=== PATIENT | male | born 1965 | race Caucasian/White ===

== ENCOUNTER 2021-03-14 14:04 | Inpatient (IN) ==
[2021-03-14] MEDS ORDERED: SOLU-Medrol 125 MG VIAL IVP ONE (14:10)
[2021-03-14] MEDS ORDERED: REGEN-COV VIAL 10 ML, DRUG FILTER EXTENSION SET * 1 EA in NS 100 ML IV 100 ML IV ONE ×2 (14:10)
[2021-03-14] MEDS ORDERED: TYLENOL 325 MG TAB PO ONE (14:10)
--- NOTE | 2021-03-14 14:38 | RAD ---
HISTORYPre COVID-19 infusion, feverSTUDYChest PA and lateralCOMPARISONNoneFINDINGSHypo inflation accentuates the heart size. It is likely within normal limits. Bilateral perihilar interstitial infiltrates are present. Additionally bibasilar ground-glass and some alveolar infiltrates are present. The upper lung kulkarni are clear. No pleural effusions are identified. Bony thorax is unremarkable.IMPRESSIONPerihilar interstitial infiltrates and bibasilar ground-glass and alveolar infiltrates most consistent with multifocal pneumonia. Findings are consistent with but not necessarily diagnostic of COVID-19 lung involvementElectronically signed by: GABY CLARK (Mar 14, 2021 14:36:17)
[2021-03-14] MEDS ORDERED: NS 100 ML IV 100 ML ONE ×2 (14:59→16:05)
[2021-03-14] MEDS ORDERED: REMDESIVIR IV ONE (15:00)
[2021-03-14] MEDS ORDERED: REMDESIVIR 200 MG in NS 100 ML IV 140 ML IV ONE (15:00)
[2021-03-14] MEDS ORDERED: NS 250 ML IV 250 ML IV ONE (15:00)
[2021-03-14 15:10] LABS: BASOPHILS % (AUTO) 0.3 % (0.2-1.0); HEMATOCRIT 45.2 % (42.0-54.0); HEMOGLOBIN 15.6 g/dL (13.5-18.0); LYMPHOCYTES # (AUTO) 0.7 X10^3/uL (1.3-2.9); LYMPHOCYTES % (AUTO) 16.9 % (21.0-51.0); MEAN CORPUSCULAR HEMOGLOBIN 31.1 pg (27.0-34.0); MEAN CORPUSCULAR HGB CONC 34.6 g/dL (33.0-35.0); MEAN PLATELET VOLUME 8.9 fL (7.4-11.0); MONOCYTES # (AUTO) 0.3 x10^3/uL (0.3-0.8); MONOCYTES % (AUTO) 7.1 % (0.0-13.0); NEUTROPHILS % (AUTO) 75.7 % (42.0-75.0); PLATELET COUNT 136 X10^3/uL (150.0-450.0); RED BLOOD COUNT 5.02 X10^6/uL (4.7-6.0); RED CELL DISTRIBUTION WIDTH 12.8 % (11.6-16.5); WHITE BLOOD COUNT 3.9 X10^3/uL (3.6-10.0)
[2021-03-14 15:28] LABS: ALANINE AMINOTRANSFERASE 53 Units/L (12-78); ALBUMIN 2.9 g/dL (3.4-5.0); ALKALINE PHOSPHATASE 52 Units/L (46-116); ASPARTATE AMINO TRANSFERASE 48 Units/L (15-37); BLOOD UREA NITROGEN 28 mg/dL (7-18); CALCIUM 8.5 mg/dL (8.5-10.1); CARBON DIOXIDE 26.8 mmol/L (21-32); CHLORIDE 100 mmol/L (98-107); COR CA(FOR HYPOALB) 9.4 mg/dL (8.5-10.1); CREATININE 1.35 mg/dL (0.70-1.30); SODIUM 136 mmol/L (136-145); TOTAL PROTEIN 7.1 g/dL (6.4-8.2); eGFR NON BLACK RACES 59 (>60)
[2021-03-14] MEDS ORDERED: TUSSIONEX PENNKINETIC SUSP PO PRN (15:40)
[2021-03-14] MEDS ORDERED: ROBITUSSIN DM PO PRN (15:40)
[2021-03-14 15:51] LABS: ABG ALLEN TEST POS; ABG BASE EXCESS 0.8 mmol/L (-2.0-2.0)
[2021-03-14] MEDS ORDERED: PHARMACY CONSULT - IVERMECTIN XX SCH (16:00)
[2021-03-14 16:42] LABS: CKMB % 1.5 % (<4); CREATINE KINASE 69 Units/L (39-308); CREATINE KINASE MB < 1.0 ng/mL (0-4.0); TROPONIN I < 0.02 ng/mL (0-1.5)
--- NOTE | 2021-03-14 16:47 | CT ---
CTA CHESTCLINICAL INDICATION: SOB, HYPOXIA, COVIDPROCEDURE: Non gated axial images of the chest were obtained with intravenous contrast according to pulmonary embolism protocol. MIPS were reconstructed Dose reduction techniques including Automated Exposure Control (AEC) and adjustment of mA and kV were utlized.COMPARISON:NoneFINDINGS:No evidence of a pulmonary embolism to the level of the segmental pulmonary arteries.The heart is normal in size . No pericardial effusion . Patchy bilateral ground-glass opacities are present. No suspicious mediastinal or axillary lymph nodes . No focal consolidations, pleural effusions or pneumothorax .Airways are patent . No suspicious pulmonary nodules or masses .Limited images of the upper abdomen are unremarkable.No aggressive osseous lesions.IMPRESSION:1. No evidence of pulmonary embolism.2. Patchy bilateral ground-glass opacities consistent with acute, atypical infection including viral etiologies.Electronically signed by: PASTOR GOMEZ (Mar 14, 2021 16:45:27)
[2021-03-14] MEDS ORDERED: ACCUNEB 1.25 MG NEBULE NEB SCH (17:00)
[2021-03-14] MEDS ORDERED: NS 1/2 1000 ML IV 1,000 ML IV ONE (17:31)
[2021-03-14] MEDS: NS 1/2 1000 ML IV 1,000 ML IV SCH (17:53)
[2021-03-14] MEDS: HEPARIN SODIUM INJ 5000 UNITS SC SCH ×2 (17:54→22:03)
[2021-03-14] MEDS: IVERMECTIN PO SCH (17:55)
[2021-03-14] MEDS: FLUVOXAMINE MALEATE PO SCH ×2 (17:55→22:00)
[2021-03-14] MEDS: AVODART PO SCH (17:56)
[2021-03-14] MEDS: TESSALON PERLES PO SCH ×2 (17:56→22:04)
[2021-03-14] MEDS: PEPCID TAB 20 MG PO SCH ×2 (17:56→22:01)
[2021-03-14] MEDS: PERIACTIN TAB 4 MG PO SCH ×2 (17:56→22:03)
[2021-03-14] MEDS: PROTONIX TAB 40 MG PO SCH ×2 (17:57→22:02)
[2021-03-14] MEDS ORDERED: PULMICORT NEB TX 0.5 MG NEB ONE (19:38)
[2021-03-14] MEDS ORDERED: BROVANA ONE (19:39)
[2021-03-14] MEDS: SNACK - Diabetic Appropriate PO SCH (19:45)
[2021-03-14] MEDS: BROVANA IN SCH (20:30)
[2021-03-14] MEDS: PULMICORT NEB TX 0.5 MG NEB SCH (20:30)
[2021-03-14] MEDS ORDERED: LOVENOX INJ 120 MG SYR SC SCH (21:00)
[2021-03-14] MEDS: SINGULAIR TAB 10 MG PO SCH (21:32)
[2021-03-14] MEDS: SOLU-Medrol 125 MG VIAL IVP SCH (21:32)
[2021-03-14] MEDS: MELATONIN PO SCH (21:32)
[2021-03-14] MEDS: ASCORBIC ACID INJ MULTI-DOSE VIAL 1,500 MG in NS 50 ML IV 50 ML IV SCH (21:32)
[2021-03-14] MEDS: LIPITOR TAB 80 MG PO SCH (21:32)
[2021-03-14] MEDS: FORTAZ or TAZICEF VIAL INJ IV SCH (21:32)
[2021-03-14] MEDS: THIAMINE HCL INJ IVP SCH (21:32)
[2021-03-14] MEDS: TYLENOL 325 MG TAB PO PRN (22:20)
[2021-03-15] MEDS: ASCORBIC ACID INJ MULTI-DOSE VIAL 1,500 MG in NS 50 ML IV 50 ML IV SCH ×4 (02:12→21:11)
[2021-03-15] MEDS: SOLU-Medrol 125 MG VIAL IVP SCH ×4 (02:12→21:10)
[2021-03-15] MEDS ORDERED: NS 1/2 1000 ML IV 1,000 ML IV ONE ×2 (04:46→17:57)
[2021-03-15 05:30] LABS: ABG ALLEN TEST POS; ABG BASE EXCESS 1.1 mmol/L (-2.0-2.0); ABG HCO3 25.1 mmol/L (22-26)
[2021-03-15] MEDS: HEPARIN SODIUM INJ 5000 UNITS SC SCH ×3 (05:43→22:27)
[2021-03-15] MEDS: FORTAZ or TAZICEF VIAL INJ IV SCH ×3 (05:43→21:12)
[2021-03-15] MEDS: NS 1/2 1000 ML IV 1,000 ML IV SCH ×2 (05:43→18:23)
[2021-03-15] MEDS: PERIACTIN TAB 4 MG PO SCH ×3 (05:44→21:11)
[2021-03-15] MEDS: TESSALON PERLES PO SCH ×3 (05:44→21:12)
[2021-03-15 06:23] LABS: BASOPHILS % (AUTO) 0.2 % (0.2-1.0); HEMATOCRIT 45.1 % (42.0-54.0); HEMOGLOBIN 15.7 g/dL (13.5-18.0); LYMPHOCYTES # (AUTO) 0.5 X10^3/uL (1.3-2.9); LYMPHOCYTES % (AUTO) 13.8 % (21.0-51.0); MEAN CORPUSCULAR HEMOGLOBIN 31.6 pg (27.0-34.0); MEAN CORPUSCULAR HGB CONC 34.9 g/dL (33.0-35.0); MEAN CORPUSCULAR VOLUME 90.8 fL (80.0-100.0); MEAN PLATELET VOLUME 8.8 fL (7.4-11.0); MONOCYTES # (AUTO) 0.1 x10^3/uL (0.3-0.8); MONOCYTES % (AUTO) 3.3 % (0.0-13.0); NEUTROPHILS # (AUTO) 2.9 x10^3/uL (2.2-4.8); NEUTROPHILS % (AUTO) 82.7 % (42.0-75.0); PLATELET COUNT 142 X10^3/uL (150.0-450.0); RED BLOOD COUNT 4.97 X10^6/uL (4.7-6.0); RED CELL DISTRIBUTION WIDTH 12.9 % (11.6-16.5); WHITE BLOOD COUNT 3.5 X10^3/uL (3.6-10.0)
[2021-03-15 06:38] LABS: ALANINE AMINOTRANSFERASE 45 Units/L (12-78); ALBUMIN 2.6 g/dL (3.4-5.0); ALKALINE PHOSPHATASE 51 Units/L (46-116); ASPARTATE AMINO TRANSFERASE 46 Units/L (15-37); BLOOD UREA NITROGEN 24 mg/dL (7-18); CALCIUM 8.7 mg/dL (8.5-10.1); CARBON DIOXIDE 28.5 mmol/L (21-32); CHLORIDE 104 mmol/L (98-107); COR CA(FOR HYPOALB) 9.8 mg/dL (8.5-10.1); COR NA(FOR HYPERGLY) 140 mmol/L (136-145); CREATININE 1.14 mg/dL (0.70-1.30); SODIUM 139 mmol/L (136-145); eGFR NON BLACK RACES > 60 (>60)
--- NOTE | 2021-03-15 07:28 | RAD ---
HISTORYShortness of breathSTUDYChest AP [id number]/25/2021 chest x-ray and CTA chestFINDINGSHeart is upper limits normal in size. No congestive heart failure is noted. The lungs are better inflated than on the prior examination. Diffuse bilateral interstitial and ground-glass infiltrates are slightly less prominent than on the prior examination likely due to improve film technique and better inspiration. No pleural effusions or pneumothoraces are identified. Bony thorax is unremarkable.IMPRESSIONNo change cardiomegaly without congestive heart failureBilateral interstitial and ground-glass infiltrates are slightly less prominent on the prior examination likely partially due to improved film technique and better inspiration.Electronically signed by: GABY CLARK (Mar 15, 2021 07:27:22)
[2021-03-15] MEDS: PULMICORT NEB TX 0.5 MG NEB SCH ×2 (08:27→20:35)
[2021-03-15] MEDS: BROVANA IN SCH ×2 (08:27→20:35)
[2021-03-15] MEDS: AVODART PO SCH (08:46)
[2021-03-15] MEDS: PEPCID TAB 20 MG PO SCH ×2 (08:46→21:11)
[2021-03-15] MEDS: PROTONIX TAB 40 MG PO SCH ×2 (08:46→21:11)
[2021-03-15] MEDS: FLUVOXAMINE MALEATE PO SCH ×2 (08:46→21:12)
[2021-03-15] MEDS: THIAMINE HCL INJ IVP SCH ×2 (08:47→21:12)
[2021-03-15] MEDS: VITAMIN D3 125 mcg (5,000 UNITS) PO SCH (08:53)
[2021-03-15] MEDS: ZyrTEC TAB 10 MG PO SCH (08:53)
[2021-03-15] MEDS: IVERMECTIN PO SCH (09:50)
[2021-03-15] MEDS: LEVAQUIN PREMIX IV 500 MG 500 MG/100 ML BAG IV SCH (09:50)
[2021-03-15] MEDS: ZINC SULFATE PO SCH (09:50)
[2021-03-15] MEDS: REMDESIVIR 100 MG in NS 250 ML IV 250 ML IV SCH (10:30)
[2021-03-15] MEDS: TYLENOL 325 MG TAB PO PRN ×2 (11:03→18:55)
[2021-03-15] MEDS: HumuLIN R SUBCUT PRN ×2 (11:08→17:42)
--- NOTE | 2021-03-15 11:47 | DR.H&P ---
H&P - History & Physical for Day of: H&P Date: 03/14/21 - Chief Complaint Chief Complaint: COVID, COUGH, SOB - History of Present Illness History of Present Illness: IS A 55 YEAR OLD PATIENT OF OURS. HE WAS A DIRECT ADMISSION TO THE HOSPITAL FOR DIAGNOSIS OF PNEUMONIA DUE TO COVID-19 AND HYPOXIA. HE WAS AT THE HOSPITAL TO RECEIVE OUTPATIENT COVID INFUSION. BEFORE RECEIVING INFUSION, HIS OXYGEN SATURATIONS WERE NOTED TO BE 82% ON ROOM AIR. PATIENT WAS ALSO NOTED TO BE CYANOTIC. OXYGEN WAS APPLIED. OXYGEN SATURATIONS HAD ONLY INCREASED TO 87% ON 5 LITERS OF OXYGEN VIA NASAL CANNULA. PATIENT HAD ALSO TAKEN IVERMECTIN X 2 DOSES, A MEDROL DOSEPACK, LEVAQUIN 500MG PO DAILY, AZITHROMYCIN 500MG PO DAILY, AND TUSSIONEX COUGH MEDICATION. HIS PMH INCLUDES: OBESITY, HTN, GERD, HYPERLIPIDEMIA. ON ARRIVAL TO THE UNIT, VITALS WERE 98.2- 87-18-82%-119/57. LABS WERE OBTAINED. ABNORMAL LAB VALUES INCLUDED THE FOLLOWING: PLT COUNT 136, BUN 28, CREATININE 1.35, GLUCOSE 107, AST 48, CRP 83.70, ALBUMIN 2.9. CARDIAC ENZYMES WERE WITHIN NORMAL LIMITS. AN ABG WAS OBTAINED AND REVEALED: PH 7.470, PC02 33, P02 56, HC03 24, 02 SAT 91, A-A GRADIENT 159, FI02 36. BLOOD CULTURES WERE SET UP. CHEST XRAY WAS OBTAINED AND REVEALED: MILD WORSENING OF BILATERAL MULTIFOCAL LUNG INFILTRATES. CHEST CTA REVEALED: Perihilar interstitial infiltrates and bibasilar ground-glass and alveolar infiltrates most consistent with multifocal pneumonia. Findings are consistent with but not necessarily diagnostic of COVID-19 lung involvement. CHEST CTA WAS OBTAINED AND REVEALED: 1. No evidence of pulmonary embolism. 2. Patchy bilateral ground-glass opacities consistent with acute, atypical infection including viral etiologies. EKG REVEALED: SINUS RHYTHM WITH HR 90. HE WAS STARTED ON 1/2NS AT 75 ML/HR, LEVAQUIN 500MG IV DAILY, FORTAZ 1G IV Q8H, REMDESIVIR 100MG IV DAILY, ASCORBIC ACID 1500MG IV Q6H, ALBUTEROL NEBS QID, PULMICORT NEBS BID, BROVANA INHALER BID, SOLU-MEDROL 125MG IV Q6H, FLUVOXAMINE 50MG PO BID, CYPROHEPTADINE 8MG PO TID, AVODART DAILY, HEPARIN 5,000UNITS SC TID, LIPITOR 80MG PO HS, TESSALON PERLES 200MG PO TID, CETIRIZINE 10MG PO DAILY, TUSSIONEX 5ML PO Q12H PRN, PEPCID 20MG PO BID, ROBITUSSIN DM 10ML PO QID PRN, HUMULIN R SLIDING SCALE, MELATONIN 10MG PO HS, SINGULAIR 10MG PO HS, PROTONIX 40MG PO BID, THIAMINE 200MG IV BID, AND ZINC SULFATE 220MG PO BID. OTHERWISE, WE PLAN TO FOLLOW UP WITH AM LABS AND CHEST XRAY AND CONTINUE TO MONITOR. TIME SPENT ON CLINICAL ASSESSMENT, REVIEWING LABS AND IMAGING, DECISION MAKING, AND DOCUMENTATION GREATER THAN 75 MINUTES. - Past Medical History Past Medical History: Dyslipidemia, GERD, Hypertension - Medications Home Medications: No Allergy Information Available Allergy (Verified 03/14/21 14:24) CONTINUE taking the following medications atorvastatin 20 mg PO HS 03/15/21 [History] azithromycin 500 mg PO DAILY 03/15/21 [History] escitalopram oxalate 20 mg PO DAILY 03/15/21 [History] fenofibrate 160 mg PO DAILY 03/15/21 [History] ivermectin 24 mg PO ONCE 03/15/21 [History] levofloxacin 500 mg PO DAILY 03/15/21 [History] lisinopril 10 mg PO DAILY 03/15/21 [History] methylprednisolone 12 mg PO DAILY 03/15/21 [History] metoprolol succinate 100 mg PO DAILY 03/15/21 [History] pantoprazole 40 mg PO DAILY 03/15/21 [History] temazepam 15 mg PO HS PRN 03/15/21 [History] - Review of Systems Constitutional: See HPI, Fever, Chills, Weakness Eyes: No Symptoms Reported ENT: No Symptoms Reported Respiratory: See HPI, Cough, Shortness of Breath, SOB with Excertion Cardiovascular: No Symptoms Reported Gastrointestinal: No Symptoms Reported Genitourinary: No Symptoms Reported Musculoskeletal: No Symptoms Reported Skin: No Symptoms Reported Neurological: Weakness - Physical Exam Vital Signs: Temperature 98.3 F Pulse Rate [Left Radial] 77 Pulse Rate 80 Respiratory Rate 20 Blood Pressure [Left Arm] 128/75 O2 Sat by Pulse Oximetry 89 Oriented: Normal Eyes: Normal Ear: Normal Nose: Normal Throat: Normal Respiratory: Rales Throughout Cardiovascular: Normal : Normal Auscultation: Bowel Sounds: Normal Palpation: Normal Tenderness: Normal Skin: Normal Musculoskeletal: Normal Psychiatric: Normal Mood Description: Calm Affect: Normal Speech Pattern: Clear - Assessment/Plan (1) Pneumonia due to COVID-19 virus Status: Acute Plan: ADMIT, SUPPLEMENTAL OXYGEN, 1/2NS AT 75 ML/HR, LEVAQUIN 500MG IV DAILY, FORTAZ 1G IV Q8H, REMDESIVIR 100MG IV DAILY, ASCORBIC ACID 1500MG IV Q6H, ALBUTEROL NEBS QID, PULMICORT NEBS BID, BROVANA INHALER BID, SOLU-MEDROL 125MG IV Q6H, FLUVOXAMINE 50MG PO BID, CYPROHEPTADINE 8MG PO TID, AVODART DAILY, HEPARIN 5,000UNITS SC TID, LIPITOR 80MG PO HS, TESSALON PERLES 200MG PO TID, CETIRIZINE 10MG PO DAILY, TUSSIONEX 5ML PO Q12H PRN, PEPCID 20MG PO BID, ROBITUSSIN DM 10ML PO QID PRN, HUMULIN R SLIDING SCALE, MELATONIN 10MG PO HS, SINGULAIR 10MG PO HS, PROTONIX 40MG PO BID, THIAMINE 200MG IV BID, AND ZINC SULFATE 220MG PO BID. (2) Hypoxia Status: Acute (3) HTN (hypertension) Qualifiers: Hypertension type: primary hypertension Qualified Code(s): I10 - Essential (primary) hypertension Status: Chronic (4) GERD (gastroesophageal reflux disease) Qualifiers: Esophagitis presence: esophagitis presence not specified Qualified Code(s): K21.9 - Gastro-esophageal reflux disease without esophagitis Status: Chronic (5) Obesity Qualifiers: Obesity type: unspecified obesity type Obesity classification: adult class 2 (BMI 35 - 39.9) Serious obesity comorbidity presence: unspecified whether serious comorbidity present Body mass index: BMI 36.0-36.9 Qualified Code(s): E66.9 - Obesity, unspecified; Z68.36 - Body mass index [BMI] 36.0-36.9, adult Status: Chronic - Allergies Allergies/Adverse Reactions: Allergies Allergy/AdvReac Type Severity Reaction Status Date / Time No Allergy Information Allergy Verified 03/14/21 14:24 Available
[2021-03-15] MEDS: SNACK - Diabetic Appropriate PO SCH (20:10)
[2021-03-15] MEDS: MELATONIN PO SCH (21:10)
[2021-03-15] MEDS: LIPITOR TAB 80 MG PO SCH (21:11)
[2021-03-15] MEDS: SINGULAIR TAB 10 MG PO SCH (21:11)
[2021-03-16] MEDS: ASCORBIC ACID INJ MULTI-DOSE VIAL 1,500 MG in NS 50 ML IV 50 ML IV SCH ×4 (03:15→20:56)
[2021-03-16] MEDS: SOLU-Medrol 125 MG VIAL IVP SCH ×4 (03:15→20:55)
[2021-03-16] MEDS: HEPARIN SODIUM INJ 5000 UNITS SC SCH ×3 (05:45→21:20)
[2021-03-16] MEDS: PERIACTIN TAB 4 MG PO SCH ×3 (05:45→21:00)
[2021-03-16] MEDS: TESSALON PERLES PO SCH ×3 (05:46→21:00)
[2021-03-16] MEDS: FORTAZ or TAZICEF VIAL INJ IV SCH ×3 (05:46→21:00)
[2021-03-16 06:24] LABS: ABG BASE EXCESS 0.2 mmol/L (-2.0-2.0); ABG HCO3 23.5 mmol/L (22-26)
[2021-03-16 06:27] LABS: ABG ALLEN TEST POS
--- NOTE | 2021-03-16 06:50 | RAD ---
HISTORYSOBSTUDYPortable AP [id number]/26/2021FINDINGSSimilar cardiomegaly. Interval increase in bilateral airspace disease especially in the right upper lobe. There is no evidence for associated pleural fluid or complicating pneumothorax.IMPRESSIONIncreasing pulmonary infiltrates especially right upper lobe consistent with progression of pneumonia.Electronically signed by: ESTEPHANIA ROB (Mar 16, 2021 06:48:15)
[2021-03-16] MEDS: NS 1/2 1000 ML IV 1,000 ML IV SCH ×2 (06:52→20:20)
[2021-03-16 07:11] LABS: ALANINE AMINOTRANSFERASE 36 Units/L (12-78); ALBUMIN 2.4 g/dL (3.4-5.0); ALKALINE PHOSPHATASE 48 Units/L (46-116); ASPARTATE AMINO TRANSFERASE 44 Units/L (15-37); BLOOD UREA NITROGEN 24 mg/dL (7-18); CALCIUM 8.4 mg/dL (8.5-10.1); CARBON DIOXIDE 29.3 mmol/L (21-32); CHLORIDE 106 mmol/L (98-107); COR CA(FOR HYPOALB) 9.7 mg/dL (8.5-10.1); COR NA(FOR HYPERGLY) 144 mmol/L (136-145); SODIUM 143 mmol/L (136-145); TOTAL PROTEIN 6.4 g/dL (6.4-8.2); eGFR NON BLACK RACES > 60 (>60)
[2021-03-16] MEDS: AVODART PO SCH (08:51)
[2021-03-16] MEDS: IVERMECTIN PO SCH (08:51)
[2021-03-16] MEDS: FLUVOXAMINE MALEATE PO SCH ×2 (08:51→20:55)
[2021-03-16] MEDS: LEVAQUIN PREMIX IV 500 MG 500 MG/100 ML BAG IV SCH (08:53)
[2021-03-16] MEDS: PEPCID TAB 20 MG PO SCH ×2 (08:53→20:54)
[2021-03-16] MEDS: PROTONIX TAB 40 MG PO SCH ×2 (08:53→20:54)
[2021-03-16] MEDS: REMDESIVIR 100 MG in NS 250 ML IV 250 ML IV SCH (08:53)
[2021-03-16] MEDS: ZyrTEC TAB 10 MG PO SCH (08:54)
[2021-03-16] MEDS: VITAMIN D3 125 mcg (5,000 UNITS) PO SCH (08:54)
[2021-03-16] MEDS: THIAMINE HCL INJ IVP SCH ×2 (08:54→20:55)
[2021-03-16] MEDS: ZINC SULFATE PO SCH (08:54)
[2021-03-16] MEDS: BROVANA IN SCH ×2 (09:15→22:10)
[2021-03-16] MEDS: PULMICORT NEB TX 0.5 MG NEB SCH ×2 (09:15→22:10)
--- NOTE | 2021-03-16 11:21 | PCM.PROG ---
Progress Note - Progress Note for Day of Date of Exam: 03/16/21 - Subjective Subjective: MR. MARMOLEJO WAS ADMITTED FOR TREATMENT OF COVID PNEUMONIA AND HYPOXIA. PMH: OBESITY, GERD, HTN. TODAY, HE IS LYING IN THE BED IN THE PRONE POSITION. HE IS CURRENTLY UTILIZING THE NON-REBREATHER. HE APPARENTLY HAD A COUGHING SPELL THIS MORNING. SATURATIONS DECREASED TO THE 70s AND IT WAS DIFFIC ULT FOR SATURATIONS TO REBOUND. HE CONTINUES WITH COMPLAINTS OF SHORTNESS OF BREATH AND WEAKNESS TODAY. HIS SATURATIONS HAVE BEEN 87-92% ON 5 LPM THROUGHOUT THE NIGHT. ON EXAMINATION, HEART IS REGULAR IN RATE AND RHYTHM. BILATERAL LUNGS ARE NOTED WITH RALES THROUGHOUT. ABDOMEN IS ROUND, SOFT, AND NON-TENDER WITH NORMAL BOWEL SOUNDS NOTED IN ALL QUADRANTS. HIS VITALS THIS MORNING ARE: 99.2-66-20-92%-121/60. LABS WERE OBTAINED. ABNORMAL LAB VALUES INCLUDE THE FOLLOWING: WBC 3.5, PLT COUNT 142, BUN 24, GLUCOSE 146, CALCIUM 8.4, FERRITIN 5974, AST 44, CRP 33.50, BNP 143, ALBUMIN 2.4. BLOOD CULTURES ARE PENDING. A CHEST XRAY WAS OBTAINED AND REVEALED: Increasing pulmonary infiltrates especially right upper lobe consistent with progression of pneumonia. HE IS CURRENTLY RECEIVING 1/2NS AT 75 ML/HR, LEVAQUIN 500MG IV DAILY, FORTAZ 1G IV Q8H, REMDESIVIR 100MG IV DAILY, ASCORBIC ACID 1500MG IV Q6H, ALBUTEROL NEBS QID, PULMICORT NEBS BID, BROVANA INHALER BID, SOLU-MEDROL 125MG IV Q6H, FLUVOXAMINE 50MG PO BID, CYPROHEPTADINE 8MG PO TID, AVODART DAILY, HEPARIN 5,000UNITS SC TID, LIPITOR 80MG PO HS, TESSALON PERLES 200MG PO TID, CETIRIZINE 10MG PO DAILY, TUSSIONEX 5ML PO Q12H PRN, PEPCID 20MG PO BID, ROBITUSSIN DM 10ML PO QID PRN, HUMULIN R SLIDING SCALE, MELATONIN 10MG PO HS, SINGULAIR 10MG PO HS, PROTONIX 40MG PO BID, THIAMINE 200MG IV BID, AND ZINC SULFATE 220MG PO BID. WE WILL CONTINUE WITH CURRENT PLAN OF CARE TODAY AND ATTEMPT TO WEAN DOWN OXYGEN HE TOLERATES IT. OTHERWISE, WE WILL FOLLOW UP WITH AM LABS, CHEST XRAY, ABG, AND CONTINUE TO MONITOR. TIME SPENT ON CLINICAL ASSESSMENT, REVIEWING LABS AND IMAGING, DECISION MAKING, AND DOCUMENTATION GREATER THAN 45 MINUTES. - Past Medical Family Social History Past Med/Fam/Surg Hx: No changes since H&P Allergies: Allergies No Allergy Information Available Allergy (Verified 03/14/21 14:24) - Review of Systems ROS: No change since H&P - Vital Signs and I&O's Vital Signs: Temperature 99.2 F Pulse Rate [Left Radial] 66 Pulse Rate 74 Respiratory Rate 20 Blood Pressure [Left Arm] 121/60 O2 Sat by Pulse Oximetry 92 Intake and Output: Intake & Output 03/13/21 03/14/21 03/15/21 03/16/21 11:59 11:59 11:59 11:59 Intake Total 1867 / 1867 2920 / 2920 Output Total 1999 2280 / 2280 Balance -133 / -133 640 / 640 - Physical Exam Oriented: Normal Eyes: Normal Ear: Normal Nose: Normal Throat: Normal Respiratory: Generalized, Diminished, Rales Cardiovascular: Normal : Normal Auscultation: Bowel Sounds: Normal Palpation: Normal Tenderness: Normal Skin: Normal Musculoskeletal: Normal Psychiatric: Normal Mood Description: Calm Affect: Normal Speech Pattern: Clear, Appropriate - Laboratory and Diagnostics Result Diagrams: 03/16/21 05:43 03/16/21 05:43 Labs: 03/14/21 16:39 Blood Blood Culture - Preliminary 03/14/21 16:35 Blood Blood Culture - Preliminary Laboratory WBC 3.5 X10^3/uL (3.6-10.0) L 03/15/21 05:45 RBC 4.97 X10^6/uL (4.7-6.0) 03/15/21 05:45 Hgb 15.7 g/dL (13.5-18.0) 03/15/21 05:45 Hct 45.1 % (42.0-54.0) 03/15/21 05:45 MCV 90.8 fL (80.0-100.0) 03/15/21 05:45 MCH 31.6 pg (27.0-34.0) 03/15/21 05:45 MCHC 34.9 g/dL (33.0-35.0) 03/15/21 05:45 RDW 12.9 % (11.6-16.5) 03/15/21 05:45 Plt Count 170 X10^3/uL (150.0-450.0) 03/16/21 05:43 MPV 8.8 fL (7.4-11.0) 03/15/21 05:45 Neut % (Auto) 82.7 % (42.0-75.0) H 03/15/21 05:45 Lymph % (Auto) 13.8 % (21.0-51.0) L 03/15/21 05:45 Vermilion % (Auto) 3.3 % (0.0-13.0) 03/15/21 05:45 Eos % (Auto) 0.0 % (0.9-2.9) L 03/15/21 05:45 Baso % (Auto) 0.2 % (0.2-1.0) 03/15/21 05:45 Neut # (Auto) 2.9 x10^3/uL (2.2-4.8) 03/15/21 05:45 Lymph # (Auto) 0.5 X10^3/uL (1.3-2.9) L 03/15/21 05:45 Vermilion # (Auto) 0.1 x10^3/uL (0.3-0.8) L 03/15/21 05:45 Eos # (Auto) 0.0 x10^3/uL (0.0-0.2) 03/15/21 05:45 Baso # (Auto) 0.0 X10^3/uL (0.0-0.1) 03/15/21 05:45 Absolute Nucleated RBC 0.1 /100WBC 03/15/21 05:45 APTT 31.0 SECONDS (22.9-36.5) 03/16/21 05:43 PTT Comment - 03/16/21 05:43 D-Dimer 0.30 ug/ml (0.0-0.57) 03/16/21 05:43 Sample Site [facility] 03/16/21 06:20 ABG pH 7.460 (7.35-7.45) H 03/16/21 06:20 ABG pCO2 33.0 mmHg (35.0-45.0) L 03/16/21 06:20 ABG pO2 38.0 mmHg (80.0-100.0) L* 03/16/21 06:20 ABG HCO3 23.5 mmol/L (22-26) 03/16/21 06:20 ABG O2 Saturation 76.0 % (90-100) L* 03/16/21 06:20 ABG Base Excess 0.2 mmol/L (-2.0-2.0) 03/16/21 06:20 Corky Test Pos 03/16/21 06:20 A-a Gradient 234.0 mmHg 03/16/21 06:20 FiO2 44.0 03/16/21 06:20 Blood Gas Comments Tols well. sk nc 6 03/16/21 06:20 Sodium 143 mmol/L (136-145) 03/16/21 05:43 Corrected Sodium 144 mmol/L (136-145) 03/16/21 05:43 Potassium 4.5 mmol/L (3.5-5.1) 03/16/21 05:43 Chloride 106 mmol/L (98-107) 03/16/21 05:43 Carbon Dioxide 29.3 mmol/L (21-32) 03/16/21 05:43 BUN 24 mg/dL (7-18) H 03/16/21 05:43 Creatinine 1.20 mg/dL (0.70-1.30) 03/16/21 05:43 Est GFR (MDRD) Af Amer > 60 (>60) 03/16/21 05:43 Est GFR (MDRD) Non-Af > 60 (>60) 03/16/21 05:43 Glucose 146 mg/dL (65-99) H 03/16/21 05:43 POC Glucose (mg/dL) 138 mg/dL (65-99) H 03/16/21 11:01 Calcium 8.4 mg/dL (8.5-10.1) L 03/16/21 05:43 Corrected Calcium 9.7 mg/dL (8.5-10.1) 03/16/21 05:43 Ferritin 5974 ng/mL (26-388) H 03/16/21 05:43 Total Bilirubin 0.30 mg/dL (0.2-1.0) 03/16/21 05:43 AST 44 Units/L (15-37) H 03/16/21 05:43 ALT 36 Units/L (12-78) 03/16/21 05:43 Alkaline Phosphatase 48 Units/L (46-116) 03/16/21 05:43 Creatine Kinase 69 Units/L (39-308) 03/14/21 14:54 CK-MB (CK-2) < 1.0 ng/mL (0-4.0) 03/14/21 14:54 CK/CKMB % Calc 1.5 % (<4) 03/14/21 14:54 Troponin I < 0.02 ng/mL (0-1.5) 03/14/21 14:54 C-Reactive Protein 33.50 mg/L (0-3.0) H 03/16/21 05:43 B-Natriuretic Peptide 143 pg/mL (0-79) H 03/16/21 05:43 Total Protein 6.4 g/dL (6.4-8.2) 03/16/21 05:43 Albumin 2.4 g/dL (3.4-5.0) L 03/16/21 05:43 Globulin 4.0 g/dL (2.5-4.5) 03/16/21 05:43 Albumin/Globulin Ratio 0.6 Ratio (1.1-2.1) L 03/16/21 05:43 - Plan (1) Pneumonia due to COVID-19 virus Status: Acute Plan: SUPPLEMENTAL OXYGEN, 1/2NS AT 75 ML/HR, LEVAQUIN 500MG IV DAILY, FORTAZ 1G IV Q8H, REMDESIVIR 100MG IV DAILY, ASCORBIC ACID 1500MG IV Q6H, ALBUTEROL NEBS QID, PULMICORT NEBS BID, BROVANA INHALER BID, SOLU-MEDROL 125MG IV Q6H, FLUVOXAMINE 50MG PO BID, CYPROHEPTADINE 8MG PO TID, AVODART DAILY, HEPARIN 5,000UNITS SC TID, LIPITOR 80MG PO HS, TESSALON PERLES 200MG PO TID, CETIRIZINE 10MG PO DAILY, TUSSIONEX 5ML PO Q12H PRN, PEPCID 20MG PO BID, ROBITUSSIN DM 10ML PO QID PRN, HUMULIN R SLIDING SCALE, MELATONIN 10MG PO HS, SINGULAIR 10MG PO HS, PROTONIX 40MG PO BID, THIAMINE 200MG IV BID, AND ZINC SULFATE 220MG PO BID. (2) Hypoxia Status: Acute (3) HTN (hypertension) Status: Chronic Qualifiers: Hypertension type: primary hypertension Qualified Code(s): I10 - Essential (primary) hypertension (4) GERD (gastroesophageal reflux disease) Status: Chronic Qualifiers: Esophagitis presence: esophagitis presence not specified Qualified Code(s): K21.9 - Gastro-esophageal reflux disease without esophagitis (5) Obesity Status: Chronic Qualifiers: Obesity type: unspecified obesity type Obesity classification: adult class 2 (BMI 35 - 39.9) Serious obesity comorbidity presence: unspecified whether serious comorbidity present Body mass index: BMI 36.0-36.9 Qualified Code(s): E66.9 - Obesity, unspecified; Z68.36 - Body mass index [BMI] 36.0-36.9, adult
[2021-03-16] MEDS ORDERED: COLACE CAP 100 MG PO ONE (13:26)
[2021-03-16] MEDS ORDERED: NORCO 5/325 MG TAB ONE (13:27)
[2021-03-16] MEDS: NORCO 5/325 MG TAB PO PRN (13:46)
[2021-03-16] MEDS: COLACE CAP 100 MG PO PRN (13:47)
[2021-03-16] MEDS: MELATONIN PO SCH (20:54)
[2021-03-16] MEDS: SNACK - Diabetic Appropriate PO SCH (20:54)
[2021-03-16] MEDS: SINGULAIR TAB 10 MG PO SCH (20:55)
[2021-03-16] MEDS: LIPITOR TAB 80 MG PO SCH (20:55)
[2021-03-16] MEDS ORDERED: NS 1/2 1000 ML IV 1,000 ML IV ONE (21:16)
[2021-03-17] MEDS: ASCORBIC ACID INJ MULTI-DOSE VIAL 1,500 MG in NS 50 ML IV 50 ML IV SCH ×4 (02:52→21:49)
[2021-03-17] MEDS: SOLU-Medrol 125 MG VIAL IVP SCH ×4 (02:52→21:47)
[2021-03-17 05:05] LABS: ABG BASE EXCESS 2.1 mmol/L (-2.0-2.0); ABG HCO3 25.1 mmol/L (22-26)
[2021-03-17 05:07] LABS: ABG ALLEN TEST POSS
[2021-03-17] MEDS: HEPARIN SODIUM INJ 5000 UNITS SC SCH ×3 (06:12→22:03)
[2021-03-17] MEDS: PERIACTIN TAB 4 MG PO SCH ×3 (06:12→21:48)
[2021-03-17] MEDS: FORTAZ or TAZICEF VIAL INJ IV SCH ×3 (06:12→21:47)
[2021-03-17] MEDS: TESSALON PERLES PO SCH ×3 (06:14→21:48)
[2021-03-17 07:33] LABS: ALANINE AMINOTRANSFERASE 26 Units/L (12-78); ALBUMIN 2.4 g/dL (3.4-5.0); ALKALINE PHOSPHATASE 54 Units/L (46-116); ASPARTATE AMINO TRANSFERASE 44 Units/L (15-37); BLOOD UREA NITROGEN 27 mg/dL (7-18); CALCIUM 7.9 mg/dL (8.5-10.1); CARBON DIOXIDE 25.6 mmol/L (21-32); CHLORIDE 106 mmol/L (98-107); COR CA(FOR HYPOALB) 9.2 mg/dL (8.5-10.1); COR NA(FOR HYPERGLY) 142 mmol/L (136-145); CREATININE 1.03 mg/dL (0.70-1.30); SODIUM 141 mmol/L (136-145); TOTAL PROTEIN 6.1 g/dL (6.4-8.2); eGFR NON BLACK RACES > 60 (>60)
--- NOTE | 2021-03-17 08:55 | RAD ---
HISTORYSOBSTUDYPortable AP [id number]/2021FINDINGSStable cardiac enlargement. Bilateral diffuse airspace disease is noted with slight improvement in the right upper lobe and progression in the right base. There is no change in appearance of similar findings in the left lung. No pleural fluid is identified.IMPRESSIONPersistent cardiomegaly and bilateral pulmonary infiltrates consistent with pneumonia. The rapid interval shifting of involvement in right upper/lower lobes is suggestive of a component of pulmonary edema.Electronically signed by: ESTEPHANIA ROB (Mar 17, 2021 08:53:46)
[2021-03-17 08:56] LABS: BASOPHILS % (AUTO) 0.2 % (0.2-1.0); HEMATOCRIT 45.3 % (42.0-54.0); HEMOGLOBIN 15.4 g/dL (13.5-18.0); LYMPHOCYTES # (AUTO) 0.4 X10^3/uL (1.3-2.9); LYMPHOCYTES % (AUTO) 4.7 % (21.0-51.0); MEAN CORPUSCULAR HEMOGLOBIN 30.8 pg (27.0-34.0); MEAN CORPUSCULAR VOLUME 90.5 fL (80.0-100.0); MEAN PLATELET VOLUME 9.5 fL (7.4-11.0); MONOCYTES # (AUTO) 0.5 x10^3/uL (0.3-0.8); MONOCYTES % (AUTO) 6.1 % (0.0-13.0); NEUTROPHILS # (AUTO) 7.2 x10^3/uL (2.2-4.8); PLATELET COUNT 181 X10^3/uL (150.0-450.0); RED BLOOD COUNT 5.01 X10^6/uL (4.7-6.0); RED CELL DISTRIBUTION WIDTH 13.3 % (11.6-16.5); WHITE BLOOD COUNT 8.1 X10^3/uL (3.6-10.0)
[2021-03-17] MEDS: PULMICORT NEB TX 0.5 MG NEB SCH ×2 (09:29→22:01)
[2021-03-17] MEDS: BROVANA IN SCH ×2 (09:29→22:01)
[2021-03-17] MEDS: AVODART PO SCH (09:32)
[2021-03-17] MEDS: PROTONIX TAB 40 MG PO SCH ×2 (09:32→21:48)
[2021-03-17] MEDS: VITAMIN D3 125 mcg (5,000 UNITS) PO SCH (09:32)
[2021-03-17] MEDS: PEPCID TAB 20 MG PO SCH ×2 (09:32→21:49)
[2021-03-17] MEDS: FLUVOXAMINE MALEATE PO SCH ×2 (09:32→21:49)
[2021-03-17] MEDS: IVERMECTIN PO SCH (09:32)
[2021-03-17] MEDS: ZyrTEC TAB 10 MG PO SCH (09:32)
[2021-03-17] MEDS: ZINC SULFATE PO SCH (09:32)
[2021-03-17] MEDS: THIAMINE HCL INJ IVP SCH ×2 (09:33→21:47)
[2021-03-17] MEDS: LEVAQUIN PREMIX IV 500 MG 500 MG/100 ML BAG IV SCH (09:40)
--- NOTE | 2021-03-17 10:57 | PCM.PROG ---
Progress Note - Progress Note for Day of Date of Exam: 03/17/21 - Subjective Subjective: MR. MARMOLEJO WAS ADMITTED FOR TREATMENT OF COVID PNEUMONIA AND HYPOXIA. PMH: OBESITY, GERD, HTN. TODAY, HE IS SITTING UP IN THE CHAIR ON MORNING ROUNDS. HE IS CURRENTLY UTILIZING HEATED HIGH FLOW OXYGEN. HE APPARENTLY HAD A COUGHING SPELL WITH THICK YELLOW SPUTUM JUST PRIOR TO ABG. HE CONTINUES WITH COMPLAINTS OF SHORTNESS OF BREATH AND WEAKNESS TODAY. HIS SATURATIONS HAVE BEEN 88-94% ON HEATED HIGH FLOW OXYGEN. ON EXAMINATION, HEART IS REGULAR IN RATE AND RHYTHM. BILATERAL LUNGS ARE NOTED WITH RALES THROUGHOUT. ABDOMEN IS ROUND, SOFT, AND NON-TENDER WITH NORMAL BOWEL SOUNDS NOTED IN ALL QUADRANTS. HIS VITALS THIS MORNING ARE: 97.8-94-76-88-132/54. LABS WERE OBTAINED. ABNORMAL LAB VALUES INCLUDE THE FOLLOWING: BUN 27, GLUCOSE 135, CALCIUM 7.9, FERRITIN 5685, AST 44, CRP 15.00, BNP 233, TOTAL PROTEIN 6.1, ALBUMIN 2.4. BLOOD CULTURES ARE PENDING. A CHEST XRAY WAS OBTAINED AND REVEALED: Persistent cardiomegaly and bilateral pulmonary infiltrates consistent with pneumonia. The rapid interval shifting of involvement in right upper/lower lobes is suggestive of a component of pulmonary edema. HE IS CURRENTLY RECEIVING 1/2NS AT 75 ML/HR, LEVAQUIN 500MG IV DAILY, FORTAZ 1G IV Q8H, REMDESIVIR 100MG IV DAILY, ASCORBIC ACID 1500MG IV Q6H, ALBUTEROL NEBS QID, PULMICORT NEBS BID, BROVANA INHALER BID, SOLU-MEDROL 125MG IV Q6H, FLUVOXAMINE 50MG PO BID, CYPROHEPTADINE 8MG PO TID, AVODART DAILY, HEPARIN 5,000UNITS SC TID, LIPITOR 80MG PO HS, TESSALON PERLES 200MG PO TID, CETIRIZINE 10MG PO DAILY, TUSSIONEX 5ML PO Q12H PRN, PEPCID 20MG PO BID, ROBITUSSIN DM 10ML PO QID PRN, HUMULIN R SLIDING SCALE, MELATONIN 10MG PO HS, SINGULAIR 10MG PO HS, PROTONIX 40MG PO BID, THIAMINE 200MG IV BID, AND ZINC SULFATE 220MG PO BID. WE WILL CONTINUE WITH CURRENT PLAN OF CARE TODAY AND ATTEMPT TO WEAN DOWN OXYGEN HE TOLERATES IT. WE WILL ADD MUCOMYST TO NEB [place]. OTHERWISE, WE WILL FOLLOW UP WITH AM LABS, CHEST XRAY, ABG, AND CONTINUE TO MONITOR. TIME SPENT ON CLINICAL ASSESSMENT, REVIEWING LABS AND IMAGING, DECISION MAKING, AND DOCUMENTATION GREATER THAN 45 MINUTES. - Past Medical Family Social History Past Med/Fam/Surg Hx: No changes since H&P Allergies: Allergies No Allergy Information Available Allergy (Verified 03/14/21 14:24) - Review of Systems ROS: No change since H&P - Vital Signs and I&O's Vital Signs: Temperature 97.7 F Pulse Rate [Left Radial] 65 Pulse Rate 50 Respiratory Rate 16 Blood Pressure [Left Arm] 132/54 O2 Sat by Pulse Oximetry 92 Intake and Output: Intake & Output 03/14/21 03/15/21 03/16/21 03/17/21 11:59 11:59 11:59 11:59 Intake Total 186 / 1867 2920 / 2920 4592 / 4592 Output Total 1999 2280 / 2280 2125 / 2125 Balance -133 / -133 640 / 640 2467 / 2467 - Physical Exam Oriented: Normal Eyes: Normal Ear: Normal Nose: Normal Throat: Normal Respiratory: Generalized, Diminished, Rales Cardiovascular: Normal : Normal Auscultation: Bowel Sounds: Normal Tenderness: Normal Skin: Normal Musculoskeletal: Normal Psychiatric: Normal Mood Description: Calm Affect: Normal Speech Pattern: Clear, Appropriate - Laboratory and Diagnostics Result Diagrams: 03/17/21 05:00 03/17/21 06:05 Labs: 03/14/21 16:39 Blood Blood Culture - Preliminary 03/14/21 16:35 Blood Blood Culture - Preliminary Laboratory WBC 8.1 X10^3/uL (3.6-10.0) 03/17/21 05:00 RBC 5.01 X10^6/uL (4.7-6.0) 03/17/21 05:00 Hgb 15.4 g/dL (13.5-18.0) 03/17/21 05:00 Hct 45.3 % (42.0-54.0) 03/17/21 05:00 MCV 90.5 fL (80.0-100.0) 03/17/21 05:00 MCH 30.8 pg (27.0-34.0) 03/17/21 05:00 MCHC 34.0 g/dL (33.0-35.0) 03/17/21 05:00 RDW 13.3 % (11.6-16.5) 03/17/21 05:00 Plt Count 181 X10^3/uL (150.0-450.0) 03/17/21 05:00 MPV 9.5 fL (7.4-11.0) 03/17/21 05:00 Neut % (Auto) 89.0 % (42.0-75.0) H 03/17/21 05:00 Lymph % (Auto) 4.7 % (21.0-51.0) L 03/17/21 05:00 [place] % (Auto) 6.1 % (0.0-13.0) 03/17/21 05:00 Eos % (Auto) 0.0 % (0.9-2.9) L 03/17/21 05:00 Baso % (Auto) 0.2 % (0.2-1.0) 03/17/21 05:00 Neut # (Auto) 7.2 x10^3/uL (2.2-4.8) H 03/17/21 05:00 Lymph # (Auto) 0.4 X10^3/uL (1.3-2.9) L 03/17/21 05:00 [place] # (Auto) 0.5 x10^3/uL (0.3-0.8) 03/17/21 05:00 Eos # (Auto) 0.0 x10^3/uL (0.0-0.2) 03/17/21 05:00 Baso # (Auto) 0.0 X10^3/uL (0.0-0.1) 03/17/21 05:00 Absolute Nucleated RBC 0.1 /100WBC 03/17/21 05:00 PT 13.5 SECONDS (11.8-14.3) 03/17/21 06:05 INR Target Range - 03/17/21 06:05 INR 1.09 (0.8-1.3) 03/17/21 06:05 APTT 26.6 SECONDS (22.9-36.5) 03/17/21 06:05 PTT Comment - 03/17/21 06:05 D-Dimer 0.38 ug/ml (0.0-0.57) 03/17/21 06:05 Sample Site R rad 03/17/21 05:00 ABG pH 7.490 (7.35-7.45) H 03/17/21 05:00 ABG pCO2 33.0 mmHg (35.0-45.0) L 03/17/21 05:00 ABG pO2 47.0 mmHg (80.0-100.0) L* 03/17/21 05:00 ABG HCO3 25.1 mmol/L (22-26) 03/17/21 05:00 ABG O2 Saturation 86.0 % (90-100) L 03/17/21 05:00 ABG Base Excess 2.1 mmol/L (-2.0-2.0) H 03/17/21 05:00 Corky Test Poss 03/17/21 05:00 A-a Gradient 553.0 mmHg 03/17/21 05:00 FiO2 90.0 03/17/21 05:00 Blood Gas Comments Michael well kb 03/17/21 05:00 Sodium 141 mmol/L (136-145) 03/17/21 06:05 Corrected Sodium 142 mmol/L (136-145) 03/17/21 06:05 Potassium 4.0 mmol/L (3.5-5.1) 03/17/21 06:05 Chloride 106 mmol/L (98-107) 03/17/21 06:05 Carbon Dioxide 25.6 mmol/L (21-32) 03/17/21 06:05 BUN 27 mg/dL (7-18) H 03/17/21 06:05 Creatinine 1.03 mg/dL (0.70-1.30) 03/17/21 06:05 Est GFR (MDRD) Af Amer > 60 (>60) 03/17/21 06:05 Est GFR (MDRD) Non-Af > 60 (>60) 03/17/21 06:05 Glucose 135 mg/dL (65-99) H 03/17/21 06:05 POC Glucose (mg/dL) 144 mg/dL (65-99) H 03/17/21 06:20 Calcium 7.9 mg/dL (8.5-10.1) L 03/17/21 06:05 Corrected Calcium 9.2 mg/dL (8.5-10.1) 03/17/21 06:05 Ferritin 5685 ng/mL (26-388) H 03/17/21 06:05 Total Bilirubin 0.40 mg/dL (0.2-1.0) 03/17/21 06:05 AST 44 Units/L (15-37) H 03/17/21 06:05 ALT 26 Units/L (12-78) 03/17/21 06:05 Alkaline Phosphatase 54 Units/L (46-116) 03/17/21 06:05 Creatine Kinase 69 Units/L (39-308) 03/14/21 14:54 CK-MB (CK-2) < 1.0 ng/mL (0-4.0) 03/14/21 14:54 CK/CKMB % Calc 1.5 % (<4) 03/14/21 14:54 Troponin I < 0.02 ng/mL (0-1.5) 03/14/21 14:54 C-Reactive Protein 15.00 mg/L (0-3.0) H 03/17/21 06:05 B-Natriuretic Peptide 233 pg/mL (0-79) H 03/17/21 06:05 Total Protein 6.1 g/dL (6.4-8.2) L 03/17/21 06:05 Albumin 2.4 g/dL (3.4-5.0) L 03/17/21 06:05 Globulin 3.7 g/dL (2.5-4.5) 03/17/21 06:05 Albumin/Globulin Ratio 0.6 Ratio (1.1-2.1) L 03/17/21 06:05 - Plan (1) Pneumonia due to COVID-19 virus Status: Acute Plan: SUPPLEMENTAL OXYGEN, 1/2NS AT 75 ML/HR, LEVAQUIN 500MG IV DAILY, FORTAZ 1G IV Q8H, REMDESIVIR 100MG IV DAILY, ASCORBIC ACID 1500MG IV Q6H, ALBUTEROL NEBS QID, PULMICORT NEBS BID, BROVANA INHALER BID, MUCOMYST IN NEB [place], SOLU-MEDROL 125MG IV Q6H, FLUVOXAMINE 50MG PO BID, CYPROHEPTADINE 8MG PO TID, AVODART DAILY, HEPARIN 5,000UNITS SC TID, LIPITOR 80MG PO HS, TESSALON PERLES 200MG PO TID, CETIRIZINE 10MG PO DAILY, TUSSIONEX 5ML PO Q12H PRN, PEPCID 20MG PO BID, ROBITUSSIN DM 10ML PO QID PRN, HUMULIN R SLIDING SCALE, MELATONIN 10MG PO HS, SINGULAIR 10MG PO HS, PROTONIX 40MG PO BID, THIAMINE 200MG IV BID, AND ZINC SULFATE 220MG PO BID. (2) Hypoxia Status: Acute (3) HTN (hypertension) Status: Chronic Qualifiers: Hypertension type: primary hypertension Qualified Code(s): I10 - Essential (primary) hypertension (4) GERD (gastroesophageal reflux disease) Status: Chronic Qualifiers: Esophagitis presence: esophagitis presence not specified Qualified Code(s): K21.9 - Gastro-esophageal reflux disease without esophagitis (5) Obesity Status: Chronic Qualifiers: Obesity type: unspecified obesity type Obesity classification: adult class 2 (BMI 35 - 39.9) Serious obesity comorbidity presence: unspecified whether serious comorbidity present Body mass index: BMI 36.0-36.9 Qualified Code(s): E66.9 - Obesity, unspecified; Z68.36 - Body mass index [BMI] 36.0-36.9, adult
[2021-03-17] MEDS: REMDESIVIR 100 MG in NS 250 ML IV 250 ML IV SCH (11:00)
[2021-03-17] MEDS: MUCOMYST (RESPIRATORY USE ONLY) NEB SCH ×3 (12:41→22:02)
[2021-03-17] MEDS: PROVENTIL NEB TX 0.083% 2.5MG/ 3ML NEB SCH ×3 (12:42→22:01)
[2021-03-17] MEDS ORDERED: NS 50 ML IV + SPIKE MINIBAG* 50 ML IV ONE (13:24)
[2021-03-17] MEDS: ROBITUSSIN DM PO SCH ×2 (17:12→21:47)
[2021-03-17] MEDS: NORCO 5/325 MG TAB PO PRN (18:42)
[2021-03-17] MEDS: SNACK - Diabetic Appropriate PO SCH (20:08)
[2021-03-17] MEDS: MILK OF MAGNESIA PO SCH (21:30)
[2021-03-17] MEDS: MELATONIN PO SCH (21:48)
[2021-03-17] MEDS: LIPITOR TAB 80 MG PO SCH (21:48)
[2021-03-17] MEDS: SINGULAIR TAB 10 MG PO SCH (21:48)
[2021-03-17] MEDS: NS 1/2 1000 ML IV 1,000 ML IV SCH (22:10)
[2021-03-18] MEDS ORDERED: NS 1/2 1000 ML IV 1,000 ML IV ONE (00:58)
[2021-03-18] MEDS: ASCORBIC ACID INJ MULTI-DOSE VIAL 1,500 MG in NS 50 ML IV 50 ML IV SCH ×4 (02:58→21:58)
[2021-03-18] MEDS: SOLU-Medrol 125 MG VIAL IVP SCH ×4 (02:59→21:59)
[2021-03-18] MEDS: HEPARIN SODIUM INJ 5000 UNITS SC SCH ×5 (05:54→22:00)
[2021-03-18] MEDS: TESSALON PERLES PO SCH ×3 (05:54→21:58)
[2021-03-18] MEDS: FORTAZ or TAZICEF VIAL INJ IV SCH ×4 (05:54→21:59)
[2021-03-18] MEDS: PERIACTIN TAB 4 MG PO SCH ×3 (05:54→21:58)
[2021-03-18] MEDS: NS 1/2 1000 ML IV 1,000 ML IV SCH ×2 (06:05→17:27)
[2021-03-18 06:12] LABS: ABG BASE EXCESS 4.2 mmol/L (-2.0-2.0); ABG HCO3 27.3 mmol/L (22-26)
[2021-03-18 06:15] LABS: ABG ALLEN TEST POSS
[2021-03-18 06:26] LABS: BASOPHILS % (AUTO) 0.1 % (0.2-1.0); HEMATOCRIT 44.9 % (42.0-54.0); HEMOGLOBIN 15.4 g/dL (13.5-18.0); LYMPHOCYTES # (AUTO) 0.3 X10^3/uL (1.3-2.9); LYMPHOCYTES % (AUTO) 4.6 % (21.0-51.0); MEAN CORPUSCULAR HEMOGLOBIN 31.1 pg (27.0-34.0); MEAN CORPUSCULAR HGB CONC 34.4 g/dL (33.0-35.0); MEAN CORPUSCULAR VOLUME 90.5 fL (80.0-100.0); MEAN PLATELET VOLUME 9.2 fL (7.4-11.0); MONOCYTES # (AUTO) 0.4 x10^3/uL (0.3-0.8); MONOCYTES % (AUTO) 5.9 % (0.0-13.0); NEUTROPHILS # (AUTO) 6.6 x10^3/uL (2.2-4.8); NEUTROPHILS % (AUTO) 89.4 % (42.0-75.0); PLATELET COUNT 179 X10^3/uL (150.0-450.0); RED BLOOD COUNT 4.97 X10^6/uL (4.7-6.0); RED CELL DISTRIBUTION WIDTH 13.6 % (11.6-16.5); WHITE BLOOD COUNT 7.3 X10^3/uL (3.6-10.0)
[2021-03-18 06:45] LABS: ALANINE AMINOTRANSFERASE 36 Units/L (12-78); ALBUMIN 2.5 g/dL (3.4-5.0); ALKALINE PHOSPHATASE 66 Units/L (46-116); ASPARTATE AMINO TRANSFERASE 45 Units/L (15-37); BLOOD UREA NITROGEN 19 mg/dL (7-18); CALCIUM 8.2 mg/dL (8.5-10.1); CARBON DIOXIDE 27.4 mmol/L (21-32); CHLORIDE 106 mmol/L (98-107); COR CA(FOR HYPOALB) 9.4 mg/dL (8.5-10.1); COR NA(FOR HYPERGLY) 144 mmol/L (136-145); CREATININE 1.04 mg/dL (0.70-1.30); SODIUM 143 mmol/L (136-145); TOTAL PROTEIN 6.3 g/dL (6.4-8.2); eGFR NON BLACK RACES > 60 (>60)
--- NOTE | 2021-03-18 06:50 | RAD ---
HISTORYCOVID-19 pneumoniaSTUDYPortable AP [id number] cardiac enlargement with no change in cardiac contour. Bi lateral pulmonary infiltrates are present, similar in the left lung, and slightly improved in the rig ht lower lobe. There is additional airspace consolidation in the right upper lung, however. No pleura l fluid or pneumothorax seen.IMPRESSIONStable cardiomegaly and bilateral pneumonia. See above descrip tion of interval change in the right lung. No complication identified.Electronically signed by: YOLANDA ROB (Mar 18, 2021 06:48:32)
[2021-03-18] MEDS: PULMICORT NEB TX 0.5 MG NEB SCH ×2 (08:51→20:00)
[2021-03-18] MEDS: BROVANA IN SCH ×2 (08:51→20:00)
[2021-03-18] MEDS: FLUVOXAMINE MALEATE PO SCH ×2 (09:22→21:58)
[2021-03-18] MEDS: ZINC SULFATE PO SCH (09:22)
[2021-03-18] MEDS: PEPCID TAB 20 MG PO SCH ×2 (09:22→21:58)
[2021-03-18] MEDS: ZyrTEC TAB 10 MG PO SCH (09:22)
[2021-03-18] MEDS: VISTARIL PO PRN (09:22)
[2021-03-18] MEDS: PROTONIX TAB 40 MG PO SCH ×2 (09:23→21:59)
[2021-03-18] MEDS: NORCO 5/325 MG TAB PO PRN (09:23)
[2021-03-18] MEDS: AVODART PO SCH (09:23)
[2021-03-18] MEDS: VITAMIN D3 125 mcg (5,000 UNITS) PO SCH (09:23)
[2021-03-18] MEDS: COLACE CAP 100 MG PO PRN (09:23)
[2021-03-18] MEDS: THIAMINE HCL INJ IVP SCH ×2 (09:24→22:00)
[2021-03-18] MEDS: ROBITUSSIN DM PO SCH ×4 (09:33→21:58)
[2021-03-18] MEDS: MILK OF MAGNESIA PO SCH (09:33)
[2021-03-18] MEDS: LEVAQUIN PREMIX IV 500 MG 500 MG/100 ML BAG IV SCH (10:05)
[2021-03-18] MEDS: MUCOMYST (RESPIRATORY USE ONLY) NEB SCH ×3 (12:07→20:00)
[2021-03-18] MEDS: PROVENTIL NEB TX 0.083% 2.5MG/ 3ML NEB SCH (12:09)
[2021-03-18] MEDS ORDERED: NS 100 ML IV + SPIKE MINIBAG* 100 ML IV ONE (12:17)
[2021-03-18] MEDS: SNACK - Diabetic Appropriate PO SCH (20:10)
[2021-03-18] MEDS: SINGULAIR TAB 10 MG PO SCH (21:58)
[2021-03-18] MEDS: MELATONIN PO SCH (21:59)
[2021-03-18] MEDS: LIPITOR TAB 80 MG PO SCH (21:59)
[2021-03-19] MEDS: NORCO 5/325 MG TAB PO PRN ×2 (00:04→21:04)
[2021-03-19] MEDS: VISTARIL PO PRN (00:04)
[2021-03-19] MEDS: ASCORBIC ACID INJ MULTI-DOSE VIAL 1,500 MG in NS 50 ML IV 50 ML IV SCH ×4 (02:49→21:02)
[2021-03-19] MEDS: SOLU-Medrol 125 MG VIAL IVP SCH ×4 (02:49→21:04)
[2021-03-19 04:59] LABS: ABG BASE EXCESS 4.2 mmol/L (-2.0-2.0); ABG HCO3 27.3 mmol/L (22-26)
[2021-03-19 05:00] LABS: ABG ALLEN TEST POS
[2021-03-19] MEDS: FORTAZ or TAZICEF VIAL INJ IV SCH ×3 (05:46→21:04)
[2021-03-19] MEDS: HEPARIN SODIUM INJ 5000 UNITS SC SCH ×3 (05:46→21:04)
[2021-03-19] MEDS: PERIACTIN TAB 4 MG PO SCH ×3 (05:52→21:01)
[2021-03-19] MEDS: TESSALON PERLES PO SCH ×3 (05:52→21:05)
[2021-03-19] MEDS: NS 1/2 1000 ML IV 1,000 ML IV SCH ×2 (06:20→18:17)
[2021-03-19 07:33] LABS: ALANINE AMINOTRANSFERASE 31 Units/L (12-78); ALBUMIN 2.2 g/dL (3.4-5.0); ALKALINE PHOSPHATASE 74 Units/L (46-116); ASPARTATE AMINO TRANSFERASE 41 Units/L (15-37); BLOOD UREA NITROGEN 26 mg/dL (7-18); CALCIUM 7.7 mg/dL (8.5-10.1); CARBON DIOXIDE 27.8 mmol/L (21-32); CHLORIDE 107 mmol/L (98-107); COR CA(FOR HYPOALB) 9.1 mg/dL (8.5-10.1); COR NA(FOR HYPERGLY) 143 mmol/L (136-145); CREATININE 0.96 mg/dL (0.70-1.30); SODIUM 142 mmol/L (136-145); TOTAL PROTEIN 5.4 g/dL (6.4-8.2); eGFR NON BLACK RACES > 60 (>60)
[2021-03-19 07:35] LABS: BASOPHILS % (AUTO) 0.1 % (0.2-1.0); HEMATOCRIT 42.3 % (42.0-54.0); HEMOGLOBIN 14.7 g/dL (13.5-18.0); LYMPHOCYTES # (AUTO) 0.4 X10^3/uL (1.3-2.9); LYMPHOCYTES % (AUTO) 3.5 % (21.0-51.0); MEAN CORPUSCULAR HEMOGLOBIN 31.2 pg (27.0-34.0); MEAN CORPUSCULAR HGB CONC 34.6 g/dL (33.0-35.0); MEAN CORPUSCULAR VOLUME 90.2 fL (80.0-100.0); MEAN PLATELET VOLUME 9.4 fL (7.4-11.0); MONOCYTES # (AUTO) 0.6 x10^3/uL (0.3-0.8); MONOCYTES % (AUTO) 5.3 % (0.0-13.0); NEUTROPHILS # (AUTO) 9.6 x10^3/uL (2.2-4.8); NEUTROPHILS % (AUTO) 91.1 % (42.0-75.0); PLATELET COUNT 190 X10^3/uL (150.0-450.0); RED BLOOD COUNT 4.69 X10^6/uL (4.7-6.0); WHITE BLOOD COUNT 10.6 X10^3/uL (3.6-10.0)
--- NOTE | 2021-03-19 08:04 | RAD ---
HISTORYSOBSTUDYCHEST, 1 [id number] bilateral areas of opacity are subtle but probably not changed. Findings are consistent with bronchopneumonia. No pleural effusion or pneumothorax.The heart size is magnified.Bones are unremarkable.IMPRESSION1. Unchanged bronchopneumoniaElectronically signed by: Gurwinder Chow (Mar 19, 2021 08:02:00)
[2021-03-19] MEDS: BROVANA IN SCH ×2 (08:20→20:20)
[2021-03-19] MEDS: PULMICORT NEB TX 0.5 MG NEB SCH ×2 (08:20→20:20)
[2021-03-19] MEDS: MUCOMYST (RESPIRATORY USE ONLY) NEB SCH ×2 (08:20→20:20)
[2021-03-19] MEDS ORDERED: ASCORBIC ACID INJ MULTI-DOSE VIAL IV ONE ×2 (08:38→14:32)
[2021-03-19] MEDS ORDERED: NS 100 ML IV 100 ML ONE (08:38)
[2021-03-19 08:45] LABS: PLATELET MORPHOLOGY COMMENT NORMAL (NORMAL)
[2021-03-19] MEDS: MILK OF MAGNESIA PO SCH (09:37)
[2021-03-19] MEDS: FLUVOXAMINE MALEATE PO SCH ×2 (09:37→21:06)
[2021-03-19] MEDS: ROBITUSSIN DM PO SCH ×4 (09:37→21:03)
[2021-03-19] MEDS: AVODART PO SCH (09:38)
[2021-03-19] MEDS: PEPCID TAB 20 MG PO SCH ×2 (09:38→21:03)
[2021-03-19] MEDS: ZyrTEC TAB 10 MG PO SCH (09:38)
[2021-03-19] MEDS: PROTONIX TAB 40 MG PO SCH ×2 (09:38→21:05)
[2021-03-19] MEDS: VITAMIN D3 125 mcg (5,000 UNITS) PO SCH (09:38)
[2021-03-19] MEDS: ZINC SULFATE PO SCH (09:38)
[2021-03-19] MEDS: THIAMINE HCL INJ IVP SCH ×2 (09:39→21:06)
[2021-03-19] MEDS: TRICOR TAB 160 MG PO SCH (10:02)
[2021-03-19] MEDS: ZESTRIL TAB 10 MG PO SCH (10:02)
[2021-03-19] MEDS: LEVAQUIN PREMIX IV 500 MG 500 MG/100 ML BAG IV SCH (10:03)
--- NOTE | 2021-03-19 11:43 | PCM.PROG ---
Progress Note - Progress Note for Day of Date of Exam: 03/18/21 - Subjective Subjective: MR. MARMOLEJO WAS ADMITTED FOR TREATMENT OF COVID PNEUMONIA AND HYPOXIA. PMH: OBESITY, GERD, HTN. TODAY, HE IS LYING IN THE BED ON MORNING ROUNDS. HE REPORTS NOT BEING ABLE TO REST WELL THROUGHOUT THE NIGHT. HE IS CURRENTLY UTILIZING HEATED HIGH FLOW OXYGEN AT 88%.. HE CONTINUES WITH COMPLAINTS OF SHORTNESS OF BREATH AND WEAKNESS TODAY. SHORTNESS OF BREATH AND COUGH SLIGHTLY INCREASED. HIS SATURATIONS HAVE BEEN 87-94% ON HEATED HIGH FLOW OXYGEN. ON EXAMINATION, HEART IS REGULAR IN RATE AND RHYTHM. BILATERAL LUNGS ARE NOTED WITH RALES THROUGHOUT. ABDOMEN IS ROUND, SOFT, AND NON-TENDER WITH NORMAL BOWEL SOUNDS NOTED IN ALL QUADRANTS. HIS VITALS THIS MORNING ARE: 97.8-80-20-90%. LABS WERE OBTAINED. ABNORMAL LAB VALUES INCLUDE THE FOLLOWING: BUN 19, GLUCOSE 144, CALCIUM 8.2, FERRITIN 4892, AST 45, CRP 8.70, BNP 186, TOTAL PROTEIN 6.3, ALBUMIN 2.5. BLOOD CULTURES ARE PENDING. ABG REVEALED: PH 7.500, PC02 35, P02 39, HC03 27.3, 02 SAT 79, BASE EXCESS 4.2, FI02 63. PATIENT REPORTS THAT ABG WAS DRAWN JUST AFTER HE HAD A BAD COUGHING SPELL. A CHEST XRAY WAS OBTAINED AND REVEALED: Persistent cardiac enlargement with no change in cardiac contour. Bilateral pulmonary infiltrates are present, similar in the left lung, and slightly improved in the right lower lobe. There is additional airspace consolidation in the right upper lung, however. No pleural fluid or pneumothorax seen. HE IS CURRENTLY RECEIVING 1/2NS AT 75 ML/HR, LEVAQUIN 500MG IV DAILY, FORTAZ 1G IV Q8H, REMDESIVIR 100MG IV DAILY, ASCORBIC ACID 1500MG IV Q6H, ALBUTEROL NEBS QID, PULMICORT NEBS BID, BROVANA INHALER BID, MUCOMYST IN NEB [place], SOLU-MEDROL 125MG IV Q6H, FLUVOXAMINE 50MG PO BID, CYPROHEPTADINE 8MG PO TID, AVODART DAILY, HEPARIN 5,000UNITS SC TID, LIPITOR 80MG PO HS, TESSALON PERLES 200MG PO TID, CETIRIZINE 10MG PO DAILY, TUSSIONEX 5ML PO Q12H PRN, PEPCID 20MG PO BID, ROBITUSSIN DM 10ML PO QID PRN, HUMULIN R SLIDING SCALE, MELATONIN 10MG PO HS, SINGULAIR 10MG PO HS, PROTONIX 40MG PO BID, THIAMINE 200MG IV BID, AND ZINC SULFATE 220MG PO BID. WE WILL CONTINUE WITH CURRENT PLAN OF CARE TODAY AND ATTEMPT TO WEAN DOWN OXYGEN HE TOLERATES IT. OTHERWISE, WE WILL FOLLOW UP WITH AM LABS, CHEST XRAY, ABG, AND CONTINUE TO MONITOR. TIME SPENT ON CLINICAL ASSESSMENT, REVIEWING LABS AND IMAGING, DECISION MAKING, AND DOCUMENTATION GREATER THAN 45 MINUTES. - Past Medical Family Social History Past Med/Fam/Surg Hx: No changes since H&P Allergies: Allergies No Allergy Information Available Allergy (Verified 03/14/21 14:24) - Review of Systems ROS: No change since H&P - Vital Signs and I&O's Vital Signs: Temperature 98.0 F Pulse Rate [Right Brachial] 74 Pulse Rate [Left Radial] 85 Pulse Rate 90 Respiratory Rate 23 Blood Pressure [Right Arm] 150/74 Blood Pressure [Left Arm] 141/74 O2 Sat by Pulse Oximetry 86 Intake and Output: Intake & Output 03/16/21 03/17/21 03/18/21 03/19/21 11:59 11:59 11:59 11:59 Intake Total 2920 / 2920 4592 / 4592 2524 / 2524 1370 / 1370 Output Total 2280 / 2280 2125 / 2125 2625 / 2625 2340 / 2340 Balance 640 / 640 2467 / 2467 -101 / -101 -970 / -970 - Physical Exam Oriented: Normal Eyes: Normal Ear: Normal Nose: Normal Throat: Normal Respiratory: Generalized, Diminished, Rales Cardiovascular: Normal : Normal Auscultation: Bowel Sounds: Normal Tenderness: Normal Skin: Normal Musculoskeletal: Normal Psychiatric: Normal Mood Description: Calm Affect: Normal Speech Pattern: Clear, Appropriate - Laboratory and Diagnostics Result Diagrams: 03/19/21 05:42 03/19/21 05:42 Labs: 03/18/21 01:03 Sputum - Expectorated Sputum Sputum Culture - Preliminary 03/18/21 01:03 Sputum - Expectorated Sputum - Final 03/14/21 16:39 Blood Blood Culture - Preliminary 03/14/21 16:35 Blood Blood Culture - Preliminary Laboratory WBC 10.6 X10^3/uL (3.6-10.0) H 03/19/21 05:42 RBC 4.69 X10^6/uL (4.7-6.0) L 03/19/21 05:42 Hgb 14.7 g/dL (13.5-18.0) 03/19/21 05:42 Hct 42.3 % (42.0-54.0) 03/19/21 05:42 MCV 90.2 fL (80.0-100.0) 03/19/21 05:42 MCH 31.2 pg (27.0-34.0) 03/19/21 05:42 MCHC 34.6 g/dL (33.0-35.0) 03/19/21 05:42 RDW 13.0 % (11.6-16.5) 03/19/21 05:42 Plt Count 190 X10^3/uL (150.0-450.0) 03/19/21 05:42 Plt Count Comment Adequate (ADEQUATE) 03/19/21 05:42 MPV 9.4 fL (7.4-11.0) 03/19/21 05:42 Neut % (Auto) 91.1 % (42.0-75.0) H 03/19/21 05:42 Lymph % (Auto) 3.5 % (21.0-51.0) L 03/19/21 05:42 [place] % (Auto) 5.3 % (0.0-13.0) 03/19/21 05:42 Eos % (Auto) 0.0 % (0.9-2.9) L 03/19/21 05:42 Baso % (Auto) 0.1 % (0.2-1.0) L 03/19/21 05:42 Neut # (Auto) 9.6 x10^3/uL (2.2-4.8) H 03/19/21 05:42 Lymph # (Auto) 0.4 X10^3/uL (1.3-2.9) L 03/19/21 05:42 [place] # (Auto) 0.6 x10^3/uL (0.3-0.8) 03/19/21 05:42 Eos # (Auto) 0.0 x10^3/uL (0.0-0.2) 03/19/21 05:42 Baso # (Auto) 0.0 X10^3/uL (0.0-0.1) 03/19/21 05:42 Absolute Nucleated RBC 0.1 /100WBC 03/19/21 05:42 Total Counted 100 03/19/21 05:42 Neutrophils % (Manual) 93 % (39-76) H 03/19/21 05:42 Lymphocytes % (Manual) 2 % (13-43) L 03/19/21 05:42 Monocytes % (Manual) 5 % (4-9) 03/19/21 05:42 Plt Morphology Comment Normal (NORMAL) 03/19/21 05:42 RBC Morphology Normal (NORMAL) 03/19/21 05:42 PT 14.3 SECONDS (11.8-14.3) 03/19/21 05:42 INR Target Range - 03/19/21 05:42 INR 1.16 (0.8-1.3) 03/19/21 05:42 APTT 26.6 SECONDS (22.9-36.5) 03/17/21 06:05 PTT Comment - 03/17/21 06:05 D-Dimer 0.73 ug/ml (0.0-0.57) H* 03/19/21 05:42 Sample Site Rr 03/19/21 04:54 ABG pH 7.500 (7.35-7.45) H 03/19/21 04:54 ABG pCO2 35.0 mmHg (35.0-45.0) 03/19/21 04:54 ABG pO2 43.0 mmHg (80.0-100.0) L* 03/19/21 04:54 ABG HCO3 27.3 mmol/L (22-26) H 03/19/21 04:54 ABG O2 Saturation 83.0 % (90-100) L* 03/19/21 04:54 ABG Base Excess 4.2 mmol/L (-2.0-2.0) H 03/19/21 04:54 Corky Test Pos 03/19/21 04:54 A-a Gradient 519.0 mmHg 03/19/21 04:54 FiO2 85.0 03/19/21 04:54 Blood Gas Comments Michael well sw 03/19/21 04:54 Sodium 142 mmol/L (136-145) 03/19/21 05:42 Corrected Sodium 143 mmol/L (136-145) 03/19/21 05:42 Potassium 4.2 mmol/L (3.5-5.1) 03/19/21 05:42 Chloride 107 mmol/L (98-107) 03/19/21 05:42 Carbon Dioxide 27.8 mmol/L (21-32) 03/19/21 05:42 BUN 26 mg/dL (7-18) H 03/19/21 05:42 Creatinine 0.96 mg/dL (0.70-1.30) 03/19/21 05:42 Est GFR (MDRD) Af Amer > 60 (>60) 03/19/21 05:42 Est GFR (MDRD) Non-Af > 60 (>60) 03/19/21 05:42 Glucose 140 mg/dL (65-99) H 03/19/21 05:42 POC Glucose (mg/dL) 153 mg/dL (65-99) H 03/19/21 11:30 Calcium 7.7 mg/dL (8.5-10.1) L 03/19/21 05:42 Corrected Calcium 9.1 mg/dL (8.5-10.1) 03/19/21 05:42 Ferritin 3205 ng/mL (26-388) H 03/19/21 05:42 Total Bilirubin 0.70 mg/dL (0.2-1.0) 03/19/21 05:42 AST 41 Units/L (15-37) H 03/19/21 05:42 ALT 31 Units/L (12-78) 03/19/21 05:42 Alkaline Phosphatase 74 Units/L (46-116) 03/19/21 05:42 Creatine Kinase 69 Units/L (39-308) 03/14/21 14:54 CK-MB (CK-2) < 1.0 ng/mL (0-4.0) 03/14/21 14:54 CK/CKMB % Calc 1.5 % (<4) 03/14/21 14:54 Troponin I < 0.02 ng/mL (0-1.5) 03/14/21 14:54 C-Reactive Protein 7.80 mg/L (0-3.0) H 03/19/21 05:42 B-Natriuretic Peptide 192 pg/mL (0-79) H 03/19/21 05:42 Total Protein 5.4 g/dL (6.4-8.2) L 03/19/21 05:42 Albumin 2.2 g/dL (3.4-5.0) L 03/19/21 05:42 Globulin 3.2 g/dL (2.5-4.5) 03/19/21 05:42 Albumin/Globulin Ratio 0.7 Ratio (1.1-2.1) L 03/19/21 05:42 - Plan (1) Pneumonia due to COVID-19 virus Status: Acute Plan: SUPPLEMENTAL OXYGEN, 1/2NS AT 75 ML/HR, LEVAQUIN 500MG IV DAILY, FORTAZ 1G IV Q8H, REMDESIVIR 100MG IV DAILY, ASCORBIC ACID 1500MG IV Q6H, ALBUTEROL NEBS QID, PULMICORT NEBS BID, BROVANA INHALER BID, MUCOMYST IN NEB [place], SOLU-MEDROL 125MG IV Q6H, FLUVOXAMINE 50MG PO BID, CYPROHEPTADINE 8MG PO TID, AVODART DAILY, HEPARIN 5,000UNITS SC TID, LIPITOR 80MG PO HS, TESSALON PERLES 200MG PO TID, CETIRIZINE 10MG PO DAILY, TUSSIONEX 5ML PO Q12H PRN, PEPCID 20MG PO BID, ROBITUSSIN DM 10ML PO QID PRN, HUMULIN R SLIDING SCALE, MELATONIN 10MG PO HS, SINGULAIR 10MG PO HS, PROTONIX 40MG PO BID, THIAMINE 200MG IV BID, AND ZINC SULFATE 220MG PO BID. (2) Hypoxia Status: Acute (3) HTN (hypertension) Status: Chronic Qualifiers: Hypertension type: primary hypertension Qualified Code(s): I10 - Essential (primary) hypertension (4) GERD (gastroesophageal reflux disease) Status: Chronic Qualifiers: Esophagitis presence: esophagitis presence not specified Qualified Code(s): K21.9 - Gastro-esophageal reflux disease without esophagitis (5) Obesity Status: Chronic Qualifiers: Obesity type: unspecified obesity type Obesity classification: adult class 2 (BMI 35 - 39.9) Serious obesity comorbidity presence: unspecified whether serious comorbidity present Body mass index: BMI 36.0-36.9 Qualified Code(s): E66.9 - Obesity, unspecified; Z68.36 - Body mass index [BMI] 36.0-36.9, adult
[2021-03-19] MEDS ORDERED: NS 100 ML IV + SPIKE MINIBAG* 100 ML IV ONE (13:52)
[2021-03-19] MEDS: ACCUNEB 1.25 MG NEBULE NEB SCH ×2 (17:12→20:20)
[2021-03-19] MEDS: SNACK - Diabetic Appropriate PO SCH (20:00)
[2021-03-19] MEDS: HumuLIN R SUBCUT PRN (21:02)
[2021-03-19] MEDS: RESTORIL CAP 15 MG PO PRN (21:03)
[2021-03-19] MEDS: SINGULAIR TAB 10 MG PO SCH (21:04)
[2021-03-19] MEDS: LIPITOR TAB 80 MG PO SCH (21:05)
--- NOTE | 2021-03-19 21:15 | PCM.PROG ---
Progress Note - Progress Note for Day of Date of Exam: 03/19/21 - Subjective Subjective: MR. MARMOLEJO WAS ADMITTED FOR TREATMENT OF COVID PNEUMONIA AND HYPOXIA. PMH: OBESITY, GERD, HTN. TODAY, HE IS LYING IN THE BED ON MORNING ROUNDS. HE REPORTS NOT BEING ABLE TO REST WELL THROUGHOUT THE NIGHT. HE IS CURRENTLY UTILIZING HEATED HIGH FLOW OXYGEN AT 88%.. HE CONTINUES WITH COMPLAINTS OF SHORTNESS OF BREATH AND WEAKNESS TODAY. SHORTNESS OF BREATH AND COUGH SLIGHTLY INCREASED. HIS SATURATIONS HAVE BEEN 85-91% ON HEATED HIGH FLOW OXYGEN. ON EXAMINATION, HEART IS REGULAR IN RATE AND RHYTHM. BILATERAL LUNGS ARE NOTED WITH RALES THROUGHOUT. ABDOMEN IS ROUND, SOFT, AND NON-TENDER WITH NORMAL BOWEL SOUNDS NOTED IN ALL QUADRANTS. HIS VITALS THIS MORNING ARE: 98.0-74-23-89%HHF-150/74. LABS WERE OBTAINED. ABNORMAL LAB VALUES INCLUDE THE FOLLOWING: WBC 10.6, RBC 4.69, D-DIMER 0.73, BUN 26, GLUCOSE 140, CALCIUM 7.7, FERRITIN 3205, AST 41, CRP 7.80, BNP 192, TOTAL PROTEIN 5.4, ALBUMIN 2.2. BLOOD CULTURES ARE PENDING. ABG REVEALED: PH 7.500, PC02 35, P02 43, HC03 27.3, 02 SAT 83, BASE EXCESS 4.2, A-A GRADIENT 519, FI02 85. A CHEST XRAY WAS OBTAINED AND REVEALED: 1. Unchanged bronchopneumonia. HE IS CURRENTLY RECEIVING 1/2NS AT 75 ML/HR, LEVAQUIN 500MG IV DAILY, FORTAZ 1G IV Q8H, REMDESIVIR 100MG IV DAILY, ASCORBIC ACID 1500MG IV Q6H, ALBUTEROL NEBS QID, PULMICORT NEBS BID, BROVANA INHALER BID, MUCOMYST IN NEB [place], SOLU-MEDROL 125MG IV Q6H, FLUVOXAMINE 50MG PO BID, CYPROHEPTADINE 8MG PO TID, AVODART DAILY, HEPARIN 5,000UNITS SC TID, LIPITOR 80MG PO HS, TESSALON PERLES 200MG PO TID, CETIRIZINE 10MG PO DAILY, TUSSIONEX 5ML PO Q12H PRN, PEPCID 20MG PO BID, ROBITUSSIN DM 10ML PO QID PRN, HUMULIN R SLIDING SCALE, MELATONIN 10MG PO HS, SINGULAIR 10MG PO HS, PROTONIX 40MG PO BID, THIAMINE 200MG IV BID, AND ZINC SULFATE 220MG PO BID. WE WILL CONTINUE WITH CURRENT PLAN OF CARE TODAY AND ATTEMPT TO WEAN DOWN OXYGEN HE TOLERATES IT. WE WILL ORDER FOR HIM TO WEAR THE SMART VEST TODAY. OTHERWISE, WE WILL FOLLOW UP WITH AM LABS, CHEST XRAY, ABG, AND CONTINUE TO MONITOR. TIME S PENT ON CLINICAL ASSESSMENT, REVIEWING LABS AND IMAGING, DECISION MAKING, AND DOCUMENTATION GREATER THAN 45 MINUTES. - Past Medical Family Social History Past Med/Fam/Surg Hx: No changes since H&P Allergies: Allergies No Allergy Information Available Allergy (Verified 03/14/21 14:24) - Review of Systems ROS: No change since H&P - Vital Signs and I&O's Vital Signs: Temperature 98.4 F Pulse Rate [Right Brachial] 81 Pulse Rate [Left Radial] 85 Pulse Rate 90 Respiratory Rate 18 Blood Pressure [Right Arm] 115/61 Blood Pressure [Left Arm] 141/74 O2 Sat by Pulse Oximetry 86 Intake and Output: Intake & Output 03/17/21 03/18/21 03/19/21 03/20/21 11:59 11:59 11:59 11:59 Intake Total 4592 / 4592 2524 / 2524 2196 / 2196 1994 Output Total 2125 / 2125 2625 / 2625 2340 / 2340 1700 / 1700 Balance 2467 / 2467 -101 / -101 -144 / -144 295 / 295 - Physical Exam Oriented: Normal Eyes: Normal Ear: Normal Nose: Normal Throat: Normal Respiratory: Generalized, Diminished, Rales Cardiovascular: Normal : Normal Auscultation: Bowel Sounds: Normal Tenderness: Normal Skin: Normal Musculoskeletal: Normal Psychiatric: Normal Mood Description: Calm Affect: Normal Speech Pattern: Clear, Appropriate - Laboratory and Diagnostics Result Diagrams: 03/19/21 05:42 03/19/21 05:42 Labs: 03/18/21 01:03 Sputum - Expectorated Sputum Sputum Culture - Preliminary 03/18/21 01:03 Sputum - Expectorated Sputum - Final 03/14/21 16:39 Blood Blood Culture - Preliminary 03/14/21 16:35 Blood Blood Culture - Preliminary Laboratory WBC 10.6 X10^3/uL (3.6-10.0) H 03/19/21 05:42 RBC 4.69 X10^6/uL (4.7-6.0) L 03/19/21 05:42 Hgb 14.7 g/dL (13.5-18.0) 03/19/21 05:42 Hct 42.3 % (42.0-54.0) 03/19/21 05:42 MCV 90.2 fL (80.0-100.0) 03/19/21 05:42 MCH 31.2 pg (27.0-34.0) 03/19/21 05:42 MCHC 34.6 g/dL (33.0-35.0) 03/19/21 05:42 RDW 13.0 % (11.6-16.5) 03/19/21 05:42 Plt Count 190 X10^3/uL (150.0-450.0) 03/19/21 05:42 Plt Count Comment Adequate (ADEQUATE) 03/19/21 05:42 MPV 9.4 fL (7.4-11.0) 03/19/21 05:42 Neut % (Auto) 91.1 % (42.0-75.0) H 03/19/21 05:42 Lymph % (Auto) 3.5 % (21.0-51.0) L 03/19/21 05:42 Hunt % (Auto) 5.3 % (0.0-13.0) 03/19/21 05:42 Eos % (Auto) 0.0 % (0.9-2.9) L 03/19/21 05:42 Baso % (Auto) 0.1 % (0.2-1.0) L 03/19/21 05:42 Neut # (Auto) 9.6 x10^3/uL (2.2-4.8) H 03/19/21 05:42 Lymph # (Auto) 0.4 X10^3/uL (1.3-2.9) L 03/19/21 05:42 Hunt # (Auto) 0.6 x10^3/uL (0.3-0.8) 03/19/21 05:42 Eos # (Auto) 0.0 x10^3/uL (0.0-0.2) 03/19/21 05:42 Baso # (Auto) 0.0 X10^3/uL (0.0-0.1) 03/19/21 05:42 Absolute Nucleated RBC 0.1 /100WBC 03/19/21 05:42 Total Counted 100 03/19/21 05:42 Neutrophils % (Manual) 93 % (39-76) H 03/19/21 05:42 Lymphocytes % (Manual) 2 % (13-43) L 03/19/21 05:42 Monocytes % (Manual) 5 % (4-9) 03/19/21 05:42 Plt Morphology Comment Normal (NORMAL) 03/19/21 05:42 RBC Morphology Normal (NORMAL) 03/19/21 05:42 PT 14.3 SECONDS (11.8-14.3) 03/19/21 05:42 INR Target Range - 03/19/21 05:42 INR 1.16 (0.8-1.3) 03/19/21 05:42 APTT 26.6 SECONDS (22.9-36.5) 03/17/21 06:05 PTT Comment - 03/17/21 06:05 D-Dimer 0.73 ug/ml (0.0-0.57) H* 03/19/21 05:42 Sample Site Rr 03/19/21 04:54 ABG pH 7.500 (7.35-7.45) H 03/19/21 04:54 ABG pCO2 35.0 mmHg (35.0-45.0) 03/19/21 04:54 ABG pO2 43.0 mmHg (80.0-100.0) L* 03/19/21 04:54 ABG HCO3 27.3 mmol/L (22-26) H 03/19/21 04:54 ABG O2 Saturation 83.0 % (90-100) L* 03/19/21 04:54 ABG Base Excess 4.2 mmol/L (-2.0-2.0) H 03/19/21 04:54 Corky Test Pos 03/19/21 04:54 A-a Gradient 519.0 mmHg 03/19/21 04:54 FiO2 85.0 03/19/21 04:54 Blood Gas Comments Michael well sw 03/19/21 04:54 Sodium 142 mmol/L (136-145) 03/19/21 05:42 Corrected Sodium 143 mmol/L (136-145) 03/19/21 05:42 Potassium 4.2 mmol/L (3.5-5.1) 03/19/21 05:42 Chloride 107 mmol/L (98-107) 03/19/21 05:42 Carbon Dioxide 27.8 mmol/L (21-32) 03/19/21 05:42 BUN 26 mg/dL (7-18) H 03/19/21 05:42 Creatinine 0.96 mg/dL (0.70-1.30) 03/19/21 05:42 Est GFR (MDRD) Af Amer > 60 (>60) 03/19/21 05:42 Est GFR (MDRD) Non-Af > 60 (>60) 03/19/21 05:42 Glucose 140 mg/dL (65-99) H 03/19/21 05:42 POC Glucose (mg/dL) 173 mg/dL (65-99) H 03/19/21 19:51 Calcium 7.7 mg/dL (8.5-10.1) L 03/19/21 05:42 Corrected Calcium 9.1 mg/dL (8.5-10.1) 03/19/21 05:42 Ferritin 3205 ng/mL (26-388) H 03/19/21 05:42 Total Bilirubin 0.70 mg/dL (0.2-1.0) 03/19/21 05:42 AST 41 Units/L (15-37) H 03/19/21 05:42 ALT 31 Units/L (12-78) 03/19/21 05:42 Alkaline Phosphatase 74 Units/L (46-116) 03/19/21 05:42 Creatine Kinase 69 Units/L (39-308) 03/14/21 14:54 CK-MB (CK-2) < 1.0 ng/mL (0-4.0) 03/14/21 14:54 CK/CKMB % Calc 1.5 % (<4) 03/14/21 14:54 Troponin I < 0.02 ng/mL (0-1.5) 03/14/21 14:54 C-Reactive Protein 7.80 mg/L (0-3.0) H 03/19/21 05:42 B-Natriuretic Peptide 192 pg/mL (0-79) H 03/19/21 05:42 Total Protein 5.4 g/dL (6.4-8.2) L 03/19/21 05:42 Albumin 2.2 g/dL (3.4-5.0) L 03/19/21 05:42 Globulin 3.2 g/dL (2.5-4.5) 03/19/21 05:42 Albumin/Globulin Ratio 0.7 Ratio (1.1-2.1) L 03/19/21 05:42 - Plan (1) Pneumonia due to COVID-19 virus Status: Acute Plan: SUPPLEMENTAL OXYGEN, 1/2NS AT 75 ML/HR, LEVAQUIN 500MG IV DAILY, FORTAZ 1G IV Q8H, REMDESIVIR 100MG IV DAILY, ASCORBIC ACID 1500MG IV Q6H, ALBUTEROL NEBS QID, PULMICORT NEBS BID, BROVANA INHALER BID, MUCOMYST IN NEB [place], SOLU-MEDROL 125MG IV Q6H, FLUVOXAMINE 50MG PO BID, CYPROHEPTADINE 8MG PO TID, AVODART DAILY, HEPARIN 5,000UNITS SC TID, LIPITOR 80MG PO HS, TESSALON PERLES 200MG PO TID, CETIRIZINE 10MG PO DAILY, TUSSIONEX 5ML PO Q12H PRN, PEPCID 20MG PO BID, ROBITUSSIN DM 10ML PO QID PRN, HUMULIN R SLIDING SCALE, MELATONIN 10MG PO HS, SINGULAIR 10MG PO HS, PROTONIX 40MG PO BID, THIAMINE 200MG IV BID, AND ZINC SULFATE 220MG PO BID. (2) Hypoxia Status: Acute (3) HTN (hypertension) Status: Chronic Qualifiers: Hypertension type: primary hypertension Qualified Code(s): I10 - Essential (primary) hypertension (4) GERD (gastroesophageal reflux disease) Status: Chronic Qualifiers: Esophagitis presence: esophagitis presence not specified Qualified Code(s): K21.9 - Gastro-esophageal reflux disease without esophagitis (5) Obesity Status: Chronic Qualifiers: Obesity type: unspecified obesity type Obesity classification: adult class 2 (BMI 35 - 39.9) Serious obesity comorbidity presence: unspecified whether serious comorbidity present Body mass index: BMI 36.0-36.9 Qualified Code(s): E66.9 - Obesity, unspecified; Z68.36 - Body mass index [BMI] 36.0-36.9, adult
[2021-03-20] MEDS: NS 1/2 1000 ML IV 1,000 ML IV SCH ×3 (02:28→22:02)
[2021-03-20] MEDS: ASCORBIC ACID INJ MULTI-DOSE VIAL 1,500 MG in NS 50 ML IV 50 ML IV SCH ×4 (02:29→20:48)
[2021-03-20] MEDS: SOLU-Medrol 125 MG VIAL IVP SCH ×4 (04:00→20:49)
[2021-03-20] MEDS ORDERED: NS 1/2 1000 ML IV 1,000 ML IV ONE (04:53)
[2021-03-20 05:32] LABS: ABG BASE EXCESS 3.6 mmol/L (-2.0-2.0); ABG HCO3 26.1 mmol/L (22-26)
[2021-03-20 05:33] LABS: ABG ALLEN TEST POS
[2021-03-20] MEDS: ACCUNEB 1.25 MG NEBULE NEB SCH ×2 (05:34→21:57)
[2021-03-20] MEDS: FORTAZ or TAZICEF VIAL INJ IV SCH ×3 (05:37→22:00)
[2021-03-20] MEDS: PERIACTIN TAB 4 MG PO SCH ×3 (05:37→22:00)
[2021-03-20] MEDS: HEPARIN SODIUM INJ 5000 UNITS SC SCH ×3 (05:37→22:00)
[2021-03-20] MEDS: TESSALON PERLES PO SCH ×3 (05:38→22:00)
[2021-03-20 07:38] LABS: BASOPHILS % (AUTO) 0.1 % (0.2-1.0); HEMATOCRIT 44.2 % (42.0-54.0); LYMPHOCYTES # (AUTO) 0.3 X10^3/uL (1.3-2.9); LYMPHOCYTES % (AUTO) 2.8 % (21.0-51.0); MEAN CORPUSCULAR HEMOGLOBIN 30.7 pg (27.0-34.0); MEAN CORPUSCULAR VOLUME 90.3 fL (80.0-100.0); MEAN PLATELET VOLUME 8.9 fL (7.4-11.0); MONOCYTES # (AUTO) 0.6 x10^3/uL (0.3-0.8); MONOCYTES % (AUTO) 4.9 % (0.0-13.0); NEUTROPHILS # (AUTO) 11.4 x10^3/uL (2.2-4.8); NEUTROPHILS % (AUTO) 92.2 % (42.0-75.0); PLATELET COUNT 192 X10^3/uL (150.0-450.0); RED BLOOD COUNT 4.89 X10^6/uL (4.7-6.0); RED CELL DISTRIBUTION WIDTH 13.6 % (11.6-16.5); WHITE BLOOD COUNT 12.4 X10^3/uL (3.6-10.0)
[2021-03-20 08:03] LABS: ALANINE AMINOTRANSFERASE 31 Units/L (12-78); ALBUMIN 2.2 g/dL (3.4-5.0); ALKALINE PHOSPHATASE 79 Units/L (46-116); ASPARTATE AMINO TRANSFERASE 33 Units/L (15-37); BLOOD UREA NITROGEN 27 mg/dL (7-18); CARBON DIOXIDE 30.2 mmol/L (21-32); CHLORIDE 107 mmol/L (98-107); COR CA(FOR HYPOALB) 9.4 mg/dL (8.5-10.1); COR NA(FOR HYPERGLY) 143 mmol/L (136-145); CREATININE 1.05 mg/dL (0.70-1.30); SODIUM 142 mmol/L (136-145); TOTAL PROTEIN 5.6 g/dL (6.4-8.2); eGFR NON BLACK RACES > 60 (>60)
--- NOTE | 2021-03-20 08:04 | RAD ---
HISTORYSOBSTUDYCHEST, 1 [id number] bilateral opacity in the lungs could be pulmonary edema or pneumonia. Probably not changed significantly from yesterday.No pleural effusion or pneumothorax.The heart size is magnified.Bones are unremarkable.IMPRESSION1. Unchanged pulmonary edema or pneumoniaElectronically signed by: Gurwinder Chow (Mar 20, 2021 08:02:28)
[2021-03-20 08:25] LABS: PLATELET MORPHOLOGY COMMENT NORMAL (NORMAL)
[2021-03-20] MEDS: PEPCID TAB 20 MG PO SCH ×2 (08:59→20:48)
[2021-03-20] MEDS: MILK OF MAGNESIA PO SCH (08:59)
[2021-03-20] MEDS: VISTARIL PO PRN ×2 (08:59→20:50)
[2021-03-20] MEDS: ROBITUSSIN DM PO SCH ×4 (08:59→20:48)
[2021-03-20] MEDS: ZESTRIL TAB 10 MG PO SCH (09:00)
[2021-03-20] MEDS: PROTONIX TAB 40 MG PO SCH ×2 (09:00→20:49)
[2021-03-20] MEDS: ZyrTEC TAB 10 MG PO SCH (09:00)
[2021-03-20] MEDS: ZINC SULFATE PO SCH (09:00)
[2021-03-20] MEDS: AVODART PO SCH (09:00)
[2021-03-20] MEDS: TRICOR TAB 160 MG PO SCH (09:01)
[2021-03-20] MEDS: VITAMIN D3 125 mcg (5,000 UNITS) PO SCH (09:01)
[2021-03-20] MEDS: PULMICORT NEB TX 0.5 MG NEB SCH ×2 (09:30→21:57)
[2021-03-20] MEDS: BROVANA IN SCH ×2 (09:30→21:57)
[2021-03-20] MEDS: LEVAQUIN PREMIX IV 500 MG 500 MG/100 ML BAG IV SCH (10:07)
[2021-03-20] MEDS: FLUVOXAMINE MALEATE PO SCH ×3 (10:07→20:48)
[2021-03-20] MEDS: THIAMINE HCL INJ IVP SCH ×2 (10:08→22:00)
[2021-03-20] MEDS ORDERED: FLUVOXAMINE MALEATE ONE (11:04)
[2021-03-20] MEDS: NORCO 5/325 MG TAB PO PRN ×2 (13:00→20:50)
[2021-03-20] MEDS ORDERED: NS 50 ML IV + SPIKE MINIBAG* 50 ML IV ONE (13:30)
[2021-03-20] MEDS: SNACK - Diabetic Appropriate PO SCH (20:00)
[2021-03-20] MEDS: LIPITOR TAB 80 MG PO SCH (20:49)
[2021-03-20] MEDS: SINGULAIR TAB 10 MG PO SCH (20:49)
[2021-03-20] MEDS: MUCOMYST (RESPIRATORY USE ONLY) NEB SCH (21:57)
[2021-03-21] MEDS: ASCORBIC ACID INJ MULTI-DOSE VIAL 1,500 MG in NS 50 ML IV 50 ML IV SCH ×4 (02:33→22:00)
[2021-03-21] MEDS: SOLU-Medrol 125 MG VIAL IVP SCH ×4 (03:06→22:30)
[2021-03-21] MEDS ORDERED: NS 1/2 1000 ML IV 1,000 ML IV ONE ×2 (03:38→16:03)
[2021-03-21] MEDS: NS 1/2 1000 ML IV 1,000 ML IV SCH ×2 (04:59→16:05)
[2021-03-21 05:37] LABS: ABG BASE EXCESS 1.6 mmol/L (-2.0-2.0); ABG HCO3 23.7 mmol/L (22-26)
[2021-03-21 05:42] LABS: ABG ALLEN TEST POS
[2021-03-21] MEDS: FORTAZ or TAZICEF VIAL INJ IV SCH (05:42)
[2021-03-21] MEDS: HumuLIN R SUBCUT PRN ×3 (05:42→21:20)
[2021-03-21] MEDS: PERIACTIN TAB 4 MG PO SCH ×2 (05:43→14:06)
[2021-03-21] MEDS: HEPARIN SODIUM INJ 5000 UNITS SC SCH ×3 (05:43→22:37)
[2021-03-21] MEDS: TESSALON PERLES PO SCH ×3 (05:43→22:15)
[2021-03-21 06:33] LABS: BASOPHILS % (AUTO) 0.2 % (0.2-1.0); HEMATOCRIT 43.4 % (42.0-54.0); HEMOGLOBIN 14.8 g/dL (13.5-18.0); LYMPHOCYTES # (AUTO) 0.3 X10^3/uL (1.3-2.9); MEAN CORPUSCULAR HEMOGLOBIN 30.9 pg (27.0-34.0); MEAN CORPUSCULAR VOLUME 90.9 fL (80.0-100.0); MEAN PLATELET VOLUME 9.3 fL (7.4-11.0); MONOCYTES # (AUTO) 0.7 x10^3/uL (0.3-0.8); MONOCYTES % (AUTO) 4.6 % (0.0-13.0); NEUTROPHILS # (AUTO) 13.9 x10^3/uL (2.2-4.8); NEUTROPHILS % (AUTO) 93.2 % (42.0-75.0); PLATELET COUNT 193 X10^3/uL (150.0-450.0); RED BLOOD COUNT 4.78 X10^6/uL (4.7-6.0); RED CELL DISTRIBUTION WIDTH 13.1 % (11.6-16.5)
[2021-03-21] MEDS: ACCUNEB 1.25 MG NEBULE NEB SCH ×2 (06:58→20:50)
[2021-03-21 07:00] LABS: ALANINE AMINOTRANSFERASE 31 Units/L (12-78); ALBUMIN 2.1 g/dL (3.4-5.0); ALKALINE PHOSPHATASE 79 Units/L (46-116); ASPARTATE AMINO TRANSFERASE 31 Units/L (15-37); BLOOD UREA NITROGEN 25 mg/dL (7-18); CALCIUM 7.9 mg/dL (8.5-10.1); CARBON DIOXIDE 27.6 mmol/L (21-32); CHLORIDE 106 mmol/L (98-107); COR CA(FOR HYPOALB) 9.4 mg/dL (8.5-10.1); COR NA(FOR HYPERGLY) 142 mmol/L (136-145); CREATININE 1.08 mg/dL (0.70-1.30); SODIUM 141 mmol/L (136-145); TOTAL PROTEIN 5.5 g/dL (6.4-8.2); eGFR NON BLACK RACES > 60 (>60)
--- NOTE | 2021-03-21 07:50 | RAD ---
HISTORYSOBSTUDYPortable AP chestCOMPARISONAugust 2019FINDINGSSimilar heart size is upper normal to slightly enlarged. There is no change in degree or distribution of bilateral interstitial and airspace disease. Prominent air bronchogram is noted in the lower lobes. No pleural fluid or pneumothorax seen.IMPRESSIONNo change in appearance of the bilateral infiltrates consistent with pneumonia/edema.Electronically signed by: ESTEPHANIA ROB (Mar 21, 2021 07:48:48)
[2021-03-21 07:55] LABS: PLATELET MORPHOLOGY COMMENT NORMAL (NORMAL)
[2021-03-21] MEDS: ROBITUSSIN DM PO SCH ×4 (08:33→22:20)
[2021-03-21] MEDS: ZyrTEC TAB 10 MG PO SCH (08:34)
[2021-03-21] MEDS: ZESTRIL TAB 10 MG PO SCH (08:34)
[2021-03-21] MEDS: VISTARIL PO PRN ×2 (08:34→16:07)
[2021-03-21] MEDS: PROTONIX TAB 40 MG PO SCH ×2 (08:34→22:15)
[2021-03-21] MEDS: PEPCID TAB 20 MG PO SCH ×2 (08:34→22:15)
[2021-03-21] MEDS: ZINC SULFATE PO SCH (08:34)
[2021-03-21] MEDS: VITAMIN D3 125 mcg (5,000 UNITS) PO SCH (08:35)
[2021-03-21] MEDS: TRICOR TAB 160 MG PO SCH (08:35)
[2021-03-21] MEDS: MILK OF MAGNESIA PO SCH (08:36)
[2021-03-21] MEDS: FLUVOXAMINE MALEATE PO SCH ×2 (08:40→22:15)
[2021-03-21] MEDS: THIAMINE HCL INJ IVP SCH ×2 (08:40→22:32)
[2021-03-21] MEDS: AVODART PO SCH (08:42)
[2021-03-21] MEDS: BROVANA IN SCH (09:20)
[2021-03-21] MEDS: MUCOMYST (RESPIRATORY USE ONLY) NEB SCH ×2 (09:20→20:50)
[2021-03-21] MEDS: PULMICORT NEB TX 0.5 MG NEB SCH ×2 (09:20→20:50)
[2021-03-21] MEDS: LEVAQUIN PREMIX IV 500 MG 500 MG/100 ML BAG IV SCH (09:43)
[2021-03-21] MEDS: NORCO 5/325 MG TAB PO PRN ×2 (12:09→21:15)
[2021-03-21] MEDS ORDERED: NS 100 ML IV + SPIKE MINIBAG* 100 ML IV ONE (14:00)
[2021-03-21] MEDS: FORTAZ or TAZICEF VIAL INJ 1 G in NS 100 ML IV + SPIKE MINIBAG* 100 ML IV SCH ×2 (14:04→22:35)
[2021-03-21 16:35] VITALS: BMI 37.0
[2021-03-21] MEDS ORDERED: LEXAPRO ONE (16:44)
[2021-03-21] MEDS: LEXAPRO PO SCH (16:45)
--- NOTE | 2021-03-21 19:18 | PCM.PROG ---
Progress Note - Progress Note for Day of Date of Exam: 03/20/21 - Subjective Subjective: MR. MARMOLEJO WAS ADMITTED FOR TREATMENT OF COVID PNEUMONIA AND HYPOXIA. PMH: OBESITY, GERD, HTN. TODAY, HE IS SITTING IN THE CHAIR ON MORNING ROUNDS. HE REPORTS NOT BEING ABLE TO REST WELL THROUGHOUT THE NIGHT. HE IS CURRENTLY UTILIZING HEATED HIGH FLOW OXYGEN AT 93%. HE CONTINUES WITH COMPLAINTS OF SHORTNESS OF BREATH AND WEAKNESS TODAY. SHORTNESS OF BREATH AND COUGH SLIGHTLY INCREASED. HIS SATURATIONS HAVE BEEN 86-92% ON HEATED HIGH FLOW OXYGEN. ON EXAMINATION, HEART IS REGULAR IN RATE AND RHYTHM. BILATERAL LUNGS ARE NOTED WITH RALES THROUGHOUT. ABDOMEN IS ROUND, SOFT, AND NON-TENDER WITH NORMAL BOWEL SOUNDS NOTED IN ALL QUADRANTS. HIS VITALS THIS MORNING ARE: 97.9-61-33-92%-150/71. LABS WERE OBTAINED. ABNORMAL LAB VALUES INCLUDE THE FOLLOWING: WBC 12.4, D-DIMER 1.10, BUN 27, GLUCOSE 121, CALCIUM 8.0, FERRITIN 3608, CRP 5.50, TOTAL PROTEIN 5.6, ALBUMIN 2.2. BLOOD CULTURES ARE PENDING. ABG REVEALED: PH 7.520, PC02 32, P02 49, HC03 26.1, 02 SAT 89, BASE EXCESS 3.6, A-A GRADINET 624, FI02 100. A CHEST XRAY WAS OBTAINED AND REVEALED: 1. Unchanged pulmonary edema or pneumonia. HE IS CURRENTLY RECEIVING 1/2NS AT 75 ML/HR, LEVAQUIN 500MG IV DAILY, FORTAZ 1G IV Q8H, REMDESIVIR 100MG IV DAILY, ASCORBIC ACID 1500MG IV Q6H, ALBUTEROL NEBS TID, PULMICORT NEBS BID, BROVANA INHALER BID, MUCOMYST IN NEB [place], SOLU-MEDROL 125MG IV Q6H, FLUVOXAMINE 50MG PO BID, CYPROHEPTADINE 8MG PO TID, AVODART DAILY, HEPARIN 5,000UNITS SC TID, LIPITOR 80MG PO HS, TESSALON PERLES 200MG PO TID, CETIRIZINE 10MG PO DAILY, TUSSIONEX 5ML PO Q12H PRN, PEPCID 20MG PO BID, ROBITUSSIN DM 10ML PO QID PRN, HUMULIN R SLIDING SCALE, MELATONIN 10MG PO HS, SINGULAIR 10MG PO HS, PROTONIX 40MG PO BID, THIAMINE 200MG IV BID, AND ZINC SULFATE 220MG PO BID. WE WILL CONTINUE WITH CURRENT PLAN OF CARE TODAY AND ATTEMPT TO WEAN DOWN OXYGEN HE TOLERATES IT. OTHERWISE, WE WILL FOLLOW UP WITH AM LABS, CHEST XRAY, ABG, AND CONTINUE TO MONITOR. TIME SPENT ON CLINICAL ASSESSMENT, REVIEWING LABS AND IMAGING, DECISION MAKING, AND DOCUMENTATION GREATER THAN 45 MINUTES. - Past Medical Family Social History Past Med/Fam/Surg Hx: No changes since H&P Allergies: Allergies No Allergy Information Available Allergy (Verified 03/14/21 14:24) - Review of Systems ROS: No change since H&P - Vital Signs and I&O's Vital Signs: Temperature 98.0 F Pulse Rate [Right Brachial] 95 Pulse Rate [Left Radial] 85 Pulse Rate 101 Respiratory Rate 24 Blood Pressure [Right Arm] 132/61 Blood Pressure [Left Arm] 141/74 O2 Sat by Pulse Oximetry 92 Intake and Output: Intake & Output 03/19/21 03/20/21 03/21/21 03/22/21 11:59 11:59 11:59 11:59 Intake Total 2196 / 2196 2419 / 2419 4993 / 4993 1243 / 1243 Output Total 2340 / 2340 2700 / 2700 3000 / 3000 2049 / 2049 Balance -144 / -144 -281 / -281 1992 / 1992 -807 / -807 - Physical Exam Oriented: Normal Eyes: Normal Ear: Normal Nose: Normal Throat: Normal Respiratory: Generalized, Diminished, Rales Cardiovascular: Normal : Normal Auscultation: Bowel Sounds: Normal Palpation: Normal Tenderness: Normal Skin: Normal Musculoskeletal: Normal Psychiatric: Normal Mood Description: Calm Affect: Normal Speech Pattern: Clear, Appropriate - Laboratory and Diagnostics Result Diagrams: 03/21/21 06:01 03/21/21 06:01 Labs: 03/14/21 16:39 Blood Blood Culture - Final 03/14/21 16:35 Blood Blood Culture - Final 03/18/21 01:03 Sputum - Expectorated Sputum Sputum Culture - Final 03/18/21 01:03 Sputum - Expectorated Sputum - Final Laboratory WBC 15.0 X10^3/uL (3.6-10.0) H 03/21/21 06:01 RBC 4.78 X10^6/uL (4.7-6.0) 03/21/21 06:01 Hgb 14.8 g/dL (13.5-18.0) 03/21/21 06:01 Hct 43.4 % (42.0-54.0) 03/21/21 06:01 MCV 90.9 fL (80.0-100.0) 03/21/21 06:01 MCH 30.9 pg (27.0-34.0) 03/21/21 06:01 MCHC 34.0 g/dL (33.0-35.0) 03/21/21 06:01 RDW 13.1 % (11.6-16.5) 03/21/21 06:01 Plt Count 193 X10^3/uL (150.0-450.0) 03/21/21 06:01 Plt Count Comment Adequate (ADEQUATE) 03/21/21 06:01 MPV 9.3 fL (7.4-11.0) 03/21/21 06:01 Neut % (Auto) 93.2 % (42.0-75.0) H 03/21/21 06:01 Lymph % (Auto) 2.0 % (21.0-51.0) L 03/21/21 06:01 Harris % (Auto) 4.6 % (0.0-13.0) 03/21/21 06:01 Eos % (Auto) 0.0 % (0.9-2.9) L 03/21/21 06:01 Baso % (Auto) 0.2 % (0.2-1.0) 03/21/21 06:01 Neut # (Auto) 13.9 x10^3/uL (2.2-4.8) H 03/21/21 06:01 Lymph # (Auto) 0.3 X10^3/uL (1.3-2.9) L 03/21/21 06:01 Harris # (Auto) 0.7 x10^3/uL (0.3-0.8) 03/21/21 06:01 Eos # (Auto) 0.0 x10^3/uL (0.0-0.2) 03/21/21 06:01 Baso # (Auto) 0.0 X10^3/uL (0.0-0.1) 03/21/21 06:01 Absolute Nucleated RBC 0.1 /100WBC 03/21/21 06:01 Total Counted 100 03/21/21 06:01 Neutrophils % (Manual) 93 % (39-76) H 03/21/21 06:01 Lymphocytes % (Manual) 3 % (13-43) L 03/21/21 06:01 Monocytes % (Manual) 4 % (4-9) 03/21/21 06:01 Plt Morphology Comment Normal (NORMAL) 03/21/21 06:01 RBC Morphology Normal (NORMAL) 03/21/21 06:01 PT 14.2 SECONDS (11.8-14.3) 03/20/21 07:07 INR Target Range - 03/20/21 07:07 INR 1.16 (0.8-1.3) 03/20/21 07:07 APTT 26.6 SECONDS (22.9-36.5) 03/17/21 06:05 PTT Comment - 03/17/21 06:05 D-Dimer 0.94 ug/ml (0.0-0.57) H* 03/21/21 06:01 Sample Site Lrad 03/21/21 05:27 ABG pH 7.520 (7.35-7.45) H 03/21/21 05:27 ABG pCO2 29.0 mmHg (35.0-45.0) L 03/21/21 05:27 ABG pO2 36.0 mmHg (80.0-100.0) L* 03/21/21 05:27 ABG HCO3 23.7 mmol/L (22-26) 03/21/21 05:27 ABG O2 Saturation 77.0 % (90-100) L* 03/21/21 05:27 ABG Base Excess 1.6 mmol/L (-2.0-2.0) 03/21/21 05:27 Corky Test Pos 03/21/21 05:27 A-a Gradient 598.0 mmHg 03/21/21 05:27 FiO2 94.0 03/21/21 05:27 Blood Gas Comments Pt lorena well sa 03/21/21 05:27 Sodium 141 mmol/L (136-145) 03/21/21 06:01 Corrected Sodium 142 mmol/L (136-145) 03/21/21 06:01 Potassium 4.3 mmol/L (3.5-5.1) 03/21/21 06:01 Chloride 106 mmol/L (98-107) 03/21/21 06:01 Carbon Dioxide 27.6 mmol/L (21-32) 03/21/21 06:01 BUN 25 mg/dL (7-18) H 03/21/21 06:01 Creatinine 1.08 mg/dL (0.70-1.30) 03/21/21 06:01 Est GFR (MDRD) Af Amer > 60 (>60) 03/21/21 06:01 Est GFR (MDRD) Non-Af > 60 (>60) 03/21/21 06:01 Glucose 139 mg/dL (65-99) H 03/21/21 06:01 POC Glucose (mg/dL) 189 mg/dL (65-99) H 03/21/21 16:00 Calcium 7.9 mg/dL (8.5-10.1) L 03/21/21 06:01 Corrected Calcium 9.4 mg/dL (8.5-10.1) 03/21/21 06:01 Ferritin 3198 ng/mL (26-388) H 03/21/21 06:01 Total Bilirubin 0.60 mg/dL (0.2-1.0) 03/21/21 06:01 AST 31 Units/L (15-37) 03/21/21 06:01 ALT 31 Units/L (12-78) 03/21/21 06:01 Alkaline Phosphatase 79 Units/L (46-116) 03/21/21 06:01 Creatine Kinase 69 Units/L (39-308) 03/14/21 14:54 CK-MB (CK-2) < 1.0 ng/mL (0-4.0) 03/14/21 14:54 CK/CKMB % Calc 1.5 % (<4) 03/14/21 14:54 Troponin I < 0.02 ng/mL (0-1.5) 03/14/21 14:54 C-Reactive Protein 5.00 mg/L (0-3.0) H 03/21/21 06:01 B-Natriuretic Peptide 19.7 pg/mL (0-79) 03/21/21 06:01 Total Protein 5.5 g/dL (6.4-8.2) L 03/21/21 06:01 Albumin 2.1 g/dL (3.4-5.0) L 03/21/21 06:01 Globulin 3.4 g/dL (2.5-4.5) 03/21/21 06:01 Albumin/Globulin Ratio 0.6 Ratio (1.1-2.1) L 03/21/21 06:01 - Plan (1) Pneumonia due to COVID-19 virus Status: Acute Plan: SUPPLEMENTAL OXYGEN, 1/2NS AT 75 ML/HR, LEVAQUIN 500MG IV DAILY, FORTAZ 1G IV Q8H, REMDESIVIR 100MG IV DAILY, ASCORBIC ACID 1500MG IV Q6H, ALBUTEROL NEBS TID, PULMICORT NEBS BID, BROVANA INHALER BID, MUCOMYST IN NEB [place], SOLU-MEDROL 125MG IV Q6H, FLUVOXAMINE 50MG PO BID, CYPROHEPTADINE 8MG PO TID, AVODART DAILY, HEPARIN 5,000UNITS SC TID, LIPITOR 80MG PO HS, TESSALON PERLES 200MG PO TID, CETIRIZINE 10MG PO DAILY, TUSSIONEX 5ML PO Q12H PRN, PEPCID 20MG PO BID, ROBITUSSIN DM 10ML PO QID PRN, HUMULIN R SLIDING SCALE, MELATONIN 10MG PO HS, SINGULAIR 10MG PO HS, PROTONIX 40MG PO BID, THIAMINE 200MG IV BID, AND ZINC SULFATE 220MG PO BID. (2) Hypoxia Status: Acute (3) HTN (hypertension) Status: Chronic Qualifiers: Hypertension type: primary hypertension Qualified Code(s): I10 - Essential (primary) hypertension (4) GERD (gastroesophageal reflux disease) Status: Chronic Qualifiers: Esophagitis presence: esophagitis presence not specified Qualified Code(s): K21.9 - Gastro-esophageal reflux disease without esophagitis (5) Obesity Status: Chronic Qualifiers: Obesity type: unspecified obesity type Obesity classification: adult class 2 (BMI 35 - 39.9) Serious obesity comorbidity presence: unspecified whether serious comorbidity present Body mass index: BMI 36.0-36.9 Qualified Code( s): E66.9 - Obesity, unspecified; Z68.36 - Body mass index [BMI] 36.0-36.9, adult
[2021-03-21] MEDS: RESTORIL CAP 15 MG PO PRN (21:15)
[2021-03-21] MEDS: LIPITOR TAB 80 MG PO SCH (22:15)
[2021-03-21] MEDS: SINGULAIR TAB 10 MG PO SCH (22:15)
[2021-03-21] MEDS: TUSSIONEX PENNKINETIC SUSP PO SCH (22:21)
[2021-03-22] MEDS: SNACK - Diabetic Appropriate PO SCH (01:38)
[2021-03-22] MEDS: SOLU-Medrol 125 MG VIAL IVP SCH ×5 (02:25→21:40)
[2021-03-22] MEDS: ASCORBIC ACID INJ MULTI-DOSE VIAL 1,500 MG in NS 50 ML IV 50 ML IV SCH ×4 (02:25→21:30)
[2021-03-22 05:29] LABS: BASOPHILS # (AUTO) 0.1 X10^3/uL (0.0-0.1); BASOPHILS % (AUTO) 0.6 % (0.2-1.0); HEMATOCRIT 44.3 % (42.0-54.0); HEMOGLOBIN 14.8 g/dL (13.5-18.0); LYMPHOCYTES # (AUTO) 0.3 X10^3/uL (1.3-2.9); LYMPHOCYTES % (AUTO) 2.1 % (21.0-51.0); MEAN CORPUSCULAR HEMOGLOBIN 30.5 pg (27.0-34.0); MEAN CORPUSCULAR HGB CONC 33.4 g/dL (33.0-35.0); MEAN CORPUSCULAR VOLUME 91.4 fL (80.0-100.0); MEAN PLATELET VOLUME 9.2 fL (7.4-11.0); MONOCYTES # (AUTO) 0.6 x10^3/uL (0.3-0.8); MONOCYTES % (AUTO) 3.9 % (0.0-13.0); NEUTROPHILS # (AUTO) 13.6 x10^3/uL (2.2-4.8); NEUTROPHILS % (AUTO) 93.4 % (42.0-75.0); PLATELET COUNT 163 X10^3/uL (150.0-450.0); RED BLOOD COUNT 4.85 X10^6/uL (4.7-6.0); RED CELL DISTRIBUTION WIDTH 13.2 % (11.6-16.5); WHITE BLOOD COUNT 14.5 X10^3/uL (3.6-10.0)
[2021-03-22] MEDS: NS 1/2 1000 ML IV 1,000 ML IV SCH ×3 (05:51→18:59)
[2021-03-22 05:54] LABS: ALANINE AMINOTRANSFERASE 30 Units/L (12-78); ALKALINE PHOSPHATASE 81 Units/L (46-116); ASPARTATE AMINO TRANSFERASE 32 Units/L (15-37); BLOOD UREA NITROGEN 29 mg/dL (7-18); CALCIUM 8.1 mg/dL (8.5-10.1); CARBON DIOXIDE 27.7 mmol/L (21-32); CHLORIDE 108 mmol/L (98-107); COR CA(FOR HYPOALB) 9.7 mg/dL (8.5-10.1); COR NA(FOR HYPERGLY) 142 mmol/L (136-145); CREATININE 1.04 mg/dL (0.70-1.30); SODIUM 142 mmol/L (136-145); TOTAL PROTEIN 5.5 g/dL (6.4-8.2); eGFR NON BLACK RACES > 60 (>60)
[2021-03-22] MEDS: ACCUNEB 1.25 MG NEBULE NEB SCH ×3 (06:00→20:15)
[2021-03-22 06:11] LABS: ABG BASE EXCESS 2.1 mmol/L (-2.0-2.0); ABG HCO3 25.1 mmol/L (22-26)
[2021-03-22 06:13] LABS: ABG ALLEN TEST POS
[2021-03-22] MEDS: HEPARIN SODIUM INJ 5000 UNITS SC SCH ×4 (06:15→22:38)
[2021-03-22] MEDS: FORTAZ or TAZICEF VIAL INJ 1 G in NS 100 ML IV + SPIKE MINIBAG* 100 ML IV SCH ×3 (06:30→22:50)
[2021-03-22] MEDS: HumuLIN R SUBCUT PRN ×2 (06:30→16:00)
[2021-03-22 06:43] LABS: PLATELET MORPHOLOGY COMMENT NORMAL (NORMAL)
[2021-03-22] MEDS: TESSALON PERLES PO SCH ×3 (06:56→21:35)
--- NOTE | 2021-03-22 08:19 | RAD ---
HISTORYSOBSTUDYCHEST, 1 [id number] appears to be more venous congestion than the prior study. Alternatively, this might represent a progression of pneumonia which was seen on the CT 03/14/2021.No pleural effusion or pneumothorax.The heart size is magnified.Bones are unremarkable.EKG leads are noted.IMPRESSION1. New pulmonary edema versus progressed pneumoniaElectronically signed by: Gurwinder Chow (Mar 22, 2021 08:17:28)
[2021-03-22] MEDS ORDERED: LEXAPRO ONE (08:40)
[2021-03-22] MEDS: ROBITUSSIN DM PO SCH ×4 (08:46→21:20)
[2021-03-22] MEDS: THIAMINE HCL INJ IVP SCH ×2 (08:47→21:42)
[2021-03-22] MEDS: VITAMIN D3 125 mcg (5,000 UNITS) PO SCH (08:47)
[2021-03-22] MEDS: ZINC SULFATE PO SCH (08:47)
[2021-03-22] MEDS: AVODART PO SCH (08:47)
[2021-03-22] MEDS: TUSSIONEX PENNKINETIC SUSP PO SCH ×2 (08:48→21:15)
[2021-03-22] MEDS: TRICOR TAB 160 MG PO SCH (08:48)
[2021-03-22] MEDS: FLUVOXAMINE MALEATE PO SCH ×2 (08:49→21:35)
[2021-03-22] MEDS: ZyrTEC TAB 10 MG PO SCH (08:49)
[2021-03-22] MEDS: PEPCID TAB 20 MG PO SCH ×2 (08:49→21:35)
[2021-03-22] MEDS: PROTONIX TAB 40 MG PO SCH ×2 (08:49→21:35)
[2021-03-22] MEDS: ZESTRIL TAB 10 MG PO SCH (08:50)
[2021-03-22] MEDS: LEXAPRO PO SCH (08:50)
[2021-03-22] MEDS: MILK OF MAGNESIA PO SCH (08:52)
[2021-03-22] MEDS: LEVAQUIN PREMIX IV 500 MG 500 MG/100 ML BAG IV SCH (09:48)
[2021-03-22] MEDS: MUCOMYST (RESPIRATORY USE ONLY) NEB SCH ×2 (10:30→20:15)
[2021-03-22] MEDS: PULMICORT NEB TX 0.5 MG NEB SCH ×2 (10:30→20:15)
[2021-03-22] MEDS: NORCO 5/325 MG TAB PO PRN ×2 (12:59→21:35)
[2021-03-22] MEDS ORDERED: NS 1/2 1000 ML IV 1,000 ML IV ONE (16:14)
--- NOTE | 2021-03-22 17:27 | PCM.PROG ---
Progress Note - Progress Note for Day of Date of Exam: 03/22/21 - Subjective Subjective: MR. MARMOLEJO WAS ADMITTED FOR TREATMENT OF COVID PNEUMONIA AND HYPOXIA. PMH: OBESITY, GERD, HTN. HE WAS TRANSFERRED TO ICU YESTERDAY FOR CLOSER OBSERVATION. TODAY, HE IS LYING IN BED ON MORNING ROUNDS. HE REPORTS RESTING BETTER THROUGHOUT THE NIGHT. HE IS CURRENTLY UTILIZING HEATED HIGH FLOW OXYGEN AT 92%. THE NON-REBREATHER MASK IS ALSO PLACED OVER THE HEATED HIGH FLOW. HE CONTINUES WITH COMPLAINTS OF SHORTNESS OF BREATH AND WEAKNESS TODAY. SHORTNESS OF BREATH AND COUGH SLIGHTLY IMPROVED TODAY. HIS SATURATIONS HAVE BEEN 82-90% ON HEATED HIGH FLOW OXYGEN. STAFF REPORTS THAT HIS SATURATIONS OFTEN DROP TO THE LOWER 80s AND OCCASIONALLY TO THE 70s WHEN HE HAS INCREASED EPISODES OF COUGHIN G. SATURATIONS DO REBOUND TO THE UPPER 80s AFTER A SHORT AMOUNT OF TIME. STAFF HAS OFFERED THE BIPAP MULTIPLE TIMES, HOWEVER, PATIENT REFUSES. ON EXAMINATION, HEART IS REGULAR IN RATE AND RHYTHM. BILATERAL LUNGS ARE NOTED WITH DIMINISHED LUNG SOUNDS THROUGHOUT. ABDOMEN IS ROUND, SOFT, AND NON-TENDER WITH NORMAL BOWEL SOUNDS NOTED IN ALL QUADRANTS. HIS VITALS THIS MORNING ARE: 97.0-84-26-87%-134/66. LABS WERE OBTAINED. ABNORMAL LAB VALUES INCLUDE THE FOLLOWING: WBC 14.5, D-DIMER 0.93, CHLORIDE 108, BUN 29, GLUCOSE 116, CALCIUM 8.1, FERRITIN 2267, CRP 6.70, TOTAL PROTEIN 5.5, ALBUMIN 2.0. BLOOD CULTURES ARE PENDING. ABG REVEALED: PH 7.490, PC02 33, P02 398, HC03 25.1. 02 SAT 79, A-A GRADIENT 633, FI02 100. A CHEST XRAY WAS OBTAINED AND REVEALED: 1. New pulmonary edema versus progressed pneumonia. HE IS CURRENTLY RECEIVING 1/2NS AT 75 ML/HR, LEVAQUIN 500MG IV DAILY, FORTAZ 1G IV Q8H, ASCORBIC ACID 1500MG IV Q6H, ALBUTEROL NEBS TID, PULMICORT NEBS BID, MUCOMYST IN NEB [place], SOLU-MEDROL 125MG IV Q6H, FLUVOXAMINE 50MG PO BID, LEXAPRO DAILY, AVODART DAILY, HEPARIN 5,000UNITS SC TID, LIPITOR 80MG PO HS, TESSALON PERLES 200MG PO TID, CETIRIZINE 10MG PO DAILY, TUSSIONEX 5ML PO Q12H PRN, PEPCID 20MG PO BID, ROBITUSSIN DM 10ML PO QID PRN, HUMULIN R SLIDING SCALE, MELATONIN 10MG PO HS, SINGULAIR 10MG PO HS, PROTONIX 40MG PO BID, THIAMINE 200MG IV BID, AND ZINC SULFATE 220MG PO BID. WE DISCUSSED THE BENEFITS OF USE OF THE BIPAP WITH THE PATIENT. HE CONTINUED TO REFUSE AT THIS TIME, BUT AGREED THAT IF SATUARATIONS WERE TO DROP BELOW 85 AND NOT REBOUND, THAT HE WOULD WEAR BIPAP AT THAT TIME. WE WILL CONTINUE WITH CURRENT PLAN OF CARE TODAY AND ATTEMPT TO WEAN DOWN OXYGEN HE TOLERATES IT. OTHERWISE, WE WILL FOLLOW UP WITH AM LABS, CHEST XRAY, ABG, AND CONTINUE TO MONITOR. TIME SPENT ON CLINICAL ASSESSMENT, REVIEWING LABS AND IMAGING, DECISION MAKING, AND DOCUMENTATION GREATER THAN 45 MINUTES. - Past Medical Family Social History Past Med/Fam/Surg Hx: No changes since H&P Allergies: Allergies No Allergy Information Available Allergy (Verified 03/14/21 14:24) - Review of Systems ROS: No change since H&P - Vital Signs and I&O's Vital Signs: Temperature 97.8 F Pulse Rate [Right Brachial] 63 Pulse Rate [Left Radial] 85 Pulse Rate 74 Respiratory Rate 24 Blood Pressure [Right Arm] 142/73 Blood Pressure [Left Arm] 113/58 O2 Sat by Pulse Oximetry 87 Intake and Output: Intake & Output 03/20/21 03/21/21 03/22/21 03/23/21 11:59 11:59 11:59 11:59 Intake Total 2419 / 2419 4993 / 4993 3951 / 3951 1732 / 1732 Output Total 2700 / 2700 3000 / 3000 2950 / 2950 1025 / 1025 Balance -281 / -281 1992 / 1992 1001 / 1001 707 / 707 - Physical Exam Oriented: Normal Eyes: Normal Ear: Normal Nose: Normal Throat: Normal Respiratory: Generalized, Diminished Cardiovascular: Normal : Normal Auscultation: Bowel Sounds: Normal Tenderness: Normal Skin: Normal Musculoskeletal: Normal Psychiatric: Normal Mood Description: Calm Affect: Normal Speech Pattern: Clear, Appropriate - Laboratory and Diagnostics Result Diagrams: 03/22/21 05:01 03/22/21 05:01 Labs: 03/14/21 16:39 Blood Blood Culture - Final 03/14/21 16:35 Blood Blood Culture - Final 03/18/21 01:03 Sputum - Expectorated Sputum Sputum Culture - Final 03/18/21 01:03 Sputum - Expectorated Sputum - Final Laboratory WBC 14.5 X10^3/uL (3.6-10.0) H 03/22/21 05:01 RBC 4.85 X10^6/uL (4.7-6.0) 03/22/21 05:01 Hgb 14.8 g/dL (13.5-18.0) 03/22/21 05:01 Hct 44.3 % (42.0-54.0) 03/22/21 05:01 MCV 91.4 fL (80.0-100.0) 03/22/21 05:01 MCH 30.5 pg (27.0-34.0) 03/22/21 05:01 MCHC 33.4 g/dL (33.0-35.0) 03/22/21 05:01 RDW 13.2 % (11.6-16.5) 03/22/21 05:01 Plt Count 163 X10^3/uL (150.0-450.0) 03/22/21 05:01 Plt Count Comment Adequate (ADEQUATE) 03/22/21 05:01 MPV 9.2 fL (7.4-11.0) 03/22/21 05:01 Neut % (Auto) 93.4 % (42.0-75.0) H 03/22/21 05:01 Lymph % (Auto) 2.1 % (21.0-51.0) L 03/22/21 05:01 [place] % (Auto) 3.9 % (0.0-13.0) 03/22/21 05:01 Eos % (Auto) 0.0 % (0.9-2.9) L 03/22/21 05:01 Baso % (Auto) 0.6 % (0.2-1.0) 03/22/21 05:01 Neut # (Auto) 13.6 x10^3/uL (2.2-4.8) H 03/22/21 05:01 Lymph # (Auto) 0.3 X10^3/uL (1.3-2.9) L 03/22/21 05:01 [place] # (Auto) 0.6 x10^3/uL (0.3-0.8) 03/22/21 05:01 Eos # (Auto) 0.0 x10^3/uL (0.0-0.2) 03/22/21 05:01 Baso # (Auto) 0.1 X10^3/uL (0.0-0.1) 03/22/21 05:01 Absolute Nucleated RBC 0.2 /100WBC 03/22/21 05:01 Total Counted 100 03/22/21 05:01 Neutrophils % (Manual) 91 % (39-76) H 03/22/21 05:01 Lymphocytes % (Manual) 9 % (13-43) L 03/22/21 05:01 Monocytes % (Manual) 4 % (4-9) 03/21/21 06:01 Plt Morphology Comment Normal (NORMAL) 03/22/21 05:01 RBC Morphology Normal (NORMAL) 03/22/21 05:01 PT 14.2 SECONDS (11.8-14.3) 03/20/21 07:07 INR Target Range - 03/20/21 07:07 INR 1.16 (0.8-1.3) 03/20/21 07:07 APTT 26.6 SECONDS (22.9-36.5) 03/17/21 06:05 PTT Comment - 03/17/21 06:05 D-Dimer 0.93 ug/ml (0.0-0.57) H* 03/22/21 05:01 Sample Site Lrad 03/22/21 06:05 ABG pH 7.490 (7.35-7.45) H 03/22/21 06:05 ABG pCO2 33.0 mmHg (35.0-45.0) L 03/22/21 06:05 ABG pO2 39.0 mmHg (80.0-100.0) L* 03/22/21 06:05 ABG HCO3 25.1 mmol/L (22-26) 03/22/21 06:05 ABG O2 Saturation 79.0 % (90-100) L* 03/22/21 06:05 ABG Base Excess 2.1 mmol/L (-2.0-2.0) H 03/22/21 06:05 Corky Test Pos 03/22/21 06:05 A-a Gradient 633.0 mmHg 03/22/21 06:05 FiO2 100.0 03/22/21 06:05 Blood Gas Comments Michael well-mtf 03/22/21 06:05 Sodium 142 mmol/L (136-145) 03/22/21 05:01 Corrected Sodium 142 mmol/L (136-145) 03/22/21 05:01 Potassium 4.8 mmol/L (3.5-5.1) 03/22/21 05:01 Chloride 108 mmol/L (98-107) H 03/22/21 05:01 Carbon Dioxide 27.7 mmol/L (21-32) 03/22/21 05:01 BUN 29 mg/dL (7-18) H 03/22/21 05:01 Creatinine 1.04 mg/dL (0.70-1.30) 03/22/21 05:01 Est GFR (MDRD) Af Amer > 60 (>60) 03/22/21 05:01 Est GFR (MDRD) Non-Af > 60 (>60) 03/22/21 05:01 Glucose 116 mg/dL (65-99) H 03/22/21 05:01 POC Glucose (mg/dL) 208 mg/dL (65-99) H 03/22/21 15:44 Calcium 8.1 mg/dL (8.5-10.1) L 03/22/21 05:01 Corrected Calcium 9.7 mg/dL (8.5-10.1) 03/22/21 05:01 Ferritin 2267 ng/mL (26-388) H 03/22/21 05:01 Total Bilirubin 0.50 mg/dL (0.2-1.0) 03/22/21 05:01 AST 32 Units/L (15-37) 03/22/21 05:01 ALT 30 Units/L (12-78) 03/22/21 05:01 Alkaline Phosphatase 81 Units/L (46-116) 03/22/21 05:01 Creatine Kinase 69 Units/L (39-308) 03/14/21 14:54 CK-MB (CK-2) < 1.0 ng/mL (0-4.0) 03/14/21 14:54 CK/CKMB % Calc 1.5 % (<4) 03/14/21 14:54 Troponin I < 0.02 ng/mL (0-1.5) 03/14/21 14:54 C-Reactive Protein 6.70 mg/L (0-3.0) H 03/22/21 05:01 B-Natriuretic Peptide 38.0 pg/mL (0-79) 03/22/21 05:01 Total Protein 5.5 g/dL (6.4-8.2) L 03/22/21 05:01 Albumin 2.0 g/dL (3.4-5.0) L 03/22/21 05:01 Globulin 3.5 g/dL (2.5-4.5) 03/22/21 05:01 Albumin/Globulin Ratio 0.6 Ratio (1.1-2.1) L 03/22/21 05:01 - Plan (1) Pneumonia due to COVID-19 virus Status: Acute Plan: SUPPLEMENTAL OXYGEN, 1/2NS AT 75 ML/HR, LEVAQUIN 500MG IV DAILY, FORTAZ 1G IV Q8H, ASCORBIC ACID 1500MG IV Q6H, ALBUTEROL NEBS TID, PULMICORT NEBS BID, BROVANA INHALER BID, MUCOMYST IN NEB [place], SOLU-MEDROL 125MG IV Q6H, FLUVOXAMINE 50MG PO BID, LEXAPRO DAILY, AVODART DAILY, HEPARIN 5,000UNITS SC TID, LIPITOR 80MG PO HS, TESSALON PERLES 200MG PO TID, CETIRIZINE 10MG PO DAILY, TUSSIONEX 5ML PO Q12H, PEPCID 20MG PO BID, ROBITUSSIN DM 10ML PO QID PRN, HUMULIN R SLIDING SCALE, MELATONIN 10MG PO HS, SINGULAIR 10MG PO HS, PROTONIX 40MG PO BID, THIAMINE 200MG IV BID, AND ZINC SULFATE 220MG PO BID. (2) Hypoxia Status: Acute (3) HTN (hypertension) Status: Chronic Qualifiers: Hypertension type: primary hypertension Qualified Code(s): I10 - Essential (primary) hypertension (4) GERD (gastroesophageal reflux disease) Status: Chronic Qualifiers: Esophagitis presence: esophagitis presence not specified Qualified Code(s): K21.9 - Gastro-esophageal reflux disease without esophagitis (5) Obesity Status: Chronic Qualifiers: Obesity type: unspecified obesity type Obesity classification: adult class 2 (BMI 35 - 39.9) Serious obesity comorbidity presence: unspecified whether serious comorbidity present Body mass index: BMI 36.0-36.9 Qualified Code(s): E66.9 - Obesity, unspecified; Z68.36 - Body mass index [BMI] 36.0-36.9, adult
[2021-03-22] MEDS: LIPITOR TAB 80 MG PO SCH (21:35)
[2021-03-22] MEDS: RESTORIL CAP 15 MG PO PRN (21:35)
[2021-03-22] MEDS: VISTARIL PO PRN (21:35)
[2021-03-22] MEDS: SINGULAIR TAB 10 MG PO SCH (21:35)
[2021-03-23] MEDS: SNACK - Diabetic Appropriate PO SCH ×2 (00:14→23:55)
[2021-03-23] MEDS: ASCORBIC ACID INJ MULTI-DOSE VIAL 1,500 MG in NS 50 ML IV 50 ML IV SCH ×4 (03:25→21:05)
[2021-03-23] MEDS: SOLU-Medrol 125 MG VIAL IVP SCH ×3 (03:25→15:17)
[2021-03-23 04:36] LABS: ABG BASE EXCESS 1.8 mmol/L (-2.0-2.0); ABG HCO3 25.7 mmol/L (22-26)
[2021-03-23 04:37] LABS: ABG ALLEN TEST POS
[2021-03-23] MEDS: ACCUNEB 1.25 MG NEBULE NEB SCH (05:42)
[2021-03-23] MEDS: FORTAZ or TAZICEF VIAL INJ 1 G in NS 100 ML IV + SPIKE MINIBAG* 100 ML IV SCH ×3 (06:10→23:00)
[2021-03-23] MEDS: TESSALON PERLES PO SCH ×3 (06:15→20:55)
[2021-03-23 06:27] LABS: BASOPHILS % (AUTO) 0.1 % (0.2-1.0); HEMATOCRIT 42.2 % (42.0-54.0); HEMOGLOBIN 14.3 g/dL (13.5-18.0); LYMPHOCYTES # (AUTO) 0.2 X10^3/uL (1.3-2.9); LYMPHOCYTES % (AUTO) 1.4 % (21.0-51.0); MEAN CORPUSCULAR HEMOGLOBIN 30.6 pg (27.0-34.0); MEAN CORPUSCULAR HGB CONC 33.8 g/dL (33.0-35.0); MEAN CORPUSCULAR VOLUME 90.7 fL (80.0-100.0); MEAN PLATELET VOLUME 9.7 fL (7.4-11.0); MONOCYTES # (AUTO) 0.5 x10^3/uL (0.3-0.8); MONOCYTES % (AUTO) 3.2 % (0.0-13.0); NEUTROPHILS # (AUTO) 13.4 x10^3/uL (2.2-4.8); NEUTROPHILS % (AUTO) 95.3 % (42.0-75.0); PLATELET COUNT 159 X10^3/uL (150.0-450.0); RED BLOOD COUNT 4.66 X10^6/uL (4.7-6.0); RED CELL DISTRIBUTION WIDTH 13.8 % (11.6-16.5); WHITE BLOOD COUNT 14.1 X10^3/uL (3.6-10.0)
[2021-03-23] MEDS ORDERED: LEXAPRO ONE (07:52)
[2021-03-23 07:54] LABS: ALANINE AMINOTRANSFERASE 26 Units/L (12-78); ALBUMIN 1.9 g/dL (3.4-5.0); ALKALINE PHOSPHATASE 76 Units/L (46-116); ASPARTATE AMINO TRANSFERASE 29 Units/L (15-37); BLOOD UREA NITROGEN 28 mg/dL (7-18); CARBON DIOXIDE 27.2 mmol/L (21-32); CHLORIDE 108 mmol/L (98-107); COR CA(FOR HYPOALB) 9.7 mg/dL (8.5-10.1); CREATININE 0.89 mg/dL (0.70-1.30); SODIUM 141 mmol/L (136-145); TOTAL PROTEIN 5.2 g/dL (6.4-8.2); eGFR NON BLACK RACES > 60 (>60)
--- NOTE | 2021-03-23 08:20 | RAD ---
CHEST, 1 VIEWHISTORY: SOBStudy: Single view of the chest.Comparison:March 22, 2021Findings:The cardiomediastinal silhouette is normal. No change in the appearance of bilateral insterstitial and airspace opacities. Osseous structures demonstrate no acute abnormality.IMPRESSION:1. No change from prior.Electronically signed by: PASTOR GOMEZ (Mar 23, 2021 08:18:15)
[2021-03-23] MEDS: FLUVOXAMINE MALEATE PO SCH ×2 (08:24→20:55)
[2021-03-23] MEDS: AVODART PO SCH (08:24)
[2021-03-23] MEDS: LEXAPRO PO SCH (08:25)
[2021-03-23] MEDS: LEVAQUIN PREMIX IV 500 MG 500 MG/100 ML BAG IV SCH (08:25)
[2021-03-23] MEDS: ZyrTEC TAB 10 MG PO SCH (08:25)
[2021-03-23] MEDS: MILK OF MAGNESIA PO SCH (08:25)
[2021-03-23] MEDS: PEPCID TAB 20 MG PO SCH ×2 (08:26→20:55)
[2021-03-23] MEDS: PROTONIX TAB 40 MG PO SCH ×2 (08:27→20:55)
[2021-03-23] MEDS: ROBITUSSIN DM PO SCH ×4 (08:27→21:00)
[2021-03-23] MEDS: VITAMIN D3 125 mcg (5,000 UNITS) PO SCH (08:28)
[2021-03-23] MEDS: TUSSIONEX PENNKINETIC SUSP PO SCH ×2 (08:28→21:00)
[2021-03-23] MEDS: TRICOR TAB 160 MG PO SCH (08:28)
[2021-03-23] MEDS: ZINC SULFATE PO SCH (08:29)
[2021-03-23] MEDS: ZESTRIL TAB 10 MG PO SCH ×2 (08:30→14:36)
[2021-03-23 08:40] LABS: BAND NEUTROPHILS % 1 % (0-10); PLATELET MORPHOLOGY COMMENT NORMAL (NORMAL)
[2021-03-23] MEDS: MUCOMYST (RESPIRATORY USE ONLY) NEB SCH (08:50)
[2021-03-23] MEDS: PULMICORT NEB TX 0.5 MG NEB SCH (08:50)
[2021-03-23] MEDS: THIAMINE HCL INJ IVP SCH ×2 (10:30→21:04)
[2021-03-23] MEDS: HEPARIN SODIUM INJ 5000 UNITS SC SCH ×2 (13:23→21:06)
[2021-03-23] MEDS: NS 1/2 1000 ML IV 1,000 ML IV SCH ×3 (13:33→23:56)
[2021-03-23] MEDS ORDERED: NS 1/2 1000 ML IV 1,000 ML IV ONE ×2 (15:12→20:15)
--- NOTE | 2021-03-23 17:03 | PCM.PROG ---
Progress Note Progress Note for Day of Date of Exam: 03/23/21 Subjective Subjective: Patient seen at bedside, no acute events overnight. He states he feels better. He did wear BiPAP overnight and was switched to HHFNC this morning. He is currently on FiO2 95% with sats between 88-90%. He denies fever or chills, reports good appetite. Labs: Hgb 14.3 WBC 14.1 BUN/Cr: 28/0.89 Glucose 110 CXR: b/l opacities similar, no change AB.45/37/55/25 Plan: Continue covid protocol. Wean O2 as tolerated to keep sats > 88%, switch to BiPAP if sats < 85% and prn. Continue current treatment with IV antibiotics and Solumedrol. Continue vitamin support. Continue IV with 1/2 NS for gentle hydration. Monitor resp status closely. Continue heparin for DVT ppx. Monitor AM labs and imaging. Time spent for clinical assessment, reviewing labs/imaging, physical exam, decision making and documentation greater than 45 mins. Past Medical Family Social History Past Med/Fam/Surg Hx: No changes since H&P Allergies: Allergies No Allergy Information Available Allergy (Verified 03/14/21 14:24) Review of Systems ROS: No change since H&P Vital Signs and I&O's Vital Signs: Temperature 98.0 F Pulse Rate [Right Brachial] 61 Pulse Rate [Left Radial] 85 Pulse Rate 76 Respiratory Rate 33 Blood Pressure [Right Arm] 142/73 Blood Pressure [Left Arm] 116/63 Blood Pressure 119/78 O2 Sat by Pulse Oximetry 83 Intake and Output: Intake & Output 03/20/21 03/21/21 03/22/21 03/23/21 23:59 23:59 23:59 23:59 Intake Total 3850 / 3850 5081 / 5081 3106 / 3106 2232 / 2232 Output Total 3000 / 3000 3950 / 3950 1775 / 1775 1000 / 1000 Balance 850 / 850 1131 / 1131 1331 / 1331 1232 / 1232 Physical Exam Oriented: Normal Eyes: Normal Ear: Normal Nose: Normal Throat: Normal Respiratory: Generalized and Diminished Cardiovascular: Normal Auscultation: Bowel Sounds: Normal Tenderness: Normal Skin: Normal Musculoskeletal: Normal Psychiatric: Normal Mood Description: Calm Affect: Normal Speech Pattern: Clear and Appropriate Laboratory and Diagnostics Result Diagrams: 03/23/21 05:21 03/23/21 05:21 Labs: 03/14/21 16:39 Blood Blood Culture - Final 03/14/21 16:35 Blood Blood Culture - Final 03/18/21 01:03 Sputum - Expectorated Sputum Sputum Culture - Final 03/18/21 01:03 Sputum - Expectorated Sputum - Final Laboratory WBC 14.1 X10^3/uL (3.6-10.0) H 03/23/21 05:21 RBC 4.66 X10^6/uL (4.7-6.0) L 03/23/21 05:21 Hgb 14.3 g/dL (13.5-18.0) 03/23/21 05:21 Hct 42.2 % (42.0-54.0) 03/23/21 05:21 MCV 90.7 fL (80.0-100.0) 03/23/21 05:21 MCH 30.6 pg (27.0-34.0) 03/23/21 05:21 MCHC 33.8 g/dL (33.0-35.0) 03/23/21 05:21 RDW 13.8 % (11.6-16.5) 03/23/21 05:21 Plt Count 159 X10^3/uL (150.0-450.0) 03/23/21 05:21 Plt Count Comment Adequate (ADEQUATE) 03/23/21 05:21 MPV 9.7 fL (7.4-11.0) 03/23/21 05:21 Neut % (Auto) 95.3 % (42.0-75.0) H 03/23/21 05:21 Lymph % (Auto) 1.4 % (21.0-51.0) L 03/23/21 05:21 [place] % (Auto) 3.2 % (0.0-13.0) 03/23/21 05:21 Eos % (Auto) 0.0 % (0.9-2.9) L 03/23/21 05:21 Baso % (Auto) 0.1 % (0.2-1.0) L 03/23/21 05:21 Neut # (Auto) 13.4 x10^3/uL (2.2-4.8) H 03/23/21 05:21 Lymph # (Auto) 0.2 X10^3/uL (1.3-2.9) L 03/23/21 05:21 [place] # (Auto) 0.5 x10^3/uL (0.3-0.8) 03/23/21 05:21 Eos # (Auto) 0.0 x10^3/uL (0.0-0.2) 03/23/21 05:21 Baso # (Auto) 0.0 X10^3/uL (0.0-0.1) 03/23/21 05:21 Absolute Nucleated RBC 0.1 /100WBC 03/23/21 05:21 Total Counted 100 03/23/21 05:21 Neutrophils % (Manual) 97 % (39-76) H 03/23/21 05:21 Band Neutrophils % 1 % (0-10) 03/23/21 05:21 Lymphocytes % (Manual) 0 % (13-43) L 03/23/21 05:21 Monocytes % (Manual) 2 % (4-9) L 03/23/21 05:21 Plt Morphology Comment Normal (NORMAL) 03/23/21 05:21 RBC Morphology Normal (NORMAL) 03/23/21 05:21 PT 14.2 SECONDS (11.8-14.3) 03/20/21 07:07 INR Target Range - 03/20/21 07:07 INR 1.16 (0.8-1.3) 03/20/21 07:07 APTT 26.6 SECONDS (22.9-36.5) 03/17/21 06:05 PTT Comment - 03/17/21 06:05 D-Dimer 0.94 ug/ml (0.0-0.57) H* 03/23/21 05:21 Sample Site Lrad 03/23/21 04:29 ABG pH 7.450 (7.35-7.45) 03/23/21 04:29 ABG pCO2 37.0 mmHg (35.0-45.0) 03/23/21 04:29 ABG pO2 55.0 mmHg (80.0-100.0) L 03/23/21 04:29 ABG HCO3 25.7 mmol/L (22-26) 03/23/21 04:29 ABG O2 Saturation 90.0 % (90-100) 03/23/21 04:29 ABG Base Excess 1.8 mmol/L (-2.0-2.0) 03/23/21 04:29 Corky Test Pos 03/23/21 04:29 A-a Gradient 612.0 mmHg 03/23/21 04:29 FiO2 100.0 03/23/21 04:29 Blood Gas Comments Michael well sa 03/23/21 04:29 Sodium 141 mmol/L (136-145) 03/23/21 05:21 Corrected Sodium TNP 03/23/21 05:21 Potassium 4.5 mmol/L (3.5-5.1) 03/23/21 05:21 Chloride 108 mmol/L (98-107) H 03/23/21 05:21 Carbon Dioxide 27.2 mmol/L (21-32) 03/23/21 05:21 BUN 28 mg/dL (7-18) H 03/23/21 05:21 Creatinine 0.89 mg/dL (0.70-1.30) 03/23/21 05:21 Est GFR (MDRD) Af Amer > 60 (>60) 03/23/21 05:21 Est GFR (MDRD) Non-Af > 60 (>60) 03/23/21 05:21 Glucose 110 mg/dL (65-99) H 03/23/21 05:21 POC Glucose (mg/dL) 143 mg/dL (65-99) H 03/23/21 11:31 Calcium 8.0 mg/dL (8.5-10.1) L 03/23/21 05:21 Corrected Calcium 9.7 mg/dL (8.5-10.1) 03/23/21 05:21 Ferritin 2585 ng/mL (26-388) H 03/23/21 05:21 Total Bilirubin 0.50 mg/dL (0.2-1.0) 03/23/21 05:21 AST 29 Units/L (15-37) 03/23/21 05:21 ALT 26 Units/L (12-78) 03/23/21 05:21 Alkaline Phosphatase 76 Units/L (46-116) 03/23/21 05:21 Creatine Kinase 69 Units/L (39-308) 03/14/21 14:54 CK-MB (CK-2) < 1.0 ng/mL (0-4.0) 03/14/21 14:54 CK/CKMB % Calc 1.5 % (<4) 03/14/21 14:54 Troponin I < 0.02 ng/mL (0-1.5) 03/14/21 14:54 C-Reactive Protein 11.70 mg/L (0-3.0) H 03/23/21 05:21 B-Natriuretic Peptide 43.8 pg/mL (0-79) 03/23/21 05:21 Total Protein 5.2 g/dL (6.4-8.2) L 03/23/21 05:21 Albumin 1.9 g/dL (3.4-5.0) L 03/23/21 05:21 Globulin 3.3 g/dL (2.5-4.5) 03/23/21 05:21 Albumin/Globulin Ratio 0.6 Ratio (1.1-2.1) L 03/23/21 05:21 Plan (1) Acute respiratory failure with hypoxia: Status: Acute (2) Pneumonia due to COVID-19 virus: Status: Acute (3) Hypoxia: Status: Acute (4) HTN (hypertension): Status: Chronic Qualifiers: Hypertension type: primary hypertension Qualified Code(s): I10 - Essential (primary) hypertension (5) GERD (gastroesophageal reflux disease): Status: Chronic Qualifiers: Esophagitis presence: esophagitis presence not specified Qualified Code(s): K21.9 - Gastro-esophageal reflux disease without esophagitis (6) Obesity: Status: Chronic Qualifiers: Body mass index: BMI 36.0-36.9 Obesity classification: adult class 2 (BMI 35 - 39.9) Obesity type: unspecified obesity type Serious obesity comorbidity presence: unspecified whether serious comorbidity present Qualified Code(s): E66.9 - Obesity, unspecified; Z68.36 - Body mass index [BMI] 36.0-36.9, adult
[2021-03-23] MEDS: VISTARIL PO PRN (20:55)
[2021-03-23] MEDS: LIPITOR TAB 80 MG PO SCH (20:55)
[2021-03-23] MEDS: SINGULAIR TAB 10 MG PO SCH (20:55)
[2021-03-23] MEDS: RESTORIL CAP 15 MG PO PRN (20:55)
[2021-03-23] MEDS: NORCO 5/325 MG TAB PO PRN (20:55)
[2021-03-24] MEDS: ASCORBIC ACID INJ MULTI-DOSE VIAL 1,500 MG in NS 50 ML IV 50 ML IV SCH ×4 (02:55→21:55)
[2021-03-24] MEDS: SOLU-Medrol 125 MG VIAL IVP SCH ×4 (02:57→21:55)
[2021-03-24 04:59] LABS: BASOPHILS % (AUTO) 0.2 % (0.2-1.0); HEMATOCRIT 41.9 % (42.0-54.0); HEMOGLOBIN 14.1 g/dL (13.5-18.0); LYMPHOCYTES # (AUTO) 0.2 X10^3/uL (1.3-2.9); LYMPHOCYTES % (AUTO) 1.3 % (21.0-51.0); MEAN CORPUSCULAR HEMOGLOBIN 30.6 pg (27.0-34.0); MEAN CORPUSCULAR HGB CONC 33.6 g/dL (33.0-35.0); MEAN PLATELET VOLUME 9.6 fL (7.4-11.0); MONOCYTES # (AUTO) 0.3 x10^3/uL (0.3-0.8); MONOCYTES % (AUTO) 2.6 % (0.0-13.0); NEUTROPHILS # (AUTO) 12.3 x10^3/uL (2.2-4.8); NEUTROPHILS % (AUTO) 95.9 % (42.0-75.0); PLATELET COUNT 139 X10^3/uL (150.0-450.0); RED CELL DISTRIBUTION WIDTH 13.6 % (11.6-16.5); WHITE BLOOD COUNT 12.8 X10^3/uL (3.6-10.0)
[2021-03-24 05:07] LABS: ALANINE AMINOTRANSFERASE 26 Units/L (12-78); ALBUMIN 1.7 g/dL (3.4-5.0); ALKALINE PHOSPHATASE 78 Units/L (46-116); ASPARTATE AMINO TRANSFERASE 31 Units/L (15-37); BLOOD UREA NITROGEN 25 mg/dL (7-18); CALCIUM 7.9 mg/dL (8.5-10.1); CARBON DIOXIDE 30.8 mmol/L (21-32); CHLORIDE 109 mmol/L (98-107); COR CA(FOR HYPOALB) 9.7 mg/dL (8.5-10.1); COR NA(FOR HYPERGLY) 143 mmol/L (136-145); CREATININE 0.91 mg/dL (0.70-1.30); SODIUM 143 mmol/L (136-145); eGFR NON BLACK RACES > 60 (>60)
[2021-03-24] MEDS: FORTAZ or TAZICEF VIAL INJ 1 G in NS 100 ML IV + SPIKE MINIBAG* 100 ML IV SCH ×3 (05:33→22:18)
[2021-03-24] MEDS: HEPARIN SODIUM INJ 5000 UNITS SC SCH ×3 (05:34→22:18)
[2021-03-24 05:35] LABS: PLATELET MORPHOLOGY COMMENT NORMAL (NORMAL)
[2021-03-24] MEDS: TESSALON PERLES PO SCH ×3 (05:35→22:20)
[2021-03-24 06:12] LABS: ABG BASE EXCESS 4.2 mmol/L (-2.0-2.0); ABG HCO3 27.3 mmol/L (22-26)
[2021-03-24 06:13] LABS: ABG ALLEN TEST POS
--- NOTE | 2021-03-24 07:12 | RAD ---
HISTORYCOVID-19 pneumoniaSTUDYPortable AP [id number] heart size, upper normal to slightly enlarged. Diffuse bilateral pulmonary infiltrates noted without evidence for pneumothorax or pleural fluid.IMPRESSIONNo significant change or new abnormality demonstrated.Electronically signed by: ESTEPHANIA ROB (Mar 24, 2021 07:10:34)
[2021-03-24] MEDS ORDERED: LEXAPRO ONE (08:00)
[2021-03-24] MEDS: AVODART PO SCH (08:19)
[2021-03-24] MEDS: FLUVOXAMINE MALEATE PO SCH ×2 (08:20→21:55)
[2021-03-24] MEDS: LEXAPRO PO SCH (08:20)
[2021-03-24] MEDS: PEPCID TAB 20 MG PO SCH ×2 (08:21→21:55)
[2021-03-24] MEDS: THIAMINE HCL INJ IVP SCH ×2 (08:22→21:55)
[2021-03-24] MEDS: ROBITUSSIN DM PO SCH ×4 (08:22→21:55)
[2021-03-24] MEDS: PROTONIX TAB 40 MG PO SCH ×2 (08:22→21:55)
[2021-03-24] MEDS: ZyrTEC TAB 10 MG PO SCH (08:22)
[2021-03-24] MEDS: TRICOR TAB 160 MG PO SCH (08:23)
[2021-03-24] MEDS: ZINC SULFATE PO SCH (08:23)
[2021-03-24] MEDS: TUSSIONEX PENNKINETIC SUSP PO SCH ×2 (08:24→22:14)
[2021-03-24] MEDS: LEVAQUIN PREMIX IV 500 MG 500 MG/100 ML BAG IV SCH (08:24)
[2021-03-24] MEDS: VITAMIN D3 125 mcg (5,000 UNITS) PO SCH (08:24)
[2021-03-24] MEDS: MORPHINE SULFATE INJ 2 MG INJ IVP PRN ×3 (08:25→22:25)
[2021-03-24] MEDS: MILK OF MAGNESIA PO SCH (09:38)
[2021-03-24] MEDS: ZESTRIL TAB 10 MG PO SCH (09:38)
[2021-03-24] MEDS: MUCOMYST (RESPIRATORY USE ONLY) NEB SCH ×3 (10:14→21:42)
[2021-03-24] MEDS: PULMICORT NEB TX 0.5 MG NEB SCH ×3 (10:14→21:42)
[2021-03-24] MEDS: ACCUNEB 1.25 MG NEBULE NEB SCH ×4 (10:14→21:42)
[2021-03-24] MEDS: NS 1/2 1000 ML IV 1,000 ML IV SCH (12:00)
--- NOTE | 2021-03-24 17:22 | PCM.PROG ---
Progress Note Progress Note for Day of Date of Exam: 03/24/21 Subjective Subjective: Patient seen at bedside, no acute events overnight. Patient was on BiPAP overnight, transitioned to HHFNC but placed back on BiPAP due to desaturations. He is currently on BiPAP at FiO2 100%. He is resting. As per nursing staff, patient gets anxious and that worsens his respiratory status. Labs: Hgb 14.1 WBC 12.8 BUN/Cr: 25/0.91 Glucose 111 CRP: 13 CXR: diffuse bilateral infiltrates AB.50/35/48/27.3 Plan: Continue covid protocol. Wean BiPAP as tolerated to keep sats > 92%, transition to HHFNC as tolerated. Continue current treatment with IV antibiotics and Solumedrol. Continue vitamin support. Continue IV with 1/2 NS for gentle hydration. Monitor resp status closely. Continue heparin for DVT ppx. Will add Buspar for anxiety, continue morphine for air hunger. Monitor AM labs and imaging. Time spent for clinical assessment, reviewing labs/imaging, physical exam, decision making and documentation greater than 45 mins. Past Medical Family Social History Past Med/Fam/Surg Hx: No changes since H&P Allergies: Allergies No Allergy Information Available Allergy (Verified 03/14/21 14:24) Review of Systems ROS: No change since H&P Vital Signs and I&O's Vital Signs: Temperature 97.7 F Pulse Rate [Right Brachial] 61 Pulse Rate [Left Radial] 85 Pulse Rate 74 Respiratory Rate 26 Blood Pressure [Right Arm] 142/73 Blood Pressure [Left Arm] 116/63 Blood Pressure 140/79 O2 Sat by Pulse Oximetry 88 Intake and Output: Intake & Output 03/21/21 03/22/21 03/23/21 03/24/21 23:59 23:59 23:59 23:59 Intake Total 5081 / 5081 3106 / 3106 4080 / 4080 2433 / 2433 Output Total 3950 / 3950 1775 / 1775 2325 / 2325 1000 / 1000 Balance 1131 / 1131 1331 / 1331 1755 / 1755 1433 / 1433 Physical Exam Oriented: Other (asleep) Ear: Normal Nose: Normal Throat: Normal Respiratory: Generalized and Diminished Cardiovascular: Normal Auscultation: Bowel Sounds: Normal Tenderness: Normal Skin: Normal Musculoskeletal: Normal Psychiatric: Normal Mood Description: Calm Affect: Normal Speech Pattern: Artificially Ventilated (on Bipap) Laboratory and Diagnostics Result Diagrams: 03/24/21 04:30 03/24/21 04:30 Labs: 03/14/21 16:39 Blood Blood Culture - Final 03/14/21 16:35 Blood Blood Culture - Final 03/18/21 01:03 Sputum - Expectorated Sputum Sputum Culture - Final 03/18/21 01:03 Sputum - Expectorated Sputum - Final Laboratory WBC 12.8 X10^3/uL (3.6-10.0) H 03/24/21 04:30 RBC 4.60 X10^6/uL (4.7-6.0) L 03/24/21 04:30 Hgb 14.1 g/dL (13.5-18.0) 03/24/21 04:30 Hct 41.9 % (42.0-54.0) L 03/24/21 04:30 MCV 91.0 fL (80.0-100.0) 03/24/21 04:30 MCH 30.6 pg (27.0-34.0) 03/24/21 04:30 MCHC 33.6 g/dL (33.0-35.0) 03/24/21 04:30 RDW 13.6 % (11.6-16.5) 03/24/21 04:30 Plt Count 139 X10^3/uL (150.0-450.0) L 03/24/21 04:30 Plt Count Comment Decreased (ADEQUATE) 03/24/21 04:30 MPV 9.6 fL (7.4-11.0) 03/24/21 04:30 Neut % (Auto) 95.9 % (42.0-75.0) H 03/24/21 04:30 Lymph % (Auto) 1.3 % (21.0-51.0) L 03/24/21 04:30 [place] % (Auto) 2.6 % (0.0-13.0) 03/24/21 04:30 Eos % (Auto) 0.0 % (0.9-2.9) L 03/24/21 04:30 Baso % (Auto) 0.2 % (0.2-1.0) 03/24/21 04:30 Neut # (Auto) 12.3 x10^3/uL (2.2-4.8) H 03/24/21 04:30 Lymph # (Auto) 0.2 X10^3/uL (1.3-2.9) L 03/24/21 04:30 [place] # (Auto) 0.3 x10^3/uL (0.3-0.8) 03/24/21 04:30 Eos # (Auto) 0.0 x10^3/uL (0.0-0.2) 03/24/21 04:30 Baso # (Auto) 0.0 X10^3/uL (0.0-0.1) 03/24/21 04:30 Absolute Nucleated RBC 0.0 /100WBC 03/24/21 04:30 Total Counted 100 03/24/21 04:30 Neutrophils % (Manual) 96 % (39-76) H 03/24/21 04:30 Band Neutrophils % 1 % (0-10) 03/23/21 05:21 Lymphocytes % (Manual) 3 % (13-43) L 03/24/21 04:30 Monocytes % (Manual) 1 % (4-9) L 03/24/21 04:30 Plt Morphology Comment Normal (NORMAL) 03/24/21 04:30 RBC Morphology Normal (NORMAL) 03/24/21 04:30 PT 14.2 SECONDS (11.8-14.3) 03/20/21 07:07 INR Target Range - 03/20/21 07:07 INR 1.16 (0.8-1.3) 03/20/21 07:07 APTT 26.6 SECONDS (22.9-36.5) 03/17/21 06:05 PTT Comment - 03/17/21 06:05 D-Dimer 0.94 ug/ml (0.0-0.57) H* 03/23/21 05:21 Sample Site Lrad 03/24/21 06:09 ABG pH 7.500 (7.35-7.45) H 03/24/21 06:09 ABG pCO2 35.0 mmHg (35.0-45.0) 03/24/21 06:09 ABG pO2 48.0 mmHg (80.0-100.0) L* 03/24/21 06:09 ABG HCO3 27.3 mmol/L (22-26) H 03/24/21 06:09 ABG O2 Saturation 87.0 % (90-100) L 03/24/21 06:09 ABG Base Excess 4.2 mmol/L (-2.0-2.0) H 03/24/21 06:09 Corky Test Pos 03/24/21 06:09 A-a Gradient 621.0 mmHg 03/24/21 06:09 FiO2 100.0 03/24/21 06:09 Blood Gas Comments Michael well-mtf 03/24/21 06:09 Sodium 143 mmol/L (136-145) 03/24/21 04:30 Corrected Sodium 143 mmol/L (136-145) 03/24/21 04:30 Potassium 4.4 mmol/L (3.5-5.1) 03/24/21 04:30 Chloride 109 mmol/L (98-107) H 03/24/21 04:30 Carbon Dioxide 30.8 mmol/L (21-32) 03/24/21 04:30 BUN 25 mg/dL (7-18) H 03/24/21 04:30 Creatinine 0.91 mg/dL (0.70-1.30) 03/24/21 04:30 Est GFR (MDRD) Af Amer > 60 (>60) 03/24/21 04:30 Est GFR (MDRD) Non-Af > 60 (>60) 03/24/21 04:30 Glucose 111 mg/dL (65-99) H 03/24/21 04:30 POC Glucose (mg/dL) 114 mg/dL (65-99) H 03/24/21 16:51 Calcium 7.9 mg/dL (8.5-10.1) L 03/24/21 04:30 Corrected Calcium 9.7 mg/dL (8.5-10.1) 03/24/21 04:30 Ferritin 2585 ng/mL (26-388) H 03/23/21 05:21 Total Bilirubin 0.50 mg/dL (0.2-1.0) 03/24/21 04:30 AST 31 Units/L (15-37) 03/24/21 04:30 ALT 26 Units/L (12-78) 03/24/21 04:30 Alkaline Phosphatase 78 Units/L (46-116) 03/24/21 04:30 Creatine Kinase 69 Units/L (39-308) 03/14/21 14:54 CK-MB (CK-2) < 1.0 ng/mL (0-4.0) 03/14/21 14:54 CK/CKMB % Calc 1.5 % (<4) 03/14/21 14:54 Troponin I < 0.02 ng/mL (0-1.5) 03/14/21 14:54 C-Reactive Protein 13.30 mg/L (0-3.0) H 03/24/21 04:30 B-Natriuretic Peptide 43.8 pg/mL (0-79) 03/23/21 05:21 Total Protein 5.0 g/dL (6.4-8.2) L 03/24/21 04:30 Albumin 1.7 g/dL (3.4-5.0) L 03/24/21 04:30 Globulin 3.3 g/dL (2.5-4.5) 03/24/21 04:30 Albumin/Globulin Ratio 0.5 Ratio (1.1-2.1) L 03/24/21 04:30 Plan (1) Acute respiratory failure with hypoxia: Status: Acute (2) Pneumonia due to COVID-19 virus: Status: Acute (3) Hypoxia: Status: Acute (4) HTN (hypertension): Status: Chronic Qualifiers: Hypertension type: primary hypertension Qualified Code(s): I10 - Essential (primary) hypertension (5) GERD (gastroesophageal reflux disease): Status: Chronic Qualifiers: Esophagitis presence: esophagitis presence not specified Qualified Code(s): K21.9 - Gastro-esophageal reflux disease without esophagitis (6) Obesity: Status: Chronic Qualifiers: Body mass index: BMI 36.0-36.9 Obesity classification: adult class 2 (BMI 35 - 39.9) Obesity type: unspecified obesity type Serious obesity comorbidity presence: unspecified whether serious comorbidity present Qualified Code(s): E66.9 - Obesity, unspecified; Z68.36 - Body mass index [BMI] 36.0-36.9, adult
[2021-03-24] MEDS: SNACK - Diabetic Appropriate PO SCH (19:43)
[2021-03-24] MEDS: SINGULAIR TAB 10 MG PO SCH (21:55)
[2021-03-24] MEDS: BUSPAR PO SCH (21:55)
[2021-03-24] MEDS: LIPITOR TAB 80 MG PO SCH (21:55)
[2021-03-24] MEDS: RESTORIL CAP 15 MG PO PRN (22:21)
[2021-03-25] MEDS: NS 1/2 1000 ML IV 1,000 ML IV SCH ×4 (02:24→21:15)
[2021-03-25] MEDS ORDERED: NS 1/2 1000 ML IV 1,000 ML IV ONE ×2 (02:32→19:46)
[2021-03-25] MEDS: ASCORBIC ACID INJ MULTI-DOSE VIAL 1,500 MG in NS 50 ML IV 50 ML IV SCH ×4 (03:29→21:52)
[2021-03-25] MEDS: SOLU-Medrol 125 MG VIAL IVP SCH ×4 (03:29→21:56)
[2021-03-25 05:19] LABS: BASOPHILS % (AUTO) 0.2 % (0.2-1.0); HEMATOCRIT 41.6 % (42.0-54.0); HEMOGLOBIN 14.1 g/dL (13.5-18.0); LYMPHOCYTES # (AUTO) 0.1 X10^3/uL (1.3-2.9); LYMPHOCYTES % (AUTO) 0.9 % (21.0-51.0); MEAN CORPUSCULAR HEMOGLOBIN 30.7 pg (27.0-34.0); MEAN CORPUSCULAR VOLUME 90.5 fL (80.0-100.0); MEAN PLATELET VOLUME 9.7 fL (7.4-11.0); MONOCYTES # (AUTO) 0.3 x10^3/uL (0.3-0.8); MONOCYTES % (AUTO) 2.6 % (0.0-13.0); NEUTROPHILS # (AUTO) 12.2 x10^3/uL (2.2-4.8); NEUTROPHILS % (AUTO) 96.3 % (42.0-75.0); PLATELET COUNT 131 X10^3/uL (150.0-450.0); RED CELL DISTRIBUTION WIDTH 13.8 % (11.6-16.5); WHITE BLOOD COUNT 12.7 X10^3/uL (3.6-10.0)
[2021-03-25 05:26] LABS: ALANINE AMINOTRANSFERASE 26 Units/L (12-78); ALBUMIN 1.7 g/dL (3.4-5.0); ALKALINE PHOSPHATASE 80 Units/L (46-116); ASPARTATE AMINO TRANSFERASE 29 Units/L (15-37); BLOOD UREA NITROGEN 28 mg/dL (7-18); CALCIUM 7.6 mg/dL (8.5-10.1); CHLORIDE 109 mmol/L (98-107); COR CA(FOR HYPOALB) 9.4 mg/dL (8.5-10.1); CREATININE 0.81 mg/dL (0.70-1.30); SODIUM 141 mmol/L (136-145); TOTAL PROTEIN 4.8 g/dL (6.4-8.2); eGFR NON BLACK RACES > 60 (>60)
[2021-03-25] MEDS: MORPHINE SULFATE INJ 2 MG INJ IVP PRN ×3 (05:40→21:52)
[2021-03-25] MEDS: FORTAZ or TAZICEF VIAL INJ 1 G in NS 100 ML IV + SPIKE MINIBAG* 100 ML IV SCH ×3 (05:49→21:52)
[2021-03-25] MEDS: TESSALON PERLES PO SCH ×3 (05:50→21:58)
[2021-03-25] MEDS: HEPARIN SODIUM INJ 5000 UNITS SC SCH ×3 (05:50→21:59)
[2021-03-25 06:14] LABS: METAMYELOCYTES % 6; PLATELET MORPHOLOGY COMMENT NORMAL (NORMAL)
[2021-03-25] MEDS: ACCUNEB 1.25 MG NEBULE NEB SCH ×4 (06:37→23:49)
[2021-03-25] MEDS ORDERED: LEXAPRO ONE (09:11)
[2021-03-25] MEDS: AVODART PO SCH (09:34)
[2021-03-25] MEDS: BUSPAR PO SCH ×2 (09:34→21:55)
[2021-03-25] MEDS: FLUVOXAMINE MALEATE PO SCH ×2 (09:34→21:55)
[2021-03-25] MEDS: ROBITUSSIN DM PO SCH ×4 (09:35→21:56)
[2021-03-25] MEDS: LEXAPRO PO SCH (09:35)
[2021-03-25] MEDS: MILK OF MAGNESIA PO SCH (09:35)
[2021-03-25] MEDS: PROTONIX TAB 40 MG PO SCH ×2 (09:35→21:55)
[2021-03-25] MEDS: LEVAQUIN PREMIX IV 500 MG 500 MG/100 ML BAG IV SCH (09:35)
[2021-03-25] MEDS: PEPCID TAB 20 MG PO SCH ×2 (09:35→21:55)
[2021-03-25] MEDS: THIAMINE HCL INJ IVP SCH ×2 (09:36→21:57)
[2021-03-25] MEDS: VITAMIN D3 125 mcg (5,000 UNITS) PO SCH (09:36)
[2021-03-25] MEDS: TUSSIONEX PENNKINETIC SUSP PO SCH ×2 (09:36→22:40)
[2021-03-25] MEDS: TRICOR TAB 160 MG PO SCH (09:36)
[2021-03-25] MEDS: ZESTRIL TAB 10 MG PO SCH (09:36)
[2021-03-25] MEDS: ZyrTEC TAB 10 MG PO SCH (09:37)
[2021-03-25] MEDS: ZINC SULFATE PO SCH (09:37)
[2021-03-25] MEDS: PULMICORT NEB TX 0.5 MG NEB SCH ×2 (09:39→23:49)
[2021-03-25] MEDS: MUCOMYST (RESPIRATORY USE ONLY) NEB SCH ×2 (09:39→23:49)
[2021-03-25] MEDS: VALIUM INJ IVP PRN ×2 (11:49→20:00)
--- NOTE | 2021-03-25 12:49 | PCM.PROG ---
Progress Note Progress Note for Day of Date of Exam: 03/25/21 Subjective Subjective: Patient seen at bedside, no acute events overnight. Patient was on BiPAP overnight, transitioned to HHFNC this morning but had a choking episode with his medications. Patient was extremely anxious and agitated so placed back on the bipap. He is currently on FiO2 100%. He states he is feeling better now. Labs: Hgb 14.1 WBC 12.7 BUN/Cr: 28/0.81 Glucose 102 CRP: 9.40 CXR: diffuse bilateral infiltrates AB.50/35/48/27.3 Plan: Continue covid protocol. Wean BiPAP as tolerated to keep sats > 92%, transition to HHFNC as tolerated. Will add valium prn for anxiety. Continue cur rent treatment with IV antibiotics and Solumedrol. Continue vitamin support. Continue IV with 1/2 NS for gentle hydration. Monitor resp status closely. Continue heparin for DVT ppx. Continue morphine for air hunger. Monitor AM labs and imaging. Time spent for clinical assessment, reviewing labs/imaging, physical exam, decision making and documentation greater than 45 mins. Past Medical Family Social History Past Med/Fam/Surg Hx: No changes since H&P Allergies: Allergies No Allergy Information Available Allergy (Verified 03/14/21 14:24) Review of Systems ROS: No change since H&P Vital Signs and I&O's Vital Signs: Temperature 98.0 F Pulse Rate [Right Brachial] 61 Pulse Rate [Left Radial] 85 Pulse Rate 81 Respiratory Rate 38 Blood Pressure [Right Arm] 142/73 Blood Pressure [Left Arm] 116/63 Blood Pressure 159/95 O2 Sat by Pulse Oximetry 85 Intake and Output: Intake & Output 03/22/21 03/23/21 03/24/21 03/25/21 23:59 23:59 23:59 23:59 Intake Total 3106 / 3106 4080 / 4080 3490 / 3490 598 / 598 Output Total 1775 / 1775 2325 / 2325 1900 / 1900 150 / 150 Balance 1331 / 1331 1755 / 1755 1590 / 1590 448 / 448 Physical Exam Oriented: Normal Eyes: Normal Ear: Normal Nose: Normal Throat: Normal Respiratory: Generalized and Diminished Cardiovascular: Normal Auscultation: Bowel Sounds: Normal Tenderness: Normal Skin: Normal Musculoskeletal: Normal Psychiatric: Anxiety Mood Description: Calm Affect: Anxious Speech Pattern: Clear and Appropriate Laboratory and Diagnostics Result Diagrams: 03/25/21 04:30 03/25/21 04:30 Labs: 03/14/21 16:39 Blood Blood Culture - Final 03/14/21 16:35 Blood Blood Culture - Final 03/18/21 01:03 Sputum - Expectorated Sputum Sputum Culture - Final 03/18/21 01:03 Sputum - Expectorated Sputum - Final Laboratory WBC 12.7 X10^3/uL (3.6-10.0) H 03/25/21 04:30 RBC 4.60 X10^6/uL (4.7-6.0) L 03/25/21 04:30 Hgb 14.1 g/dL (13.5-18.0) 03/25/21 04:30 Hct 41.6 % (42.0-54.0) L 03/25/21 04:30 MCV 90.5 fL (80.0-100.0) 03/25/21 04:30 MCH 30.7 pg (27.0-34.0) 03/25/21 04:30 MCHC 34.0 g/dL (33.0-35.0) 03/25/21 04:30 RDW 13.8 % (11.6-16.5) 03/25/21 04:30 Plt Count 131 X10^3/uL (150.0-450.0) L 03/25/21 04:30 Plt Count Comment Decreased (ADEQUATE) 03/25/21 04:30 MPV 9.7 fL (7.4-11.0) 03/25/21 04:30 Neut % (Auto) 96.3 % (42.0-75.0) H 03/25/21 04:30 Lymph % (Auto) 0.9 % (21.0-51.0) L 03/25/21 04:30 [place] % (Auto) 2.6 % (0.0-13.0) 03/25/21 04:30 Eos % (Auto) 0.0 % (0.9-2.9) L 03/25/21 04:30 Baso % (Auto) 0.2 % (0.2-1.0) 03/25/21 04:30 Neut # (Auto) 12.2 x10^3/uL (2.2-4.8) H 03/25/21 04:30 Lymph # (Auto) 0.1 X10^3/uL (1.3-2.9) L 03/25/21 04:30 [place] # (Auto) 0.3 x10^3/uL (0.3-0.8) 03/25/21 04:30 Eos # (Auto) 0.0 x10^3/uL (0.0-0.2) 03/25/21 04:30 Baso # (Auto) 0.0 X10^3/uL (0.0-0.1) 03/25/21 04:30 Absolute Nucleated RBC 0.1 /100WBC 03/25/21 04:30 Total Counted 100 03/25/21 04:30 Neutrophils % (Manual) 92 % (39-76) H 03/25/21 04:30 Band Neutrophils % 1 % (0-10) 03/23/21 05:21 Lymphocytes % (Manual) 1 % (13-43) L 03/25/21 04:30 Monocytes % (Manual) 1 % (4-9) L 03/25/21 04:30 Metamyelocytes % 6 03/25/21 04:30 Plt Morphology Comment Normal (NORMAL) 03/25/21 04:30 RBC Morphology Normal (NORMAL) 03/25/21 04:30 PT 14.2 SECONDS (11.8-14.3) 03/20/21 07:07 INR Target Range - 03/20/21 07:07 INR 1.16 (0.8-1.3) 03/20/21 07:07 APTT 26.6 SECONDS (22.9-36.5) 03/17/21 06:05 PTT Comment - 03/17/21 06:05 D-Dimer 0.94 ug/ml (0.0-0.57) H* 03/23/21 05:21 Sample Site Lrad 03/24/21 06:09 ABG pH 7.500 (7.35-7.45) H 03/24/21 06:09 ABG pCO2 35.0 mmHg (35.0-45.0) 03/24/21 06:09 ABG pO2 48.0 mmHg (80.0-100.0) L* 03/24/21 06:09 ABG HCO3 27.3 mmol/L (22-26) H 03/24/21 06:09 ABG O2 Saturation 87.0 % (90-100) L 03/24/21 06:09 ABG Base Excess 4.2 mmol/L (-2.0-2.0) H 03/24/21 06:09 Corky Test Pos 03/24/21 06:09 A-a Gradient 621.0 mmHg 03/24/21 06:09 FiO2 100.0 03/24/21 06:09 Blood Gas Comments Michael well-mtf 03/24/21 06:09 Sodium 141 mmol/L (136-145) 03/25/21 04:30 Corrected Sodium TNP 03/25/21 04:30 Potassium 4.3 mmol/L (3.5-5.1) 03/25/21 04:30 Chloride 109 mmol/L (98-107) H 03/25/21 04:30 Carbon Dioxide 28.0 mmol/L (21-32) 03/25/21 04:30 BUN 28 mg/dL (7-18) H 03/25/21 04:30 Creatinine 0.81 mg/dL (0.70-1.30) 03/25/21 04:30 Est GFR (MDRD) Af Amer > 60 (>60) 03/25/21 04:30 Est GFR (MDRD) Non-Af > 60 (>60) 03/25/21 04:30 Glucose 102 mg/dL (65-99) H 03/25/21 04:30 POC Glucose (mg/dL) 120 mg/dL (65-99) H 03/24/21 21:30 Calcium 7.6 mg/dL (8.5-10.1) L 03/25/21 04:30 Corrected Calcium 9.4 mg/dL (8.5-10.1) 03/25/21 04:30 Ferritin 2585 ng/mL (26-388) H 03/23/21 05:21 Total Bilirubin 0.60 mg/dL (0.2-1.0) 03/25/21 04:30 AST 29 Units/L (15-37) 03/25/21 04:30 ALT 26 Units/L (12-78) 03/25/21 04:30 Alkaline Phosphatase 80 Units/L (46-116) 03/25/21 04:30 Creatine Kinase 69 Units/L (39-308) 03/14/21 14:54 CK-MB (CK-2) < 1.0 ng/mL (0-4.0) 03/14/21 14:54 CK/CKMB % Calc 1.5 % (<4) 03/14/21 14:54 Troponin I < 0.02 ng/mL (0-1.5) 03/14/21 14:54 C-Reactive Protein 9.40 mg/L (0-3.0) H 03/25/21 04:30 B-Natriuretic Peptide 43.8 pg/mL (0-79) 03/23/21 05:21 Total Protein 4.8 g/dL (6.4-8.2) L 03/25/21 04:30 Albumin 1.7 g/dL (3.4-5.0) L 03/25/21 04:30 Globulin 3.1 g/dL (2.5-4.5) 03/25/21 04:30 Albumin/Globulin Ratio 0.5 Ratio (1.1-2.1) L 03/25/21 04:30 Plan (1) Acute respiratory failure with hypoxia: Status: Acute (2) Pneumonia due to COVID-19 virus: Status: Acute Plan: (3) Hypoxia: Status: Acute (4) HTN (hypertension): Status: Chronic Qualifiers: Hypertension type: primary hypertension Qualified Code(s): I10 - Essential (primary) hypertension (5) GERD (gastroesophageal reflux disease): Status: Chronic Qualifiers: Esophagitis presence: esophagitis presence not specified Qualified Code(s): K21.9 - Gastro-esophageal reflux disease without esophagitis (6) Obesity: Status: Chronic Qualifiers: Body mass index: BMI 36.0-36.9 Obesity classification: adult class 2 (BMI 35 - 39.9) Obesity type: unspecified obesity type Serious obesity comorbidity presence: unspecified whether serious comorbidity present Qualified Code(s): E66.9 - Obesity, unspecified; Z68.36 - Body mass index [BMI] 36.0-36.9, adult
[2021-03-25] MEDS: SNACK - Diabetic Appropriate PO SCH (20:30)
[2021-03-25] MEDS: RESTORIL CAP 15 MG PO PRN (21:52)
[2021-03-25] MEDS: LIPITOR TAB 80 MG PO SCH (21:55)
[2021-03-25] MEDS: SINGULAIR TAB 10 MG PO SCH (21:56)
[2021-03-26] MEDS: NS 1/2 1000 ML IV 1,000 ML IV SCH ×2 (01:34→13:11)
[2021-03-26] MEDS: ASCORBIC ACID INJ MULTI-DOSE VIAL 1,500 MG in NS 50 ML IV 50 ML IV SCH ×4 (03:55→21:11)
[2021-03-26] MEDS: SOLU-Medrol 125 MG VIAL IVP SCH ×4 (03:55→21:14)
[2021-03-26 05:20] LABS: ABG ALLEN TEST POS; ABG HCO3 27.6 mmol/L (22-26)
[2021-03-26 05:26] LABS: BASOPHILS % (AUTO) 0.3 % (0.2-1.0); HEMATOCRIT 42.7 % (42.0-54.0); HEMOGLOBIN 14.6 g/dL (13.5-18.0); LYMPHOCYTES # (AUTO) 0.1 X10^3/uL (1.3-2.9); LYMPHOCYTES % (AUTO) 0.9 % (21.0-51.0); MEAN CORPUSCULAR HEMOGLOBIN 31.1 pg (27.0-34.0); MEAN CORPUSCULAR HGB CONC 34.3 g/dL (33.0-35.0); MEAN CORPUSCULAR VOLUME 90.7 fL (80.0-100.0); MEAN PLATELET VOLUME 9.5 fL (7.4-11.0); MONOCYTES # (AUTO) 0.1 x10^3/uL (0.3-0.8); MONOCYTES % (AUTO) 0.5 % (0.0-13.0); NEUTROPHILS # (AUTO) 13.5 x10^3/uL (2.2-4.8); NEUTROPHILS % (AUTO) 98.3 % (42.0-75.0); PLATELET COUNT 133 X10^3/uL (150.0-450.0); RED BLOOD COUNT 4.71 X10^6/uL (4.7-6.0); RED CELL DISTRIBUTION WIDTH 13.5 % (11.6-16.5); WHITE BLOOD COUNT 13.7 X10^3/uL (3.6-10.0)
[2021-03-26 05:50] LABS: ALANINE AMINOTRANSFERASE 27 Units/L (12-78); ALBUMIN 1.7 g/dL (3.4-5.0); ALKALINE PHOSPHATASE 73 Units/L (46-116); ASPARTATE AMINO TRANSFERASE 27 Units/L (15-37); BLOOD UREA NITROGEN 34 mg/dL (7-18); CALCIUM 7.8 mg/dL (8.5-10.1); CARBON DIOXIDE 27.4 mmol/L (21-32); CHLORIDE 110 mmol/L (98-107); COR CA(FOR HYPOALB) 9.6 mg/dL (8.5-10.1); COR NA(FOR HYPERGLY) 142 mmol/L (136-145); CREATININE 0.93 mg/dL (0.70-1.30); SODIUM 142 mmol/L (136-145); eGFR NON BLACK RACES > 60 (>60)
[2021-03-26] MEDS: ACCUNEB 1.25 MG NEBULE NEB SCH ×4 (06:12→20:35)
[2021-03-26] MEDS: FORTAZ or TAZICEF VIAL INJ 1 G in NS 100 ML IV + SPIKE MINIBAG* 100 ML IV SCH ×3 (06:14→22:52)
[2021-03-26] MEDS: HEPARIN SODIUM INJ 5000 UNITS SC SCH ×3 (06:14→21:12)
[2021-03-26] MEDS: TESSALON PERLES PO SCH ×3 (06:15→21:14)
[2021-03-26 06:21] LABS: PLATELET MORPHOLOGY COMMENT NORMAL (NORMAL)
[2021-03-26] MEDS ORDERED: LEXAPRO ONE (07:57)
[2021-03-26] MEDS: AVODART PO SCH (08:08)
[2021-03-26] MEDS: BUSPAR PO SCH ×2 (08:09→21:12)
[2021-03-26] MEDS: LEXAPRO PO SCH (08:09)
[2021-03-26] MEDS: ZyrTEC TAB 10 MG PO SCH (08:10)
[2021-03-26] MEDS: VITAMIN D3 125 mcg (5,000 UNITS) PO SCH (08:10)
[2021-03-26] MEDS: ZINC SULFATE PO SCH (08:10)
[2021-03-26] MEDS: TUSSIONEX PENNKINETIC SUSP PO SCH ×2 (08:10→21:14)
[2021-03-26] MEDS: THIAMINE HCL INJ IVP SCH ×2 (08:10→21:14)
[2021-03-26] MEDS: TRICOR TAB 160 MG PO SCH (08:11)
[2021-03-26] MEDS: ZESTRIL TAB 10 MG PO SCH (08:11)
[2021-03-26] MEDS: ROBITUSSIN DM PO SCH ×4 (08:12→21:13)
[2021-03-26] MEDS: PROTONIX TAB 40 MG PO SCH ×2 (08:12→21:13)
[2021-03-26] MEDS: PEPCID TAB 20 MG PO SCH ×2 (08:12→21:13)
[2021-03-26] MEDS: LEVAQUIN PREMIX IV 500 MG 500 MG/100 ML BAG IV SCH (08:15)
[2021-03-26] MEDS: FLUVOXAMINE MALEATE PO SCH ×2 (08:15→21:13)
[2021-03-26] MEDS: MUCOMYST (RESPIRATORY USE ONLY) NEB SCH ×2 (09:40→20:35)
[2021-03-26] MEDS: PULMICORT NEB TX 0.5 MG NEB SCH (09:40)
[2021-03-26] MEDS: VALIUM INJ IVP PRN ×2 (10:28→22:30)
[2021-03-26] MEDS: MILK OF MAGNESIA PO SCH (10:30)
--- NOTE | 2021-03-26 11:16 | RAD ---
HISTORYFollow up pneumoniaSTUDYPortable AP [id number]/04/2021FINDINGSMild stable cardiomegaly with bilateral airspace disease again noted, similar in the right lung and slightly improved at the left base. There is now faint visualization of the left diaphragm, previously obscured.IMPRESSIONPersistent bilateral pneumonia with suggestion of slight interval improvement in the left lower lung.Electronically signed by: ESTEPHANIA ROB (Mar 26, 2021 11:14:53)
--- NOTE | 2021-03-26 12:34 | PCM.PROG ---
Progress Note Progress Note for Day of Date of Exam: 03/26/21 Subjective Subjective: Patient seen at bedside, no acute events overnight. Patient was on BiPAP overnight, transitioned to HHFNC this morning but placed back on Bipap due to being anxious. He is currently on FiO2 100%. He states he is feeling better and able to tolerate BiPAP. Labs: Hgb 14.6 WBC 13.7 Plt: 133 BUN/Cr: 34/0.93 Glucose 113 CRP: 9.40 CXR: diffuse bilateral infiltrates AB.48/37/55/27 sats 90% on FiO2 100% Plan: Continue covid protocol. Wean BiPAP as tolerated to keep sats > 92%, t ransition to HHFNC as tolerated. Continue valium prn for anxiety. Continue current treatment with IV antibiotics and Solumedrol. Continue vitamin support. Continue IV with 1/2 NS for gentle hydration. Monitor resp status closely. Continue heparin for DVT ppx. Continue morphine for air hunger. Monitor AM labs and imaging. Time spent for clinical assessment, reviewing labs/imaging, physical exam, decision making and documentation greater than 45 mins. Past Medical Family Social History Past Med/Fam/Surg Hx: No changes since H&P Allergies: Allergies No Allergy Information Available Allergy (Verified 03/14/21 14:24) Review of Systems ROS: No change since H&P Vital Signs and I&O's Vital Signs: Temperature 97.0 F Pulse Rate [Right Brachial] 61 Pulse Rate [Left Radial] 85 Pulse Rate 67 Respiratory Rate 36 Blood Pressure [Right Arm] 142/73 Blood Pressure [Left Arm] 116/63 Blood Pressure 133/81 O2 Sat by Pulse Oximetry 92 Intake and Output: Intake & Output 03/23/21 03/24/21 03/25/21 03/26/21 23:59 23:59 23:59 23:59 Intake Total 4080 / 4080 3490 / 3490 4189 / 4189 568 / 568 Output Total 2325 / 2325 1900 / 1900 3250 / 3250 Balance 1755 / 1755 1590 / 1590 939 / 939 568 / 568 Physical Exam Oriented: Normal Eyes: Normal Ear: Normal Nose: Normal Throat: Normal Respiratory: Generalized and Diminished Cardiovascular: Normal Auscultation: Bowel Sounds: Normal Tenderness: Normal Skin: Normal Musculoskeletal: Normal Psychiatric: Anxiety Mood Description: Calm Affect: Anxious Speech Pattern: Clear and Appropriate Laboratory and Diagnostics Result Diagrams: 03/26/21 04:32 03/26/21 04:32 Labs: 03/14/21 16:39 Blood Blood Culture - Final 03/14/21 16:35 Blood Blood Culture - Final 03/18/21 01:03 Sputum - Expectorated Sputum Sputum Culture - Final 03/18/21 01:03 Sputum - Expectorated Sputum - Final Laboratory WBC 13.7 X10^3/uL (3.6-10.0) H 03/26/21 04:32 RBC 4.71 X10^6/uL (4.7-6.0) 03/26/21 04:32 Hgb 14.6 g/dL (13.5-18.0) 03/26/21 04:32 Hct 42.7 % (42.0-54.0) 03/26/21 04:32 MCV 90.7 fL (80.0-100.0) 03/26/21 04:32 MCH 31.1 pg (27.0-34.0) 03/26/21 04:32 MCHC 34.3 g/dL (33.0-35.0) 03/26/21 04:32 RDW 13.5 % (11.6-16.5) 03/26/21 04:32 Plt Count 133 X10^3/uL (150.0-450.0) L 03/26/21 04:32 Plt Count Comment Decreased (ADEQUATE) 03/26/21 04:32 MPV 9.5 fL (7.4-11.0) 03/26/21 04:32 Neut % (Auto) 98.3 % (42.0-75.0) H 03/26/21 04:32 Lymph % (Auto) 0.9 % (21.0-51.0) L 03/26/21 04:32 [place] % (Auto) 0.5 % (0.0-13.0) 03/26/21 04:32 Eos % (Auto) 0.0 % (0.9-2.9) L 03/26/21 04:32 Baso % (Auto) 0.3 % (0.2-1.0) 03/26/21 04:32 Neut # (Auto) 13.5 x10^3/uL (2.2-4.8) H 03/26/21 04:32 Lymph # (Auto) 0.1 X10^3/uL (1.3-2.9) L 03/26/21 04:32 [place] # (Auto) 0.1 x10^3/uL (0.3-0.8) L 03/26/21 04:32 Eos # (Auto) 0.0 x10^3/uL (0.0-0.2) 03/26/21 04:32 Baso # (Auto) 0.0 X10^3/uL (0.0-0.1) 03/26/21 04:32 Absolute Nucleated RBC 0.0 /100WBC 03/26/21 04:32 Total Counted 100 03/26/21 04:32 Neutrophils % (Manual) 98 % (39-76) H 03/26/21 04:32 Band Neutrophils % 1 % (0-10) 03/23/21 05:21 Lymphocytes % (Manual) 2 % (13-43) L 03/26/21 04:32 Monocytes % (Manual) 1 % (4-9) L 03/25/21 04:30 Metamyelocytes % 6 03/25/21 04:30 Plt Morphology Comment Normal (NORMAL) 03/26/21 04:32 RBC Morphology Normal (NORMAL) 03/26/21 04:32 PT 14.2 SECONDS (11.8-14.3) 03/20/21 07:07 INR Target Range - 03/20/21 07:07 INR 1.16 (0.8-1.3) 03/20/21 07:07 APTT 26.6 SECONDS (22.9-36.5) 03/17/21 06:05 PTT Comment - 03/17/21 06:05 D-Dimer 0.94 ug/ml (0.0-0.57) H* 03/23/21 05:21 Sample Site Rrad 03/26/21 05:15 ABG pH 7.480 (7.35-7.45) H 03/26/21 05:15 ABG pCO2 37.0 mmHg (35.0-45.0) 03/26/21 05:15 ABG pO2 55.0 mmHg (80.0-100.0) L 03/26/21 05:15 ABG HCO3 27.6 mmol/L (22-26) H 03/26/21 05:15 ABG O2 Saturation 90.0 % (90-100) 03/26/21 05:15 ABG Base Excess 4.0 mmol/L (-2.0-2.0) H 03/26/21 05:15 Corky Test Pos 03/26/21 05:15 A-a Gradient 612.0 mmHg 03/26/21 05:15 FiO2 100.0 03/26/21 05:15 Blood Gas Comments Michael well ms 03/26/21 05:15 Sodium 142 mmol/L (136-145) 03/26/21 04:32 Corrected Sodium 142 mmol/L (136-145) 03/26/21 04:32 Potassium 4.5 mmol/L (3.5-5.1) 03/26/21 04:32 Chloride 110 mmol/L (98-107) H 03/26/21 04:32 Carbon Dioxide 27.4 mmol/L (21-32) 03/26/21 04:32 BUN 34 mg/dL (7-18) H 03/26/21 04:32 Creatinine 0.93 mg/dL (0.70-1.30) 03/26/21 04:32 Est GFR (MDRD) Af Amer > 60 (>60) 03/26/21 04:32 Est GFR (MDRD) Non-Af > 60 (>60) 03/26/21 04:32 Glucose 113 mg/dL (65-99) H 03/26/21 04:32 POC Glucose (mg/dL) 103 mg/dL (65-99) H 03/26/21 11:47 Calcium 7.8 mg/dL (8.5-10.1) L 03/26/21 04:32 Corrected Calcium 9.6 mg/dL (8.5-10.1) 03/26/21 04:32 Ferritin 2585 ng/mL (26-388) H 03/23/21 05:21 Total Bilirubin 0.50 mg/dL (0.2-1.0) 03/26/21 04:32 AST 27 Units/L (15-37) 03/26/21 04:32 ALT 27 Units/L (12-78) 03/26/21 04:32 Alkaline Phosphatase 73 Units/L (46-116) 03/26/21 04:32 Creatine Kinase 69 Units/L (39-308) 03/14/21 14:54 CK-MB (CK-2) < 1.0 ng/mL (0-4.0) 03/14/21 14:54 CK/CKMB % Calc 1.5 % (<4) 03/14/21 14:54 Troponin I < 0.02 ng/mL (0-1.5) 03/14/21 14:54 C-Reactive Protein 9.40 mg/L (0-3.0) H 03/25/21 04:30 B-Natriuretic Peptide 43.8 pg/mL (0-79) 03/23/21 05:21 Total Protein 5.0 g/dL (6.4-8.2) L 03/26/21 04:32 Albumin 1.7 g/dL (3.4-5.0) L 03/26/21 04:32 Globulin 3.3 g/dL (2.5-4.5) 03/26/21 04:32 Albumin/Globulin Ratio 0.5 Ratio (1.1-2.1) L 03/26/21 04:32 Plan (1) Acute respiratory failure with hypoxia: Status: Acute (2) Pneumonia due to COVID-19 virus: Status: Acute Plan: (3) Hypoxia: Status: Acute (4) HTN (hypertension): Status: Chronic Qualifiers: Hypertension type: primary hypertension Qualified Code(s): I10 - Essential (primary) hypertension (5) GERD (gastroesophageal reflux disease): Status: Chronic Qualifiers: Esophagitis presence: esophagitis presence not specified Qualified Code(s): K21.9 - Gastro-esophageal reflux disease without esophagitis (6) Obesity: Status: Chronic Qualifiers: Body mass index: BMI 36.0-36.9 Obesity classification: adult class 2 (BMI 35 - 39.9) Obesity type: unspecified obesity type Serious obesity comorbidity presence: unspecified whether serious comorbidity present Qualified Code(s): E66.9 - Obesity, unspecified; Z68.36 - Body mass index [BMI] 36.0-36.9, adult
[2021-03-26] MEDS ORDERED: NS 1/2 1000 ML IV 1,000 ML IV ONE (13:04)
[2021-03-26] MEDS: MORPHINE SULFATE INJ 2 MG INJ IVP PRN ×2 (16:04→21:17)
[2021-03-26] MEDS: SNACK - Diabetic Appropriate PO SCH (21:10)
[2021-03-26] MEDS: LIPITOR TAB 80 MG PO SCH (21:13)
[2021-03-26] MEDS: SINGULAIR TAB 10 MG PO SCH (21:14)
[2021-03-27] MEDS: NS 1/2 1000 ML IV 1,000 ML IV SCH (02:28)
[2021-03-27] MEDS: SOLU-Medrol 125 MG VIAL IVP SCH ×4 (02:28→22:15)
[2021-03-27] MEDS: ASCORBIC ACID INJ MULTI-DOSE VIAL 1,500 MG in NS 50 ML IV 50 ML IV SCH ×4 (02:28→21:55)
[2021-03-27] MEDS: VALIUM INJ IVP PRN (04:13)
[2021-03-27 05:15] LABS: BASOPHILS # (AUTO) 0.1 X10^3/uL (0.0-0.1); BASOPHILS % (AUTO) 0.7 % (0.2-1.0); HEMATOCRIT 43.2 % (42.0-54.0); HEMOGLOBIN 14.5 g/dL (13.5-18.0); LYMPHOCYTES # (AUTO) 0.1 X10^3/uL (1.3-2.9); LYMPHOCYTES % (AUTO) 0.6 % (21.0-51.0); MEAN CORPUSCULAR HEMOGLOBIN 30.3 pg (27.0-34.0); MEAN CORPUSCULAR HGB CONC 33.6 g/dL (33.0-35.0); MEAN CORPUSCULAR VOLUME 90.3 fL (80.0-100.0); MEAN PLATELET VOLUME 9.3 fL (7.4-11.0); MONOCYTES # (AUTO) 0 x10^3/uL (0.3-0.8); MONOCYTES % (AUTO) 0.3 % (0.0-13.0); NEUTROPHILS # (AUTO) 12.8 x10^3/uL (2.2-4.8); NEUTROPHILS % (AUTO) 98.4 % (42.0-75.0); PLATELET COUNT 112 X10^3/uL (150.0-450.0); RED BLOOD COUNT 4.79 X10^6/uL (4.7-6.0); RED CELL DISTRIBUTION WIDTH 13.7 % (11.6-16.5)
[2021-03-27] MEDS: FORTAZ or TAZICEF VIAL INJ 1 G in NS 100 ML IV + SPIKE MINIBAG* 100 ML IV SCH ×3 (05:15→23:10)
[2021-03-27] MEDS: HEPARIN SODIUM INJ 5000 UNITS SC SCH ×3 (05:16→21:47)
[2021-03-27] MEDS: TESSALON PERLES PO SCH ×4 (05:16→22:42)
[2021-03-27 05:31] LABS: ALANINE AMINOTRANSFERASE 29 Units/L (12-78); ALBUMIN 1.7 g/dL (3.4-5.0); ALKALINE PHOSPHATASE 73 Units/L (46-116); ASPARTATE AMINO TRANSFERASE 32 Units/L (15-37); BLOOD UREA NITROGEN 29 mg/dL (7-18); CALCIUM 7.7 mg/dL (8.5-10.1); CARBON DIOXIDE 27.3 mmol/L (21-32); CHLORIDE 107 mmol/L (98-107); COR CA(FOR HYPOALB) 9.5 mg/dL (8.5-10.1); CREATININE 0.73 mg/dL (0.70-1.30); SODIUM 139 mmol/L (136-145); eGFR NON BLACK RACES > 60 (>60)
[2021-03-27 05:55] LABS: PLATELET MORPHOLOGY COMMENT NORMAL (NORMAL)
[2021-03-27] MEDS ORDERED: NS 1/2 1000 ML IV 1,000 ML IV ONE (05:58)
[2021-03-27 06:16] LABS: ABG ALLEN TEST POS; ABG HCO3 27.6 mmol/L (22-26)
[2021-03-27] MEDS: MORPHINE SULFATE INJ 2 MG INJ IVP PRN ×3 (06:34→22:20)
[2021-03-27] MEDS: ACCUNEB 1.25 MG NEBULE NEB SCH ×3 (06:39→21:10)
--- NOTE | 2021-03-27 07:57 | RAD ---
HISTORYSOBSTUDYCHEST, 1 [id number]/06/2021FINDINGSAbnormal opacity in the left and right lung had a more patchy distribution on the CTA chest 03/14/2021. Findings represent bronchopneumonia. No significant effusion or pneumothorax.Cardiomegaly is unchanged.Bones are unremarkable.EKG leads are noted.IMPRESSION1. Unchanged pneumoniaElectronically signed by: Gurwinder Chow (Mar 27, 2021 07:55:22)
[2021-03-27] MEDS ORDERED: LEXAPRO ONE ×3 (08:54→20:20)
[2021-03-27] MEDS: LEVAQUIN PREMIX IV 500 MG 500 MG/100 ML BAG IV SCH (09:05)
[2021-03-27] MEDS: MUCOMYST (RESPIRATORY USE ONLY) NEB SCH ×2 (10:00→21:10)
[2021-03-27] MEDS: PULMICORT NEB TX 0.5 MG NEB SCH ×2 (10:00→21:10)
[2021-03-27] MEDS: LEXAPRO PO SCH ×2 (11:11→21:50)
[2021-03-27] MEDS: AVODART PO SCH (11:12)
[2021-03-27] MEDS: MILK OF MAGNESIA PO SCH (11:13)
[2021-03-27] MEDS: BUSPAR PO SCH ×2 (11:13→22:41)
[2021-03-27] MEDS: ROBITUSSIN DM PO SCH ×4 (11:13→22:15)
[2021-03-27] MEDS: THIAMINE HCL INJ IVP SCH ×2 (11:14→21:48)
[2021-03-27] MEDS: ZESTRIL TAB 10 MG PO SCH (11:14)
[2021-03-27] MEDS: TUSSIONEX PENNKINETIC SUSP PO SCH ×2 (11:22→22:15)
[2021-03-27] MEDS: VALIUM PO SCH ×2 (11:22→16:37)
[2021-03-27] MEDS: MVI IV SCH ×2 (14:19)
[2021-03-27] MEDS: NS IV SCH ×2 (14:19)
--- NOTE | 2021-03-27 15:24 | PCM.PROG ---
Progress Note - Progress Note for Day of Date of Exam: 03/27/21 - Subjective Subjective: MR. MARMOLEJO WAS ADMITTED FOR TREATMENT OF COVID PNEUMONIA AND HYPOXIA. PMH: OBESITY, GERD, HTN. TODAY, HE IS LYING IN BED ON MORNING ROUNDS. HE IS CURRENTLY UTILIZING THE BIPAP WITH FI02 100%. HIS SPOUSE IS AT BEDSIDE. SPOUSE REPORTS THAT HE CONTINUES TO BE ANXIOUS. SHORTNESS OF BREATH AND COUGH SLIGHTLY IMPROVED TODAY. HIS SATURATIONS HAVE BEEN 89-98% THIS MORNING AND THROUGHOUT THE NIGHT. ON EXAMINATION, HEART IS REGULAR IN RATE AND RHYTHM. BILATERAL LUNGS ARE NOTED WITH DIMINISHED LUNG SOUNDS THROUGHOUT. ABDOMEN IS ROUND, SOFT, AND NON-TENDER WITH NORMAL BOWEL SOUNDS NOTED IN ALL QUADRANTS. HIS VITALS THIS MORNING ARE: 98.5-67-30-90%-174/84. LABS WERE OBTAINED. ABNORMAL LAB VALUES INCLUDE THE FOLLOWING: WBC 13.0, PLT COUNT 112, . D-DIMER 0.94, BUN, GLUCOSE 109, CALCIUM 7.7, CRP 8.50, TOTAL PROTEIN 5.0, ALBUMIN 1.7. ABG REVEALED: PH 7.480, PC02 37, P02 55, HC03 27.6, 02 SAT 90, BASE EXCESS 4.0, A-A GRADIENT 612, FI02 100. A CHEST XRAY WAS OBTAINED AND REVEALED: Unchanged pneum onia. HE IS CURRENTLY RECEIVING IV FLUIDS, STEROIDS, IV ANTIBIOTICS, HEPARIN, AND NEB TX WELL HOME MEDICATIONS RESUMED. TODAY, WE WILL ADD MULTIVITAMINS TO HIS IV FLUIDS. WE WILL CHANGE VALIUM TO 5MG PO TID JASMIN, INCREASE LEXAPRO TO 20MG PO BID, CHANGE PEPCID AND PROTONIX TO IV BID. OTHERWISE, WE WILL ATTEMPT TO WEAN DOWN OXYGEN HE TOLERATES IT. WE WILL FOLLOW UP WITH AM LABS, CHEST XRAY, ABG, AND CONTINUE TO MONITOR. TIME SPENT ON CLINICAL ASSESSMENT, REVIEWING LABS AND IMAGING, DECISION MAKING, AND DOCUMENTATION GREATER THAN 45 MINUTES. - Past Medical Family Social History Past Med/Fam/Surg Hx: No changes since H&P Allergies: Allergies No Allergy Information Available Allergy (Verified 03/14/21 14:24) - Review of Systems ROS: No change since H&P - Vital Signs and I&O's Vital Signs: Temperature 98.1 F Pulse Rate [Right Brachial] 61 Pulse Rate [Left Radial] 85 Pulse Rate 70 Respiratory Rate 27 Blood Pressure [Right Arm] 142/73 Blood Pressure [Left Arm] 116/63 Blood Pressure 169/82 O2 Sat by Pulse Oximetry 89 Intake and Output: Intake & Output 03/25/21 03/26/21 03/27/21 03/28/21 11:59 11:59 11:59 11:59 Intake Total 2968 / 2968 4159 / 4159 3110 / 3110 Output Total 2049 3100 / 3100 2775 / 2775 Balance 918 / 918 1059 / 1059 335 / 335 - Physical Exam Oriented: Normal Eyes: Normal Ear: Normal Nose: Normal Throat: Normal Respiratory: Generalized, Diminished Cardiovascular: Normal : Normal Auscultation: Bowel Sounds: Normal Palpation: Normal Tenderness: Normal Skin: Normal Musculoskeletal: Normal Psychiatric: Anxiety Mood Description: Calm Affect: Anxious Speech Pattern: Clear, Appropriate - Laboratory and Diagnostics Result Diagrams: 03/27/21 04:30 03/27/21 04:30 Labs: 03/14/21 16:39 Blood Blood Culture - Final 03/14/21 16:35 Blood Blood Culture - Final 03/18/21 01:03 Sputum - Expectorated Sputum Sputum Culture - Final 03/18/21 01:03 Sputum - Expectorated Sputum - Final Laboratory WBC 13.0 X10^3/uL (3.6-10.0) H 03/27/21 04:30 RBC 4.79 X10^6/uL (4.7-6.0) 03/27/21 04:30 Hgb 14.5 g/dL (13.5-18.0) 03/27/21 04:30 Hct 43.2 % (42.0-54.0) 03/27/21 04:30 MCV 90.3 fL (80.0-100.0) 03/27/21 04:30 MCH 30.3 pg (27.0-34.0) 03/27/21 04:30 MCHC 33.6 g/dL (33.0-35.0) 03/27/21 04:30 RDW 13.7 % (11.6-16.5) 03/27/21 04:30 Plt Count 112 X10^3/uL (150.0-450.0) L 03/27/21 04:30 Plt Count Comment Decreased (ADEQUATE) 03/27/21 04:30 MPV 9.3 fL (7.4-11.0) 03/27/21 04:30 Neut % (Auto) 98.4 % (42.0-75.0) H 03/27/21 04:30 Lymph % (Auto) 0.6 % (21.0-51.0) L 03/27/21 04:30 [place] % (Auto) 0.3 % (0.0-13.0) 03/27/21 04:30 Eos % (Auto) 0.0 % (0.9-2.9) L 03/27/21 04:30 Baso % (Auto) 0.7 % (0.2-1.0) 03/27/21 04:30 Neut # (Auto) 12.8 x10^3/uL (2.2-4.8) H 03/27/21 04:30 Lymph # (Auto) 0.1 X10^3/uL (1.3-2.9) L 03/27/21 04:30 [place] # (Auto) 0 x10^3/uL (0.3-0.8) L 03/27/21 04:30 Eos # (Auto) 0.0 x10^3/uL (0.0-0.2) 03/27/21 04:30 Baso # (Auto) 0.1 X10^3/uL (0.0-0.1) 03/27/21 04:30 Absolute Nucleated RBC 0.0 /100WBC 03/27/21 04:30 Total Counted 100 03/27/21 04:30 Neutrophils % (Manual) 100 % (39-76) H 03/27/21 04:30 Band Neutrophils % 1 % (0-10) 03/23/21 05:21 Lymphocytes % (Manual) Not Reportable 03/27/21 04:30 Monocytes % (Manual) 1 % (4-9) L 03/25/21 04:30 Metamyelocytes % 6 03/25/21 04:30 Plt Morphology Comment Normal (NORMAL) 03/27/21 04:30 RBC Morphology Normal (NORMAL) 03/27/21 04:30 PT 14.2 SECONDS (11.8-14.3) 03/20/21 07:07 INR Target Range - 03/20/21 07:07 INR 1.16 (0.8-1.3) 03/20/21 07:07 APTT 26.6 SECONDS (22.9-36.5) 03/17/21 06:05 PTT Comment - 03/17/21 06:05 D-Dimer 0.94 ug/ml (0.0-0.57) H* 03/23/21 05:21 Sample Site Rrad 03/27/21 06:11 ABG pH 7.480 (7.35-7.45) H 03/27/21 06:11 ABG pCO2 37.0 mmHg (35.0-45.0) 03/27/21 06:11 ABG pO2 55.0 mmHg (80.0-100.0) L 03/27/21 06:11 ABG HCO3 27.6 mmol/L (22-26) H 03/27/21 06:11 ABG O2 Saturation 90.0 % (90-100) 03/27/21 06:11 ABG Base Excess 4.0 mmol/L (-2.0-2.0) H 03/27/21 06:11 Corky Test Pos 03/27/21 06:11 A-a Gradient 612.0 mmHg 03/27/21 06:11 FiO2 100.0 03/27/21 06:11 Blood Gas Comments Michael well mts 03/27/21 06:11 Sodium 139 mmol/L (136-145) 03/27/21 04:30 Corrected Sodium TNP 03/27/21 04:30 Potassium 4.4 mmol/L (3.5-5.1) 03/27/21 04:30 Chloride 107 mmol/L (98-107) 03/27/21 04:30 Carbon Dioxide 27.3 mmol/L (21-32) 03/27/21 04:30 BUN 29 mg/dL (7-18) H 03/27/21 04:30 Creatinine 0.73 mg/dL (0.70-1.30) 03/27/21 04:30 Est GFR (MDRD) Af Amer > 60 (>60) 03/27/21 04:30 Est GFR (MDRD) Non-Af > 60 (>60) 03/27/21 04:30 Glucose 109 mg/dL (65-99) H 03/27/21 04:30 POC Glucose (mg/dL) 91 mg/dL (65-99) 03/27/21 12:13 Calcium 7.7 mg/dL (8.5-10.1) L 03/27/21 04:30 Corrected Calcium 9.5 mg/dL (8.5-10.1) 03/27/21 04:30 Ferritin 2585 ng/mL (26-388) H 03/23/21 05:21 Total Bilirubin 0.60 mg/dL (0.2-1.0) 03/27/21 04:30 AST 32 Units/L (15-37) 03/27/21 04:30 ALT 29 Units/L (12-78) 03/27/21 04:30 Alkaline Phosphatase 73 Units/L (46-116) 03/27/21 04:30 Creatine Kinase 69 Units/L (39-308) 03/14/21 14:54 CK-MB (CK-2) < 1.0 ng/mL (0-4.0) 03/14/21 14:54 CK/CKMB % Calc 1.5 % (<4) 03/14/21 14:54 Troponin I < 0.02 ng/mL (0-1.5) 03/14/21 14:54 C-Reactive Protein 8.50 mg/L (0-3.0) H 03/27/21 04:30 B-Natriuretic Peptide 43.8 pg/mL (0-79) 03/23/21 05:21 Total Protein 5.0 g/dL (6.4-8.2) L 03/27/21 04:30 Albumin 1.7 g/dL (3.4-5.0) L 03/27/21 04:30 Globulin 3.3 g/dL (2.5-4.5) 03/27/21 04:30 Albumin/Globulin Ratio 0.5 Ratio (1.1-2.1) L 03/27/21 04:30 - Plan (1) Pneumonia due to COVID-19 virus Status: Acute Plan: (2) Hypoxia Status: Acute (3) HTN (hypertension) Status: Chronic Qualifiers: Hypertension type: primary hypertension Qualified Code(s): I10 - Essential (primary) hypertension (4) GERD (gastroesophageal reflux disease) Status: Chronic Qualifiers: Esophagitis presence: esophagitis presence not specified Qualified Code(s): K21.9 - Gastro-esophageal reflux disease without esophagitis (5) Obesity Status: Chronic Qualifiers: Obesity type: unspecified obesity type Obesity classification: adult class 2 (BMI 35 - 39.9) Serious obesity comorbidity presence: unspecified whether serious comorbidity present Body mass index: BMI 36.0-36.9 Qualified Code(s): E66.9 - Obesity, unspecified; Z68.36 - Body mass index [BMI] 36.0-36.9, adult
[2021-03-27] MEDS: PROTONIX INJ 40 MG VIAL IVP SCH (21:35)
[2021-03-27] MEDS: COLACE CAP 100 MG PO PRN (21:45)
[2021-03-27] MEDS: NORCO 5/325 MG TAB PO PRN (21:55)
[2021-03-27] MEDS: RESTORIL CAP 15 MG PO PRN (22:00)
[2021-03-27] MEDS: PEPCID 20 MG IV PREMIX* 20 MG/50 ML BAG IV SCH (23:20)
[2021-03-28] MEDS: SNACK - Diabetic Appropriate PO SCH (00:27)
[2021-03-28] MEDS: NS IV SCH ×4 (00:37→18:06)
[2021-03-28] MEDS: MVI IV SCH ×4 (00:37→18:06)
[2021-03-28] MEDS: ASCORBIC ACID INJ MULTI-DOSE VIAL 1,500 MG in NS 50 ML IV 50 ML IV SCH ×4 (02:18→20:26)
[2021-03-28] MEDS: SOLU-Medrol 125 MG VIAL IVP SCH ×4 (02:18→20:34)
[2021-03-28] MEDS: MORPHINE SULFATE INJ 2 MG INJ IVP PRN (03:44)
[2021-03-28] MEDS ORDERED: QUELICIN (OR ANECTINE) IVP ONE (03:50)
[2021-03-28] MEDS ORDERED: QUELICIN (OR ANECTINE) ONE (03:53)
[2021-03-28] MEDS ORDERED: AMIDATE INJ 40 MG VIAL ONE (03:53)
[2021-03-28] MEDS ORDERED: VERSED ONE (03:59)
[2021-03-28] MEDS ORDERED: DIPRIVAN PREMIX 1 GRAM IV 1,000 MG/100 ML VIAL IV PRN (04:01)
[2021-03-28] MEDS ORDERED: VERSED IVP ONE (04:01)
[2021-03-28] MEDS: DIPRIVAN PREMIX 1 GRAM IV 1,000 MG/100 ML VIAL IV PRN ×6 (04:02→22:38)
[2021-03-28] MEDS ORDERED: VERSED IV PREMIX 100 MG/100 ML IV.SOLN IV ONE (04:18)
[2021-03-28] MEDS: VERSED IV PREMIX 100 MG/100 ML IV.SOLN IV PRN ×4 (04:20→19:10)
[2021-03-28] MEDS ORDERED: NS 500 ML IV 500 ML IV ONE ×3 (04:28→10:36)
[2021-03-28] MEDS ORDERED: LEVOPHED INJ ONE (04:33)
[2021-03-28] MEDS ORDERED: D5W 250 ML IV 250 ML IV ONE (04:33)
--- NOTE | 2021-03-28 04:40 | RAD ---
HISTORYET TUBE PLACEMENT ^PMH: HTN ; BEST IMAGE POSSIBLESTUDYCHEST, 1 [id number]/08/2021FINDINGSThe trachea is midline. Endotracheal tube approximately 3 cm above the percy. The cardiac silhouette is stable. Diffuse bilateral infiltrates unchanged. No pneumothorax. The bony thorax is unremarkable.IMPRESSIONEndotracheal tube as described.Diffuse bilateral infiltrates unchangedElectronically signed by: Efrain Wells (Mar 28, 2021 04:38:38)
[2021-03-28] MEDS ORDERED: NS 50 ML IV 50 ML IV ONE ×3 (04:47→17:40)
[2021-03-28] MEDS ORDERED: NORCURON INJ 10 MG VIAL ONE (04:47)
[2021-03-28] MEDS: NORCURON INJ 10 MG VIAL 50 MG in NS 50 ML IV 50 ML IV PRN ×4 (04:55→22:38)
[2021-03-28] MEDS ORDERED: VERSED 100 MG in NS 100 ML IV 80 ML IV PRN (05:01)
[2021-03-28] MEDS ORDERED: LEVOPHED INJ 8 MG in D5W 250 ML IV 242 ML IV PRN (05:01)
[2021-03-28 05:06] LABS: BASOPHILS % (AUTO) 0.3 % (0.2-1.0); HEMATOCRIT 42.2 % (42.0-54.0); HEMOGLOBIN 14.3 g/dL (13.5-18.0); LYMPHOCYTES # (AUTO) 0.1 X10^3/uL (1.3-2.9); LYMPHOCYTES % (AUTO) 1.3 % (21.0-51.0); MEAN CORPUSCULAR HEMOGLOBIN 30.8 pg (27.0-34.0); MEAN CORPUSCULAR HGB CONC 33.9 g/dL (33.0-35.0); MEAN PLATELET VOLUME 9.7 fL (7.4-11.0); MONOCYTES # (AUTO) 0.1 x10^3/uL (0.3-0.8); MONOCYTES % (AUTO) 1.4 % (0.0-13.0); NEUTROPHILS # (AUTO) 7.9 x10^3/uL (2.2-4.8); PLATELET COUNT 98 X10^3/uL (150.0-450.0); RED BLOOD COUNT 4.64 X10^6/uL (4.7-6.0); WHITE BLOOD COUNT 8.1 X10^3/uL (3.6-10.0)
[2021-03-28 05:16] LABS: PREALBUMIN 18.3 mg/dL (18-35.7)
[2021-03-28 05:37] LABS: ALANINE AMINOTRANSFERASE 32 Units/L (12-78); ALBUMIN 1.6 g/dL (3.4-5.0); ALKALINE PHOSPHATASE 67 Units/L (46-116); ASPARTATE AMINO TRANSFERASE 34 Units/L (15-37); BLOOD UREA NITROGEN 30 mg/dL (7-18); CALCIUM 7.5 mg/dL (8.5-10.1); CARBON DIOXIDE 25.7 mmol/L (21-32); CHLORIDE 107 mmol/L (98-107); COR CA(FOR HYPOALB) 9.4 mg/dL (8.5-10.1); COR NA(FOR HYPERGLY) 141 mmol/L (136-145); CREATININE 0.79 mg/dL (0.70-1.30); SODIUM 140 mmol/L (136-145); TOTAL PROTEIN 4.8 g/dL (6.4-8.2); eGFR NON BLACK RACES > 60 (>60)
[2021-03-28 05:59] LABS: PLATELET MORPHOLOGY COMMENT NORMAL (NORMAL)
[2021-03-28] MEDS ORDERED: AMIDATE INJ 40 MG VIAL IVP ONE (06:06)
[2021-03-28 06:13] LABS: ABG ALLEN TEST POS; ABG BASE EXCESS -0.5 mmol/L (-2.0-2.0); ABG HCO3 27.3 mmol/L (22-26)
[2021-03-28] MEDS: VALIUM PO SCH (06:17)
[2021-03-28] MEDS ORDERED: DIPRIVAN VIAL IVP ONE (06:19)
[2021-03-28] MEDS: TESSALON PERLES PO SCH (06:35)
[2021-03-28 06:55] LABS: BILIRUBIN,URINE NEGATIVE (NEGATIVE); BLOOD/HEMOGLOBIN,URINE NEGATIVE (NEGATIVE); GLUCOSE, URINE NEGATIVE (NEGATIVE); KETONES,URINE NEGATIVE (NEGATIVE); LEUKOCYTE ESTERASE ,URINE NEGATIVE (NEGATIVE); NITRITES,URINE NEGATIVE (NEGATIVE); PROTEIN,URINE 2+ (NEGATIVE); UROBILINOGEN,URINE NORMAL (NORMAL)
--- NOTE | 2021-03-28 07:20 | RAD ---
HISTORYSOB HX: HTN ; BEST IMAGE POSSIBLESTUDYCHEST, 1 [id number]/07/2021FINDINGSThe trachea is midline. Endotracheal tube present with tip 3.5 cm above the percy. The cardiac silhouette is mildly enlarged. Bibasilar pneumonic infiltrates increased on the right from prior study. No pneumothorax.. The bony thorax is unremarkable.IMPRESSIONBibasilar pneumonic infiltrates increased on the right from previous 03/27/2021lectronically signed by: Efrain Wells (Mar 28, 2021 07:17:55)
[2021-03-28 07:25] LABS: APPEARANCE,URINE CLEAR (CLEAR); BACTERIA,URINE NEGATIVE /HPF (NEGATIVE); COLOR,URINE YELLOW (YELLOW); MUCUS,URINE FEW /HPF (NEGATIVE); RBC,URINE 0-2 /HPF (0-3); SQUAMOUS EPITHELIAL CELL,UR RARE /HPF (NEGATIVE)
[2021-03-28] MEDS: HEPARIN SODIUM INJ 5000 UNITS SC SCH ×2 (07:30→08:56)
[2021-03-28] MEDS: FORTAZ or TAZICEF VIAL INJ 1 G in NS 100 ML IV + SPIKE MINIBAG* 100 ML IV SCH ×4 (07:30→22:38)
--- NOTE | 2021-03-28 08:43 | RAD ---
HISTORYOG TUBE PLACEMENT HTNSTUDYCHEST, 1 VIEWCOMPARISONPortable chest March 28, 2021.FINDINGSThe trachea is midline. An ET tube is in place with the tip located 5.5 cm above the percy. An OG tube is been placed in the tip is in good position in the antrum of the stomach. The cardiac silhouette is unremarkable. The bilateral interstitial infiltrates in the mid lower lung field are stable compared to yesterday's exam. No pneumothorax or effusions are observed. The bony thorax is unremarkable.IMPRESSIONNo change in the bilateral mid to lower lung field interstitial infiltrates compared to yesterday's exam.ET tube is in good position and OG tube is been placed with the tip in the distal antrum of the stomach, also in good position.Electronically signed by: DRAKE GRIFFIN (Mar 28, 2021 08:41:52)
[2021-03-28] MEDS: THIAMINE HCL INJ IVP SCH ×2 (09:00→20:35)
[2021-03-28] MEDS: LEVAQUIN PREMIX IV 500 MG 500 MG/100 ML BAG IV SCH (09:20)
[2021-03-28] MEDS: PEPCID 20 MG IV PREMIX* 20 MG/50 ML BAG IV SCH ×2 (09:20→21:30)
[2021-03-28] MEDS: PROTONIX INJ 40 MG VIAL IVP SCH ×2 (09:21→20:30)
[2021-03-28] MEDS: PULMICORT NEB TX 0.5 MG NEB SCH ×2 (10:12→20:55)
[2021-03-28] MEDS: ACCUNEB 1.25 MG NEBULE NEB SCH ×3 (10:12→20:55)
[2021-03-28] MEDS: MUCOMYST (RESPIRATORY USE ONLY) NEB SCH ×2 (10:12→20:55)
--- NOTE | 2021-03-28 11:37 | DR.UPDATE ---
H&P Update History and Physical Update: History and Physical reviewed and patient examined. Changes noted: NO Yes with the following: Consulted for A-line placement. Mr. King is presently on the ventilator and pressors. H&P Reviewed: Yes Patient was examined?: Yes Procedures (ALL) - Arterial Line Consent obtained: verbal consent Time out performed: Yes Size(gauge): 20 Technique used: guided wire technique (sterile technique utilized) Post-procedure: dry sterile dressing placed Patient tolerated procedure: Yes Site: right, radial
[2021-03-28] MEDS: LACRI-LUBE S.O.P. AFFEYE SCH ×2 (12:15→20:29)
[2021-03-28] MEDS: ROBITUSSIN DM NG SCH ×3 (12:56→20:32)
[2021-03-28] MEDS ORDERED: LEXAPRO ONE (20:01)
[2021-03-28] MEDS: BUSPAR NG SCH (20:27)
[2021-03-28] MEDS: ELIQUIS PO SCH (20:27)
[2021-03-28] MEDS: LEXAPRO NG SCH (20:29)
[2021-03-29] MEDS: VERSED IV PREMIX 100 MG/100 ML IV.SOLN IV PRN ×5 (00:10→21:05)
[2021-03-29] MEDS: DIPRIVAN PREMIX 1 GRAM IV 1,000 MG/100 ML VIAL IV PRN ×7 (01:40→22:35)
[2021-03-29] MEDS: MVI IV SCH ×7 (02:14→16:33)
[2021-03-29] MEDS: NS IV SCH ×7 (02:14→16:33)
[2021-03-29] MEDS: SOLU-Medrol 125 MG VIAL IVP SCH ×4 (03:56→22:15)
[2021-03-29] MEDS: ASCORBIC ACID INJ MULTI-DOSE VIAL 1,500 MG in NS 50 ML IV 50 ML IV SCH ×2 (03:56→08:58)
[2021-03-29 04:47] LABS: BASOPHILS % (AUTO) 0.4 % (0.2-1.0); HEMATOCRIT 38.7 % (42.0-54.0); HEMOGLOBIN 13.1 g/dL (13.5-18.0); LYMPHOCYTES # (AUTO) 0.1 X10^3/uL (1.3-2.9); MEAN CORPUSCULAR HEMOGLOBIN 30.6 pg (27.0-34.0); MEAN CORPUSCULAR HGB CONC 33.9 g/dL (33.0-35.0); MEAN CORPUSCULAR VOLUME 90.3 fL (80.0-100.0); MEAN PLATELET VOLUME 9.2 fL (7.4-11.0); MONOCYTES # (AUTO) 0.2 x10^3/uL (0.3-0.8); MONOCYTES % (AUTO) 1.9 % (0.0-13.0); NEUTROPHILS # (AUTO) 9.8 x10^3/uL (2.2-4.8); NEUTROPHILS % (AUTO) 96.7 % (42.0-75.0); PLATELET COUNT 96 X10^3/uL (150.0-450.0); RED BLOOD COUNT 4.28 X10^6/uL (4.7-6.0); RED CELL DISTRIBUTION WIDTH 13.7 % (11.6-16.5); WHITE BLOOD COUNT 10.1 X10^3/uL (3.6-10.0)
[2021-03-29 05:00] LABS: ALANINE AMINOTRANSFERASE 35 Units/L (12-78); ALBUMIN 1.5 g/dL (3.4-5.0); ALKALINE PHOSPHATASE 57 Units/L (46-116); ASPARTATE AMINO TRANSFERASE 24 Units/L (15-37); BLOOD UREA NITROGEN 20 mg/dL (7-18); CALCIUM 7.7 mg/dL (8.5-10.1); CARBON DIOXIDE 34.4 mmol/L (21-32); CHLORIDE 108 mmol/L (98-107); COR CA(FOR HYPOALB) 9.7 mg/dL (8.5-10.1); COR NA(FOR HYPERGLY) 143 mmol/L (136-145); CREATININE 0.57 mg/dL (0.70-1.30); SODIUM 142 mmol/L (136-145); TOTAL PROTEIN 4.3 g/dL (6.4-8.2); eGFR NON BLACK RACES > 60 (>60)
[2021-03-29] MEDS ORDERED: NS 50 ML IV 50 ML IV ONE ×2 (05:08→16:02)
[2021-03-29] MEDS: FORTAZ or TAZICEF VIAL INJ 1 G in NS 100 ML IV + SPIKE MINIBAG* 100 ML IV SCH ×3 (05:29→22:15)
[2021-03-29 05:52] LABS: ABG BASE EXCESS 7.6 mmol/L (-2.0-2.0)
[2021-03-29 05:53] LABS: ABG ALLEN TEST POS; ABG HCO3 34.7 mmol/L (22-26)
[2021-03-29] MEDS: ACCUNEB 1.25 MG NEBULE NEB SCH ×4 (06:00→20:40)
[2021-03-29 06:01] LABS: PLATELET MORPHOLOGY COMMENT NORMAL (NORMAL)
[2021-03-29] MEDS ORDERED: LEXAPRO ONE ×2 (07:59→22:08)
[2021-03-29] MEDS: NORCURON INJ 10 MG VIAL 50 MG in NS 50 ML IV 50 ML IV PRN ×2 (08:30→16:34)
[2021-03-29] MEDS: BUSPAR NG SCH ×2 (08:58→22:13)
[2021-03-29] MEDS: LEVAQUIN PREMIX IV 500 MG 500 MG/100 ML BAG IV SCH (08:59)
[2021-03-29] MEDS: ELIQUIS PO SCH (08:59)
[2021-03-29] MEDS: LEXAPRO NG SCH ×2 (08:59→22:14)
[2021-03-29] MEDS: LACRI-LUBE S.O.P. AFFEYE SCH ×2 (08:59→22:14)
[2021-03-29] MEDS: PEPCID 20 MG IV PREMIX* 20 MG/50 ML BAG IV SCH (09:00)
[2021-03-29] MEDS: THIAMINE HCL INJ IVP SCH (09:00)
[2021-03-29] MEDS: ROBITUSSIN DM NG SCH ×4 (09:01→22:03)
[2021-03-29] MEDS: PROTONIX INJ 40 MG VIAL IVP SCH ×2 (09:02→22:15)
--- NOTE | 2021-03-29 09:20 | RAD ---
HISTORYSOB, VENTILATOR DEPENDENCESTUDYCHEST x-ray, 1 VIEWCOMPARISONX-ray 03/28/2021FINDINGSEndotracheal tube terminates 3.5 cm above the percy. Enteric tube passes into the stomach. Borderline cardiomegaly. Diffuse bilateral hazy lung infiltrates are similar to prior study given differences in technique. No pneumothorax is seen.IMPRESSIONNo interval change.Electronically signed by: Doug Bah (Mar 29, 2021 09:17:28)
[2021-03-29] MEDS: MUCOMYST (RESPIRATORY USE ONLY) NEB SCH ×2 (10:01→20:40)
[2021-03-29] MEDS: PULMICORT NEB TX 0.5 MG NEB SCH ×2 (10:01→20:40)
[2021-03-29] MEDS: MILK OF MAGNESIA NG SCH (11:50)
[2021-03-29] MEDS ORDERED: NORCURON INJ 10 MG VIAL ONE (16:05)
[2021-03-29] MEDS: [UNRECOGNIZED DRUG - OTHER] IV SCH ×5 (16:33)
[2021-03-29] MEDS: THIAMINE HCL IV SCH ×5 (16:33)
--- NOTE | 2021-03-29 17:58 | PCM.PROG ---
Progress Note - Progress Note for Day of Date of Exam: 03/28/21 - Subjective Subjective: MR. MARMOLEJO WAS ADMITTED FOR TREATMENT OF COVID PNEUMONIA AND HYPOXIA. PMH: OBESITY, GERD, HTN. HE REMAINS IN THE INTENSIVE CARE UNIT. AT APPROXIMATELY 0345 THIS MORNING, PATIENT HAD TAKEN BIPAP OFF. NURSE FOUND PATIENT ATTEMPTING TO GET OUT OF BED BY HIMSELF. HIS SATURATIONS WERE NOTED TO BE 34% ON ROOM AIR. BIPAP WAS PLACED BACK ONTO PATIENT, HOWEVER, SATURATIONS ONLY INCREASED TO THE LOWER 70s. DECISION WAS MADE THIS MORNING TO INTUBATE PATIENT. THE METAPHYSICS TEACHER PHYSICIAN ALSO GAVE ORDERS FOR LEVOPHED DRIP DUE TO LOW BP AND A VERCURONIUM DRIP. ART LINE, NG TUBE, AND FOX CATHETER WERE PLACED. TODAY, HE IS SEDATED, LYING IN BED ON MORNING ROUNDS. SINCE PLACED ON THE VENTILLATOR AND STABILIZED, SATURATIONS HAVE BEEN 95-100%. ON EXAMINATION, HEART IS REGULAR IN RATE AND RHYTHM. BILATERAL LUNGS ARE NOTED WITH DIMINISHED LUNG SOUNDS THROUGHOUT. ABDOMEN IS ROUND, SOFT, AND NON-TENDER WITH NORMAL BOWEL SOUNDS NOTED IN ALL QUADRANTS. HIS VITALS THIS MORNING ARE: 98.7-62-22-97%-121/58. LABS WERE OBTAINED. ABNORMAL LAB VALUES INCLUDE THE FOLLOWING: RBC 4.64, PLT COUNT 98, D-DIMER 1.63, BUN 30, GLUCOSE 162, CALCIUM 7.5, CRP 7.40, TOTAL PROTEIN 4.8, ALBUMIN 1.6. ABG REVEALED: PH 7.280, PC02 58, P02 58, HC03 27.3, 02 SAT 86, A-A GRADIENT 583, FI02 100. A CHEST XRAY WAS OBTAINED AND REVEALED: No interval change. HE IS CURRENTLY RECEIVING IV FLUIDS WITH MVI, STEROIDS, IV ANTIBIOTICS, HEPARIN, NEB TX, MUCOMYST IN NEB [place], MOPRHINE 2MG IV Q4H PRN, LEXAPRO 20MG NG TUBE BID, BUSPAR 5MG NG TUBE BID, ROBITUSSIN DM NG TUBE QID, PROTONIX IV BID, VERSED DRIP, DIPROVAN DRIP, VERCURONIUM DRIP. WE WILL CONTINUE WITH CURRENT PLAN OF CARE TODAY. OTHERWISE, WE WILL FOLLOW UP WITH AM LABS, CHEST XRAY, ABG, AND CONTINUE TO MONITOR. TIME SPENT ON CLINICAL ASSESSMENT, REVIEWING LABS AND IMAGING, DECISION MAKING, AND DOCUMENTATION GREATER THAN 75 MINUTES. - Past Medical Family Social History Past Med/Fam/Surg Hx: No changes since H&P Allergies: Allergies No Allergy Information Available Allergy (Verified 03/14/21 14:24) - Review of Systems ROS: No change since H&P - Vital Signs and I&O's Vital Signs: Temperature 97.0 F Pulse Rate [Right Brachial] 61 Pulse Rate [Left Radial] 85 Pulse Rate 72 Respiratory Rate 22 Blood Pressure [Right Arm] 142/73 Blood Pressure [Left Arm] 116/63 Blood Pressure 115/58 O2 Sat by Pulse Oximetry 96 Intake and Output: Intake & Output 03/27/21 03/28/21 03/29/21 03/30/21 11:59 11:59 11:59 11:59 Intake Total 3110 / 3110 4452 / 4452 4791 / 4791 1693 / 1693 Output Total 2775 / 2775 2400 / 2400 3325 / 3325 500 / 500 Balance 335 / 335 2052 / 2052 1466 / 1466 1193 / 1193 - Physical Exam Oriented: Unable to test Eyes: Normal Ear: Normal Nose: Normal Throat: Normal Respiratory: Generalized, Diminished Cardiovascular: Normal : Normal Auscultation: Bowel Sounds: Normal Palpation: Normal Tenderness: Normal Skin: Normal Musculoskeletal: Normal Psychiatric: Other (SEDATED) Speech Pattern: Artificially Ventilated - Laboratory and Diagnostics Result Diagrams: 03/29/21 04:00 03/29/21 04:00 Labs: 03/14/21 16:39 Blood Blood Culture - Final 03/14/21 16:35 Blood Blood Culture - Final 03/18/21 01:03 Sputum - Expectorated Sputum Sputum Culture - Final 03/18/21 01:03 Sputum - Expectorated Sputum - Final Laboratory WBC 10.1 X10^3/uL (3.6-10.0) H 03/29/21 04:00 RBC 4.28 X10^6/uL (4.7-6.0) L 03/29/21 04:00 Hgb 13.1 g/dL (13.5-18.0) L 03/29/21 04:00 Hct 38.7 % (42.0-54.0) L 03/29/21 04:00 MCV 90.3 fL (80.0-100.0) 03/29/21 04:00 MCH 30.6 pg (27.0-34.0) 03/29/21 04:00 MCHC 33.9 g/dL (33.0-35.0) 03/29/21 04:00 RDW 13.7 % (11.6-16.5) 03/29/21 04:00 Plt Count 96 X10^3/uL (150.0-450.0) L 03/29/21 04:00 Plt Count Comment Decreased (ADEQUATE) 03/29/21 04:00 MPV 9.2 fL (7.4-11.0) 03/29/21 04:00 Neut % (Auto) 96.7 % (42.0-75.0) H 03/29/21 04:00 Lymph % (Auto) 1.0 % (21.0-51.0) L 03/29/21 04:00 [place] % (Auto) 1.9 % (0.0-13.0) 03/29/21 04:00 Eos % (Auto) 0.0 % (0.9-2.9) L 03/29/21 04:00 Baso % (Auto) 0.4 % (0.2-1.0) 03/29/21 04:00 Neut # (Auto) 9.8 x10^3/uL (2.2-4.8) H 03/29/21 04:00 Lymph # (Auto) 0.1 X10^3/uL (1.3-2.9) L 03/29/21 04:00 [place] # (Auto) 0.2 x10^3/uL (0.3-0.8) L 03/29/21 04:00 Eos # (Auto) 0.0 x10^3/uL (0.0-0.2) 03/29/21 04:00 Baso # (Auto) 0.0 X10^3/uL (0.0-0.1) 03/29/21 04:00 Absolute Nucleated RBC 0.0 /100WBC 03/29/21 04:00 Total Counted 100 03/29/21 04:00 Neutrophils % (Manual) 96 % (39-76) H 03/29/21 04:00 Band Neutrophils % 1 % (0-10) 03/23/21 05:21 Lymphocytes % (Manual) 2 % (13-43) L 03/29/21 04:00 Monocytes % (Manual) 2 % (4-9) L 03/29/21 04:00 Metamyelocytes % 6 03/25/21 04:30 Plt Morphology Comment Normal (NORMAL) 03/29/21 04:00 RBC Morphology Normal (NORMAL) 03/29/21 04:00 PT 14.2 SECONDS (11.8-14.3) 03/20/21 07:07 INR Target Range - 03/20/21 07:07 INR 1.16 (0.8-1.3) 03/20/21 07:07 APTT 26.6 SECONDS (22.9-36.5) 03/17/21 06:05 PTT Comment - 03/17/21 06:05 D-Dimer 1.08 ug/ml (0.0-0.57) H* 03/29/21 04:00 Sample Site Rrad 03/29/21 05:50 ABG pH 7.370 (7.35-7.45) 03/29/21 05:50 ABG pCO2 60.0 mmHg (35.0-45.0) H* 03/29/21 05:50 ABG pO2 67.0 mmHg (80.0-100.0) L 03/29/21 05:50 ABG HCO3 34.7 mmol/L (22-26) H* 03/29/21 05:50 ABG O2 Saturation 92.0 % (90-100) 03/29/21 05:50 ABG Base Excess 7.6 mmol/L (-2.0-2.0) H 03/29/21 05:50 Corky Test Pos 03/29/21 05:50 A-a Gradient 500.0 mmHg 03/29/21 05:50 FiO2 90.0 03/29/21 05:50 Blood Gas Comments Michael abg well-mtf/sw 03/29/21 05:50 Sodium 142 mmol/L (136-145) 03/29/21 04:00 Corrected Sodium 143 mmol/L (136-145) 03/29/21 04:00 Potassium 4.6 mmol/L (3.5-5.1) 03/29/21 04:00 Chloride 108 mmol/L (98-107) H 03/29/21 04:00 Carbon Dioxide 34.4 mmol/L (21-32) H 03/29/21 04:00 BUN 20 mg/dL (7-18) H 03/29/21 04:00 Creatinine 0.57 mg/dL (0.70-1.30) L 03/29/21 04:00 Est GFR (MDRD) Af Amer > 60 (>60) 03/29/21 04:00 Est GFR (MDRD) Non-Af > 60 (>60) 03/29/21 04:00 Glucose 132 mg/dL (65-99) H 03/29/21 04:00 POC Glucose (mg/dL) 121 mg/dL (65-99) H 03/29/21 16:25 Calcium 7.7 mg/dL (8.5-10.1) L 03/29/21 04:00 Corrected Calcium 9.7 mg/dL (8.5-10.1) 03/29/21 04:00 Ferritin 2585 ng/mL (26-388) H 03/23/21 05:21 Total Bilirubin 0.40 mg/dL (0.2-1.0) 03/29/21 04:00 AST 24 Units/L (15-37) 03/29/21 04:00 ALT 35 Units/L (12-78) 03/29/21 04:00 Alkaline Phosphatase 57 Units/L (46-116) 03/29/21 04:00 Creatine Kinase 69 Units/L (39-308) 03/14/21 14:54 CK-MB (CK-2) < 1.0 ng/mL (0-4.0) 03/14/21 14:54 CK/CKMB % Calc 1.5 % (<4) 03/14/21 14:54 Troponin I < 0.02 ng/mL (0-1.5) 03/14/21 14:54 C-Reactive Protein 2.80 mg/L (0-3.0) 03/29/21 04:00 B-Natriuretic Peptide 43.8 pg/mL (0-79) 03/23/21 05:21 Total Protein 4.3 g/dL (6.4-8.2) L 03/29/21 04:00 Albumin 1.5 g/dL (3.4-5.0) L 03/29/21 04:00 Globulin 2.8 g/dL (2.5-4.5) 03/29/21 04:00 Albumin/Globulin Ratio 0.5 Ratio (1.1-2.1) L 03/29/21 04:00 Prealbumin 18.3 mg/dL (18-35.7) 03/28/21 04:40 Specimen Type Catherized urine 03/28/21 05:47 Urine Color Yellow (YELLOW) 03/28/21 05:47 Urine Appearance Clear (CLEAR) 03/28/21 05:47 Urine pH 6.0 (5.0 - 8.0) 03/28/21 05:47 Ur Specific [place] 1.020 (1.000-1.030) 03/28/21 05:47 Urine Protein 2+ (NEGATIVE) 03/28/21 05:47 Urine Glucose (UA) Negative (NEGATIVE) 03/28/21 05:47 Urine Ketones Negative (NEGATIVE) 03/28/21 05:47 Urine Occult Blood Negative (NEGATIVE) 03/28/21 05:47 Urine Nitrite Negative (NEGATIVE) 03/28/21 05:47 Urine Bilirubin Negative (NEGATIVE) 03/28/21 05:47 Urine Urobilinogen Normal (NORMAL) 03/28/21 05:47 Ur Leukocyte Esterase Negative (NEGATIVE) 03/28/21 05:47 Urine RBC 0-2 /HPF (0-3) 03/28/21 05:47 Urine WBC 0-2 /HPF (0-5) 03/28/21 05:47 Ur Squamous Epith Cells Rare /HPF (NEGATIVE) 03/28/21 05:47 Urine Bacteria Negative /HPF (NEGATIVE) 03/28/21 05:47 Urine Mucus Few /HPF (NEGATIVE) 03/28/21 05:47 Ur Culture Indicated? No/not indicated 03/28/21 05:47 - Plan (1) Pneumonia due to COVID-19 virus Status: Acute Plan: MECHANICAL VENT, IV FLUIDS WITH MVI, STEROIDS, IV ANTIBIOTICS, HEPARIN, NEB TX, MUCOMYST IN NEB [place], MOPRHINE 2MG IV Q4H PRN, LEXAPRO 20MG NG TUBE BID, BUSPAR 5MG NG TUBE BID, ROBITUSSIN DM NG TUBE QID, PROTONIX IV BID, VERSED DRIP, DIPROVAN DRIP, VERCURONIUM DRIP. (2) Hypoxia Status: Acute (3) HTN (hypertension) Status: Chronic Qualifiers: Hypertension type: primary hypertension Qualified Code(s): I10 - Essential (primary) hypertension (4) GERD (gastroesophageal reflux disease) Status: Chronic Qualifiers: Esophagitis presence: esophagitis presence not specified Qualified Code(s): K21.9 - Gastro-esophageal reflux disease without esophagitis (5) Obesity Status: Chronic Qualifiers: Obesity type: unspecified obesity type Obesity classification: adult class 2 (BMI 35 - 39.9) Serious obesity comorbidity presence: unspecified whether serious comorbidity present Body mass index: BMI 36.0-36.9 Qualified Code(s): E66.9 - Obesity, unspecified; Z68.36 - Body mass index [BMI] 36.0-36.9, adult
--- NOTE | 2021-03-29 18:04 | PCM.PROG ---
Progress Note - Progress Note for Day of Date of Exam: 03/29/21 - Subjective Subjective: MR. MARMOLEJO WAS ADMITTED FOR TREATMENT OF COVID PNEUMONIA AND HYPOXIA. PMH: OBESITY, GERD, HTN. HE REMAINS IN THE INTENSIVE CARE UNIT ON THE MECHANICAL VENT TODAY. HE WAS PLACED ON THE VENT ON 03/28/21. TODAY, HE IS SEDATED, LYING IN BED ON MORNING ROUNDS. HIS VENT SETTINGS THIS MORNING ARE: A/C , RATE 22, TIDAL VOLUME 550, PEEP 12, FI02 90. SINCE PLACED ON THE VENTILLATOR AND STABILIZED, SATURATIONS HAVE BEEN 96-98%. ON EXAMINATION, HEART IS REGULAR IN RATE AND RHYTHM. BILATERAL LUNGS ARE NOTED WITH DIMINISHED LUNG SOUNDS THROUGHOUT. ABDOMEN IS ROUND, SOFT, AND NON-TENDER WITH NORMAL BOWEL SOUNDS NOTED IN ALL QUADRANTS. HIS VITALS THIS MORNING ARE: 98.4-60-22-98%-108/57. LABS WERE OBTAINED. ABNORMAL LAB VALUES INCLUDE THE FOLLOWING: WBC 10.1, RBC 4.28, HGB 3.1, HCT 38.7, PLT COUNT 96, D-DIMER 1.08, BUN 30, GLUCOSE 162, CALCIUM 7.5, CRP 7.40, TOTAL PROTEIN 4.8, ALBUMIN 1.6. ABG REVEALED: PH 7.370, PC02 60, P02 67, HC03 34.7, 02 SAT 92, A-A GRADIENT 500, FI02 90. A CHEST XRAY WAS OBTAINED AND REVEALED: No interval change. HE IS CURRENTLY RECEIVING IV FLUIDS WITH MVI, STEROIDS, IV ANTIBIOTICS, HEPARIN, NEB TX, MUCOMYST IN NEB [place], MOPRHINE 2MG IV Q4H PRN, LEXAPRO 20MG NG TUBE BID, BUSPAR 5MG NG TUBE BID, ROBITUSSIN DM NG TUBE QID, PROTONIX IV BID, VERSED DRIP, DIPROVAN DRIP, VERCURONIUM DRIP. TODAY, WE WILL CHANGE HEPARIN TO ELIQUIS 5MG NG TUBE BID AND ADD MILK OF MAGNESIA 30ML NG TUBE DAILY. OTHERWISE, WE WILL CONTINUE WITH CURRENT PLAN OF CARE TODAY. WE WILL FOLLOW UP WITH AM LABS, CHEST XRAY, ABG, AND CONTINUE TO MONITOR. TIME SPENT ON CLINICAL ASSESSMENT, REVIEWING LABS AND IMAGING, DECISION MAKING, AND DOCUMENTATION GREATER THAN 75 MINUTES. - Past Medical Family Social History Past Med/Fam/Surg Hx: No changes since H&P Allergies: Allergies No Allergy Information Available Allergy (Verified 03/14/21 14:24) - Review of Systems ROS: No change since H&P - Vital Signs and I&O's Vital Signs: Temperature 97.0 F Pulse Rate [Right Brachial] 61 Pulse Rate [Left Radial] 85 Pulse Rate 72 Respiratory Rate 22 Blood Pressure [Right Arm] 142/73 Blood Pressure [Left Arm] 116/63 Blood Pressure 115/58 O2 Sat by Pulse Oximetry 96 Intake and Output: Intake & Output 03/27/21 03/28/21 03/29/21 03/30/21 11:59 11:59 11:59 11:59 Intake Total 3110 / 3110 4452 / 4452 4791 / 4791 1693 / 1693 Output Total 2775 / 2775 2400 / 2400 3325 / 3325 500 / 500 Balance 335 / 335 205 / 205 1466 / 1466 1193 / 1193 - Physical Exam Oriented: Unable to test Eyes: Normal Ear: Normal Nose: Normal Throat: Normal Respiratory: Generalized, Diminished Cardiovascular: Normal : Normal Auscultation: Bowel Sounds: Normal Tenderness: Normal Skin: Normal Musculoskeletal: Normal Psychiatric: Other (SEDATED) Mood Description: Calm Affect: Anxious Speech Pattern: Artificially Ventilated - Laboratory and Diagnostics Result Diagrams: 03/29/21 04:00 03/29/21 04:00 Labs: 03/14/21 16:39 Blood Blood Culture - Final 03/14/21 16:35 Blood Blood Culture - Final 03/18/21 01:03 Sputum - Expectorated Sputum Sputum Culture - Final 03/18/21 01:03 Sputum - Expectorated Sputum - Final Laboratory WBC 10.1 X10^3/uL (3.6-10.0) H 03/29/21 04:00 RBC 4.28 X10^6/uL (4.7-6.0) L 03/29/21 04:00 Hgb 13.1 g/dL (13.5-18.0) L 03/29/21 04:00 Hct 38.7 % (42.0-54.0) L 03/29/21 04:00 MCV 90.3 fL (80.0-100.0) 03/29/21 04:00 MCH 30.6 pg (27.0-34.0) 03/29/21 04:00 MCHC 33.9 g/dL (33.0-35.0) 03/29/21 04:00 RDW 13.7 % (11.6-16.5) 03/29/21 04:00 Plt Count 96 X10^3/uL (150.0-450.0) L 03/29/21 04:00 Plt Count Comment Decreased (ADEQUATE) 03/29/21 04:00 MPV 9.2 fL (7.4-11.0) 03/29/21 04:00 Neut % (Auto) 96.7 % (42.0-75.0) H 03/29/21 04:00 Lymph % (Auto) 1.0 % (21.0-51.0) L 03/29/21 04:00 [place] % (Auto) 1.9 % (0.0-13.0) 03/29/21 04:00 Eos % (Auto) 0.0 % (0.9-2.9) L 03/29/21 04:00 Baso % (Auto) 0.4 % (0.2-1.0) 03/29/21 04:00 Neut # (Auto) 9.8 x10^3/uL (2.2-4.8) H 03/29/21 04:00 Lymph # (Auto) 0.1 X10^3/uL (1.3-2.9) L 03/29/21 04:00 [place] # (Auto) 0.2 x10^3/uL (0.3-0.8) L 03/29/21 04:00 Eos # (Auto) 0.0 x10^3/uL (0.0-0.2) 03/29/21 04:00 Baso # (Auto) 0.0 X10^3/uL (0.0-0.1) 03/29/21 04:00 Absolute Nucleated RBC 0.0 /100WBC 03/29/21 04:00 Total Counted 100 03/29/21 04:00 Neutrophils % (Manual) 96 % (39-76) H 03/29/21 04:00 Band Neutrophils % 1 % (0-10) 03/23/21 05:21 Lymphocytes % (Manual) 2 % (13-43) L 03/29/21 04:00 Monocytes % (Manual) 2 % (4-9) L 03/29/21 04:00 Metamyelocytes % 6 03/25/21 04:30 Plt Morphology Comment Normal (NORMAL) 03/29/21 04:00 RBC Morphology Normal (NORMAL) 03/29/21 04:00 PT 14.2 SECONDS (11.8-14.3) 03/20/21 07:07 INR Target Range - 03/20/21 07:07 INR 1.16 (0.8-1.3) 03/20/21 07:07 APTT 26.6 SECONDS (22.9-36.5) 03/17/21 06:05 PTT Comment - 03/17/21 06:05 D-Dimer 1.08 ug/ml (0.0-0.57) H* 03/29/21 04:00 Sample Site Rrad 03/29/21 05:50 ABG pH 7.370 (7.35-7.45) 03/29/21 05:50 ABG pCO2 60.0 mmHg (35.0-45.0) H* 03/29/21 05:50 ABG pO2 67.0 mmHg (80.0-100.0) L 03/29/21 05:50 ABG HCO3 34.7 mmol/L (22-26) H* 03/29/21 05:50 ABG O2 Saturation 92.0 % (90-100) 03/29/21 05:50 ABG Base Excess 7.6 mmol/L (-2.0-2.0) H 03/29/21 05:50 Corky Test Pos 03/29/21 05:50 A-a Gradient 500.0 mmHg 03/29/21 05:50 FiO2 90.0 03/29/21 05:50 Blood Gas Comments Michael abg well-mtf/sw 03/29/21 05:50 Sodium 142 mmol/L (136-145) 03/29/21 04:00 Corrected Sodium 143 mmol/L (136-145) 03/29/21 04:00 Potassium 4.6 mmol/L (3.5-5.1) 03/29/21 04:00 Chloride 108 mmol/L (98-107) H 03/29/21 04:00 Carbon Dioxide 34.4 mmol/L (21-32) H 03/29/21 04:00 BUN 20 mg/dL (7-18) H 03/29/21 04:00 Creatinine 0.57 mg/dL (0.70-1.30) L 03/29/21 04:00 Est GFR (MDRD) Af Amer > 60 (>60) 03/29/21 04:00 Est GFR (MDRD) Non-Af > 60 (>60) 03/29/21 04:00 Glucose 132 mg/dL (65-99) H 03/29/21 04:00 POC Glucose (mg/dL) 121 mg/dL (65-99) H 03/29/21 16:25 Calcium 7.7 mg/dL (8.5-10.1) L 03/29/21 04:00 Corrected Calcium 9.7 mg/dL (8.5-10.1) 03/29/21 04:00 Ferritin 2585 ng/mL (26-388) H 03/23/21 05:21 Total Bilirubin 0.40 mg/dL (0.2-1.0) 03/29/21 04:00 AST 24 Units/L (15-37) 03/29/21 04:00 ALT 35 Units/L (12-78) 03/29/21 04:00 Alkaline Phosphatase 57 Units/L (46-116) 03/29/21 04:00 Creatine Kinase 69 Units/L (39-308) 03/14/21 14:54 CK-MB (CK-2) < 1.0 ng/mL (0-4.0) 03/14/21 14:54 CK/CKMB % Calc 1.5 % (<4) 03/14/21 14:54 Troponin I < 0.02 ng/mL (0-1.5) 03/14/21 14:54 C-Reactive Protein 2.80 mg/L (0-3.0) 03/29/21 04:00 B-Natriuretic Peptide 43.8 pg/mL (0-79) 03/23/21 05:21 Total Protein 4.3 g/dL (6.4-8.2) L 03/29/21 04:00 Albumin 1.5 g/dL (3.4-5.0) L 03/29/21 04:00 Globulin 2.8 g/dL (2.5-4.5) 03/29/21 04:00 Albumin/Globulin Ratio 0.5 Ratio (1.1-2.1) L 03/29/21 04:00 Prealbumin 18.3 mg/dL (18-35.7) 03/28/21 04:40 Specimen Type Catherized urine 03/28/21 05:47 Urine Color Yellow (YELLOW) 03/28/21 05:47 Urine Appearance Clear (CLEAR) 03/28/21 05:47 Urine pH 6.0 (5.0 - 8.0) 03/28/21 05:47 Ur Specific [place] 1.020 (1.000-1.030) 03/28/21 05:47 Urine Protein 2+ (NEGATIVE) 03/28/21 05:47 Urine Glucose (UA) Negative (NEGATIVE) 03/28/21 05:47 Urine Ketones Negative (NEGATIVE) 03/28/21 05:47 Urine Occult Blood Negative (NEGATIVE) 03/28/21 05:47 Urine Nitrite Negative (NEGATIVE) 03/28/21 05:47 Urine Bilirubin Negative (NEGATIVE) 03/28/21 05:47 Urine Urobilinogen Normal (NORMAL) 03/28/21 05:47 Ur Leukocyte Esterase Negative (NEGATIVE) 03/28/21 05:47 Urine RBC 0-2 /HPF (0-3) 03/28/21 05:47 Urine WBC 0-2 /HPF (0-5) 03/28/21 05:47 Ur Squamous Epith Cells Rare /HPF (NEGATIVE) 03/28/21 05:47 Urine Bacteria Negative /HPF (NEGATIVE) 03/28/21 05:47 Urine Mucus Few /HPF (NEGATIVE) 03/28/21 05:47 Ur Culture Indicated? No/not indicated 03/28/21 05:47 - Plan (1) Pneumonia due to COVID-19 virus Status: Acute Plan: MECHANICAL VENT, IV FLUIDS WITH MVI, STEROIDS, IV ANTIBIOTICS, ELIQUIS 5MG NG TUBE BID, MILK OF MAGNESIA 30ML NG TUBE DAILY, NEB TX, MUCOMYST IN NEB [place], MOPRHINE 2MG IV Q4H PRN, LEXAPRO 20MG NG TUBE BID, BUSPAR 5MG NG TUBE BID, ROBITUSSIN DM NG TUBE QID, PROTONIX IV BID, VERSED DRIP, DIPROVAN DRIP, VERCURONIUM DRIP. (2) Hypoxia Status: Acute (3) HTN (hypertension) Status: Chronic Qualifiers: Hypertension type: primary hypertension Qualified Code(s): I10 - Essential (primary) hypertension (4) GERD (gastroesophageal reflux disease) Status: Chronic Qualifiers: Esophagitis presence: esophagitis presence not specified Qualified Code(s): K21.9 - Gastro-esophageal reflux disease without esophagitis (5) Obesity Status: Chronic Qualifiers: Obesity type: unspecified obesity type Obesity classification: adult class 2 (BMI 35 - 39.9) Serious obesity comorbidity presence: unspecified whether serious comorbidity present Body mass index: BMI 36.0-36.9 Qualified Code(s): E66.9 - Obesity, unspecified; Z68.36 - Body mass index [BMI] 36.0-36.9, adult
[2021-03-29] MEDS ORDERED: NS 250 ML IV 250 ML IV ONE (18:46)
[2021-03-29] MEDS ORDERED: ELIQUIS NG SCH (21:00)
[2021-03-30] MEDS: NORCURON INJ 10 MG VIAL 50 MG in NS 50 ML IV 50 ML IV PRN ×4 (00:34→18:33)
[2021-03-30] MEDS: NS IV SCH ×12 (00:43→22:00)
[2021-03-30] MEDS: MVI IV SCH ×12 (00:43→22:00)
[2021-03-30] MEDS: ASCORBIC ACID INJ MULTI-DOSE VIAL 1,500 MG in NS 50 ML IV 50 ML IV SCH (00:43)
[2021-03-30] MEDS: DIPRIVAN PREMIX 1 GRAM IV 1,000 MG/100 ML VIAL IV PRN ×7 (01:46→22:40)
[2021-03-30] MEDS: VERSED IV PREMIX 100 MG/100 ML IV.SOLN IV PRN ×5 (02:00→22:00)
[2021-03-30] MEDS: SOLU-Medrol 125 MG VIAL IVP SCH ×4 (03:53→21:00)
[2021-03-30] MEDS: [UNRECOGNIZED DRUG - OTHER] IV SCH ×10 (05:07→22:00)
[2021-03-30] MEDS: THIAMINE HCL IV SCH ×10 (05:07→22:00)
[2021-03-30] MEDS: FORTAZ or TAZICEF VIAL INJ 1 G in NS 100 ML IV + SPIKE MINIBAG* 100 ML IV SCH ×3 (05:08→21:00)
[2021-03-30 05:13] LABS: BASOPHILS % (AUTO) 0.3 % (0.2-1.0); HEMATOCRIT 42.6 % (42.0-54.0); HEMOGLOBIN 14.5 g/dL (13.5-18.0); LYMPHOCYTES # (AUTO) 0.1 X10^3/uL (1.3-2.9); MEAN CORPUSCULAR HEMOGLOBIN 30.9 pg (27.0-34.0); MEAN CORPUSCULAR HGB CONC 34.1 g/dL (33.0-35.0); MEAN CORPUSCULAR VOLUME 90.7 fL (80.0-100.0); MEAN PLATELET VOLUME 9.4 fL (7.4-11.0); MONOCYTES # (AUTO) 0.2 x10^3/uL (0.3-0.8); MONOCYTES % (AUTO) 2.4 % (0.0-13.0); NEUTROPHILS # (AUTO) 7.6 x10^3/uL (2.2-4.8); NEUTROPHILS % (AUTO) 96.3 % (42.0-75.0); PLATELET COUNT 72 X10^3/uL (150.0-450.0); RED BLOOD COUNT 4.69 X10^6/uL (4.7-6.0); RED CELL DISTRIBUTION WIDTH 13.8 % (11.6-16.5); WHITE BLOOD COUNT 7.9 X10^3/uL (3.6-10.0)
[2021-03-30 05:15] LABS: PREALBUMIN 28.8 mg/dL (18-35.7)
[2021-03-30 05:20] LABS: ABG BASE EXCESS 10.4 mmol/L (-2.0-2.0)
[2021-03-30 05:21] LABS: ALANINE AMINOTRANSFERASE 44 Units/L (12-78); ALBUMIN 1.8 g/dL (3.4-5.0); ALKALINE PHOSPHATASE 65 Units/L (46-116); ASPARTATE AMINO TRANSFERASE 22 Units/L (15-37); BLOOD UREA NITROGEN 23 mg/dL (7-18); CALCIUM 8.2 mg/dL (8.5-10.1); CARBON DIOXIDE 35.5 mmol/L (21-32); CHLORIDE 106 mmol/L (98-107); COR NA(FOR HYPERGLY) 142 mmol/L (136-145); CREATININE 0.57 mg/dL (0.70-1.30); SODIUM 141 mmol/L (136-145); TOTAL PROTEIN 5.1 g/dL (6.4-8.2); eGFR NON BLACK RACES > 60 (>60)
[2021-03-30 05:22] LABS: ABG HCO3 38.2 mmol/L (22-26)
[2021-03-30 05:57] LABS: BAND NEUTROPHILS % 1 % (0-10)
[2021-03-30 05:58] LABS: PLATELET MORPHOLOGY COMMENT NORMAL (NORMAL)
[2021-03-30] MEDS: ACCUNEB 1.25 MG NEBULE NEB SCH ×4 (06:36→20:34)
--- NOTE | 2021-03-30 07:54 | RAD ---
HISTORYSOB, VENTILATOR DEPENDENCESTUDYCHEST, 1 [id number]/2021FINDINGSThere is diffuse abnormal opacity in the lungs, more prominent in the lower lungs. This had a patchy distribution on the original chest CT 03/14/2021 consistent with pneumonia. No change from yesterday.No pleural effusion or pneumothorax.Heart size is normal.Bones are unremarkable.The endotracheal tube is anatomic in position in the trachea. The enteric tube extends into the upper abdomen. EKG leads are noted.IMPRESSION1. Unchanged pneumoniaElectronically signed by: Gurwinder Chow (Mar 30, 2021 07:52:18)
[2021-03-30] MEDS ORDERED: LEXAPRO ONE ×2 (08:04→19:50)
[2021-03-30] MEDS: MUCOMYST (RESPIRATORY USE ONLY) NEB SCH ×2 (08:11→20:34)
[2021-03-30] MEDS: PULMICORT NEB TX 0.5 MG NEB SCH ×2 (08:11→20:34)
[2021-03-30] MEDS: LEVAQUIN PREMIX IV 500 MG 500 MG/100 ML BAG IV SCH (08:32)
[2021-03-30] MEDS: BUSPAR NG SCH ×2 (08:32→21:00)
[2021-03-30] MEDS: LACRI-LUBE S.O.P. AFFEYE SCH ×2 (08:32→21:00)
[2021-03-30] MEDS: LEXAPRO NG SCH ×2 (08:32→21:00)
[2021-03-30] MEDS: MILK OF MAGNESIA NG SCH (08:33)
[2021-03-30] MEDS: PROTONIX INJ 40 MG VIAL IVP SCH ×2 (08:33→21:00)
[2021-03-30] MEDS: ROBITUSSIN DM NG SCH ×4 (08:35→21:00)
[2021-03-30] MEDS ORDERED: NORMODYNE INJ 20 MG VIAL ONE (18:18)
[2021-03-30] MEDS: NORMODYNE INJ 20 MG VIAL IV PRN ×2 (18:34→19:20)
[2021-03-30] MEDS ORDERED: ELIQUIS ONE (19:50)
[2021-03-30] MEDS: ELIQUIS NG SCH (21:00)
[2021-03-31] MEDS: DIPRIVAN PREMIX 1 GRAM IV 1,000 MG/100 ML VIAL IV PRN ×5 (01:40→22:59)
[2021-03-31] MEDS: SOLU-Medrol 125 MG VIAL IVP SCH ×4 (03:31→21:00)
[2021-03-31] MEDS: VERSED IV PREMIX 100 MG/100 ML IV.SOLN IV PRN ×2 (04:45→11:27)
[2021-03-31] MEDS: FORTAZ or TAZICEF VIAL INJ 1 G in NS 100 ML IV + SPIKE MINIBAG* 100 ML IV SCH ×3 (05:14→21:00)
[2021-03-31] MEDS: ACCUNEB 1.25 MG NEBULE NEB SCH ×3 (05:20→21:19)
[2021-03-31 05:34] LABS: ABG BASE EXCESS 13.3 mmol/L (-2.0-2.0)
[2021-03-31 05:35] LABS: ABG HCO3 40.9 mmol/L (22-26)
[2021-03-31] MEDS: NORCURON INJ 10 MG VIAL 50 MG in NS 50 ML IV 50 ML IV PRN ×5 (05:45→16:26)
[2021-03-31 06:41] LABS: ALANINE AMINOTRANSFERASE 39 Units/L (12-78); ALBUMIN 1.6 g/dL (3.4-5.0); ALKALINE PHOSPHATASE 56 Units/L (46-116); ASPARTATE AMINO TRANSFERASE 22 Units/L (15-37); BLOOD UREA NITROGEN 23 mg/dL (7-18); CALCIUM 7.7 mg/dL (8.5-10.1); CARBON DIOXIDE 36.7 mmol/L (21-32); CHLORIDE 107 mmol/L (98-107); COR CA(FOR HYPOALB) 9.6 mg/dL (8.5-10.1); COR NA(FOR HYPERGLY) 142 mmol/L (136-145); CREATININE 0.47 mg/dL (0.70-1.30); SODIUM 142 mmol/L (136-145); TOTAL PROTEIN 4.4 g/dL (6.4-8.2); eGFR NON BLACK RACES > 60 (>60)
[2021-03-31 06:48] LABS: BASOPHILS % (AUTO) 0.2 % (0.2-1.0); HEMATOCRIT 38.7 % (42.0-54.0); HEMOGLOBIN 12.9 g/dL (13.5-18.0); LYMPHOCYTES # (AUTO) 0.1 X10^3/uL (1.3-2.9); LYMPHOCYTES % (AUTO) 1.6 % (21.0-51.0); MEAN CORPUSCULAR HEMOGLOBIN 30.8 pg (27.0-34.0); MEAN CORPUSCULAR HGB CONC 33.5 g/dL (33.0-35.0); MEAN PLATELET VOLUME 9.6 fL (7.4-11.0); MONOCYTES # (AUTO) 0.2 x10^3/uL (0.3-0.8); MONOCYTES % (AUTO) 3.3 % (0.0-13.0); NEUTROPHILS # (AUTO) 6.5 x10^3/uL (2.2-4.8); NEUTROPHILS % (AUTO) 94.9 % (42.0-75.0); PLATELET COUNT 63 X10^3/uL (150.0-450.0); RED BLOOD COUNT 4.21 X10^6/uL (4.7-6.0); RED CELL DISTRIBUTION WIDTH 13.5 % (11.6-16.5); WHITE BLOOD COUNT 6.8 X10^3/uL (3.6-10.0)
--- NOTE | 2021-03-31 07:53 | RAD ---
HISTORYSOBSTUDYPortable AP [id number]/2021FINDINGSSimilar heart size and contour. Bilateral airspace disease is noted, unchanged in the left lung but slightly increased in the right lower lobe. Stable position of support lines, ET tube terminating in mid trachea.IMPRESSIONPersistent bilateral pneumonia with slight progression in the right lower lung.Electronically signed by: ESTEPHANIA ROB (Mar 31, 2021 07:51:57)
[2021-03-31] MEDS ORDERED: LEXAPRO ONE ×2 (08:07→19:56)
[2021-03-31] MEDS: ROBITUSSIN DM NG SCH ×4 (08:39→21:00)
[2021-03-31] MEDS: BUSPAR NG SCH ×2 (08:39→21:00)
[2021-03-31] MEDS: PROTONIX INJ 40 MG VIAL IVP SCH ×2 (08:40→21:00)
[2021-03-31] MEDS: LEXAPRO NG SCH ×2 (08:40→21:00)
[2021-03-31] MEDS: LACRI-LUBE S.O.P. AFFEYE SCH ×2 (08:40→21:00)
[2021-03-31] MEDS: LEVAQUIN PREMIX IV 500 MG 500 MG/100 ML BAG IV SCH (08:40)
[2021-03-31] MEDS: MILK OF MAGNESIA NG SCH (08:40)
[2021-03-31 10:00] LABS: PLATELET MORPHOLOGY COMMENT NORMAL (NORMAL)
[2021-03-31] MEDS ORDERED: NS 50 ML IV 50 ML IV ONE (10:26)
[2021-03-31] MEDS: LASIX IVP SCH ×2 (10:51→17:04)
[2021-03-31] MEDS: PULMICORT NEB TX 0.5 MG NEB SCH ×2 (12:58→21:19)
[2021-03-31] MEDS: MUCOMYST (RESPIRATORY USE ONLY) NEB SCH ×2 (12:58→21:19)
[2021-03-31] MEDS: THIAMINE HCL IV SCH ×5 (13:00)
[2021-03-31] MEDS: MVI IV SCH ×5 (13:00)
[2021-03-31] MEDS: NS IV SCH ×5 (13:00)
[2021-03-31] MEDS: [UNRECOGNIZED DRUG - OTHER] IV SCH ×5 (13:00)
[2021-03-31] MEDS ORDERED: NS 250 ML IV 250 ML IV ONE (13:34)
[2021-03-31] MEDS: ELIQUIS NG SCH ×2 (14:35→21:00)
[2021-03-31] MEDS: NORMODYNE INJ 20 MG VIAL IV PRN ×2 (21:15→22:15)
[2021-04-01] MEDS: NS IV SCH ×20 (00:23→15:09)
[2021-04-01] MEDS: [UNRECOGNIZED DRUG - OTHER] IV SCH ×20 (00:23→15:09)
[2021-04-01] MEDS: THIAMINE HCL IV SCH ×20 (00:23→15:09)
[2021-04-01] MEDS: MVI IV SCH ×20 (00:23→15:09)
[2021-04-01] MEDS: NORCURON INJ 10 MG VIAL 50 MG in NS 50 ML IV 50 ML IV PRN ×4 (01:06→18:57)
[2021-04-01] MEDS: DIPRIVAN PREMIX 1 GRAM IV 1,000 MG/100 ML VIAL IV PRN ×8 (01:06→22:05)
[2021-04-01] MEDS: VERSED IV PREMIX 100 MG/100 ML IV.SOLN IV PRN ×4 (01:07→22:05)
[2021-04-01] MEDS: SOLU-Medrol 125 MG VIAL IVP SCH ×4 (05:00→21:08)
[2021-04-01] MEDS: FORTAZ or TAZICEF VIAL INJ 1 G in NS 100 ML IV + SPIKE MINIBAG* 100 ML IV SCH ×3 (05:00→21:10)
[2021-04-01 05:59] LABS: BASOPHILS % (AUTO) 0.2 % (0.2-1.0); EOSINOPHILS % (AUTO) 0.3 % (0.9-2.9); HEMATOCRIT 38.8 % (42.0-54.0); HEMOGLOBIN 13.2 g/dL (13.5-18.0); LYMPHOCYTES # (AUTO) 0.1 X10^3/uL (1.3-2.9); LYMPHOCYTES % (AUTO) 1.4 % (21.0-51.0); MEAN CORPUSCULAR HEMOGLOBIN 30.7 pg (27.0-34.0); MEAN CORPUSCULAR VOLUME 90.3 fL (80.0-100.0); MEAN PLATELET VOLUME 9.2 fL (7.4-11.0); MONOCYTES # (AUTO) 0 x10^3/uL (0.3-0.8); MONOCYTES % (AUTO) 0.2 % (0.0-13.0); NEUTROPHILS # (AUTO) 10.5 x10^3/uL (2.2-4.8); NEUTROPHILS % (AUTO) 97.9 % (42.0-75.0); PLATELET COUNT 64 X10^3/uL (150.0-450.0); RED CELL DISTRIBUTION WIDTH 13.9 % (11.6-16.5); WHITE BLOOD COUNT 10.7 X10^3/uL (3.6-10.0)
[2021-04-01 06:01] LABS: ALANINE AMINOTRANSFERASE 45 Units/L (12-78); ALBUMIN 1.7 g/dL (3.4-5.0); ALKALINE PHOSPHATASE 57 Units/L (46-116); ASPARTATE AMINO TRANSFERASE 24 Units/L (15-37); BLOOD UREA NITROGEN 25 mg/dL (7-18); CALCIUM 7.9 mg/dL (8.5-10.1); CARBON DIOXIDE 39.8 mmol/L (21-32); CHLORIDE 105 mmol/L (98-107); COR CA(FOR HYPOALB) 9.7 mg/dL (8.5-10.1); COR NA(FOR HYPERGLY) 143 mmol/L (136-145); CREATININE 0.48 mg/dL (0.70-1.30); SODIUM 143 mmol/L (136-145); TOTAL PROTEIN 4.7 g/dL (6.4-8.2); eGFR NON BLACK RACES > 60 (>60)
[2021-04-01 06:17] LABS: ABG BASE EXCESS 18.9 mmol/L (-2.0-2.0)
[2021-04-01 06:20] LABS: ABG ALLEN TEST POS; ABG HCO3 45.9 mmol/L (22-26)
[2021-04-01 06:38] LABS: BAND NEUTROPHILS % 1 % (0-10); PLATELET MORPHOLOGY COMMENT NORMAL (NORMAL)
[2021-04-01] MEDS: NORMODYNE INJ 20 MG VIAL IV PRN ×3 (06:47→17:11)
--- NOTE | 2021-04-01 07:46 | RAD ---
HISTORYCOVID-19STUDYPortable AP [id number]/2021FINDINGSStable cardiac size and contour with no change in position of support lines. Persistent and slightly increasing bibasal airspace consolidation. No pneumothorax seen.IMPRESSIONPersistent bilateral pneumonia with slight apparent interval progression since 1 day earlier.Electronically signed by: ESTEPHANIA ROB (Apr 01, 2021 07:44:50)
[2021-04-01] MEDS: LEVAQUIN PREMIX IV 500 MG 500 MG/100 ML BAG IV SCH (08:11)
[2021-04-01] MEDS ORDERED: LEXAPRO ONE ×2 (08:51→20:15)
[2021-04-01] MEDS: BUSPAR NG SCH ×2 (09:04→21:07)
[2021-04-01] MEDS: LEXAPRO NG SCH ×2 (09:05→21:09)
[2021-04-01] MEDS: MILK OF MAGNESIA NG SCH (09:05)
[2021-04-01] MEDS: LACRI-LUBE S.O.P. AFFEYE SCH ×2 (09:05→21:09)
[2021-04-01] MEDS: PROTONIX INJ 40 MG VIAL IVP SCH ×2 (09:06→21:08)
[2021-04-01] MEDS: ROBITUSSIN DM NG SCH ×4 (09:06→21:08)
[2021-04-01] MEDS ORDERED: LASIX IVP ONE (10:34)
[2021-04-01] MEDS: ACCUNEB 1.25 MG NEBULE NEB SCH ×3 (11:32→21:00)
[2021-04-01] MEDS: PULMICORT NEB TX 0.5 MG NEB SCH ×2 (12:24→21:00)
[2021-04-01] MEDS: MUCOMYST (RESPIRATORY USE ONLY) NEB SCH ×2 (12:24→21:00)
[2021-04-01] MEDS: ELIQUIS NG SCH ×2 (13:42→21:09)
[2021-04-01] MEDS ORDERED: PEPCID 20 MG IV PREMIX* 50 ML IV ONE (14:31)
[2021-04-01] MEDS ORDERED: THIAMINE HCL INJ ONE (14:31)
[2021-04-01] MEDS ORDERED: NS 1/2 1000 ML IV 1,000 ML IV ONE (14:31)
[2021-04-01] MEDS ORDERED: NS 250 ML IV 250 ML IV ONE ×2 (14:32→20:17)
[2021-04-02] MEDS: DIPRIVAN PREMIX 1 GRAM IV 1,000 MG/100 ML VIAL IV PRN ×9 (01:19→23:55)
[2021-04-02] MEDS: NORCURON INJ 10 MG VIAL 50 MG in NS 50 ML IV 50 ML IV PRN ×6 (01:20→22:15)
[2021-04-02] MEDS: SOLU-Medrol 125 MG VIAL IVP SCH ×4 (02:51→21:00)
[2021-04-02] MEDS: VERSED IV PREMIX 100 MG/100 ML IV.SOLN IV PRN ×3 (03:36→18:00)
[2021-04-02] MEDS: MVI IV SCH ×10 (04:00→17:06)
[2021-04-02] MEDS: THIAMINE HCL IV SCH ×10 (04:00→17:06)
[2021-04-02] MEDS: NS IV SCH ×10 (04:00→17:06)
[2021-04-02] MEDS: [UNRECOGNIZED DRUG - OTHER] IV SCH ×10 (04:00→17:06)
[2021-04-02 04:31] LABS: ABG BASE EXCESS 21.7 mmol/L (-2.0-2.0)
[2021-04-02 04:32] LABS: ABG HCO3 48.8 mmol/L (22-26)
[2021-04-02] MEDS ORDERED: NS 50 ML IV 50 ML IV ONE (04:33)
[2021-04-02 05:04] LABS: BASOPHILS % (AUTO) 0.3 % (0.2-1.0); HEMATOCRIT 37.4 % (42.0-54.0); HEMOGLOBIN 12.9 g/dL (13.5-18.0); LYMPHOCYTES # (AUTO) 0.1 X10^3/uL (1.3-2.9); LYMPHOCYTES % (AUTO) 1.3 % (21.0-51.0); MEAN CORPUSCULAR HEMOGLOBIN 31.2 pg (27.0-34.0); MEAN CORPUSCULAR HGB CONC 34.4 g/dL (33.0-35.0); MEAN CORPUSCULAR VOLUME 90.7 fL (80.0-100.0); MEAN PLATELET VOLUME 9.3 fL (7.4-11.0); MONOCYTES # (AUTO) 0.2 x10^3/uL (0.3-0.8); MONOCYTES % (AUTO) 1.8 % (0.0-13.0); NEUTROPHILS % (AUTO) 96.6 % (42.0-75.0); PLATELET COUNT 49 X10^3/uL (150.0-450.0); RED BLOOD COUNT 4.12 X10^6/uL (4.7-6.0); RED CELL DISTRIBUTION WIDTH 13.7 % (11.6-16.5); WHITE BLOOD COUNT 8.3 X10^3/uL (3.6-10.0)
[2021-04-02] MEDS: FORTAZ or TAZICEF VIAL INJ 1 G in NS 100 ML IV + SPIKE MINIBAG* 100 ML IV SCH ×3 (05:15→21:00)
[2021-04-02 05:16] LABS: ALANINE AMINOTRANSFERASE 33 Units/L (12-78); ALBUMIN 1.6 g/dL (3.4-5.0); ALKALINE PHOSPHATASE 54 Units/L (46-116); ASPARTATE AMINO TRANSFERASE 18 Units/L (15-37); BLOOD UREA NITROGEN 25 mg/dL (7-18); CHLORIDE 104 mmol/L (98-107); COR CA(FOR HYPOALB) 9.9 mg/dL (8.5-10.1); COR NA(FOR HYPERGLY) 143 mmol/L (136-145); CREATININE 0.41 mg/dL (0.70-1.30); SODIUM 142 mmol/L (136-145); TOTAL PROTEIN 4.6 g/dL (6.4-8.2); eGFR NON BLACK RACES > 60 (>60)
[2021-04-02 05:28] LABS: CARBON DIOXIDE 40.3 mmol/L (21-32)
[2021-04-02 05:34] LABS: BAND NEUTROPHILS % 1 % (0-10); HYPOCHROMASIA SLIGHT; PLATELET MORPHOLOGY COMMENT NORMAL (NORMAL)
[2021-04-02] MEDS: ACCUNEB 1.25 MG NEBULE NEB SCH ×3 (06:37→20:58)
--- NOTE | 2021-04-02 07:30 | RAD ---
HISTORYCOVID-19STUDYPortable AP [id number] again noted. Stable position of support lines, ET tube terminates in mid trachea. Persistent but improving airspace involvement of both lungs. No new areas of involvement identified. There is no evidence for complicating pneumothorax.IMPRESSIONPersistent pn eumonia with slight interval improvement since 1 day prior.Electronically signed by: ESTEPHANIA ROB ( Apr 02, 2021 07:28:58)
[2021-04-02] MEDS ORDERED: LEXAPRO ONE ×2 (08:10→20:15)
[2021-04-02] MEDS: ELIQUIS NG SCH ×3 (08:14→21:00)
[2021-04-02] MEDS: LACRI-LUBE S.O.P. AFFEYE SCH ×2 (08:14→21:00)
[2021-04-02] MEDS: MILK OF MAGNESIA NG SCH (08:14)
[2021-04-02] MEDS: BUSPAR NG SCH ×2 (08:14→21:00)
[2021-04-02] MEDS: PROTONIX INJ 40 MG VIAL IVP SCH ×2 (08:15→21:00)
[2021-04-02] MEDS: LEVAQUIN PREMIX IV 500 MG 500 MG/100 ML BAG IV SCH (08:15)
[2021-04-02] MEDS: LEXAPRO NG SCH ×3 (08:15→21:00)
[2021-04-02] MEDS: ROBITUSSIN DM NG SCH ×4 (08:15→21:00)
--- NOTE | 2021-04-02 11:36 | PCM.PROG ---
Progress Note - Progress Note for Day of Date of Exam: 03/30/21 - Subjective Subjective: MR. MARMOLEJO WAS ADMITTED FOR TREATMENT OF COVID PNEUMONIA AND HYPOXIA. PMH: OBESITY, GERD, HTN. HE REMAINS IN THE INTENSIVE CARE UNIT ON THE MECHANICAL VENT TODAY. HE WAS PLACED ON THE VENT ON 03/28/21. TODAY, HE IS SEDATED, LYING IN BED ON MORNING ROUNDS. HIS VENT SETTINGS THIS MORNING ARE: A/C , RATE 22, TIDAL VOLUME 550, PEEP 12, FI02 85. HIS SATURATIONS HAVE BEEN 95-97% THIS MORNING AND THROUGHOUT THE NIGHT. ON EXAMINATION, HEART IS REGULAR IN RATE AND RHYTHM. BILATERAL LUNGS ARE NOTED WITH DIMINISHED LUNG SOUNDS THROUGHOUT. ABDOMEN IS ROUND, SOFT, AND NON-TENDER WITH NORMAL BOWEL SOUNDS NOTED IN ALL QUADRANTS. HIS VITALS THIS MORNING ARE: 98.2-69-22-98%-120/59. LABS WERE OBTAINED. ABNORMAL LAB VALUES INCLUDE THE FOLLOWING: RBC 4.69, PLT COUNT 72, D- DIMER 1.02, CARBON DIOXIDE 35.5, BUN 23, CREATININE 0.57, GLUCOSE 129, CALCIUM 8.2, TOTAL PROTEIN 5.1, ALBUMIN 1.8. ABG REVEALED: PH 7.370, PC02 66, P02 63, HC03 38.2, 02 SAT 91, A-A GRADIENT 385, FI02 75. A CHEST XRAY WAS OBTAINED AND REVEALED: 1. Unchanged pneumonia. HE IS CURRENTLY RECEIVING IV FLUIDS WITH MVI, STEROIDS, IV ANTIBIOTICS, ELIQUIS 5MG PO BID, [place]B [place], MUCOMYST IN [facility] [place], MOPRHINE 2MG IV Q4H PRN, LEXAPRO 20MG NG TUBE BID, BUSPAR 5MG NG TUBE BID, ROBITUSSIN DM NG TUBE QID, PROTONIX IV BID, VERSED DRIP, DIPROVAN DRIP, VERCURONIUM DRIP. TODAY, WE WILL ADD LABETALOL 10MG IV Q15MIN PRN HTN. OTHERWISE, WE WILL CONTINUE WITH CURRENT PLAN OF CARE TODAY. WE WILL FOLLOW UP WITH AM LABS, CHEST XRAY, ABG, AND CONTINUE TO MONITOR. TIME SPENT ON CLINICAL ASSESSMENT, REVIEWING LABS AND IMAGING, DECISION MAKING, AND DOCUMENTATION GREATER THAN 75 MINUTES. - Past Medical Family Social History Past Med/Fam/Surg Hx: No changes since H&P Allergies: Allergies No Allergy Information Available Allergy (Verified 03/14/21 14:24) - Review of Systems ROS: No change since H&P - Vital Signs and I&O's Vital Signs: Temperature 98.4 F Pulse Rate [Right Brachial] 61 Pulse Rate [Left Radial] 85 Pulse Rate 74 Respiratory Rate 22 Blood Pressure [Right Arm] 142/73 Blood Pressure [Left Arm] 116/63 Blood Pressure 133/63 O2 Sat by Pulse Oximetry 90 Intake and Output: Intake & Output 03/30/21 03/31/21 04/01/21 04/02/21 11:59 11:59 11:59 11:59 Intake Total 4019 / 4019 4702 / 4702 4820 / 4820 5305 / 5305 Output Total 1875 / 1875 3275 / 3275 7625 / 7625 5750 / 5750 Balance 2144 / 2144 1427 / 1427 -2805 / -2805 -445 / -445 - Physical Exam Oriented: Unable to test Eyes: Normal Ear: Normal Nose: Normal Throat: Normal Respiratory: Generalized, Diminished Cardiovascular: Normal : Normal Auscultation: Bowel Sounds: Normal Palpation: Normal Tenderness: Normal Skin: Normal Musculoskeletal: Normal Psychiatric: Other (SEDATED) Mood Description: Calm Affect: Anxious Speech Pattern: Artificially Ventilated - Laboratory and Diagnostics Result Diagrams: 04/02/21 04:28 04/02/21 04:28 Labs: 03/14/21 16:39 Blood Blood Culture - Final 03/14/21 16:35 Blood Blood Culture - Final 03/18/21 01:03 Sputum - Expectorated Sputum Sputum Culture - Final 03/18/21 01:03 Sputum - Expectorated Sputum - Final Laboratory WBC 8.3 X10^3/uL (3.6-10.0) 04/02/21 04:28 RBC 4.12 X10^6/uL (4.7-6.0) L 04/02/21 04:28 Hgb 12.9 g/dL (13.5-18.0) L 04/02/21 04:28 Hct 37.4 % (42.0-54.0) L 04/02/21 04:28 MCV 90.7 fL (80.0-100.0) 04/02/21 04:28 MCH 31.2 pg (27.0-34.0) 04/02/21 04:28 MCHC 34.4 g/dL (33.0-35.0) 04/02/21 04:28 RDW 13.7 % (11.6-16.5) 04/02/21 04:28 Plt Count 49 X10^3/uL (150.0-450.0) L 04/02/21 04:28 Plt Count Comment Decreased (ADEQUATE) 04/02/21 04:28 MPV 9.3 fL (7.4-11.0) 04/02/21 04:28 Neut % (Auto) 96.6 % (42.0-75.0) H 04/02/21 04:28 Lymph % (Auto) 1.3 % (21.0-51.0) L 04/02/21 04:28 [place] % (Auto) 1.8 % (0.0-13.0) 04/02/21 04:28 Eos % (Auto) 0.0 % (0.9-2.9) L 04/02/21 04:28 Baso % (Auto) 0.3 % (0.2-1.0) 04/02/21 04:28 Neut # (Auto) 8.0 x10^3/uL (2.2-4.8) H 04/02/21 04:28 Lymph # (Auto) 0.1 X10^3/uL (1.3-2.9) L 04/02/21 04:28 [place] # (Auto) 0.2 x10^3/uL (0.3-0.8) L 04/02/21 04:28 Eos # (Auto) 0.0 x10^3/uL (0.0-0.2) 04/02/21 04:28 Baso # (Auto) 0.0 X10^3/uL (0.0-0.1) 04/02/21 04:28 Absolute Nucleated RBC 0.1 /100WBC 04/02/21 04:28 Total Counted 100 04/02/21 04:28 Neutrophils % (Manual) 97 % (39-76) H 04/02/21 04:28 Band Neutrophils % 1 % (0-10) 04/02/21 04:28 Lymphocytes % (Manual) 2 % (13-43) L 04/02/21 04:28 Monocytes % (Manual) 1 % (4-9) L 04/01/21 05:04 Metamyelocytes % 6 03/25/21 04:30 Plt Morphology Comment Normal (NORMAL) 04/02/21 04:28 RBC Morphology Abnormal (NORMAL) 04/02/21 04:28 Hypochromasia Slight A 04/02/21 04:28 PT 14.2 SECONDS (11.8-14.3) 03/20/21 07:07 INR Target Range - 03/20/21 07:07 INR 1.16 (0.8-1.3) 03/20/21 07:07 APTT 26.6 SECONDS (22.9-36.5) 03/17/21 06:05 PTT Comment - 03/17/21 06:05 D-Dimer 0.92 ug/ml (0.0-0.57) H* 04/01/21 05:04 Sample Site A line 04/02/21 05:00 ABG pH 7.490 (7.35-7.45) H 04/02/21 05:00 ABG pCO2 64.0 mmHg (35.0-45.0) H* 04/02/21 05:00 ABG pO2 53.0 mmHg (80.0-100.0) L 04/02/21 05:00 ABG HCO3 48.8 mmol/L (22-26) H* 04/02/21 05:00 ABG O2 Saturation 90.0 % (90-100) 04/02/21 05:00 ABG Base Excess 21.7 mmol/L (-2.0-2.0) H 04/02/21 05:00 Corky Test Na 04/02/21 05:00 A-a Gradient 402.0 mmHg 04/02/21 05:00 FiO2 75.0 04/02/21 05:00 Blood Gas Comments Michael well sw 04/02/21 05:00 Sodium 142 mmol/L (136-145) 04/02/21 04:28 Corrected Sodium 143 mmol/L (136-145) 04/02/21 04:28 Potassium 4.2 mmol/L (3.5-5.1) 04/02/21 04:28 Chloride 104 mmol/L (98-107) 04/02/21 04:28 Carbon Dioxide 40.3 mmol/L (21-32) H* 04/02/21 04:28 BUN 25 mg/dL (7-18) H 04/02/21 04:28 Creatinine 0.41 mg/dL (0.70-1.30) L 04/02/21 04:28 Est GFR (MDRD) Af Amer > 60 (>60) 04/02/21 04:28 Est GFR (MDRD) Non-Af > 60 (>60) 04/02/21 04:28 Glucose 140 mg/dL (65-99) H 04/02/21 04:28 POC Glucose (mg/dL) 128 mg/dL (65-99) H 04/02/21 11:26 Calcium 8.0 mg/dL (8.5-10.1) L 04/02/21 04:28 Corrected Calcium 9.9 mg/dL (8.5-10.1) 04/02/21 04:28 Ferritin 2585 ng/mL (26-388) H 03/23/21 05:21 Total Bilirubin 0.40 mg/dL (0.2-1.0) 04/02/21 04:28 AST 18 Units/L (15-37) 04/02/21 04:28 ALT 33 Units/L (12-78) 04/02/21 04:28 Alkaline Phosphatase 54 Units/L (46-116) 04/02/21 04:28 Creatine Kinase 69 Units/L (39-308) 03/14/21 14:54 CK-MB (CK-2) < 1.0 ng/mL (0-4.0) 03/14/21 14:54 CK/CKMB % Calc 1.5 % (<4) 03/14/21 14:54 Troponin I < 0.02 ng/mL (0-1.5) 03/14/21 14:54 C-Reactive Protein 1.10 mg/L (0-3.0) 03/31/21 04:00 B-Natriuretic Peptide 43.8 pg/mL (0-79) 03/23/21 05:21 Total Protein 4.6 g/dL (6.4-8.2) L 04/02/21 04:28 Albumin 1.6 g/dL (3.4-5.0) L 04/02/21 04:28 Globulin 3.0 g/dL (2.5-4.5) 04/02/21 04:28 Albumin/Globulin Ratio 0.5 Ratio (1.1-2.1) L 04/02/21 04:28 Prealbumin 28.8 mg/dL (18-35.7) 03/30/21 04:30 Specimen Type Catherized urine 03/28/21 05:47 Urine Color Yellow (YELLOW) 03/28/21 05:47 Urine Appearance Clear (CLEAR) 03/28/21 05:47 Urine pH 6.0 (5.0 - 8.0) 03/28/21 05:47 Ur Specific [place] 1.020 (1.000-1.030) 03/28/21 05:47 Urine Protein 2+ (NEGATIVE) 03/28/21 05:47 Urine Glucose (UA) Negative (NEGATIVE) 03/28/21 05:47 Urine Ketones Negative (NEGATIVE) 03/28/21 05:47 Urine Occult Blood Negative (NEGATIVE) 03/28/21 05:47 Urine Nitrite Negative (NEGATIVE) 03/28/21 05:47 Urine Bilirubin Negative (NEGATIVE) 03/28/21 05:47 Urine Urobilinogen Normal (NORMAL) 03/28/21 05:47 Ur Leukocyte Esterase Negative (NEGATIVE) 03/28/21 05:47 Urine RBC 0-2 /HPF (0-3) 03/28/21 05:47 Urine WBC 0-2 /HPF (0-5) 03/28/21 05:47 Ur Squamous Epith Cells Rare /HPF (NEGATIVE) 03/28/21 05:47 Urine Bacteria Negative /HPF (NEGATIVE) 03/28/21 05:47 Urine Mucus Few /HPF (NEGATIVE) 03/28/21 05:47 Ur Culture Indicated? No/not indicated 03/28/21 05:47 - Plan (1) Pneumonia due to COVID-19 virus Status: Acute Plan: MECHANICAL VENT, IV FLUIDS WITH MVI, STEROIDS, IV ANTIBIOTICS, ELIQUIS 5MG NG TUBE BID, MILK OF MAGNESIA 30ML NG TUBE DAILY, NEB [place], MUCOMYST IN [place], MOPRHINE 2MG IV Q4H PRN, LEXAPRO 20MG NG TUBE BID, BUSPAR 5MG NG TUBE BID, ROBITUSSIN DM NG TUBE QID, PROTONIX IV BID, VERSED DRIP, DIPROVAN DRIP, VERCURONIUM DRIP. (2) Hypoxia Status: Acute (3) HTN (hypertension) Status: Chronic Qualifiers: Hypertension type: primary hypertension Qualified Code(s): I10 - Essential (primary) hypertension (4) GERD (gastroesophageal reflux disease) Status: Chronic Qualifiers: Esophagitis presence: esophagitis presence not specified Qualified Code(s): K21.9 - Gastro-esophageal reflux disease without esophagitis (5) Obesity Status: Chronic Qualifiers: Obesity type: unspecified obesity type Obesity classification: adult class 2 (BMI 35 - 39.9) Serious obesity comorbidity presence: unspecified whether serious comorbidity present Body mass index: BMI 36.0-36.9 Qualified Code(s): E66.9 - Obesity, unspecified; Z68.36 - Body mass index [BMI] 36.0-36.9, adult
--- NOTE | 2021-04-02 11:49 | PCM.PROG ---
Progress Note - Progress Note for Day of Date of Exam: 04/02/21 - Subjective Subjective: MR. MARMOLEJO WAS ADMITTED FOR TREATMENT OF COVID PNEUMONIA AND HYPOXIA. PMH: OBESITY, GERD, HTN. HE REMAINS IN THE INTENSIVE CARE UNIT ON THE MECHANICAL VENT TODAY. HE WAS PLACED ON THE VENT ON 03/28/21. TODAY, HE IS SEDATED, LYING IN BED ON MORNING ROUNDS. HIS VENT SETTINGS THIS MORNING ARE: A/C , RATE 22, TIDAL VOLUME 550, PEEP 12, FI02 85. HIS SATURATIONS HAVE BEEN 95-97% THIS MORNING AND THROUGHOUT THE NIGHT. ON EXAMINATION, HEART IS REGULAR IN RATE AND RHYTHM. BILATERAL LUNGS ARE NOTED WITH DIMINISHED LUNG SOUNDS THROUGHOUT. ABDOMEN IS ROUND, SOFT, AND NON-TENDER WITH NORMAL BOWEL SOUNDS NOTED IN ALL QUADRANTS. HIS VITALS THIS MORNING ARE: 98.4-67-22-96%-131/61. LABS WERE OBTAINED. ABNORMAL LAB VALUES INCLUDE THE FOLLOWING: RBC 4.12, HGB 12.9, HCT 37.4, PLT COUNT 49, CARBON DIOXIDE 40.3, BUN 25, CREATININE 0.41, GLUCOSE 140, CALCIUM 8.0, TOTAL PROTEIN 4.6, ALBUMIN 1.6. ABG REVEALED: PH 7.490, PC02 64, P02 53, HC03 48.8, 02 SAT 90, BASE EXCESS 21.7, A-A GRADIENT 402, FI02 75. BLOOD AND SPUTUM CULTURES WERE SET UP. A CHEST XRAY WAS OBTAINED AND REVEALED: 1. Persistent pneumonia with slight interval improvement since 1 day prior. HE IS CURRENTLY RECEIVING IV FLUIDS WITH MVI, STEROIDS, IV ANTIBIOTICS, ELIQUIS 2.5 MG PO BID, NEB [place], MUCOMYST IN [place], MOPRHINE 2MG IV Q4H PRN, LEXAPRO 20MG NG TUBE BID, LABETALOL PRN, BUSPAR 5MG NG TUBE BID, ROBITUSSIN DM NG TUBE QID, PROTONIX IV BID, VERSED DRIP, DIPROVAN DRIP, VERCURONIUM DRIP. TODAY, WE WILL DECREASE ELIQUIS TO 1.25MG PO BID. OTHERWISE, WE WILL CONTINUE WITH CURRENT PLAN OF CARE TODAY. WE WILL FOLLOW UP WITH AM LABS, CHEST XRAY, ABG, AND CONTINUE TO MONITOR. TIME SPENT ON CLINICAL ASSESSMENT, REVIEWING LABS AND IMAGING, DECISION MAKING, AND DOCUMENTATION GREATER THAN 75 MINUTES. - Past Medical Family Social History Past Med/Fam/Surg Hx: No changes since H&P Allergies: Allergies No Allergy Information Available Allergy (Verified 03/14/21 14:24) - Review of Systems ROS: No change since H&P - Vital Signs and I&O's Vital Signs: Temperature 98.4 F Pulse Rate [Right Brachial] 61 Pulse Rate [Left Radial] 85 Pulse Rate 74 Respiratory Rate 22 Blood Pressure [Right Arm] 142/73 Blood Pressure [Left Arm] 116/63 Blood Pressure 133/63 O2 Sat by Pulse Oximetry 90 Intake and Output: Intake & Output 03/30/21 03/31/21 04/01/21 04/02/21 11:59 11:59 11:59 11:59 Intake Total 4019 / 4019 4702 / 4702 4820 / 4820 5305 / 5305 Output Total 1875 / 1875 3275 / 3275 7625 / 7625 5750 / 5750 Balance 2144 / 2144 1427 / 1427 -2805 / -2805 -445 / -445 - Physical Exam Oriented: Unable to test Eyes: Normal Ear: Normal Nose: Normal Throat: Normal Respiratory: Generalized, Diminished Cardiovascular: Normal : Normal Auscultation: Bowel Sounds: Normal Tenderness: Normal Skin: Normal Musculoskeletal: Normal Psychiatric: Other (SEDATED) Mood Description: Calm Affect: Anxious Speech Pattern: Artificially Ventilated - Laboratory and Diagnostics Result Diagrams: 04/02/21 04:28 04/02/21 04:28 Labs: 03/14/21 16:39 Blood Blood Culture - Final 03/14/21 16:35 Blood Blood Culture - Final 03/18/21 01:03 Sputum - Expectorated Sputum Sputum Culture - Final 03/18/21 01:03 Sputum - Expectorated Sputum - Final Laboratory WBC 8.3 X10^3/uL (3.6-10.0) 04/02/21 04:28 RBC 4.12 X10^6/uL (4.7-6.0) L 04/02/21 04:28 Hgb 12.9 g/dL (13.5-18.0) L 04/02/21 04:28 Hct 37.4 % (42.0-54.0) L 04/02/21 04:28 MCV 90.7 fL (80.0-100.0) 04/02/21 04:28 MCH 31.2 pg (27.0-34.0) 04/02/21 04:28 MCHC 34.4 g/dL (33.0-35.0) 04/02/21 04:28 RDW 13.7 % (11.6-16.5) 04/02/21 04:28 Plt Count 49 X10^3/uL (150.0-450.0) L 04/02/21 04:28 Plt Count Comment Decreased (ADEQUATE) 04/02/21 04:28 MPV 9.3 fL (7.4-11.0) 04/02/21 04:28 Neut % (Auto) 96.6 % (42.0-75.0) H 04/02/21 04:28 Lymph % (Auto) 1.3 % (21.0-51.0) L 04/02/21 04:28 [place] % (Auto) 1.8 % (0.0-13.0) 04/02/21 04:28 Eos % (Auto) 0.0 % (0.9-2.9) L 04/02/21 04:28 Baso % (Auto) 0.3 % (0.2-1.0) 04/02/21 04:28 Neut # (Auto) 8.0 x10^3/uL (2.2-4.8) H 04/02/21 04:28 Lymph # (Auto) 0.1 X10^3/uL (1.3-2.9) L 04/02/21 04:28 [place] # (Auto) 0.2 x10^3/uL (0.3-0.8) L 04/02/21 04:28 Eos # (Auto) 0.0 x10^3/uL (0.0-0.2) 04/02/21 04:28 Baso # (Auto) 0.0 X10^3/uL (0.0-0.1) 04/02/21 04:28 Absolute Nucleated RBC 0.1 /100WBC 04/02/21 04:28 Total Counted 100 04/02/21 04:28 Neutrophils % (Manual) 97 % (39-76) H 04/02/21 04:28 Band Neutrophils % 1 % (0-10) 04/02/21 04:28 Lymphocytes % (Manual) 2 % (13-43) L 04/02/21 04:28 Monocytes % (Manual) 1 % (4-9) L 04/01/21 05:04 Metamyelocytes % 6 03/25/21 04:30 Plt Morphology Comment Normal (NORMAL) 04/02/21 04:28 RBC Morphology Abnormal (NORMAL) 04/02/21 04:28 Hypochromasia Slight A 04/02/21 04:28 PT 14.2 SECONDS (11.8-14.3) 03/20/21 07:07 INR Target Range - 03/20/21 07:07 INR 1.16 (0.8-1.3) 03/20/21 07:07 APTT 26.6 SECONDS (22.9-36.5) 03/17/21 06:05 PTT Comment - 03/17/21 06:05 D-Dimer 0.92 ug/ml (0.0-0.57) H* 04/01/21 05:04 Sample Site A line 04/02/21 05:00 ABG pH 7.490 (7.35-7.45) H 04/02/21 05:00 ABG pCO2 64.0 mmHg (35.0-45.0) H* 04/02/21 05:00 ABG pO2 53.0 mmHg (80.0-100.0) L 04/02/21 05:00 ABG HCO3 48.8 mmol/L (22-26) H* 04/02/21 05:00 ABG O2 Saturation 90.0 % (90-100) 04/02/21 05:00 ABG Base Excess 21.7 mmol/L (-2.0-2.0) H 04/02/21 05:00 Corky Test Na 04/02/21 05:00 A-a Gradient 402.0 mmHg 04/02/21 05:00 FiO2 75.0 04/02/21 05:00 Blood Gas Comments Michael well sw 04/02/21 05:00 Sodium 142 mmol/L (136-145) 04/02/21 04:28 Corrected Sodium 143 mmol/L (136-145) 04/02/21 04:28 Potassium 4.2 mmol/L (3.5-5.1) 04/02/21 04:28 Chloride 104 mmol/L (98-107) 04/02/21 04:28 Carbon Dioxide 40.3 mmol/L (21-32) H* 04/02/21 04:28 BUN 25 mg/dL (7-18) H 04/02/21 04:28 Creatinine 0.41 mg/dL (0.70-1.30) L 04/02/21 04:28 Est GFR (MDRD) Af Amer > 60 (>60) 04/02/21 04:28 Est GFR (MDRD) Non-Af > 60 (>60) 04/02/21 04:28 Glucose 140 mg/dL (65-99) H 04/02/21 04:28 POC Glucose (mg/dL) 128 mg/dL (65-99) H 04/02/21 11:26 Calcium 8.0 mg/dL (8.5-10.1) L 04/02/21 04:28 Corrected Calcium 9.9 mg/dL (8.5-10.1) 04/02/21 04:28 Ferritin 2585 ng/mL (26-388) H 03/23/21 05:21 Total Bilirubin 0.40 mg/dL (0.2-1.0) 04/02/21 04:28 AST 18 Units/L (15-37) 04/02/21 04:28 ALT 33 Units/L (12-78) 04/02/21 04:28 Alkaline Phosphatase 54 Units/L (46-116) 04/02/21 04:28 Creatine Kinase 69 Units/L (39-308) 03/14/21 14:54 CK-MB (CK-2) < 1.0 ng/mL (0-4.0) 03/14/21 14:54 CK/CKMB % Calc 1.5 % (<4) 03/14/21 14:54 Troponin I < 0.02 ng/mL (0-1.5) 03/14/21 14:54 C-Reactive Protein 1.10 mg/L (0-3.0) 03/31/21 04:00 B-Natriuretic Peptide 43.8 pg/mL (0-79) 03/23/21 05:21 Total Protein 4.6 g/dL (6.4-8.2) L 04/02/21 04:28 Albumin 1.6 g/dL (3.4-5.0) L 04/02/21 04:28 Globulin 3.0 g/dL (2.5-4.5) 04/02/21 04:28 Albumin/Globulin Ratio 0.5 Ratio (1.1-2.1) L 04/02/21 04:28 Prealbumin 28.8 mg/dL (18-35.7) 03/30/21 04:30 Specimen Type Catherized urine 03/28/21 05:47 Urine Color Yellow (YELLOW) 03/28/21 05:47 Urine Appearance Clear (CLEAR) 03/28/21 05:47 Urine pH 6.0 (5.0 - 8.0) 03/28/21 05:47 Ur Specific [place] 1.020 (1.000-1.030) 03/28/21 05:47 Urine Protein 2+ (NEGATIVE) 03/28/21 05:47 Urine Glucose (UA) Negative (NEGATIVE) 03/28/21 05:47 Urine Ketones Negative (NEGATIVE) 03/28/21 05:47 Urine Occult Blood Negative (NEGATIVE) 03/28/21 05:47 Urine Nitrite Negative (NEGATIVE) 03/28/21 05:47 Urine Bilirubin Negative (NEGATIVE) 03/28/21 05:47 Urine Urobilinogen Normal (NORMAL) 03/28/21 05:47 Ur Leukocyte Esterase Negative (NEGATIVE) 03/28/21 05:47 Urine RBC 0-2 /HPF (0-3) 03/28/21 05:47 Urine WBC 0-2 /HPF (0-5) 03/28/21 05:47 Ur Squamous Epith Cells Rare /HPF (NEGATIVE) 03/28/21 05:47 Urine Bacteria Negative /HPF (NEGATIVE) 03/28/21 05:47 Urine Mucus Few /HPF (NEGATIVE) 03/28/21 05:47 Ur Culture Indicated? No/not indicated 03/28/21 05:47 - Plan (1) Pneumonia due to COVID-19 virus Status: Acute Plan: MECHANICAL VENT, IV FLUIDS WITH MVI, STEROIDS, IV ANTIBIOTICS, ELIQUIS 1.25MG NG TUBE BID, MILK OF MAGNESIA 30ML NG TUBE DAILY, [place]B [place], MUCOMYST IN [place], MOPRHINE 2MG IV Q4H PRN, LEXAPRO 20MG NG TUBE BID, BUSPAR 5MG NG TUBE BID, ROBITUSSIN DM NG TUBE QID, PROTONIX IV BID, VERSED DRIP, DIPROVAN DRIP, VERCURONIUM DRIP. (2) Hypoxia Status: Acute (3) HTN (hypertension) Status: Chronic Qualifiers: Hypertension type: primary hypertension Qualified Code(s): I10 - Essential (primary) hypertension (4) GERD (gastroesophageal reflux disease) Status: Chronic Qualifiers: Esophagitis presence: esophagitis presence not specified Qualified Code(s): K21.9 - Gastro-esophageal reflux disease without esophagitis (5) Obesity Status: Chronic Qualifiers: Obesity type: unspecified obesity type Obesity classification: adult class 2 (BMI 35 - 39.9) Serious obesity comorbidity presence: unspecified whether serious comorbidity present Body mass index: BMI 36.0-36.9 Qualified Code(s): E66.9 - Obesity, unspecified; Z68.36 - Body mass index [BMI] 36.0-36.9, adult
[2021-04-02] MEDS ORDERED: PULMICORT NEB TX 0.5 MG NEB ONE (13:30)
[2021-04-02] MEDS: PULMICORT NEB TX 0.5 MG NEB SCH ×2 (13:48→20:58)
[2021-04-02] MEDS: MUCOMYST (RESPIRATORY USE ONLY) NEB SCH ×2 (13:48→20:58)
[2021-04-03] MEDS: NS IV SCH ×15 (00:40→21:55)
[2021-04-03] MEDS: MVI IV SCH ×15 (00:40→21:55)
[2021-04-03] MEDS: [UNRECOGNIZED DRUG - OTHER] IV SCH ×15 (00:40→21:55)
[2021-04-03] MEDS: THIAMINE HCL IV SCH ×15 (00:40→21:55)
[2021-04-03] MEDS: VERSED IV PREMIX 100 MG/100 ML IV.SOLN IV PRN ×3 (00:45→18:27)
[2021-04-03] MEDS: DIPRIVAN PREMIX 1 GRAM IV 1,000 MG/100 ML VIAL IV PRN ×5 (03:20→23:15)
[2021-04-03] MEDS: SOLU-Medrol 125 MG VIAL IVP SCH ×4 (03:20→21:00)
[2021-04-03] MEDS: NORCURON INJ 10 MG VIAL 50 MG in NS 50 ML IV 50 ML IV PRN ×4 (03:25→22:15)
[2021-04-03 04:42] LABS: ABG BASE EXCESS 18.1 mmol/L (-2.0-2.0)
[2021-04-03 04:44] LABS: ABG HCO3 44.7 mmol/L (22-26)
[2021-04-03 05:08] LABS: BASOPHILS # (AUTO) 0.1 X10^3/uL (0.0-0.1); BASOPHILS % (AUTO) 1.1 % (0.2-1.0); EOSINOPHILS % (AUTO) 0.2 % (0.9-2.9); HEMATOCRIT 35.1 % (42.0-54.0); LYMPHOCYTES # (AUTO) 0.1 X10^3/uL (1.3-2.9); LYMPHOCYTES % (AUTO) 1.8 % (21.0-51.0); MEAN CORPUSCULAR HEMOGLOBIN 30.9 pg (27.0-34.0); MEAN CORPUSCULAR HGB CONC 34.1 g/dL (33.0-35.0); MEAN CORPUSCULAR VOLUME 90.6 fL (80.0-100.0); MEAN PLATELET VOLUME 9.5 fL (7.4-11.0); MONOCYTES # (AUTO) 0.1 x10^3/uL (0.3-0.8); MONOCYTES % (AUTO) 1.1 % (0.0-13.0); NEUTROPHILS # (AUTO) 6.1 x10^3/uL (2.2-4.8); NEUTROPHILS % (AUTO) 95.8 % (42.0-75.0); PLATELET COUNT 40 X10^3/uL (150.0-450.0); RED BLOOD COUNT 3.87 X10^6/uL (4.7-6.0); RED CELL DISTRIBUTION WIDTH 13.5 % (11.6-16.5); WHITE BLOOD COUNT 6.3 X10^3/uL (3.6-10.0)
[2021-04-03] MEDS ORDERED: NS 250 ML IV 250 ML IV ONE (05:18)
[2021-04-03 05:24] LABS: ALANINE AMINOTRANSFERASE 31 Units/L (12-78); ALBUMIN 1.4 g/dL (3.4-5.0); ALKALINE PHOSPHATASE 46 Units/L (46-116); ASPARTATE AMINO TRANSFERASE 17 Units/L (15-37); BLOOD UREA NITROGEN 26 mg/dL (7-18); CALCIUM 7.7 mg/dL (8.5-10.1); CARBON DIOXIDE 38.3 mmol/L (21-32); CHLORIDE 105 mmol/L (98-107); COR CA(FOR HYPOALB) 9.8 mg/dL (8.5-10.1); COR NA(FOR HYPERGLY) 142 mmol/L (136-145); CREATININE 0.38 mg/dL (0.70-1.30); SODIUM 142 mmol/L (136-145); TOTAL PROTEIN 4.2 g/dL (6.4-8.2); eGFR NON BLACK RACES > 60 (>60)
[2021-04-03] MEDS: FORTAZ or TAZICEF VIAL INJ 1 G in NS 100 ML IV + SPIKE MINIBAG* 100 ML IV SCH ×3 (05:29→21:00)
[2021-04-03 05:43] LABS: HYPOCHROMASIA SLIGHT; PLATELET MORPHOLOGY COMMENT NORMAL (NORMAL)
[2021-04-03] MEDS: ACCUNEB 1.25 MG NEBULE NEB SCH ×3 (05:57→21:11)
--- NOTE | 2021-04-03 06:42 | RAD ---
HISTORYSOB, COVID+STUDYCHEST, 1 [id number]/13/2021.TECHNIQUEAP view of the chestFINDINGSET tube in good position. NG tube courses below the visualized field of view. The cardiac silhouette is stably enlarged. Mediastinal contours appear stable. No significant change in bilateral airspace and interstitial opacities. Cannot exclude small pleural effusions. No pneumothorax.IMPRESSIONNo significant change.Electronically signed by: Alphonso Hobbs (Apr 03, 2021 06:41:09)
[2021-04-03] MEDS ORDERED: LEXAPRO ONE ×2 (08:05→20:33)
[2021-04-03] MEDS: PROTONIX INJ 40 MG VIAL IVP SCH ×2 (09:08→21:00)
[2021-04-03] MEDS: BUSPAR NG SCH ×2 (09:08→21:00)
[2021-04-03] MEDS: LEXAPRO NG SCH ×2 (09:09→21:00)
[2021-04-03] MEDS: LACRI-LUBE S.O.P. AFFEYE SCH ×2 (09:09→21:00)
[2021-04-03] MEDS: MILK OF MAGNESIA NG SCH (09:09)
[2021-04-03] MEDS: LEVAQUIN PREMIX IV 500 MG 500 MG/100 ML BAG IV SCH (09:09)
[2021-04-03] MEDS: ELIQUIS NG SCH ×2 (10:36→21:56)
[2021-04-03] MEDS: ROBITUSSIN DM NG SCH ×4 (10:36→21:00)
--- NOTE | 2021-04-03 12:19 | PCM.PROG ---
Progress Note - Progress Note for Day of Date of Exam: 04/03/21 - Subjective Subjective: MR. MARMOLEJO WAS ADMITTED FOR TREATMENT OF COVID PNEUMONIA AND HYPOXIA. PMH: OBESITY, GERD, HTN. HE REMAINS IN THE INTENSIVE CARE UNIT ON THE MECHANICAL VENT TODAY. HE WAS PLACED ON THE VENT ON 03/28/21. TODAY, HE IS SEDATED, LYING IN BED ON MORNING ROUNDS. HIS VENT SETTINGS THIS MORNING ARE: A/C , RATE 22, TIDAL VOLUME 550, PEEP 12, FI02 100. HIS SATURATIONS HAVE BEEN 90-94% THIS MORNING AND THROUGHOUT THE NIGHT. ON EXAMINATION, HEART IS REGULAR IN RATE AND RHYTHM. BILATERAL LUNGS ARE NOTED WITH DIMINISHED LUNG SOUNDS THROUGHOUT. ABDOMEN IS ROUND, SOFT, AND NON-TENDER WITH NORMAL BOWEL SOUNDS NOTED IN ALL QUADRANTS. HIS VITALS THIS MORNING ARE: 98.2-59-22-93%-114/58. LABS WERE OBTAINED. ABNORMAL LAB VALUES INCLUDE THE FOLLOWING: RBC 3.87, HGB 12.0, HCT 35.1, PLT COUNT 40, CARBON DIOXIDE 38.3, BUN 26, CREATININE 0.38, GLUCOSE 116, CALCIUM 7.7, TOTAL PROTEIN 4.2, ALBUMIN 1.4. ABG REVEALED: PH 7.480, PC02 60, P02 80, HC03 44.7, 02 SAT 97, BASE EXCESS 18.1, A-A GRADIENT 558, FI02 100. B LOOD AND SPUTUM CULTURES WERE SET UP. A CHEST XRAY WAS OBTAINED AND REVEALED: ET tube in good position. NG tube courses below the visualized field of view. The cardiac silhouette is stably enlarged. Mediastinal contours appear stable. No significant change in bilateral airspace and interstitial opacities. Cannot exclude small pleural effusions. No pneumothorax. HE IS CURRENTLY RECEIVING IV FLUIDS WITH MVI, STEROIDS, IV ANTIBIOTICS, ELIQUIS 1.25 MG PO BID, NEB TX, MUCOMYST IN NEB [place], MOPRHINE 2MG IV Q4H PRN, LEXAPRO 20MG NG TUBE BID, LABETALOL PRN, BUSPAR 5MG NG TUBE BID, ROBITUSSIN DM NG TUBE QID, PROTONIX IV BID, VERSED DRIP, DIPROVAN DRIP, VERCURONIUM DRIP. OTHERWISE, WE WILL CONTINUE WITH CURRENT PLAN OF CARE TODAY. WE WILL FOLLOW UP WITH AM LABS, CHEST XRAY, ABG, AND CONTINUE TO MONITOR. WE WILL DECREASE OXYGEN HE TOLERATES IT. TIME SPENT ON CLINICAL ASSESSMENT, REVIEWING LABS AND IMAGING, DECISION MAKING, AND DOCUMENTATION GREATER THAN 75 MINUTES. - Past Medical Family Social History Past Med/Fam/Surg Hx: No changes since H&P Allergies: Allergies No Allergy Information Available Allergy (Verified 03/14/21 14:24) - Review of Systems ROS: No change since H&P - Vital Signs and I&O's Vital Signs: Temperature 98.2 F Pulse Rate [Right Brachial] 61 Pulse Rate [Left Radial] 85 Pulse Rate 46 Respiratory Rate 22 Blood Pressure [Right Arm] 142/73 Blood Pressure [Left Arm] 116/63 Blood Pressure 129/69 O2 Sat by Pulse Oximetry 91 Intake and Output: Intake & Output 04/01/21 04/02/21 04/03/21 04/04/21 11:59 11:59 11:59 11:59 Intake Total 4820 / 4820 5305 / 5305 3725 / 3725 Output Total 7625 / 7625 5750 / 5750 2825 / 2825 Balance -2805 / -2805 -445 / -445 900 / 900 - Physical Exam Oriented: Unable to test Eyes: Normal Ear: Normal Nose: Normal Throat: Normal Respiratory: Generalized, Diminished Cardiovascular: Normal : Normal Auscultation: Bowel Sounds: Normal Palpation: Normal Tenderness: Normal Skin: Normal Musculoskeletal: Normal Psychiatric: Other (SEDATED) Mood Description: Calm Affect: Anxious Speech Pattern: Artificially Ventilated - Laboratory and Diagnostics Result Diagrams: 04/03/21 04:33 04/03/21 04:33 Labs: 03/14/21 16:39 Blood Blood Culture - Final 03/14/21 16:35 Blood Blood Culture - Final 03/18/21 01:03 Sputum - Expectorated Sputum Sputum Culture - Final 03/18/21 01:03 Sputum - Expectorated Sputum - Final Laboratory WBC 6.3 X10^3/uL (3.6-10.0) 04/03/21 04:33 RBC 3.87 X10^6/uL (4.7-6.0) L 04/03/21 04:33 Hgb 12.0 g/dL (13.5-18.0) L 04/03/21 04:33 Hct 35.1 % (42.0-54.0) L 04/03/21 04:33 MCV 90.6 fL (80.0-100.0) 04/03/21 04:33 MCH 30.9 pg (27.0-34.0) 04/03/21 04:33 MCHC 34.1 g/dL (33.0-35.0) 04/03/21 04:33 RDW 13.5 % (11.6-16.5) 04/03/21 04:33 Plt Count 40 X10^3/uL (150.0-450.0) L 04/03/21 04:33 Plt Count Comment Decreased (ADEQUATE) 04/03/21 04:33 MPV 9.5 fL (7.4-11.0) 04/03/21 04:33 Neut % (Auto) 95.8 % (42.0-75.0) H 04/03/21 04:33 Lymph % (Auto) 1.8 % (21.0-51.0) L 04/03/21 04:33 [place] % (Auto) 1.1 % (0.0-13.0) 04/03/21 04:33 Eos % (Auto) 0.2 % (0.9-2.9) L 04/03/21 04:33 Baso % (Auto) 1.1 % (0.2-1.0) H 04/03/21 04:33 Neut # (Auto) 6.1 x10^3/uL (2.2-4.8) H 04/03/21 04:33 Lymph # (Auto) 0.1 X10^3/uL (1.3-2.9) L 04/03/21 04:33 [place] # (Auto) 0.1 x10^3/uL (0.3-0.8) L 04/03/21 04:33 Eos # (Auto) 0.0 x10^3/uL (0.0-0.2) 04/03/21 04:33 Baso # (Auto) 0.1 X10^3/uL (0.0-0.1) 04/03/21 04:33 Absolute Nucleated RBC 0.1 /100WBC 04/03/21 04:33 Total Counted 100 04/03/21 04:33 Neutrophils % (Manual) 98 % (39-76) H 04/03/21 04:33 Band Neutrophils % 1 % (0-10) 04/02/21 04:28 Lymphocytes % (Manual) 1 % (13-43) L 04/03/21 04:33 Monocytes % (Manual) 1 % (4-9) L 04/03/21 04:33 Metamyelocytes % 6 03/25/21 04:30 Plt Morphology Comment Normal (NORMAL) 04/03/21 04:33 RBC Morphology Abnormal (NORMAL) 04/03/21 04:33 Hypochromasia Slight A 04/03/21 04:33 PT 14.2 SECONDS (11.8-14.3) 03/20/21 07:07 INR Target Range - 03/20/21 07:07 INR 1.16 (0.8-1.3) 03/20/21 07:07 APTT 26.6 SECONDS (22.9-36.5) 03/17/21 06:05 PTT Comment - 03/17/21 06:05 D-Dimer 0.92 ug/ml (0.0-0.57) H* 04/01/21 05:04 Sample Site Art-line 04/03/21 04:39 ABG pH 7.480 (7.35-7.45) H 04/03/21 04:39 ABG pCO2 60.0 mmHg (35.0-45.0) H* 04/03/21 04:39 ABG pO2 80.0 mmHg (80.0-100.0) 04/03/21 04:39 ABG HCO3 44.7 mmol/L (22-26) H* 04/03/21 04:39 ABG O2 Saturation 97.0 % (90-100) 04/03/21 04:39 ABG Base Excess 18.1 mmol/L (-2.0-2.0) H 04/03/21 04:39 Corky Test Na 04/03/21 04:39 A-a Gradient 558.0 mmHg 04/03/21 04:39 FiO2 100.0 04/03/21 04:39 Blood Gas Comments Michael well-mtf 04/03/21 04:39 Sodium 142 mmol/L (136-145) 04/03/21 04:33 Corrected Sodium 142 mmol/L (136-145) 04/03/21 04:33 Potassium 4.1 mmol/L (3.5-5.1) 04/03/21 04:33 Chloride 105 mmol/L (98-107) 04/03/21 04:33 Carbon Dioxide 38.3 mmol/L (21-32) H 04/03/21 04:33 BUN 26 mg/dL (7-18) H 04/03/21 04:33 Creatinine 0.38 mg/dL (0.70-1.30) L 04/03/21 04:33 Est GFR (MDRD) Af Amer > 60 (>60) 04/03/21 04:33 Est GFR (MDRD) Non-Af > 60 (>60) 04/03/21 04:33 Glucose 116 mg/dL (65-99) H 04/03/21 04:33 POC Glucose (mg/dL) 124 mg/dL (65-99) H 04/03/21 11:25 Calcium 7.7 mg/dL (8.5-10.1) L 04/03/21 04:33 Corrected Calcium 9.8 mg/dL (8.5-10.1) 04/03/21 04:33 Ferritin 2585 ng/mL (26-388) H 03/23/21 05:21 Total Bilirubin 0.30 mg/dL (0.2-1.0) 04/03/21 04:33 AST 17 Units/L (15-37) 04/03/21 04:33 ALT 31 Units/L (12-78) 04/03/21 04:33 Alkaline Phosphatase 46 Units/L (46-116) 04/03/21 04:33 Creatine Kinase 69 Units/L (39-308) 03/14/21 14:54 CK-MB (CK-2) < 1.0 ng/mL (0-4.0) 03/14/21 14:54 CK/CKMB % Calc 1.5 % (<4) 03/14/21 14:54 Troponin I < 0.02 ng/mL (0-1.5) 03/14/21 14:54 C-Reactive Protein 1.10 mg/L (0-3.0) 03/31/21 04:00 B-Natriuretic Peptide 43.8 pg/mL (0-79) 03/23/21 05:21 Total Protein 4.2 g/dL (6.4-8.2) L 04/03/21 04:33 Albumin 1.4 g/dL (3.4-5.0) L 04/03/21 04:33 Globulin 2.8 g/dL (2.5-4.5) 04/03/21 04:33 Albumin/Globulin Ratio 0.5 Ratio (1.1-2.1) L 04/03/21 04:33 Prealbumin 28.8 mg/dL (18-35.7) 03/30/21 04:30 Specimen Type Catherized urine 03/28/21 05:47 Urine Color Yellow (YELLOW) 03/28/21 05:47 Urine Appearance Clear (CLEAR) 03/28/21 05:47 Urine pH 6.0 (5.0 - 8.0) 03/28/21 05:47 Ur Specific [place] 1.020 (1.000-1.030) 03/28/21 05:47 Urine Protein 2+ (NEGATIVE) 03/28/21 05:47 Urine Glucose (UA) Negative (NEGATIVE) 03/28/21 05:47 Urine Ketones Negative (NEGATIVE) 03/28/21 05:47 Urine Occult Blood Negative (NEGATIVE) 03/28/21 05:47 Urine Nitrite Negative (NEGATIVE) 03/28/21 05:47 Urine Bilirubin Negative (NEGATIVE) 03/28/21 05:47 Urine Urobilinogen Normal (NORMAL) 03/28/21 05:47 Ur Leukocyte Esterase Negative (NEGATIVE) 03/28/21 05:47 Urine RBC 0-2 /HPF (0-3) 03/28/21 05:47 Urine WBC 0-2 /HPF (0-5) 03/28/21 05:47 Ur Squamous Epith Cells Rare /HPF (NEGATIVE) 03/28/21 05:47 Urine Bacteria Negative /HPF (NEGATIVE) 03/28/21 05:47 Urine Mucus Few /HPF (NEGATIVE) 03/28/21 05:47 Ur Culture Indicated? No/not indicated 03/28/21 05:47 - Plan (1) Pneumonia due to COVID-19 virus Status: Acute Plan: MECHANICAL VENT, IV FLUIDS WITH MVI, STEROIDS, IV ANTIBIOTICS, ELIQUIS 1.25MG NG TUBE BID, MILK OF MAGNESIA 30ML NG TUBE DAILY, NEB TX, MUCOMYST IN NEB [place], MOPRHINE 2MG IV Q4H PRN, LEXAPRO 20MG NG TUBE BID, BUSPAR 5MG NG TUBE BID, ROBITUSSIN DM NG TUBE QID, PROTONIX IV BID, VERSED DRIP, DIPROVAN DRIP, VERCURONIUM DRIP. (2) Hypoxia Status: Acute (3) HTN (hypertension) Status: Chronic Qualifiers: Hypertension type: primary hypertension Qualified Code(s): I10 - Essential (primary) hypertension (4) GERD (gastroesophageal reflux disease) Status: Chronic Qualifiers: Esophagitis presence: esophagitis presence not specified Qualified Code(s): K21.9 - Gastro-esophageal reflux disease without esophagitis (5) Obesity Status: Chronic Qualifiers: Obesity type: unspecified obesity type Obesity classification: adult class 2 (BMI 35 - 39.9) Serious obesity comorbidity presence: unspecified whether serious comorbidity present Body mass index: BMI 36.0-36.9 Qualified Code(s): E66.9 - Obesity, unspecified; Z68.36 - Body mass index [BMI] 36.0-36.9, adult
[2021-04-03] MEDS: MUCOMYST (RESPIRATORY USE ONLY) NEB SCH ×2 (12:58→21:11)
[2021-04-03] MEDS: PULMICORT NEB TX 0.5 MG NEB SCH ×2 (12:58→21:11)
[2021-04-03] MEDS ORDERED: LASIX IVP ONE ×3 (14:04→16:38)
[2021-04-03] MEDS ORDERED: LASIX ONE (14:05)
--- NOTE | 2021-04-03 15:04 | RAD ---
HISTORYcovid pneumonia, lower 02 sats, change in lung sounds PMH: HTNSTUDYCHEST, 1 VIEWCOMPARISONThere earlier same dayFINDINGSThe trachea is midline. The cardiac silhouette is stable in size as is the ET and NG tubes. The lungs demonstrate persistent airspace disease throughout both lungs similar to prior given the differences in technique.. The bony thorax is unremarkable.IMPRESSIONStable chestElectronically signed by: RERE OLEARY (Apr 03, 2021 15:02:53)
[2021-04-03 17:28] LABS: CKMB % 1.3 % (<4); CREATINE KINASE 75 Units/L (39-308); CREATINE KINASE MB < 1.0 ng/mL (0-4.0); TROPONIN I < 0.02 ng/mL (0-1.5)
[2021-04-04] MEDS: DIPRIVAN PREMIX 1 GRAM IV 1,000 MG/100 ML VIAL IV PRN ×5 (03:00→23:46)
[2021-04-04] MEDS ORDERED: NS 50 ML IV 50 ML IV ONE (03:14)
[2021-04-04] MEDS: NORCURON INJ 10 MG VIAL 50 MG in NS 50 ML IV 50 ML IV PRN ×2 (03:45→11:46)
[2021-04-04] MEDS: MVI IV SCH ×10 (03:48→11:17)
[2021-04-04] MEDS: [UNRECOGNIZED DRUG - OTHER] IV SCH ×5 (03:48)
[2021-04-04] MEDS: THIAMINE HCL IV SCH ×5 (03:48)
[2021-04-04] MEDS: NS IV SCH ×5 (03:48)
[2021-04-04] MEDS: SOLU-Medrol 125 MG VIAL IVP SCH ×4 (03:49→22:00)
[2021-04-04] MEDS ORDERED: NS 250 ML IV 250 ML IV ONE (03:58)
[2021-04-04 04:43] LABS: ABG BASE EXCESS 19.1 mmol/L (-2.0-2.0)
[2021-04-04 04:44] LABS: ABG HCO3 46.9 mmol/L (22-26)
[2021-04-04] MEDS: ACCUNEB 1.25 MG NEBULE NEB SCH ×2 (04:45→20:30)
[2021-04-04] MEDS ORDERED: NS 500 ML IV 500 ML IV ONE (04:52)
[2021-04-04 05:21] LABS: BASOPHILS % (AUTO) 0.2 % (0.2-1.0); EOSINOPHILS % (AUTO) 0.1 % (0.9-2.9); HEMATOCRIT 42.9 % (42.0-54.0); HEMOGLOBIN 14.6 g/dL (13.5-18.0); LYMPHOCYTES # (AUTO) 0.2 X10^3/uL (1.3-2.9); LYMPHOCYTES % (AUTO) 1.1 % (21.0-51.0); MEAN CORPUSCULAR HEMOGLOBIN 30.7 pg (27.0-34.0); MEAN CORPUSCULAR HGB CONC 33.9 g/dL (33.0-35.0); MEAN CORPUSCULAR VOLUME 90.6 fL (80.0-100.0); MEAN PLATELET VOLUME 9.2 fL (7.4-11.0); MONOCYTES # (AUTO) 0 x10^3/uL (0.3-0.8); MONOCYTES % (AUTO) 0.1 % (0.0-13.0); NEUTROPHILS # (AUTO) 13.7 x10^3/uL (2.2-4.8); NEUTROPHILS % (AUTO) 98.5 % (42.0-75.0); PLATELET COUNT 54 X10^3/uL (150.0-450.0); RED BLOOD COUNT 4.74 X10^6/uL (4.7-6.0); RED CELL DISTRIBUTION WIDTH 13.6 % (11.6-16.5); WHITE BLOOD COUNT 13.9 X10^3/uL (3.6-10.0)
[2021-04-04] MEDS: VERSED IV PREMIX 100 MG/100 ML IV.SOLN IV PRN ×3 (05:30→23:34)
[2021-04-04 05:33] LABS: ALANINE AMINOTRANSFERASE 38 Units/L (12-78); ALBUMIN 1.8 g/dL (3.4-5.0); ALKALINE PHOSPHATASE 65 Units/L (46-116); ASPARTATE AMINO TRANSFERASE 21 Units/L (15-37); BLOOD UREA NITROGEN 26 mg/dL (7-18); CALCIUM 8.1 mg/dL (8.5-10.1); CARBON DIOXIDE 37.9 mmol/L (21-32); CHLORIDE 105 mmol/L (98-107); COR CA(FOR HYPOALB) 9.9 mg/dL (8.5-10.1); COR NA(FOR HYPERGLY) 144 mmol/L (136-145); CREATININE 0.44 mg/dL (0.70-1.30); SODIUM 143 mmol/L (136-145); TOTAL PROTEIN 5.3 g/dL (6.4-8.2); eGFR NON BLACK RACES > 60 (>60)
[2021-04-04 06:02] LABS: GIANT PLATELET RARE; PLATELET MORPHOLOGY COMMENT ABNORMAL (NORMAL)
--- NOTE | 2021-04-04 06:40 | RAD ---
HISTORYSOB, COVID+STUDYCHEST, 1 [id number]/14/2021.TECHNIQUEAP view of the chestFINDINGSET tube in good position. NG tube in good position. The cardiac silhouette is stably enlarged. Mediastinal contours appear stable. Interval mild improvement in bilateral airspace opacities. No definite pleural effusion or pneumothorax. Left costophrenic sulcus is not completely visualized.IMPRESSIONInterval mild improvement in bilateral airspace opacities.Electronically signed by: Alphonso Hobbs (Apr 04, 2021 06:38:59)
[2021-04-04] MEDS: FORTAZ or TAZICEF VIAL INJ 1 G in NS 100 ML IV + SPIKE MINIBAG* 100 ML IV SCH (06:56)
[2021-04-04] MEDS ORDERED: LEXAPRO ONE ×2 (07:59→20:37)
[2021-04-04] MEDS: PULMICORT NEB TX 0.5 MG NEB SCH ×3 (08:40→20:30)
[2021-04-04] MEDS: ELIQUIS NG SCH ×2 (09:22→21:59)
[2021-04-04] MEDS: BUSPAR NG SCH ×2 (09:22→21:59)
[2021-04-04] MEDS: MILK OF MAGNESIA NG SCH (09:23)
[2021-04-04] MEDS: PROTONIX INJ 40 MG VIAL IVP SCH ×2 (09:23→21:59)
[2021-04-04] MEDS: ROBITUSSIN DM NG SCH ×4 (09:23→22:00)
[2021-04-04] MEDS: LEXAPRO NG SCH ×2 (09:24→21:59)
[2021-04-04] MEDS: LACRI-LUBE S.O.P. AFFEYE SCH ×2 (09:24→21:59)
[2021-04-04] MEDS: LEVAQUIN PREMIX IV 500 MG 500 MG/100 ML BAG IV SCH (09:24)
[2021-04-04] MEDS: MUCOMYST (RESPIRATORY USE ONLY) NEB SCH ×3 (09:40→20:30)
[2021-04-04] MEDS ORDERED: PHARMACY CONSULT - TPN XX SCH (10:00)
[2021-04-04] MEDS: REGLAN SYRUP 10 MG UDC GT SCH ×3 (10:10→22:00)
[2021-04-04] MEDS: LASIX IVP SCH ×2 (10:10→22:00)
[2021-04-04] MEDS: [UNRECOGNIZED DRUG - OTHER] IV SCH ×5 (11:17)
[2021-04-04] MEDS: CLINIMIX IV SCH ×5 (11:17)
[2021-04-04] MEDS: CALCIUM GLUCONATE IV SCH ×5 (11:17)
[2021-04-04] MEDS: FORTAZ or TAZICEF VIAL INJ 1 G in NS 50 ML IV + SPIKE MINIBAG* 50 ML IV SCH ×2 (14:19→22:00)
[2021-04-04] MEDS: HumuLIN R SUBCUT PRN (17:43)
[2021-04-04] MEDS: ZEMURON 100 MG VIAL 500 MG in NS 500 ML IV 450 ML IV PRN (18:18)
[2021-04-04] MEDS: ALBUMIN HUMAN 25%- 100 ML 100 ML IV SCH (20:30)
[2021-04-05] MEDS: ZEMURON 100 MG VIAL 500 MG in NS 500 ML IV 450 ML IV PRN ×4 (00:52→23:54)
[2021-04-05] MEDS: SOLU-Medrol 125 MG VIAL IVP SCH ×4 (02:58→21:33)
[2021-04-05] MEDS: DIPRIVAN PREMIX 1 GRAM IV 1,000 MG/100 ML VIAL IV PRN ×6 (03:03→23:56)
[2021-04-05 04:37] LABS: ABG BASE EXCESS 21.2 mmol/L (-2.0-2.0)
[2021-04-05 04:39] LABS: ABG HCO3 48.4 mmol/L (22-26)
--- NOTE | 2021-04-05 06:06 | RAD ---
HISTORYSOB, VENTILATOR DEPENDENCESTUDYCHEST, 1 [id number]/15/2021.TECHNIQUEAP chest, 2 imagesFINDINGSET tube in good position. NG tube courses below the visualized field of view. The cardiac silhouette is stably enlarged. Mediastinal contours appear stable. No significant change in bilateral airspace and interstitial opacities. No definite pleural effusion or pneumothorax.IMPRESSIONNo significant change.Electronically signed by: Alphonso Hobbs (Apr 05, 2021 06:04:43)
[2021-04-05] MEDS: ACCUNEB 1.25 MG NEBULE NEB SCH ×3 (06:25→20:58)
[2021-04-05 06:27] LABS: BASOPHILS % (AUTO) 0.1 % (0.2-1.0); EOSINOPHILS % (AUTO) 0.1 % (0.9-2.9); HEMATOCRIT 35.4 % (42.0-54.0); LYMPHOCYTES # (AUTO) 0.1 X10^3/uL (1.3-2.9); LYMPHOCYTES % (AUTO) 2.2 % (21.0-51.0); MEAN CORPUSCULAR HEMOGLOBIN 31.2 pg (27.0-34.0); MEAN CORPUSCULAR HGB CONC 33.9 g/dL (33.0-35.0); MEAN CORPUSCULAR VOLUME 92.2 fL (80.0-100.0); MEAN PLATELET VOLUME 9.6 fL (7.4-11.0); MONOCYTES # (AUTO) 0.1 x10^3/uL (0.3-0.8); MONOCYTES % (AUTO) 2.4 % (0.0-13.0); NEUTROPHILS # (AUTO) 5.7 x10^3/uL (2.2-4.8); NEUTROPHILS % (AUTO) 95.2 % (42.0-75.0); PLATELET COUNT 38 X10^3/uL (150.0-450.0); RED BLOOD COUNT 3.84 X10^6/uL (4.7-6.0); RED CELL DISTRIBUTION WIDTH 13.5 % (11.6-16.5); WHITE BLOOD COUNT 5.9 X10^3/uL (3.6-10.0)
[2021-04-05 06:32] LABS: PREALBUMIN 35.2 mg/dL (18-35.7)
[2021-04-05 06:42] LABS: ALANINE AMINOTRANSFERASE 30 Units/L (12-78); ALBUMIN 1.8 g/dL (3.4-5.0); ALKALINE PHOSPHATASE 46 Units/L (46-116); ASPARTATE AMINO TRANSFERASE 17 Units/L (15-37); BLOOD UREA NITROGEN 30 mg/dL (7-18); CALCIUM 7.5 mg/dL (8.5-10.1); CHLORIDE 105 mmol/L (98-107); COR CA(FOR HYPOALB) 9.3 mg/dL (8.5-10.1); COR NA(FOR HYPERGLY) 145 mmol/L (136-145); CREATININE 0.38 mg/dL (0.70-1.30); SODIUM 144 mmol/L (136-145); TOTAL PROTEIN 4.5 g/dL (6.4-8.2); eGFR NON BLACK RACES > 60 (>60)
[2021-04-05] MEDS: REGLAN SYRUP 10 MG UDC GT SCH ×3 (06:42→21:38)
[2021-04-05] MEDS: FORTAZ or TAZICEF VIAL INJ 1 G in NS 50 ML IV + SPIKE MINIBAG* 50 ML IV SCH ×3 (06:42→21:33)
[2021-04-05 06:51] LABS: CARBON DIOXIDE 41.1 mmol/L (21-32)
[2021-04-05] MEDS: MVI IV SCH ×10 (07:24→12:04)
[2021-04-05] MEDS: CLINIMIX IV SCH ×10 (07:24→12:04)
[2021-04-05] MEDS: [UNRECOGNIZED DRUG - OTHER] IV SCH ×10 (07:24→12:04)
[2021-04-05] MEDS: CALCIUM GLUCONATE IV SCH ×10 (07:24→12:04)
[2021-04-05 07:26] LABS: BAND NEUTROPHILS % 1 % (0-10); METAMYELOCYTES % 1; PLATELET MORPHOLOGY COMMENT NORMAL (NORMAL)
[2021-04-05] MEDS: ALBUMIN HUMAN 25%- 100 ML 100 ML IV SCH ×2 (08:23→21:39)
[2021-04-05] MEDS: LACRI-LUBE S.O.P. AFFEYE SCH ×2 (08:24→21:34)
[2021-04-05] MEDS: PULMICORT NEB TX 0.5 MG NEB SCH ×2 (08:30→20:58)
[2021-04-05] MEDS: ELIQUIS NG SCH ×2 (09:08→21:25)
[2021-04-05] MEDS ORDERED: LEXAPRO ONE ×2 (09:13→21:00)
[2021-04-05] MEDS: BUSPAR NG SCH ×2 (09:17→21:23)
[2021-04-05] MEDS: LEXAPRO NG SCH ×3 (09:18→21:32)
[2021-04-05] MEDS: LEVAQUIN PREMIX IV 500 MG 500 MG/100 ML BAG IV SCH (09:18)
[2021-04-05] MEDS: PROTONIX INJ 40 MG VIAL IVP SCH ×2 (09:18→21:33)
[2021-04-05] MEDS: MILK OF MAGNESIA NG SCH (09:18)
[2021-04-05] MEDS: ROBITUSSIN DM NG SCH ×4 (09:19→21:24)
--- NOTE | 2021-04-05 10:43 | PCM.PROG ---
Progress Note - Progress Note for Day of Date of Exam: 04/04/21 - Subjective Subjective: MR. MARMOLEJO WAS ADMITTED FOR TREATMENT OF COVID PNEUMONIA AND HYPOXIA. PMH: OBESITY, GERD, HTN. HE REMAINS IN THE INTENSIVE CARE UNIT ON THE MECHANICAL VENT TODAY. HE WAS PLACED ON THE VENT ON 03/28/21. DUE TO DECREASE IN OXYGEN SATURATIONS YESTERDAY AND MOIST LUNG SOUNDS, PATIENT WAS GIVEN A DOSE OF LASIX. AFTER LASIX, PATIENT PUT OUT OVER TWO LITERS OF FLUID AND HIS SATURATIONS INCREASED TO THE 90s. TODAY, HE IS SEDATED, LYING IN BED ON MORNING ROUNDS. HIS VENT SETTINGS THIS MORNING ARE: A/C, RATE 22, TIDAL VOLUME 550, PEEP 12, FI02 100. HIS SATURATIONS HAVE BEEN 90-94% THIS MORNING AND THROUGHOUT THE NIGHT. ON EXAMINATION, HEART IS REGULAR IN RATE AND RHYTHM. BILATERAL LUNGS ARE NOTED WITH DIMINISHED LUNG SOUNDS THROUGHOUT. ABDOMEN IS ROUND, SOFT, AND NON-TENDER WITH NORMAL BOWEL SOUNDS NOTED IN ALL QUADRANTS. HIS VITALS THIS MORNING ARE: 98.5-95-22-93%-173/80. LABS WERE OBTAINED. ABNORMAL LAB VALUES INCLUDE THE FOLLOWING: WBC 13.9, PLT COUNT 54, CARBON DIOXIDE 37.9, BUN 26, CREATININE 0.44, GLUCOSE 131, CALCIUM 8.1, TOTAL PROTEIN 5.3, ALBUMIN 1.8. ABG REVEALED: PH 7.440, PC02 69, P02 69, HC03 46.9, 02 SAT 94, A-A GRADIENT 558, FI02 100. BLOOD AND SPUTUM CULTURES WERE SET UP. A CHEST XRAY WAS OBTAINED AND REVEALED: Interval mild improvement in bilateral airspace opacities. HE IS CURRENTLY RECEIVING IV FLUIDS WITH MVI, STEROIDS, IV ANTIBIOTICS, ELIQUIS 1.25 MG PO BID, NEB TX, MUCOMYST IN NEB [place], MOPRHINE 2MG IV Q4H PRN, LEXAPRO 20MG NG TUBE BID, LABETALOL PRN, BUSPAR 5MG NG TUBE BID, ROBITUSSIN DM NG TUBE QID, PROTONIX IV BID, VERSED DRIP, DIPROVAN DRIP, VERCURONIUM DRIP. WE WILL START ALBUMIN 25% IV BID AND LASIX 40MG IV Q12H X 2 DOSES TODAY. WE WILL ALSO START REGLAN 5MG GT TID AND TPN TODAY. OTHERWISE, WE WILL CONTINUE WITH CURRENT PLAN OF CARE. WE WILL FOLLOW UP WITH AM LABS, CHEST XRAY, ABG, AND CONTINUE TO MONITOR. WE WILL DECREASE OXYGEN HE TOLERATES IT. TIME SPENT ON CLINICAL ASSESSMENT, REVIEWING LABS AND IMAGING, DECISION MAKING, AND DOCUMENTATION GREATER THAN 75 MINUTES. - Past Medical Family Social History Past Med/Fam/Surg Hx: No changes since H&P Allergies: Allergies No Allergy Information Available Allergy (Verified 03/14/21 14:24) - Review of Systems ROS: No change since H&P - Vital Signs and I&O's Vital Signs: Temperature 98.0 F Pulse Rate [Right Brachial] 61 Pulse Rate [Left Radial] 85 Pulse Rate 62 Respiratory Rate 22 Blood Pressure [Right Arm] 142/73 Blood Pressure [Left Arm] 116/63 Blood Pressure 126/58 O2 Sat by Pulse Oximetry 93 Intake and Output: Intake & Output 04/02/21 04/03/21 04/04/21 04/05/21 11:59 11:59 11:59 11:59 Intake Total 5305 / 5305 3825 / 3855 7635 / 7635 5126 / 5126 Output Total 5750 / 5750 2825 / 2825 3675 / 3675 5000 / 5000 Balance -445 / -445 1000 / 1030 3960 / 3960 126 / 126 - Physical Exam Oriented: Unable to test Eyes: Normal Ear: Normal Nose: Normal Throat: Normal Respiratory: Generalized, Diminished Cardiovascular: Normal : Normal Auscultation: Bowel Sounds: Normal Palpation: Normal Tenderness: Normal Skin: Normal Musculoskeletal: Normal Psychiatric: Other (SEDATED) Mood Description: Calm Affect: Anxious Speech Pattern: Artificially Ventilated - Laboratory and Diagnostics Result Diagrams: 04/05/21 05:40 04/05/21 05:40 Labs: 03/14/21 16:39 Blood Blood Culture - Final 03/14/21 16:35 Blood Blood Culture - Final 03/18/21 01:03 Sputum - Expectorated Sputum Sputum Culture - Final 03/18/21 01:03 Sputum - Expectorated Sputum - Final Laboratory WBC 5.9 X10^3/uL (3.6-10.0) D 04/05/21 05:40 RBC 3.84 X10^6/uL (4.7-6.0) L 04/05/21 05:40 Hgb 12.0 g/dL (13.5-18.0) L D 04/05/21 05:40 Hct 35.4 % (42.0-54.0) L 04/05/21 05:40 MCV 92.2 fL (80.0-100.0) 04/05/21 05:40 MCH 31.2 pg (27.0-34.0) 04/05/21 05:40 MCHC 33.9 g/dL (33.0-35.0) 04/05/21 05:40 RDW 13.5 % (11.6-16.5) 04/05/21 05:40 Plt Count 38 X10^3/uL (150.0-450.0) L 04/05/21 05:40 Plt Count Comment Decreased (ADEQUATE) 04/05/21 05:40 MPV 9.6 fL (7.4-11.0) 04/05/21 05:40 Neut % (Auto) 95.2 % (42.0-75.0) H 04/05/21 05:40 Lymph % (Auto) 2.2 % (21.0-51.0) L 04/05/21 05:40 [place] % (Auto) 2.4 % (0.0-13.0) 04/05/21 05:40 Eos % (Auto) 0.1 % (0.9-2.9) L 04/05/21 05:40 Baso % (Auto) 0.1 % (0.2-1.0) L 04/05/21 05:40 Neut # (Auto) 5.7 x10^3/uL (2.2-4.8) H 04/05/21 05:40 Lymph # (Auto) 0.1 X10^3/uL (1.3-2.9) L 04/05/21 05:40 [place] # (Auto) 0.1 x10^3/uL (0.3-0.8) L 04/05/21 05:40 Eos # (Auto) 0.0 x10^3/uL (0.0-0.2) 04/05/21 05:40 Baso # (Auto) 0.0 X10^3/uL (0.0-0.1) 04/05/21 05:40 Absolute Nucleated RBC 0.0 /100WBC 04/05/21 05:40 Total Counted 100 04/05/21 05:40 Neutrophils % (Manual) 90 % (39-76) H 04/05/21 05:40 Band Neutrophils % 1 % (0-10) 04/05/21 05:40 Lymphocytes % (Manual) 3 % (13-43) L 04/05/21 05:40 Monocytes % (Manual) 4 % (4-9) 04/05/21 05:40 Eosinophils % (Manual) 1 % (0-6) 04/05/21 05:40 Metamyelocytes % 1 04/05/21 05:40 Giant Platelets Rare 04/04/21 05:07 Plt Morphology Comment Normal (NORMAL) 04/05/21 05:40 RBC Morphology Normal (NORMAL) 04/05/21 05:40 Hypochromasia Slight A 04/03/21 04:33 PT 14.2 SECONDS (11.8-14.3) 03/20/21 07:07 INR Target Range - 03/20/21 07:07 INR 1.16 (0.8-1.3) 03/20/21 07:07 APTT 26.6 SECONDS (22.9-36.5) 03/17/21 06:05 PTT Comment - 03/17/21 06:05 D-Dimer 0.92 ug/ml (0.0-0.57) H* 04/01/21 05:04 Sample Site Art-line 04/05/21 04:34 ABG pH 7.480 (7.35-7.45) H 04/05/21 04:34 ABG pCO2 65.0 mmHg (35.0-45.0) H* 04/05/21 04:34 ABG pO2 72.0 mmHg (80.0-100.0) L 04/05/21 04:34 ABG HCO3 48.4 mmol/L (22-26) H* 04/05/21 04:34 ABG O2 Saturation 95.0 % (90-100) 04/05/21 04:34 ABG Base Excess 21.2 mmol/L (-2.0-2.0) H 04/05/21 04:34 Corky Test Na 04/05/21 04:34 A-a Gradient 560.0 mmHg 04/05/21 04:34 FiO2 100.0 04/05/21 04:34 Blood Gas Comments Michael well-mtf 04/05/21 04:34 Sodium 144 mmol/L (136-145) 04/05/21 05:40 Corrected Sodium 145 mmol/L (136-145) 04/05/21 05:40 Potassium 3.3 mmol/L (3.5-5.1) L 04/05/21 05:40 Chloride 105 mmol/L (98-107) 04/05/21 05:40 Carbon Dioxide 41.1 mmol/L (21-32) H* 04/05/21 05:40 BUN 30 mg/dL (7-18) H 04/05/21 05:40 Creatinine 0.38 mg/dL (0.70-1.30) L 04/05/21 05:40 Est GFR (MDRD) Af Amer > 60 (>60) 04/05/21 05:40 Est GFR (MDRD) Non-Af > 60 (>60) 04/05/21 05:40 Glucose 134 mg/dL (65-99) H 04/05/21 05:40 POC Glucose (mg/dL) 130 mg/dL (65-99) H 04/04/21 23:36 Calcium 7.5 mg/dL (8.5-10.1) L 04/05/21 05:40 Corrected Calcium 9.3 mg/dL (8.5-10.1) 04/05/21 05:40 Magnesium 2.3 mg/dL (1.7-2.9) 04/05/21 05:40 Ferritin 2585 ng/mL (26-388) H 03/23/21 05:21 Total Bilirubin 0.40 mg/dL (0.2-1.0) 04/05/21 05:40 AST 17 Units/L (15-37) 04/05/21 05:40 ALT 30 Units/L (12-78) 04/05/21 05:40 Alkaline Phosphatase 46 Units/L (46-116) 04/05/21 05:40 Creatine Kinase 75 Units/L (39-308) 04/03/21 16:50 CK-MB (CK-2) < 1.0 ng/mL (0-4.0) 04/03/21 16:50 CK/CKMB % Calc 1.3 % (<4) 04/03/21 16:50 Troponin I < 0.02 ng/mL (0-1.5) 04/03/21 16:50 C-Reactive Protein 1.10 mg/L (0-3.0) 03/31/21 04:00 B-Natriuretic Peptide 50.9 pg/mL (0-79) 04/05/21 05:40 Total Protein 4.5 g/dL (6.4-8.2) L 04/05/21 05:40 Albumin 1.8 g/dL (3.4-5.0) L 04/05/21 05:40 Globulin 2.7 g/dL (2.5-4.5) 04/05/21 05:40 Albumin/Globulin Ratio 0.7 Ratio (1.1-2.1) L 04/05/21 05:40 Prealbumin 35.2 mg/dL (18-35.7) 04/05/21 05:40 Specimen Type Catherized urine 03/28/21 05:47 Urine Color Yellow (YELLOW) 03/28/21 05:47 Urine Appearance Clear (CLEAR) 03/28/21 05:47 Urine pH 6.0 (5.0 - 8.0) 03/28/21 05:47 Ur Specific [place] 1.020 (1.000-1.030) 03/28/21 05:47 Urine Protein 2+ (NEGATIVE) 03/28/21 05:47 Urine Glucose (UA) Negative (NEGATIVE) 03/28/21 05:47 Urine Ketones Negative (NEGATIVE) 03/28/21 05:47 Urine Occult Blood Negative (NEGATIVE) 03/28/21 05:47 Urine Nitrite Negative (NEGATIVE) 03/28/21 05:47 Urine Bilirubin Negative (NEGATIVE) 03/28/21 05:47 Urine Urobilinogen Normal (NORMAL) 03/28/21 05:47 Ur Leukocyte Esterase Negative (NEGATIVE) 03/28/21 05:47 Urine RBC 0-2 /HPF (0-3) 03/28/21 05:47 Urine WBC 0-2 /HPF (0-5) 03/28/21 05:47 Ur Squamous Epith Cells Rare /HPF (NEGATIVE) 03/28/21 05:47 Urine Bacteria Negative /HPF (NEGATIVE) 03/28/21 05:47 Urine Mucus Few /HPF (NEGATIVE) 03/28/21 05:47 Ur Culture Indicated? No/not indicated 03/28/21 05:47 - Plan (1) Pneumonia due to COVID-19 virus Status: Acute Plan: MECHANICAL VENT, TPN, ALBUMIN 25% IV DAILY, STEROIDS, IV ANTIBIOTICS, ELIQUIS 1.25MG NG TUBE BID, REGLAN 5MG TID, MILK OF MAGNESIA 30ML NG TUBE DAILY, NEB [place], MUCOMYST IN NEB [place], MOPRHINE 2MG IV Q4H PRN, LEXAPRO 20MG NG TUBE BID, BUSPAR 5MG NG TUBE BID, ROBITUSSIN DM NG TUBE QID, PROTONIX IV BID, VERSED DRIP, DIPROVAN DRIP, VERCURONIUM DRIP. (2) Hypoxia Status: Acute (3) HTN (hypertension) Status: Chronic Qualifiers: Hypertension type: primary hypertension Qualified Code(s): I10 - Essential (primary) hypertension (4) GERD (gastroesophageal reflux disease) Status: Chronic Qualifiers: Esophagitis presence: esophagitis presence not specified Qualified Code(s): K21.9 - Gastro-esophageal reflux disease without esophagitis (5) Obesity Status: Chronic Qualifiers: Obesity type: unspecified obesity type Obesity classification: adult class 2 (BMI 35 - 39.9) Serious obesity comorbidity presence: unspecified whether serious comorbidity present Body mass index: BMI 36.0-36.9 Qualified Code(s): E66.9 - Obesity, unspecified; Z68.36 - Body mass index [BMI] 36.0-36.9, adult
--- NOTE | 2021-04-05 10:51 | PCM.PROG ---
Progress Note - Progress Note for Day of Date of Exam: 04/05/21 - Subjective Subjective: MR. MARMOLEJO WAS ADMITTED FOR TREATMENT OF COVID PNEUMONIA AND HYPOXIA. PMH: OBESITY, GERD, HTN. HE REMAINS IN THE INTENSIVE CARE UNIT ON THE MECHANICAL VENT TODAY. HE WAS PLACED ON THE VENT ON 03/28/21. TODAY, HE IS SEDATED, LYING IN BED ON MORNING ROUNDS. HIS VENT SETTINGS THIS MORNING ARE: A/C , RATE 22, TIDAL VOLUME 550, PEEP 14, FI02 100. HIS SATURATIONS HAVE BEEN 91-94% THIS MORNING AND THROUGHOUT THE NIGHT. ON EXAMINATION, HEART IS REGULAR IN RATE AND RHYTHM. BILATERAL LUNGS ARE NOTED WITH DIMINISHED LUNG SOUNDS THROUGHOUT. ABDOMEN IS ROUND, SOFT, AND NON-TENDER WITH NORMAL BOWEL SOUNDS NOTED IN ALL QUADRANTS. HIS VITALS THIS MORNING ARE: 98.0-75-22-93%-117/57. LABS WERE OBTAINED. ABNORMAL LAB VALUES INCLUDE THE FOLLOWING: RBC 3.84, HGB 12.0, HCT 35.4, PLT COUNT 38, POTASSIUM 3.3, CARBON DIOXIDE 41.1, BUN 30, CREATININE 0.38, GLUCOSE 134, CALCIUM 7.5, TOTAL PROTEIN 4.5, ALBUMIN 1.8. ABG REVEALED: PH 7.480, PC02 65, P02 72, HC03 48.4, 02 SAT 95, A-A GRADIENT 560, FI02 100. A CH EST XRAY WAS OBTAINED AND REVEALED: No significant change. HE IS CURRENTLY RECEIVING IV FLUIDS WITH MVI, STEROIDS, IV ANTIBIOTICS, ELIQUIS 1.25 MG PO BID, NEB TX, MUCOMYST IN [facility] [place], MOPRHINE 2MG IV Q4H PRN, LEXAPRO 20MG NG TUBE BID, LABETALOL PRN, BUSPAR 5MG NG TUBE BID, ROBITUSSIN DM NG TUBE QID, PROTONIX IV BID, REGLAN 5MG GT TID, VERSED DRIP, DIPROVAN DRIP, VERCURONIUM DRIP. WE WILL START ALBUMIN 25% IV BID AND LASIX 40MG IV Q12H X 2 DOSES TODAY. OTHERWISE, WE WILL CONTINUE WITH CURRENT PLAN OF CARE. WE WILL FOLLOW UP WITH AM LABS, CHEST XRAY, ABG, AND CONTINUE TO MONITOR. WE WILL DECREASE OXYGEN HE TOLERATES IT. TIME SPENT ON CLINICAL ASSESSMENT, REVIEWING LABS AND IMAGING, DECISION MAKING, AND DOCUMENTATION GREATER THAN 75 MINUTES. - Past Medical Family Social History Past Med/Fam/Surg Hx: No changes since H&P Allergies: Allergies No Allergy Information Available Allergy (Verified 03/14/21 14:24) - Review of Systems ROS: No change since H&P - Vital Signs and I&O's Vital Signs: Temperature 98.0 F Pulse Rate [Right Brachial] 61 Pulse Rate [Left Radial] 85 Pulse Rate 62 Respiratory Rate 22 Blood Pressure [Right Arm] 142/73 Blood Pressure [Left Arm] 116/63 Blood Pressure 126/58 O2 Sat by Pulse Oximetry 93 Intake and Output: Intake & Output 04/02/21 04/03/21 04/04/21 04/05/21 11:59 11:59 11:59 11:59 Intake Total 5305 / 5305 3825 / 3855 7635 / 7635 5126 / 5126 Output Total 5750 / 5750 2825 / 2825 3675 / 3675 5000 / 5000 Balance -445 / -445 1000 / 1030 3960 / 3960 126 / 126 - Physical Exam Oriented: Unable to test Eyes: Normal Ear: Normal Nose: Normal Throat: Normal Respiratory: Generalized, Diminished Cardiovascular: Normal : Normal Auscultation: Bowel Sounds: Normal Tenderness: Normal Skin: Normal Musculoskeletal: Normal Psychiatric: Other (SEDATED) Mood Description: Calm Affect: Anxious Speech Pattern: Artificially Ventilated - Laboratory and Diagnostics Result Diagrams: 04/05/21 05:40 04/05/21 05:40 Labs: 03/14/21 16:39 Blood Blood Culture - Final 03/14/21 16:35 Blood Blood Culture - Final 03/18/21 01:03 Sputum - Expectorated Sputum Sputum Culture - Final 03/18/21 01:03 Sputum - Expectorated Sputum - Final Laboratory WBC 5.9 X10^3/uL (3.6-10.0) D 04/05/21 05:40 RBC 3.84 X10^6/uL (4.7-6.0) L 04/05/21 05:40 Hgb 12.0 g/dL (13.5-18.0) L D 04/05/21 05:40 Hct 35.4 % (42.0-54.0) L 04/05/21 05:40 MCV 92.2 fL (80.0-100.0) 04/05/21 05:40 MCH 31.2 pg (27.0-34.0) 04/05/21 05:40 MCHC 33.9 g/dL (33.0-35.0) 04/05/21 05:40 RDW 13.5 % (11.6-16.5) 04/05/21 05:40 Plt Count 38 X10^3/uL (150.0-450.0) L 04/05/21 05:40 Plt Count Comment Decreased (ADEQUATE) 04/05/21 05:40 MPV 9.6 fL (7.4-11.0) 04/05/21 05:40 Neut % (Auto) 95.2 % (42.0-75.0) H 04/05/21 05:40 Lymph % (Auto) 2.2 % (21.0-51.0) L 04/05/21 05:40 [place] % (Auto) 2.4 % (0.0-13.0) 04/05/21 05:40 Eos % (Auto) 0.1 % (0.9-2.9) L 04/05/21 05:40 Baso % (Auto) 0.1 % (0.2-1.0) L 04/05/21 05:40 Neut # (Auto) 5.7 x10^3/uL (2.2-4.8) H 04/05/21 05:40 Lymph # (Auto) 0.1 X10^3/uL (1.3-2.9) L 04/05/21 05:40 [place] # (Auto) 0.1 x10^3/uL (0.3-0.8) L 04/05/21 05:40 Eos # (Auto) 0.0 x10^3/uL (0.0-0.2) 04/05/21 05:40 Baso # (Auto) 0.0 X10^3/uL (0.0-0.1) 04/05/21 05:40 Absolute Nucleated RBC 0.0 /100WBC 04/05/21 05:40 Total Counted 100 04/05/21 05:40 Neutrophils % (Manual) 90 % (39-76) H 04/05/21 05:40 Band Neutrophils % 1 % (0-10) 04/05/21 05:40 Lymphocytes % (Manual) 3 % (13-43) L 04/05/21 05:40 Monocytes % (Manual) 4 % (4-9) 04/05/21 05:40 Eosinophils % (Manual) 1 % (0-6) 04/05/21 05:40 Metamyelocytes % 1 04/05/21 05:40 Giant Platelets Rare 04/04/21 05:07 Plt Morphology Comment Normal (NORMAL) 04/05/21 05:40 RBC Morphology Normal (NORMAL) 04/05/21 05:40 Hypochromasia Slight A 04/03/21 04:33 PT 14.2 SECONDS (11.8-14.3) 03/20/21 07:07 INR Target Range - 03/20/21 07:07 INR 1.16 (0.8-1.3) 03/20/21 07:07 APTT 26.6 SECONDS (22.9-36.5) 03/17/21 06:05 PTT Comment - 03/17/21 06:05 D-Dimer 0.92 ug/ml (0.0-0.57) H* 04/01/21 05:04 Sample Site Art-line 04/05/21 04:34 ABG pH 7.480 (7.35-7.45) H 04/05/21 04:34 ABG pCO2 65.0 mmHg (35.0-45.0) H* 04/05/21 04:34 ABG pO2 72.0 mmHg (80.0-100.0) L 04/05/21 04:34 ABG HCO3 48.4 mmol/L (22-26) H* 04/05/21 04:34 ABG O2 Saturation 95.0 % (90-100) 04/05/21 04:34 ABG Base Excess 21.2 mmol/L (-2.0-2.0) H 04/05/21 04:34 Corky Test Na 04/05/21 04:34 A-a Gradient 560.0 mmHg 04/05/21 04:34 FiO2 100.0 04/05/21 04:34 Blood Gas Comments Michael well-mtf 04/05/21 04:34 Sodium 144 mmol/L (136-145) 04/05/21 05:40 Corrected Sodium 145 mmol/L (136-145) 04/05/21 05:40 Potassium 3.3 mmol/L (3.5-5.1) L 04/05/21 05:40 Chloride 105 mmol/L (98-107) 04/05/21 05:40 Carbon Dioxide 41.1 mmol/L (21-32) H* 04/05/21 05:40 BUN 30 mg/dL (7-18) H 04/05/21 05:40 Creatinine 0.38 mg/dL (0.70-1.30) L 04/05/21 05:40 Est GFR (MDRD) Af Amer > 60 (>60) 04/05/21 05:40 Est GFR (MDRD) Non-Af > 60 (>60) 04/05/21 05:40 Glucose 134 mg/dL (65-99) H 04/05/21 05:40 POC Glucose (mg/dL) 130 mg/dL (65-99) H 04/04/21 23:36 Calcium 7.5 mg/dL (8.5-10.1) L 04/05/21 05:40 Corrected Calcium 9.3 mg/dL (8.5-10.1) 04/05/21 05:40 Magnesium 2.3 mg/dL (1.7-2.9) 04/05/21 05:40 Ferritin 2585 ng/mL (26-388) H 03/23/21 05:21 Total Bilirubin 0.40 mg/dL (0.2-1.0) 04/05/21 05:40 AST 17 Units/L (15-37) 04/05/21 05:40 ALT 30 Units/L (12-78) 04/05/21 05:40 Alkaline Phosphatase 46 Units/L (46-116) 04/05/21 05:40 Creatine Kinase 75 Units/L (39-308) 04/03/21 16:50 CK-MB (CK-2) < 1.0 ng/mL (0-4.0) 04/03/21 16:50 CK/CKMB % Calc 1.3 % (<4) 04/03/21 16:50 Troponin I < 0.02 ng/mL (0-1.5) 04/03/21 16:50 C-Reactive Protein 1.10 mg/L (0-3.0) 03/31/21 04:00 B-Natriuretic Peptide 50.9 pg/mL (0-79) 04/05/21 05:40 Total Protein 4.5 g/dL (6.4-8.2) L 04/05/21 05:40 Albumin 1.8 g/dL (3.4-5.0) L 04/05/21 05:40 Globulin 2.7 g/dL (2.5-4.5) 04/05/21 05:40 Albumin/Globulin Ratio 0.7 Ratio (1.1-2.1) L 04/05/21 05:40 Prealbumin 35.2 mg/dL (18-35.7) 04/05/21 05:40 Specimen Type Catherized urine 03/28/21 05:47 Urine Color Yellow (YELLOW) 03/28/21 05:47 Urine Appearance Clear (CLEAR) 03/28/21 05:47 Urine pH 6.0 (5.0 - 8.0) 03/28/21 05:47 Ur Specific [place] 1.020 (1.000-1.030) 03/28/21 05:47 Urine Protein 2+ (NEGATIVE) 03/28/21 05:47 Urine Glucose (UA) Negative (NEGATIVE) 03/28/21 05:47 Urine Ketones Negative (NEGATIVE) 03/28/21 05:47 Urine Occult Blood Negative (NEGATIVE) 03/28/21 05:47 Urine Nitrite Negative (NEGATIVE) 03/28/21 05:47 Urine Bilirubin Negative (NEGATIVE) 03/28/21 05:47 Urine Urobilinogen Normal (NORMAL) 03/28/21 05:47 Ur Leukocyte Esterase Negative (NEGATIVE) 03/28/21 05:47 Urine RBC 0-2 /HPF (0-3) 03/28/21 05:47 Urine WBC 0-2 /HPF (0-5) 03/28/21 05:47 Ur Squamous Epith Cells Rare /HPF (NEGATIVE) 03/28/21 05:47 Urine Bacteria Negative /HPF (NEGATIVE) 03/28/21 05:47 Urine Mucus Few /HPF (NEGATIVE) 03/28/21 05:47 Ur Culture Indicated? No/not indicated 03/28/21 05:47 - Plan (1) Pneumonia due to COVID-19 virus Status: Acute Plan: MECHANICAL VENT, TPN, ALBUMIN 25% IV DAILY, STEROIDS, IV ANTIBIOTICS, ELIQUIS 1.25MG NG TUBE BID, REGLAN 5MG TID, MILK OF MAGNESIA 30ML NG TUBE DAILY, NEB [place], MUCOMYST IN [place], MOPRHINE 2MG IV Q4H PRN, LEXAPRO 20MG NG TUBE BID, BUSPAR 5MG NG TUBE BID, ROBITUSSIN DM NG TUBE QID, PROTONIX IV BID, VERSED DRIP, DIPROVAN DRIP, VERCURONIUM DRIP. (2) Hypoxia Status: Acute (3) HTN (hypertension) Status: Chronic Qualifiers: Hypertension type: primary hypertension Qualified Code(s): I10 - Essential (primary) hypertension (4) GERD (gastroesophageal reflux disease) Status: Chronic Qualifiers: Esophagitis presence: esophagitis presence not specified Qualified Code(s): K21.9 - Gastro-esophageal reflux disease without esophagitis (5) Obesity Status: Chronic Qualifiers: Obesity type: unspecified obesity type Obesity classification: adult class 2 (BMI 35 - 39.9) Serious obesity comorbidity presence: unspecified whether serious comorbidity present Body mass index: BMI 36.0-36.9 Qualified Code(s): E66.9 - Obesity, unspecified; Z68.36 - Body mass index [BMI] 36.0-36.9, adult
[2021-04-05] MEDS: VERSED IV PREMIX 100 MG/100 ML IV.SOLN IV PRN ×2 (13:00→23:55)
[2021-04-05] MEDS: MUCOMYST (RESPIRATORY USE ONLY) NEB SCH ×2 (13:53→20:58)
[2021-04-05] MEDS ORDERED: KLOR-CON PO PRN (14:42)
[2021-04-05] MEDS ORDERED: K-DUR TAB 20 MEQ PO PRN (14:42)
[2021-04-05] MEDS ORDERED: MICRO K EXTEN CAP 10 MEQ PO PRN (14:42)
[2021-04-05] MEDS ORDERED: POTASSIUM CHL 60 MEQ/NS 0.45% 500 ML IV PRN (14:42)
[2021-04-05] MEDS ORDERED: POTASSIUM CHL 40 MEQ/NS 0.45% 500 ML IV PRN (14:42)
--- NOTE | 2021-04-05 16:39 | RAD ---
KUBHISTORY: CONSTIPATIONStudy: Flat and upright views of the abdomenComparison:NoneFindings:There is a normal bowel gas pattern.No free air..No abnormal calcifications or abnormal soft tissue shadows. No acute bony abnormalities.IMPRESSION:1. No evidence for acute abdominal pathology.Electronically signed by: PASTOR GOMEZ (Apr 05, 2021 16:37:26)
[2021-04-05] MEDS ORDERED: NS 100 ML IV 100 ML ONE (22:09)
[2021-04-05] MEDS ORDERED: NS 100 ML IV 100 ML IV SCH (22:30)
[2021-04-05] MEDS ORDERED: NS 500 ML IV 500 ML IV ONE (23:36)
[2021-04-05] MEDS: NS 100 ML IV 100 ML IV PRN (23:55)
[2021-04-06] MEDS: SOLU-Medrol 125 MG VIAL IVP SCH ×4 (03:25→20:17)
[2021-04-06] MEDS: DIPRIVAN PREMIX 1 GRAM IV 1,000 MG/100 ML VIAL IV PRN ×5 (03:26→19:01)
[2021-04-06 04:29] LABS: ABG BASE EXCESS 17.2 mmol/L (-2.0-2.0)
[2021-04-06 04:30] LABS: ABG HCO3 44.1 mmol/L (22-26)
[2021-04-06] MEDS: ACCUNEB 1.25 MG NEBULE NEB SCH ×3 (05:57→20:20)
[2021-04-06 06:03] LABS: BASOPHILS % (AUTO) 0 % (0.2-1.0); EOSINOPHILS % (AUTO) 0.1 % (0.9-2.9); HEMATOCRIT 33.3 % (42.0-54.0); HEMOGLOBIN 11.4 g/dL (13.5-18.0); LYMPHOCYTES # (AUTO) 0.1 X10^3/uL (1.3-2.9); LYMPHOCYTES % (AUTO) 2.5 % (21.0-51.0); MEAN CORPUSCULAR HEMOGLOBIN 30.9 pg (27.0-34.0); MEAN CORPUSCULAR HGB CONC 34.3 g/dL (33.0-35.0); MEAN CORPUSCULAR VOLUME 90.3 fL (80.0-100.0); MEAN PLATELET VOLUME 9.4 fL (7.4-11.0); MONOCYTES # (AUTO) 0.1 x10^3/uL (0.3-0.8); MONOCYTES % (AUTO) 2.2 % (0.0-13.0); NEUTROPHILS % (AUTO) 95.2 % (42.0-75.0); PLATELET COUNT 32 X10^3/uL (150.0-450.0); RED BLOOD COUNT 3.69 X10^6/uL (4.7-6.0); RED CELL DISTRIBUTION WIDTH 13.6 % (11.6-16.5); WHITE BLOOD COUNT 4.2 X10^3/uL (3.6-10.0)
[2021-04-06 06:13] LABS: ALANINE AMINOTRANSFERASE 30 Units/L (12-78); ALBUMIN 2.2 g/dL (3.4-5.0); ALKALINE PHOSPHATASE 46 Units/L (46-116); ASPARTATE AMINO TRANSFERASE 18 Units/L (15-37); BLOOD UREA NITROGEN 25 mg/dL (7-18); CALCIUM 7.5 mg/dL (8.5-10.1); CARBON DIOXIDE 38.6 mmol/L (21-32); CHLORIDE 106 mmol/L (98-107); COR CA(FOR HYPOALB) 8.9 mg/dL (8.5-10.1); COR NA(FOR HYPERGLY) 147 mmol/L (136-145); CREATININE 0.34 mg/dL (0.70-1.30); SODIUM 145 mmol/L (136-145); TOTAL PROTEIN 4.6 g/dL (6.4-8.2); eGFR NON BLACK RACES > 60 (>60)
[2021-04-06] MEDS: FORTAZ or TAZICEF VIAL INJ 1 G in NS 50 ML IV + SPIKE MINIBAG* 50 ML IV SCH ×3 (06:30→22:17)
[2021-04-06] MEDS: REGLAN SYRUP 10 MG UDC GT SCH ×3 (06:30→22:17)
--- NOTE | 2021-04-06 06:39 | RAD ---
HISTORYSOBSTUDYCHEST, 1 [id number]/16/2021.TECHNIQUEAP view of the chestFINDINGSET tube in good position. NG tube courses below the visualized field of view. The cardiac silhouette is stably enlarged. Mediastinal contours appear stable. No significant change in bilateral airspace and interstitial opacities. No definite pleural effusion or pneumothorax.IMPRESSIONNo significant change.Electronically signed by: Alphonso Hobbs (Apr 06, 2021 06:38:13)
[2021-04-06 06:55] LABS: BAND NEUTROPHILS % 4 % (0-10); PLATELET MORPHOLOGY COMMENT NORMAL (NORMAL)
[2021-04-06] MEDS: ALBUMIN HUMAN 25%- 100 ML 100 ML IV SCH ×2 (07:23→20:11)
[2021-04-06] MEDS: CLINIMIX IV SCH ×15 (07:23→22:57)
[2021-04-06] MEDS: MVI IV SCH ×15 (07:23→22:57)
[2021-04-06] MEDS: [UNRECOGNIZED DRUG - OTHER] IV SCH ×15 (07:23→22:57)
[2021-04-06] MEDS: CALCIUM GLUCONATE IV SCH ×15 (07:23→22:57)
[2021-04-06] MEDS: ZEMURON 100 MG VIAL 500 MG in NS 500 ML IV 450 ML IV PRN ×4 (07:25→22:00)
[2021-04-06] MEDS ORDERED: LEXAPRO ONE ×2 (08:29→19:54)
[2021-04-06] MEDS: LEVAQUIN PREMIX IV 500 MG 500 MG/100 ML BAG IV SCH (08:31)
[2021-04-06] MEDS: PROTONIX INJ 40 MG VIAL IVP SCH ×2 (08:40→20:16)
[2021-04-06] MEDS: PULMICORT NEB TX 0.5 MG NEB SCH ×2 (08:40→20:20)
[2021-04-06] MEDS: LACRI-LUBE S.O.P. AFFEYE SCH ×2 (08:48→20:16)
[2021-04-06] MEDS: ROBITUSSIN DM NG SCH ×4 (08:48→20:17)
[2021-04-06] MEDS: LEXAPRO NG SCH ×2 (08:49→20:06)
[2021-04-06] MEDS: BUSPAR NG SCH ×2 (08:49→20:14)
[2021-04-06] MEDS: MILK OF MAGNESIA NG SCH (08:49)
[2021-04-06] MEDS: ELIQUIS NG SCH ×2 (08:50→20:15)
[2021-04-06] MEDS ORDERED: MORPHINE SULFATE PCA 30 MG IVP PRN (09:59)
[2021-04-06] MEDS: VERSED IV PREMIX 100 MG/100 ML IV.SOLN IV PRN ×2 (11:55→19:54)
[2021-04-06] MEDS: MUCOMYST (RESPIRATORY USE ONLY) NEB SCH ×2 (14:20→20:20)
[2021-04-06 14:57] LABS: LACTIC ACID 1.5 mmol/L (0.4-2.0)
[2021-04-06 15:02] LABS: CKMB % 0.4 % (<4); TROPONIN I 0.02 ng/mL (0-1.5)
[2021-04-06] MEDS ORDERED: DEXTROSE 10% 1,000 ML IV PRN (15:23)
[2021-04-06] MEDS ORDERED: HumuLIN R SUBCUT PRN (15:23)
[2021-04-06] MEDS ORDERED: ATROPINE SULFATE ABBOJECT IVP PRN (15:42)
[2021-04-06 15:46] LABS: MAGNESIUM 2.8 mg/dL (1.7-2.9); PHOSPHORUS 2.2 mg/dL (2.6-4.7)
[2021-04-06] MEDS: K-RIDER 10 MEQ/NS 100 ML 10 MEQ/100 ML BAG IV PRN ×2 (17:54→21:30)
[2021-04-06 18:02] LABS: CKMB % 0.4 % (<4); CREATINE KINASE MB 1.1 ng/mL (0-4.0); TROPONIN I 0.02 ng/mL (0-1.5)
[2021-04-06 21:59] LABS: CKMB % 0.4 % (<4); CREATINE KINASE 228 Units/L (39-308); CREATINE KINASE MB < 1.0 ng/mL (0-4.0); TROPONIN I < 0.02 ng/mL (0-1.5)
[2021-04-07] MEDS: VERSED IV PREMIX 100 MG/100 ML IV.SOLN IV PRN ×4 (02:35→23:36)
[2021-04-07] MEDS: SOLU-Medrol 125 MG VIAL IVP SCH ×4 (03:21→20:50)
[2021-04-07] MEDS: ZEMURON 100 MG VIAL 500 MG in NS 500 ML IV 450 ML IV PRN ×4 (04:00→22:13)
[2021-04-07 04:22] LABS: ABG BASE EXCESS 16.1 mmol/L (-2.0-2.0)
[2021-04-07 04:23] LABS: ABG HCO3 42.7 mmol/L (22-26)
[2021-04-07] MEDS: DIPRIVAN PREMIX 1 GRAM IV 1,000 MG/100 ML VIAL IV PRN ×3 (05:10→18:19)
[2021-04-07 05:29] LABS: BASOPHILS % (AUTO) 0.6 % (0.2-1.0); EOSINOPHILS % (AUTO) 0.1 % (0.9-2.9); HEMATOCRIT 33.6 % (42.0-54.0); HEMOGLOBIN 11.4 g/dL (13.5-18.0); LYMPHOCYTES # (AUTO) 0.1 X10^3/uL (1.3-2.9); LYMPHOCYTES % (AUTO) 2.2 % (21.0-51.0); MEAN CORPUSCULAR HGB CONC 33.9 g/dL (33.0-35.0); MEAN CORPUSCULAR VOLUME 91.3 fL (80.0-100.0); MEAN PLATELET VOLUME 8.9 fL (7.4-11.0); MONOCYTES # (AUTO) 0.1 x10^3/uL (0.3-0.8); MONOCYTES % (AUTO) 2.5 % (0.0-13.0); NEUTROPHILS # (AUTO) 4.7 x10^3/uL (2.2-4.8); NEUTROPHILS % (AUTO) 94.6 % (42.0-75.0); PLATELET COUNT 34 X10^3/uL (150.0-450.0); RED BLOOD COUNT 3.68 X10^6/uL (4.7-6.0); RED CELL DISTRIBUTION WIDTH 13.4 % (11.6-16.5); WHITE BLOOD COUNT 4.9 X10^3/uL (3.6-10.0)
[2021-04-07 05:31] LABS: PREALBUMIN 31.8 mg/dL (18-35.7)
[2021-04-07 05:37] LABS: ALANINE AMINOTRANSFERASE 35 Units/L (12-78); ALBUMIN 2.5 g/dL (3.4-5.0); ALKALINE PHOSPHATASE 43 Units/L (46-116); ASPARTATE AMINO TRANSFERASE 20 Units/L (15-37); BLOOD UREA NITROGEN 25 mg/dL (7-18); CALCIUM 7.5 mg/dL (8.5-10.1); CARBON DIOXIDE 37.7 mmol/L (21-32); CHLORIDE 108 mmol/L (98-107); COR CA(FOR HYPOALB) 8.7 mg/dL (8.5-10.1); COR NA(FOR HYPERGLY) 147 mmol/L (136-145); CREATININE 0.27 mg/dL (0.70-1.30); SODIUM 146 mmol/L (136-145); TOTAL PROTEIN 4.7 g/dL (6.4-8.2); eGFR NON BLACK RACES > 60 (>60)
[2021-04-07] MEDS: ACCUNEB 1.25 MG NEBULE NEB SCH ×3 (05:51→21:46)
[2021-04-07] MEDS: FORTAZ or TAZICEF VIAL INJ 1 G in NS 50 ML IV + SPIKE MINIBAG* 50 ML IV SCH ×3 (06:00→22:01)
[2021-04-07] MEDS: REGLAN SYRUP 10 MG UDC GT SCH ×3 (06:00→22:01)
[2021-04-07 06:19] LABS: PLATELET MORPHOLOGY COMMENT NORMAL (NORMAL)
--- NOTE | 2021-04-07 07:23 | RAD ---
HISTORYSOBSTUDYCHES x-ray t, 1 VIEWCOMPARISONX-ray from previous dayFINDINGSEndotracheal tube terminates 5.0 cm above the percy. Enteric tube passes into the stomach. Possible CHF and pulmonary edema. Bilateral pneumonia may be present, also. Probable small pleural effusions. No pneumothorax is seen.IMPRESSIONProbable CHF and possible pulmonary edema.Bilateral pneumonia is not excluded.Appearance of the chest is similar to prior study.Electronically signed by: Doug Bah (Apr 07, 2021 07:21:31)
[2021-04-07] MEDS: PULMICORT NEB TX 0.5 MG NEB SCH ×2 (08:33→21:46)
[2021-04-07] MEDS ORDERED: LEXAPRO ONE ×2 (09:04→19:28)
[2021-04-07] MEDS: ALBUMIN HUMAN 25%- 100 ML 100 ML IV SCH ×2 (09:08→20:00)
[2021-04-07] MEDS: BUSPAR NG SCH ×2 (09:09→20:53)
[2021-04-07] MEDS: ELIQUIS NG SCH ×2 (09:09→20:53)
[2021-04-07] MEDS: LEVAQUIN PREMIX IV 500 MG 500 MG/100 ML BAG IV SCH (09:10)
[2021-04-07] MEDS: LACRI-LUBE S.O.P. AFFEYE SCH ×2 (09:10→20:53)
[2021-04-07] MEDS: ROBITUSSIN DM NG SCH ×4 (09:12→20:52)
[2021-04-07] MEDS: LEXAPRO NG SCH ×2 (09:12→20:53)
[2021-04-07] MEDS: MILK OF MAGNESIA NG SCH (09:12)
[2021-04-07] MEDS: PROTONIX INJ 40 MG VIAL IVP SCH ×2 (09:12→20:52)
[2021-04-07] MEDS: NORMODYNE INJ 20 MG VIAL IV PRN ×3 (13:46→18:32)
[2021-04-07] MEDS: MUCOMYST (RESPIRATORY USE ONLY) NEB SCH ×2 (14:21→21:46)
[2021-04-07] MEDS: MORPHINE SULFATE INJ 2 MG INJ IVP PRN (18:19)
[2021-04-07] MEDS: CALCIUM GLUCONATE IV SCH ×5 (21:00)
[2021-04-07] MEDS: MVI IV SCH ×5 (21:00)
[2021-04-07] MEDS: [UNRECOGNIZED DRUG - OTHER] IV SCH ×5 (21:00)
[2021-04-07] MEDS: CLINIMIX IV SCH ×5 (21:00)
[2021-04-08] MEDS: DIPRIVAN PREMIX 1 GRAM IV 1,000 MG/100 ML VIAL IV PRN ×5 (00:44→22:31)
[2021-04-08] MEDS: SOLU-Medrol 125 MG VIAL IVP SCH ×4 (03:21→21:13)
[2021-04-08 04:24] LABS: ABG BASE EXCESS 14.8 mmol/L (-2.0-2.0)
[2021-04-08 04:25] LABS: ABG HCO3 42.2 mmol/L (22-26)
[2021-04-08] MEDS: FORTAZ or TAZICEF VIAL INJ 1 G in NS 50 ML IV + SPIKE MINIBAG* 50 ML IV SCH ×3 (05:07→22:29)
[2021-04-08] MEDS: ZEMURON 100 MG VIAL 500 MG in NS 500 ML IV 450 ML IV PRN ×2 (05:07→10:37)
[2021-04-08] MEDS: REGLAN SYRUP 10 MG UDC GT SCH ×3 (05:16→22:30)
[2021-04-08 05:43] LABS: BASOPHILS % (AUTO) 0.1 % (0.2-1.0); HEMATOCRIT 37.8 % (42.0-54.0); HEMOGLOBIN 12.8 g/dL (13.5-18.0); LYMPHOCYTES # (AUTO) 0.1 X10^3/uL (1.3-2.9); LYMPHOCYTES % (AUTO) 2.1 % (21.0-51.0); MEAN CORPUSCULAR HGB CONC 33.8 g/dL (33.0-35.0); MEAN CORPUSCULAR VOLUME 91.8 fL (80.0-100.0); MEAN PLATELET VOLUME 8.9 fL (7.4-11.0); MONOCYTES # (AUTO) 0.1 x10^3/uL (0.3-0.8); MONOCYTES % (AUTO) 2.8 % (0.0-13.0); NEUTROPHILS # (AUTO) 4.2 x10^3/uL (2.2-4.8); PLATELET COUNT 34 X10^3/uL (150.0-450.0); RED BLOOD COUNT 4.12 X10^6/uL (4.7-6.0); RED CELL DISTRIBUTION WIDTH 13.7 % (11.6-16.5); WHITE BLOOD COUNT 4.4 X10^3/uL (3.6-10.0)
[2021-04-08] MEDS: VERSED IV PREMIX 100 MG/100 ML IV.SOLN IV PRN ×3 (05:56→18:02)
[2021-04-08 06:02] LABS: ALANINE AMINOTRANSFERASE 62 Units/L (12-78); ALBUMIN 2.8 g/dL (3.4-5.0); ALKALINE PHOSPHATASE 51 Units/L (46-116); ASPARTATE AMINO TRANSFERASE 30 Units/L (15-37); BLOOD UREA NITROGEN 22 mg/dL (7-18); CALCIUM 7.6 mg/dL (8.5-10.1); CARBON DIOXIDE 38.3 mmol/L (21-32); CHLORIDE 108 mmol/L (98-107); COR CA(FOR HYPOALB) 8.6 mg/dL (8.5-10.1); COR NA(FOR HYPERGLY) 146 mmol/L (136-145); CREATININE 0.26 mg/dL (0.70-1.30); SODIUM 145 mmol/L (136-145); TOTAL PROTEIN 5.3 g/dL (6.4-8.2); eGFR NON BLACK RACES > 60 (>60)
[2021-04-08] MEDS: ACCUNEB 1.25 MG NEBULE NEB SCH ×3 (06:12→21:50)
[2021-04-08 06:17] LABS: PLATELET MORPHOLOGY COMMENT NORMAL (NORMAL)
[2021-04-08] MEDS: K-RIDER 10 MEQ/NS 100 ML 10 MEQ/100 ML BAG IV PRN ×2 (06:38→10:39)
--- NOTE | 2021-04-08 08:33 | RAD ---
HISTORYSOB COVID-19 pneumoniaSTUDYPortable AP [id number]/18/2021FINDINGSNo change in cardiomegaly or appearance of bilateral confluent airspace disease obscuring the bases and diaphragm surfaces. Stable position of support lines. No pneumothorax seen.IMPRESSIONNo significant change in appearance of bilateral pneumonia. Component of superimposed pulmonary edema may be present.Electronically signed by: ESTEPHANIA ROB (Apr 08, 2021 08:31:17)
[2021-04-08] MEDS ORDERED: LEXAPRO ONE ×2 (08:42→19:43)
[2021-04-08] MEDS: PULMICORT NEB TX 0.5 MG NEB SCH ×2 (08:45→21:50)
[2021-04-08] MEDS: LEXAPRO NG SCH ×2 (08:53→21:18)
[2021-04-08] MEDS: ELIQUIS NG SCH ×2 (08:53→21:17)
[2021-04-08] MEDS: PROTONIX INJ 40 MG VIAL IVP SCH ×2 (08:54→21:13)
[2021-04-08] MEDS: LEVAQUIN PREMIX IV 500 MG 500 MG/100 ML BAG IV SCH (08:54)
[2021-04-08] MEDS: MILK OF MAGNESIA NG SCH (08:54)
[2021-04-08] MEDS: ROBITUSSIN DM NG SCH ×4 (08:54→21:17)
[2021-04-08] MEDS: BUSPAR NG SCH ×2 (08:55→21:18)
[2021-04-08] MEDS: LACRI-LUBE S.O.P. AFFEYE SCH ×2 (09:43→21:13)
[2021-04-08] MEDS: NORMODYNE INJ 20 MG VIAL IV PRN ×7 (09:58→23:45)
[2021-04-08] MEDS: ALBUMIN HUMAN 25%- 100 ML 100 ML IV SCH ×2 (10:38→20:00)
[2021-04-08] MEDS ORDERED: PHARMACY CONSULT - IVERMECTIN XX SCH (13:00)
[2021-04-08] MEDS: MUCOMYST (RESPIRATORY USE ONLY) NEB SCH ×2 (14:45→21:50)
[2021-04-08] MEDS: IVERMECTIN PO SCH (15:00)
[2021-04-08] MEDS: MORPHINE SULFATE INJ 2 MG INJ IVP PRN (15:00)
[2021-04-08] MEDS: [UNRECOGNIZED DRUG - OTHER] IV SCH ×5 (22:32)
[2021-04-08] MEDS: CALCIUM GLUCONATE IV SCH ×5 (22:32)
[2021-04-08] MEDS: CLINIMIX IV SCH ×5 (22:32)
[2021-04-08] MEDS: MVI IV SCH ×5 (22:32)
[2021-04-09] MEDS: VERSED IV PREMIX 100 MG/100 ML IV.SOLN IV PRN ×4 (01:32→21:51)
[2021-04-09] MEDS: NS 100 ML IV 100 ML IV PRN (01:32)
[2021-04-09] MEDS: ZEMURON 100 MG VIAL 500 MG in NS 500 ML IV 450 ML IV PRN ×3 (01:32→18:26)
[2021-04-09] MEDS: SOLU-Medrol 125 MG VIAL IVP SCH ×4 (02:57→21:45)
[2021-04-09] MEDS: DIPRIVAN PREMIX 1 GRAM IV 1,000 MG/100 ML VIAL IV PRN ×5 (02:57→21:06)
[2021-04-09] MEDS: NORMODYNE INJ 20 MG VIAL IV PRN ×3 (03:01→18:07)
[2021-04-09 04:04] LABS: ABG BASE EXCESS 19.9 mmol/L (-2.0-2.0)
[2021-04-09 04:05] LABS: ABG HCO3 48.9 mmol/L (22-26)
[2021-04-09] MEDS: MORPHINE SULFATE INJ 2 MG INJ IVP PRN (04:30)
[2021-04-09] MEDS: ACCUNEB 1.25 MG NEBULE NEB SCH ×3 (06:17→21:46)
--- NOTE | 2021-04-09 06:32 | RAD ---
HISTORYSOBSTUDYCHEST, 1 VIEWCOMPARISONOne day prior.TECHNIQUEAP view of the chestFINDINGSET tube in good position. NG tube courses below the visualized field of view. The cardiac silhouette is stably enlarged. Mediastinal contours appear stable. No significant change in bilateral airspace and interstitial pulmonary opacities. No discernible pleural effusion or pneumothorax. Soft tissue attenuation limits evaluation.IMPRESSIONNo significant change.Electronically signed by: Alphonso Hobbs (Apr 09, 2021 06:31:24)
[2021-04-09] MEDS: FORTAZ or TAZICEF VIAL INJ 1 G in NS 50 ML IV + SPIKE MINIBAG* 50 ML IV SCH ×3 (06:39→21:15)
[2021-04-09] MEDS: REGLAN SYRUP 10 MG UDC GT SCH ×3 (06:40→21:03)
--- NOTE | 2021-04-09 06:42 | RAD ---
HISTORYNG TUBE PLACEMENT, COVID PNEUMONIASTUDYKUBCOMPARISONNoneTECHNIQUEKUB, 2 images.FINDINGSNG tube in good position. Bibasilar air space opacities, worse on the right. No free airIMPRESSIONNG tube in good position.Electronically sig raymond by: Alphonso Hobbs (Apr 09, 2021 06:40:39)
[2021-04-09 06:44] LABS: BASOPHILS % (AUTO) 0.1 % (0.2-1.0); HEMATOCRIT 34.5 % (42.0-54.0); HEMOGLOBIN 11.6 g/dL (13.5-18.0); LYMPHOCYTES # (AUTO) 0.1 X10^3/uL (1.3-2.9); LYMPHOCYTES % (AUTO) 2.5 % (21.0-51.0); MEAN CORPUSCULAR HEMOGLOBIN 30.8 pg (27.0-34.0); MEAN CORPUSCULAR HGB CONC 33.7 g/dL (33.0-35.0); MEAN CORPUSCULAR VOLUME 91.4 fL (80.0-100.0); MEAN PLATELET VOLUME 9.1 fL (7.4-11.0); MONOCYTES # (AUTO) 0.1 x10^3/uL (0.3-0.8); MONOCYTES % (AUTO) 3.3 % (0.0-13.0); NEUTROPHILS # (AUTO) 3.5 x10^3/uL (2.2-4.8); NEUTROPHILS % (AUTO) 94.1 % (42.0-75.0); PLATELET COUNT 43 X10^3/uL (150.0-450.0); RED BLOOD COUNT 3.77 X10^6/uL (4.7-6.0); RED CELL DISTRIBUTION WIDTH 13.7 % (11.6-16.5); WHITE BLOOD COUNT 3.7 X10^3/uL (3.6-10.0)
[2021-04-09 06:50] LABS: ALANINE AMINOTRANSFERASE 55 Units/L (12-78); ALBUMIN 2.6 g/dL (3.4-5.0); ALKALINE PHOSPHATASE 46 Units/L (46-116); ASPARTATE AMINO TRANSFERASE 22 Units/L (15-37); BLOOD UREA NITROGEN 17 mg/dL (7-18); CALCIUM 7.5 mg/dL (8.5-10.1); CARBON DIOXIDE 39.3 mmol/L (21-32); CHLORIDE 109 mmol/L (98-107); COR CA(FOR HYPOALB) 8.6 mg/dL (8.5-10.1); COR NA(FOR HYPERGLY) 147 mmol/L (136-145); SODIUM 146 mmol/L (136-145); TOTAL PROTEIN 4.7 g/dL (6.4-8.2); eGFR NON BLACK RACES > 60 (>60)
[2021-04-09 06:55] LABS: CREATININE 0.14 mg/dL (0.70-1.30)
[2021-04-09 07:38] LABS: PLATELET MORPHOLOGY COMMENT NORMAL (NORMAL)
[2021-04-09 08:08] LABS: MAGNESIUM 2.5 mg/dL (1.7-2.9); PHOSPHORUS 1.6 mg/dL (2.6-4.7)
[2021-04-09] MEDS ORDERED: LEXAPRO ONE ×2 (08:22→19:44)
[2021-04-09] MEDS: LEVAQUIN PREMIX IV 500 MG 500 MG/100 ML BAG IV SCH (08:24)
[2021-04-09] MEDS: ALBUMIN HUMAN 25%- 100 ML 100 ML IV SCH ×2 (08:24→20:00)
[2021-04-09] MEDS: PROTONIX INJ 40 MG VIAL IVP SCH ×2 (08:25→21:40)
[2021-04-09] MEDS: MILK OF MAGNESIA NG SCH (08:25)
[2021-04-09] MEDS: ELIQUIS NG SCH ×2 (08:26→21:02)
[2021-04-09] MEDS: LEXAPRO NG SCH ×2 (08:27→21:15)
[2021-04-09] MEDS: BUSPAR NG SCH ×2 (08:27→21:15)
[2021-04-09] MEDS: ROBITUSSIN DM NG SCH ×4 (08:28→21:15)
[2021-04-09] MEDS: LACRI-LUBE S.O.P. AFFEYE SCH ×2 (08:28→21:50)
--- NOTE | 2021-04-09 08:46 | PCM.PROG ---
Progress Note - Progress Note for Day of Date of Exam: 04/06/21 - Subjective Subjective: MR. MARMOLEJO WAS ADMITTED FOR TREATMENT OF COVID PNEUMONIA AND HYPOXIA. PMH: OBESITY, GERD, HTN. HE REMAINS IN THE INTENSIVE CARE UNIT ON THE MECHANICAL VENT TODAY. HE WAS PLACED ON THE VENT ON 03/28/21. TODAY, HE IS SEDATED, LYING IN BED ON MORNING ROUNDS. HIS VENT SETTINGS THIS MORNING ARE: A/C , RATE 22, TIDAL VOLUME 550, PEEP 12, FI02 90. STAFF REPORTS THAT HIS HEART RATE HAS DROPPED INTO THE 40s SEVERAL TIMES THROUGHOUT THE NIGHT AND THIS MORNING. HIS SATURATIONS HAVE BEEN 91-94%. ON EXAMINATION, HEART IS REGULAR IN RATE AND RHYTHM. BILATERAL LUNGS ARE NOTED WITH DIMINISHED LUNG SOUNDS THROUGHOUT. ABDOMEN IS ROUND, SOFT, AND NON-TENDER WITH NORMAL BOWEL SOUNDS NOTED IN ALL QUADRANTS. HIS VITALS THIS MORNING ARE: 97.2-50-27-91%-139/65. LABS WERE OBTAINED. ABNORMAL LAB VALUES INCLUDE THE FOLLOWING: RBC 3.69, HGB 11.4, HCT 33.3, PLT COUNT 32, CARBON DIOXIDE 38.6, BUN 25, CREATININE 0.34, GLUCOSE 163, CALCIUM 7.5, BNP 107, TOTAL PROTEIN 4.6, ALBUMIN 2.2. ABG REVEALED: PH 7.460, PC02 62, P02 60, HC03 44.1, 02 SAT 92, BASE EXCESS 17.2, A-A GRADIENT 504, FI02 90. A CHEST XRAY WAS OBTAINED AND REVEALED: ET tube in good position. NG tube courses below the visualized field of view. The cardiac silhouette is stably enlarged. Mediastinal contours appear stable. No significant change in bilateral airspace and interstitial opacities. No definite pleural effusion or pneumothorax. HE IS CURRENTLY RECEIVING TPN, STEROIDS, IV ANTIBIOTICS, ALBUMIN 25% IV BID, ELIQUIS 1.25 MG PO BID, NEB [place], MUCOMYST IN [place], MOPRHINE 2MG IV Q4H PRN, LEXAPRO 20MG NG TUBE BID, LABETALOL PRN, BUSPAR 5MG NG TUBE BID, ROBITUSSIN DM NG TUBE QID, PROTONIX IV BID, REGLAN 5MG GT TID, VERSED DRIP, DIPROVAN DRIP, VERCURONIUM DRIP. WE WILL CONTINUE WITH CURRENT PLAN OF CARE TODAY. OTHERWISE, WE WILL CONTINUE WITH CURRENT PLAN OF CARE. WE WILL FOLLOW UP WITH AM LABS, CHEST XRAY, ABG, AND CONTINUE TO MONITOR. WE WILL DECREASE OXYGEN HE TOLERATES IT. TIME SPENT ON CLINICAL ASSESSMENT, REVIEWING LABS AND IMAGING, DECISION MAKING, AND DOCUMENTATION GREATER THAN 75 MINUTES. - Past Medical Family Social History Past Med/Fam/Surg Hx: No changes since H&P Allergies: Allergies No Allergy Information Available Allergy (Verified 03/14/21 14:24) - Review of Systems ROS: No change since H&P - Vital Signs and I&O's Vital Signs: Temperature 97.6 F Pulse Rate [Right Brachial] 61 Pulse Rate [Left Radial] 85 Pulse Rate 70 Respiratory Rate 24 Blood Pressure [Right Arm] 142/73 Blood Pressure [Left Arm] 116/63 Blood Pressure 138/66 O2 Sat by Pulse Oximetry 90 Intake and Output: Intake & Output 04/06/21 04/07/21 04/08/21 04/09/21 11:59 11:59 11:59 11:59 Intake Total 5658 / 5658 6275 / 6275 6522 / 6522 5631 / 5631 Output Total 2900 / 2900 2500 / 2500 2650 / 2650 4600 / 4600 Balance 2758 / 2758 3775 / 3775 3872 / 3872 1031 / 1031 - Physical Exam Oriented: Unable to test Eyes: Normal Ear: Normal Nose: Normal Throat: Normal Respiratory: Generalized, Diminished Cardiovascular: Normal : Normal Auscultation: Bowel Sounds: Normal Tenderness: Normal Skin: Normal Musculoskeletal: Normal Psychiatric: Other (SEDATED) Mood Description: Calm Affect: Anxious Speech Pattern: Artificially Ventilated - Laboratory and Diagnostics Result Diagrams: 04/09/21 05:16 04/09/21 05:16 Labs: 03/14/21 16:39 Blood Blood Culture - Final 03/14/21 16:35 Blood Blood Culture - Final 03/18/21 01:03 Sputum - Expectorated Sputum Sputum Culture - Final 03/18/21 01:03 Sputum - Expectorated Sputum - Final Laboratory WBC 3.7 X10^3/uL (3.6-10.0) 04/09/21 05:16 RBC 3.77 X10^6/uL (4.7-6.0) L 04/09/21 05:16 Hgb 11.6 g/dL (13.5-18.0) L 04/09/21 05:16 Hct 34.5 % (42.0-54.0) L 04/09/21 05:16 MCV 91.4 fL (80.0-100.0) 04/09/21 05:16 MCH 30.8 pg (27.0-34.0) 04/09/21 05:16 MCHC 33.7 g/dL (33.0-35.0) 04/09/21 05:16 RDW 13.7 % (11.6-16.5) 04/09/21 05:16 Plt Count 43 X10^3/uL (150.0-450.0) L 04/09/21 05:16 Plt Count Comment Decreased (ADEQUATE) 04/09/21 05:16 MPV 9.1 fL (7.4-11.0) 04/09/21 05:16 Neut % (Auto) 94.1 % (42.0-75.0) H 04/09/21 05:16 Lymph % (Auto) 2.5 % (21.0-51.0) L 04/09/21 05:16 [place] % (Auto) 3.3 % (0.0-13.0) 04/09/21 05:16 Eos % (Auto) 0.0 % (0.9-2.9) L 04/09/21 05:16 Baso % (Auto) 0.1 % (0.2-1.0) L 04/09/21 05:16 Neut # (Auto) 3.5 x10^3/uL (2.2-4.8) 04/09/21 05:16 Lymph # (Auto) 0.1 X10^3/uL (1.3-2.9) L 04/09/21 05:16 [place] # (Auto) 0.1 x10^3/uL (0.3-0.8) L 04/09/21 05:16 Eos # (Auto) 0.0 x10^3/uL (0.0-0.2) 04/09/21 05:16 Baso # (Auto) 0.0 X10^3/uL (0.0-0.1) 04/09/21 05:16 Absolute Nucleated RBC 0.1 /100WBC 04/09/21 05:16 Total Counted 100 04/09/21 05:16 Neutrophils % (Manual) 95 % (39-76) H 04/09/21 05:16 Band Neutrophils % 4 % (0-10) 04/06/21 05:23 Lymphocytes % (Manual) 4 % (13-43) L 04/09/21 05:16 Monocytes % (Manual) 1 % (4-9) L 04/09/21 05:16 Eosinophils % (Manual) 1 % (0-6) 04/05/21 05:40 Metamyelocytes % 1 04/05/21 05:40 Giant Platelets Rare 04/04/21 05:07 Plt Morphology Comment Normal (NORMAL) 04/09/21 05:16 RBC Morphology Normal (NORMAL) 04/09/21 05:16 Hypochromasia Slight A 04/03/21 04:33 PT 14.2 SECONDS (11.8-14.3) 03/20/21 07:07 INR Target Range - 03/20/21 07:07 INR 1.16 (0.8-1.3) 03/20/21 07:07 APTT 26.6 SECONDS (22.9-36.5) 03/17/21 06:05 PTT Comment - 03/17/21 06:05 D-Dimer 0.92 ug/ml (0.0-0.57) H* 04/06/21 14:14 Sample Site Art line 04/09/21 04:02 ABG pH 7.400 (7.35-7.45) 04/09/21 04:02 ABG pCO2 79.0 mmHg (35.0-45.0) H* 04/09/21 04:02 ABG pO2 67.0 mmHg (80.0-100.0) L 04/09/21 04:02 ABG HCO3 48.9 mmol/L (22-26) H* 04/09/21 04:02 ABG O2 Saturation 93.0 % (90-100) 04/09/21 04:02 ABG Base Excess 19.9 mmol/L (-2.0-2.0) H 04/09/21 04:02 Corky Test N/a 04/09/21 04:02 A-a Gradient 547.0 mmHg 04/09/21 04:02 FiO2 100.0 04/09/21 04:02 Blood Gas Comments Michael well mts 04/09/21 04:02 Sodium 146 mmol/L (136-145) H 04/09/21 05:16 Corrected Sodium 147 mmol/L (136-145) H 04/09/21 05:16 Potassium 3.8 mmol/L (3.5-5.1) 04/09/21 05:16 Chloride 109 mmol/L (98-107) H 04/09/21 05:16 Carbon Dioxide 39.3 mmol/L (21-32) H 04/09/21 05:16 BUN 17 mg/dL (7-18) 04/09/21 05:16 Creatinine 0.14 mg/dL (0.70-1.30) L 04/09/21 05:16 Est GFR (MDRD) Af Amer > 60 (>60) 04/09/21 05:16 Est GFR (MDRD) Non-Af > 60 (>60) 04/09/21 05:16 Glucose 123 mg/dL (65-99) H 04/09/21 05:16 POC Glucose (mg/dL) 117 mg/dL (65-99) H 04/09/21 07:48 Lactic Acid 1.5 mmol/L (0.4-2.0) 04/06/21 14:14 Calcium 7.5 mg/dL (8.5-10.1) L 04/09/21 05:16 Corrected Calcium 8.6 mg/dL (8.5-10.1) 04/09/21 05:16 Phosphorus 1.6 mg/dL (2.6-4.7) L 04/09/21 05:16 Magnesium 2.5 mg/dL (1.7-2.9) 04/09/21 05:16 Ferritin 2585 ng/mL (26-388) H 03/23/21 05:21 Total Bilirubin 0.40 mg/dL (0.2-1.0) 04/09/21 05:16 AST 22 Units/L (15-37) 04/09/21 05:16 ALT 55 Units/L (12-78) 04/09/21 05:16 Alkaline Phosphatase 46 Units/L (46-116) 04/09/21 05:16 Creatine Kinase 228 Units/L (39-308) 04/06/21 21:30 CK-MB (CK-2) < 1.0 ng/mL (0-4.0) 04/06/21 21:30 CK/CKMB % Calc 0.4 % (<4) 04/06/21 21:30 Troponin I < 0.02 ng/mL (0-1.5) 04/06/21 21:30 C-Reactive Protein 1.10 mg/L (0-3.0) 03/31/21 04:00 B-Natriuretic Peptide 431 pg/mL (0-79) H 04/09/21 05:16 Total Protein 4.7 g/dL (6.4-8.2) L 04/09/21 05:16 Albumin 2.6 g/dL (3.4-5.0) L 04/09/21 05:16 Globulin 2.1 g/dL (2.5-4.5) L 04/09/21 05:16 Albumin/Globulin Ratio 1.2 Ratio (1.1-2.1) 04/09/21 05:16 Prealbumin 31.8 mg/dL (18-35.7) 04/07/21 04:15 Triglycerides 119 mg/dL (0-150) 04/09/21 05:16 Specimen Type Catherized urine 03/28/21 05:47 Urine Color Yellow (YELLOW) 03/28/21 05:47 Urine Appearance Clear (CLEAR) 03/28/21 05:47 Urine pH 6.0 (5.0 - 8.0) 03/28/21 05:47 Ur Specific [place] 1.020 (1.000-1.030) 03/28/21 05:47 Urine Protein 2+ (NEGATIVE) 03/28/21 05:47 Urine Glucose (UA) Negative (NEGATIVE) 03/28/21 05:47 Urine Ketones Negative (NEGATIVE) 03/28/21 05:47 Urine Occult Blood Negative (NEGATIVE) 03/28/21 05:47 Urine Nitrite Negative (NEGATIVE) 03/28/21 05:47 Urine Bilirubin Negative (NEGATIVE) 03/28/21 05:47 Urine Urobilinogen Normal (NORMAL) 03/28/21 05:47 Ur Leukocyte Esterase Negative (NEGATIVE) 03/28/21 05:47 Urine RBC 0-2 /HPF (0-3) 03/28/21 05:47 Urine WBC 0-2 /HPF (0-5) 03/28/21 05:47 Ur Squamous Epith Cells Rare /HPF (NEGATIVE) 03/28/21 05:47 Urine Bacteria Negative /HPF (NEGATIVE) 03/28/21 05:47 Urine Mucus Few /HPF (NEGATIVE) 03/28/21 05:47 Ur Culture Indicated? No/not indicated 03/28/21 05:47 - Plan (1) Pneumonia due to COVID-19 virus Status: Acute Plan: MECHANICAL VENT, TPN, ALBUMIN 25% IV DAILY, STEROIDS, IV ANTIBIOTICS, ELIQUIS 1.25MG NG TUBE BID, REGLAN 5MG TID, MILK OF MAGNESIA 30ML NG TUBE DAILY, NEB TX, MUCOMYST IN NEB TX, MOPRHINE 2MG IV Q4H PRN, LEXAPRO 20MG NG TUBE BID, BUSPAR 5MG NG TUBE BID, ROBITUSSIN DM NG TUBE QID, PROTONIX IV BID, VERSED DRIP, DIPROVAN DRIP, VERCURONIUM DRIP. (2) Hypoxia Status: Acute (3) HTN (hypertension) Status: Chronic Qualifiers: Hypertension type: primary hypertension Qualified Code(s): I10 - Essential (primary) hypertension (4) GERD (gastroesophageal reflux disease) Status: Chronic Qualifiers: Esophagitis presence: esophagitis presence not specified Qualified Code(s): K21.9 - Gastro-esophageal reflux disease without esophagitis (5) Obesity Status: Chronic Qualifiers: Obesity type: unspecified obesity type Obesity classification: adult class 2 (BMI 35 - 39.9) Serious obesity comorbidity presence: unspecified whether serious comorbidity present Body mass index: BMI 36.0-36.9 Qualified Cod e(s): E66.9 - Obesity, unspecified; Z68.36 - Body mass index [BMI] 36.0-36.9, adult
[2021-04-09] MEDS: PULMICORT NEB TX 0.5 MG NEB SCH ×2 (08:50→21:46)
--- NOTE | 2021-04-09 09:45 | PCM.PROG ---
Progress Note - Progress Note for Day of Date of Exam: 04/09/21 - Subjective Subjective: MR. MARMOLEJO WAS ADMITTED FOR TREATMENT OF COVID PNEUMONIA AND HYPOXIA. PMH: OBESITY, GERD, HTN. HE REMAINS IN THE INTENSIVE CARE UNIT ON THE MECHANICAL VENT TODAY. HE WAS PLACED ON THE VENT ON 03/28/21. TODAY, HE IS SEDATED, LYING IN BED ON MORNING ROUNDS. HIS VENT SETTINGS THIS MORNING ARE: A/C , RATE 22, TIDAL VOLUME 550, PEEP 12, FI02 100. HIS SATURATIONS HAVE BEEN 87- 94%. HE HAS BEEN PLACED IN THE PRONE POSITION SOME OVER THE WEEKEND. SATURATIONS REMAIN IN THE 90s WHILE IN THE PRONE POSITION, HOWEVER, WHEN PLACED BACK IN SUPINE POSITION, SATURATIONS DROP TO THE 70-80s AND IT TAKES PATIENT A WHILE TO RECOVER BACK TO THE 90s. ON EXAMINATION, HEART IS REGULAR IN RATE AND RHYTHM. BILATERAL LUNGS ARE NOTED WITH DIMINISHED LUNG SOUNDS THROUGHOUT. ABDOMEN IS ROUND, SOFT, AND NON-TENDER WITH NORMAL BOWEL SOUNDS NOTED IN ALL QUADRANTS. HIS VITALS THIS MORNING ARE: 97.3-10-40-90-138/66. LABS WERE OBTAINED. ABNORMAL LAB VALUES INCLUDE THE FOLLOWING: RBC 3.77, HGB 11.6, HCT 34.5, PLT COUNT 43, SODIUM 146, CHLORIDE 109, CARBON DIOXIDE 39.3, CREATININE 0.14, GLUCOSE 123, CALCIUM 7.5, PHOSPHORUS 1.6, BNP 431, TOTAL PROTEIN 4.7, ALBUMIN 2.6, GLOBULIN 2.1. ABG REVEALED: PH 7.400, PC02 79, P02 67, HC03 48.9, 02 SAT 93, BASE EXCESS 19.9, A-A GRADIENT 547, FI02 100. A CHEST XRAY WAS OBTAINED AND REVEALED: ET tube in good position. NG tube courses below the visualized field of view. The cardiac silhouette is stably enlarged. Mediastinal contours appear stable. No significant change in bilateral\ airspace and interstitial pulmonary opacities. No discernible pleural effusion or pneumothorax. Soft tissue attenuation limits evaluation. HE IS CURRENTLY RECEIVING TPN, STEROIDS, IV ANTIBIOTICS, ALBUMIN 25% IV BID, ELIQUIS 1.25 MG PO BID, NEB TX, MUCOMYST IN NEB [place], MOPRHINE 2MG IV Q4H PRN, ATROPINE PRN, LEXAPRO 20MG NG TUBE BID, LABETALOL PRN, BUSPAR 5MG NG TUBE BID, ROBITUSSIN DM NG TUBE QID, PROTONIX IV BID, REGLAN 5MG GT TID, VERSED DRIP, DIPROVAN DRIP, VERCURONIUM DRIP. WE WILL CONTINUE WITH CURRENT PLAN OF CARE TODAY AND ADD DIFLUCAN 200MG IV BID. OTHERWISE, WE WILL CONTINUE WITH CURRENT PLAN OF CARE. WE WILL FOLLOW UP WITH AM LABS, CHEST XRAY, ABG, AND CONTINUE TO MONITOR. WE WILL DECREASE OXYGEN HE TOLERATES IT. TIME SPENT ON CLINICAL ASSESSMENT, REVIEWING LABS AND IMAGING, DECISION MAKING, AND DOCUMENTATION GREATER THAN 75 MINUTES. - Past Medical Family Social History Past Med/Fam/Surg Hx: No changes since H&P Allergies: Allergies No Allergy Information Available Allergy (Verified 03/14/21 14:24) - Review of Systems ROS: No change since H&P - Vital Signs and I&O's Vital Signs: Temperature 97.6 F Pulse Rate [Right Brachial] 61 Pulse Rate [Left Radial] 85 Pulse Rate 70 Respiratory Rate 24 Blood Pressure [Right Arm] 142/73 Blood Pressure [Left Arm] 116/63 Blood Pressure 138/66 O2 Sat by Pulse Oximetry 90 Intake and Output: Intake & Output 04/06/21 04/07/21 04/08/21 04/09/21 11:59 11:59 11:59 11:59 Intake Total 5658 / 5658 6275 / 6275 6522 / 6522 5631 / 5631 Output Total 2900 / 2900 2500 / 2500 2650 / 2650 4600 / 4600 Balance 2758 / 2758 3775 / 3775 3872 / 3872 1031 / 1031 - Physical Exam Oriented: Unable to test Eyes: Normal Ear: Normal Nose: Normal Throat: Normal Respiratory: Generalized, Diminished Cardiovascular: Normal : Normal Auscultation: Bowel Sounds: Normal Tenderness: Normal Skin: Normal Musculoskeletal: Normal Psychiatric: Other (SEDATED) Mood Description: Calm Affect: Anxious Speech Pattern: Artificially Ventilated - Laboratory and Diagnostics Result Diagrams: 04/09/21 05:16 04/09/21 05:16 Labs: 03/14/21 16:39 Blood Blood Culture - Final 03/14/21 16:35 Blood Blood Culture - Final 03/18/21 01:03 Sputum - Expectorated Sputum Sputum Culture - Final 03/18/21 01:03 Sputum - Expectorated Sputum - Final Laboratory WBC 3.7 X10^3/uL (3.6-10.0) 04/09/21 05:16 RBC 3.77 X10^6/uL (4.7-6.0) L 04/09/21 05:16 Hgb 11.6 g/dL (13.5-18.0) L 04/09/21 05:16 Hct 34.5 % (42.0-54.0) L 04/09/21 05:16 MCV 91.4 fL (80.0-100.0) 04/09/21 05:16 MCH 30.8 pg (27.0-34.0) 04/09/21 05:16 MCHC 33.7 g/dL (33.0-35.0) 04/09/21 05:16 RDW 13.7 % (11.6-16.5) 04/09/21 05:16 Plt Count 43 X10^3/uL (150.0-450.0) L 04/09/21 05:16 Plt Count Comment Decreased (ADEQUATE) 04/09/21 05:16 MPV 9.1 fL (7.4-11.0) 04/09/21 05:16 Neut % (Auto) 94.1 % (42.0-75.0) H 04/09/21 05:16 Lymph % (Auto) 2.5 % (21.0-51.0) L 04/09/21 05:16 [place] % (Auto) 3.3 % (0.0-13.0) 04/09/21 05:16 Eos % (Auto) 0.0 % (0.9-2.9) L 04/09/21 05:16 Baso % (Auto) 0.1 % (0.2-1.0) L 04/09/21 05:16 Neut # (Auto) 3.5 x10^3/uL (2.2-4.8) 04/09/21 05:16 Lymph # (Auto) 0.1 X10^3/uL (1.3-2.9) L 04/09/21 05:16 [place] # (Auto) 0.1 x10^3/uL (0.3-0.8) L 04/09/21 05:16 Eos # (Auto) 0.0 x10^3/uL (0.0-0.2) 04/09/21 05:16 Baso # (Auto) 0.0 X10^3/uL (0.0-0.1) 04/09/21 05:16 Absolute Nucleated RBC 0.1 /100WBC 04/09/21 05:16 Total Counted 100 04/09/21 05:16 Neutrophils % (Manual) 95 % (39-76) H 04/09/21 05:16 Band Neutrophils % 4 % (0-10) 04/06/21 05:23 Lymphocytes % (Manual) 4 % (13-43) L 04/09/21 05:16 Monocytes % (Manual) 1 % (4-9) L 04/09/21 05:16 Eosinophils % (Manual) 1 % (0-6) 04/05/21 05:40 Metamyelocytes % 1 04/05/21 05:40 Giant Platelets Rare 04/04/21 05:07 Plt Morphology Comment Normal (NORMAL) 04/09/21 05:16 RBC Morphology Normal (NORMAL) 04/09/21 05:16 Hypochromasia Slight A 04/03/21 04:33 PT 14.2 SECONDS (11.8-14.3) 03/20/21 07:07 INR Target Range - 03/20/21 07:07 INR 1.16 (0.8-1.3) 03/20/21 07:07 APTT 26.6 SECONDS (22.9-36.5) 03/17/21 06:05 PTT Comment - 03/17/21 06:05 D-Dimer 0.92 ug/ml (0.0-0.57) H* 04/06/21 14:14 Sample Site Art line 04/09/21 04:02 ABG pH 7.400 (7.35-7.45) 04/09/21 04:02 ABG pCO2 79.0 mmHg (35.0-45.0) H* 04/09/21 04:02 ABG pO2 67.0 mmHg (80.0-100.0) L 04/09/21 04:02 ABG HCO3 48.9 mmol/L (22-26) H* 04/09/21 04:02 ABG O2 Saturation 93.0 % (90-100) 04/09/21 04:02 ABG Base Excess 19.9 mmol/L (-2.0-2.0) H 04/09/21 04:02 Corky Test N/a 04/09/21 04:02 A-a Gradient 547.0 mmHg 04/09/21 04:02 FiO2 100.0 04/09/21 04:02 Blood Gas Comments Michael well mts 04/09/21 04:02 Sodium 146 mmol/L (136-145) H 04/09/21 05:16 Corrected Sodium 147 mmol/L (136-145) H 04/09/21 05:16 Potassium 3.8 mmol/L (3.5-5.1) 04/09/21 05:16 Chloride 109 mmol/L (98-107) H 04/09/21 05:16 Carbon Dioxide 39.3 mmol/L (21-32) H 04/09/21 05:16 BUN 17 mg/dL (7-18) 04/09/21 05:16 Creatinine 0.14 mg/dL (0.70-1.30) L 04/09/21 05:16 Est GFR (MDRD) Af Amer > 60 (>60) 04/09/21 05:16 Est GFR (MDRD) Non-Af > 60 (>60) 04/09/21 05:16 Glucose 123 mg/dL (65-99) H 04/09/21 05:16 POC Glucose (mg/dL) 117 mg/dL (65-99) H 04/09/21 07:48 Lactic Acid 1.5 mmol/L (0.4-2.0) 04/06/21 14:14 Calcium 7.5 mg/dL (8.5-10.1) L 04/09/21 05:16 Corrected Calcium 8.6 mg/dL (8.5-10.1) 04/09/21 05:16 Phosphorus 1.6 mg/dL (2.6-4.7) L 04/09/21 05:16 Magnesium 2.5 mg/dL (1.7-2.9) 04/09/21 05:16 Ferritin 2585 ng/mL (26-388) H 03/23/21 05:21 Total Bilirubin 0.40 mg/dL (0.2-1.0) 04/09/21 05:16 AST 22 Units/L (15-37) 04/09/21 05:16 ALT 55 Units/L (12-78) 04/09/21 05:16 Alkaline Phosphatase 46 Units/L (46-116) 04/09/21 05:16 Creatine Kinase 228 Units/L (39-308) 04/06/21 21:30 CK-MB (CK-2) < 1.0 ng/mL (0-4.0) 04/06/21 21:30 CK/CKMB % Calc 0.4 % (<4) 04/06/21 21:30 Troponin I < 0.02 ng/mL (0-1.5) 04/06/21 21:30 C-Reactive Protein 1.10 mg/L (0-3.0) 03/31/21 04:00 B-Natriuretic Peptide 431 pg/mL (0-79) H 04/09/21 05:16 Total Protein 4.7 g/dL (6.4-8.2) L 04/09/21 05:16 Albumin 2.6 g/dL (3.4-5.0) L 04/09/21 05:16 Globulin 2.1 g/dL (2.5-4.5) L 04/09/21 05:16 Albumin/Globulin Ratio 1.2 Ratio (1.1-2.1) 04/09/21 05:16 Prealbumin 31.8 mg/dL (18-35.7) 04/07/21 04:15 Triglycerides 119 mg/dL (0-150) 04/09/21 05:16 Specimen Type Catherized urine 03/28/21 05:47 Urine Color Yellow (YELLOW) 03/28/21 05:47 Urine Appearance Clear (CLEAR) 03/28/21 05:47 Urine pH 6.0 (5.0 - 8.0) 03/28/21 05:47 Ur Specific [place] 1.020 (1.000-1.030) 03/28/21 05:47 Urine Protein 2+ (NEGATIVE) 03/28/21 05:47 Urine Glucose (UA) Negative (NEGATIVE) 03/28/21 05:47 Urine Ketones Negative (NEGATIVE) 03/28/21 05:47 Urine Occult Blood Negative (NEGATIVE) 03/28/21 05:47 Urine Nitrite Negative (NEGATIVE) 03/28/21 05:47 Urine Bilirubin Negative (NEGATIVE) 03/28/21 05:47 Urine Urobilinogen Normal (NORMAL) 03/28/21 05:47 Ur Leukocyte Esterase Negative (NEGATIVE) 03/28/21 05:47 Urine RBC 0-2 /HPF (0-3) 03/28/21 05:47 Urine WBC 0-2 /HPF (0-5) 03/28/21 05:47 Ur Squamous Epith Cells Rare /HPF (NEGATIVE) 03/28/21 05:47 Urine Bacteria Negative /HPF (NEGATIVE) 03/28/21 05:47 Urine Mucus Few /HPF (NEGATIVE) 03/28/21 05:47 Ur Culture Indicated? No/not indicated 03/28/21 05:47 - Plan (1) Pneumonia due to COVID-19 virus Status: Acute Plan: MECHANICAL VENT, TPN, ALBUMIN 25% IV DAILY, STEROIDS, IV ANTIBIOTICS, ELIQUIS 1.25MG NG TUBE BID, DIFLUCAN 200MG IV DAILY, REGLAN 5MG TID, MILK OF MAGNESIA 30ML NG TUBE DAILY, NEB TX, MUCOMYST IN NEB [place], MOPRHINE 2MG IV Q4H PRN, LEXAPRO 20MG NG TUBE BID, BUSPAR 5MG NG TUBE BID, ROBITUSSIN DM NG TUBE QID, PROTONIX IV BID, VERSED DRIP, DIPROVAN DRIP, VERCURONIUM DRIP. (2) Hypoxia Status: Acute (3) HTN (hypertension) Status: Chronic Qualifiers: Hypertension type: primary hypertension Qualified Code(s): I10 - Essential (primary) hypertension (4) GERD (gastroesophageal reflux disease) Status: Chronic Qualifiers: Esophagitis presence: esophagitis presence not specified Qualified Code(s): K21.9 - Gastro-esophageal reflux disease without esophagitis (5) Obesity Status: Chronic Qualifiers: Obesity type: unspecified obesity type Obesity classification: adult class 2 (BMI 35 - 39.9) Serious obesity comorbidity presence: unspecified whether serious comorbidity present Body mass index: BMI 36.0-36.9 Qualified Code(s): E66.9 - Obesity, unspecified; Z68.36 - Body mass index [BMI] 36.0-36.9, adult
[2021-04-09] MEDS: IVERMECTIN PO SCH (10:38)
[2021-04-09] MEDS: DIFLUCAN 200 MG IV PREMIX* 200 MG/100 ML BAG IV SCH (10:38)
[2021-04-09] MEDS: MUCOMYST (RESPIRATORY USE ONLY) NEB SCH ×2 (14:13→21:46)
[2021-04-09 20:56] LABS: GASTRIC OCCULT BLOOD NEGATIVE (NEGATIVE); PH,GASTRIC FLUID 2
[2021-04-10] MEDS: DIPRIVAN PREMIX 1 GRAM IV 1,000 MG/100 ML VIAL IV PRN ×7 (00:25→22:07)
[2021-04-10] MEDS: ZEMURON 100 MG VIAL 500 MG in NS 500 ML IV 450 ML IV PRN ×3 (01:29→16:50)
[2021-04-10] MEDS: NORMODYNE INJ 20 MG VIAL IV PRN ×2 (01:55→02:36)
[2021-04-10] MEDS: [UNRECOGNIZED DRUG - OTHER] IV SCH ×8 (02:05→09:30)
[2021-04-10] MEDS: MVI IV SCH ×12 (02:05→21:58)
[2021-04-10] MEDS: CLINIMIX IV SCH ×8 (02:05→09:30)
[2021-04-10] MEDS: SOLU-Medrol 125 MG VIAL IVP SCH ×4 (04:04→22:10)
[2021-04-10] MEDS: VERSED IV PREMIX 100 MG/100 ML IV.SOLN IV PRN ×4 (04:45→19:00)
[2021-04-10] MEDS: FORTAZ or TAZICEF VIAL INJ 1 G in NS 50 ML IV + SPIKE MINIBAG* 50 ML IV SCH ×3 (05:07→22:26)
[2021-04-10 05:39] LABS: ABG BASE EXCESS 20.2 mmol/L (-2.0-2.0)
[2021-04-10 05:41] LABS: ABG HCO3 48.5 mmol/L (22-26)
[2021-04-10] MEDS: MUCOMYST (RESPIRATORY USE ONLY) NEB SCH ×4 (05:50→20:30)
[2021-04-10] MEDS: ACCUNEB 1.25 MG NEBULE NEB SCH ×4 (05:50→20:30)
[2021-04-10 06:17] LABS: BASOPHILS % (AUTO) 0.1 % (0.2-1.0); HEMATOCRIT 33.6 % (42.0-54.0); HEMOGLOBIN 11.4 g/dL (13.5-18.0); LYMPHOCYTES # (AUTO) 0.1 X10^3/uL (1.3-2.9); LYMPHOCYTES % (AUTO) 4.8 % (21.0-51.0); MEAN CORPUSCULAR VOLUME 91.1 fL (80.0-100.0); MEAN PLATELET VOLUME 9.5 fL (7.4-11.0); MONOCYTES # (AUTO) 0.1 x10^3/uL (0.3-0.8); MONOCYTES % (AUTO) 3.8 % (0.0-13.0); NEUTROPHILS # (AUTO) 2.5 x10^3/uL (2.2-4.8); NEUTROPHILS % (AUTO) 91.3 % (42.0-75.0); PLATELET COUNT 48 X10^3/uL (150.0-450.0); RED BLOOD COUNT 3.69 X10^6/uL (4.7-6.0); RED CELL DISTRIBUTION WIDTH 13.6 % (11.6-16.5); WHITE BLOOD COUNT 2.7 X10^3/uL (3.6-10.0)
[2021-04-10 06:30] LABS: ALANINE AMINOTRANSFERASE 48 Units/L (12-78); ALBUMIN 2.6 g/dL (3.4-5.0); ALKALINE PHOSPHATASE 43 Units/L (46-116); ASPARTATE AMINO TRANSFERASE 18 Units/L (15-37); BLOOD UREA NITROGEN 18 mg/dL (7-18); CALCIUM 7.5 mg/dL (8.5-10.1); CHLORIDE 108 mmol/L (98-107); COR CA(FOR HYPOALB) 8.6 mg/dL (8.5-10.1); COR NA(FOR HYPERGLY) 148 mmol/L (136-145); CREATININE 0.27 mg/dL (0.70-1.30); SODIUM 147 mmol/L (136-145); TOTAL PROTEIN 4.6 g/dL (6.4-8.2); eGFR NON BLACK RACES > 60 (>60)
[2021-04-10] MEDS: REGLAN SYRUP 10 MG UDC GT SCH ×3 (06:30→21:59)
[2021-04-10 06:32] LABS: CARBON DIOXIDE 40.1 mmol/L (21-32)
[2021-04-10 07:29] LABS: PLATELET MORPHOLOGY COMMENT NORMAL (NORMAL)
[2021-04-10] MEDS: PULMICORT NEB TX 0.5 MG NEB SCH ×2 (08:57→20:30)
[2021-04-10] MEDS: LACRI-LUBE S.O.P. AFFEYE SCH ×2 (09:15→21:58)
[2021-04-10] MEDS: DIFLUCAN 200 MG IV PREMIX* 200 MG/100 ML BAG IV SCH (09:30)
[2021-04-10] MEDS: PROTONIX INJ 40 MG VIAL IVP SCH ×2 (09:30→22:10)
[2021-04-10] MEDS: LEVAQUIN PREMIX IV 500 MG 500 MG/100 ML BAG IV SCH (09:30)
--- NOTE | 2021-04-10 09:58 | PCM.PROG ---
Progress Note - Progress Note for Day of Date of Exam: 04/10/21 - Subjective Subjective: MR. MARMOLEJO WAS ADMITTED FOR TREATMENT OF COVID PNEUMONIA AND HYPOXIA. PMH: OBESITY, GERD, HTN. HE REMAINS IN THE INTENSIVE CARE UNIT ON THE MECHANICAL VENT TODAY. HE WAS PLACED ON THE VENT ON 03/28/21. TODAY, HE IS SEDATED, LYING IN BED ON MORNING ROUNDS. HIS VENT SETTINGS THIS MORNING ARE: A/C , RATE 22, TIDAL VOLUME 550, PEEP 12, FI02 100. HIS SATURATIONS HAVE BEEN 86- 90%. HE WAS PLACED IN THE PRONE POSITION SOME YESTERDAY. SATURATIONS REMAIN IN THE 90s WHILE IN THE PRONE POSITION, HOWEVER, WHEN PLACED BACK IN SUPINE POSITION, SATURATIONS DROP TO THE 70-80s AND IT TAKES PATIENT A WHILE TO RECOVER BACK TO THE 90s. WE WILL NOT PRONE HIM ANY TODAY. ON EXAMINATION, HEART IS REGULAR IN RATE AND RHYTHM. BILATERAL LUNGS ARE NOTED WITH DIMINISHED LUNG SOUNDS THROUGHOUT. ABDOMEN IS ROUND, SOFT, AND NON-TENDER WITH NORMAL BOWEL SOUNDS NOTED IN ALL QUADRANTS. HIS VITALS THIS MORNING ARE: 97.5 -78-20-86%-167/79. LABS WERE OBTAINED. ABNORMAL LAB VALUES INCLUDE THE FOLLOWING: WBC 2.7, RBC 3.69, HGB 11.4, HCT 33.6, PLT COUNT 48, SODIUM 147, CHLORIDE 108, CARBON DIOXIDE 40.1, CREATININE 0.27, GLUCOSE 135, CALCIUM 7.5, ALK PHOS 43, BNP 224, TOTAL PROTEIN 4.6, ALBUMIN 2.6. ABG REVEALED: PH 7.430, PC02 73, P02 49, HC03 48.5, 02 SAT 85, BASE EXCESS 20.2, A-A GRADIENT 573, FI02 100. HE IS CURRENTLY RECEIVING TPN, STEROIDS, IV ANTIBIOTICS, ALBUMIN 25% IV BID, DIFLUCAN 200MG IV DAILY, ELIQUIS 1.25 MG PO BID, NEB TX, MUCOMYST IN NEB [place], MOPRHINE 2MG IV Q4H PRN, ATROPINE PRN, LEXAPRO 20MG NG TUBE BID, LABETALOL PRN, BUSPAR 5MG NG TUBE BID, ROBITUSSIN DM NG TUBE QID, PROTONIX IV BID, REGLAN 5MG GT TID, VERSED DRIP, DIPROVAN DRIP, VERCURONIUM DRIP. WE WILL CONTINUE WITH CURRENT PLAN OF CARE TODAY, WE WILL CONTINUE WITH CURRENT PLAN OF CARE. WE WILL FOLLOW UP WITH AM LABS, CHEST XRAY, ABG, AND CONTINUE TO MONITOR. WE WILL DECREASE OXYGEN HE TOLERATES IT. WE WILL ALSO DO A TELEMEDICINE CONSULT WITH A [facility] PROVIDER TODAY. TIME SPENT ON CLINICAL ASSESSMENT, REVIEWING LABS AND IMAGING, DECISION MAKING, AND DOCUMENTATION GREATER THAN 75 MINUTES. - Past Medical Family Social History Past Med/Fam/Surg Hx: No changes since H&P Allergies: Allergies No Allergy Information Available Allergy (Verified 03/14/21 14:24) - Review of Systems ROS: No change since H&P - Vital Signs and I&O's Vital Signs: Temperature 97.5 F Pulse Rate [Right Brachial] 61 Pulse Rate [Left Radial] 85 Pulse Rate 78 Respiratory Rate 20 Blood Pressure [Right Arm] 142/73 Blood Pressure [Left Arm] 116/63 Blood Pressure 167/79 O2 Sat by Pulse Oximetry 84 Intake and Output: Intake & Output 04/07/21 04/08/21 04/09/21 04/10/21 11:59 11:59 11:59 11:59 Intake Total 6275 / 6275 6522 / 6522 5731 / 5731 6146 / 6146 Output Total 2500 / 2500 2650 / 2650 4600 / 4600 3980 / 3980 Balance 3775 / 3775 3872 / 3872 1131 / 1131 2166 / 2166 - Physical Exam Oriented: Unable to test Eyes: Normal Ear: Normal Nose: Normal Throat: Normal Respiratory: Generalized, Diminished Cardiovascular: Normal : Normal Auscultation: Bowel Sounds: Normal Tenderness: Normal Skin: Normal Musculoskeletal: Normal Psychiatric: Other (SEDATED) Mood Description: Calm Affect: Anxious Speech Pattern: Artificially Ventilated - Laboratory and Diagnostics Result Diagrams: 04/10/21 05:05 04/10/21 05:05 Labs: 03/14/21 16:39 Blood Blood Culture - Final 03/14/21 16:35 Blood Blood Culture - Final 03/18/21 01:03 Sputum - Expectorated Sputum Sputum Culture - Final 03/18/21 01:03 Sputum - Expectorated Sputum - Final Laboratory WBC 2.7 X10^3/uL (3.6-10.0) L 04/10/21 05:05 RBC 3.69 X10^6/uL (4.7-6.0) L 04/10/21 05:05 Hgb 11.4 g/dL (13.5-18.0) L 04/10/21 05:05 Hct 33.6 % (42.0-54.0) L 04/10/21 05:05 MCV 91.1 fL (80.0-100.0) 04/10/21 05:05 MCH 31.0 pg (27.0-34.0) 04/10/21 05:05 MCHC 34.0 g/dL (33.0-35.0) 04/10/21 05:05 RDW 13.6 % (11.6-16.5) 04/10/21 05:05 Plt Count 48 X10^3/uL (150.0-450.0) L 04/10/21 05:05 Plt Count Comment Decreased (ADEQUATE) 04/10/21 05:05 MPV 9.5 fL (7.4-11.0) 04/10/21 05:05 Neut % (Auto) 91.3 % (42.0-75.0) H 04/10/21 05:05 Lymph % (Auto) 4.8 % (21.0-51.0) L 04/10/21 05:05 [place] % (Auto) 3.8 % (0.0-13.0) 04/10/21 05:05 Eos % (Auto) 0.0 % (0.9-2.9) L 04/10/21 05:05 Baso % (Auto) 0.1 % (0.2-1.0) L 04/10/21 05:05 Neut # (Auto) 2.5 x10^3/uL (2.2-4.8) 04/10/21 05:05 Lymph # (Auto) 0.1 X10^3/uL (1.3-2.9) L 04/10/21 05:05 [place] # (Auto) 0.1 x10^3/uL (0.3-0.8) L 04/10/21 05:05 Eos # (Auto) 0.0 x10^3/uL (0.0-0.2) 04/10/21 05:05 Baso # (Auto) 0.0 X10^3/uL (0.0-0.1) 04/10/21 05:05 Absolute Nucleated RBC 0.0 /100WBC 04/10/21 05:05 Total Counted 50 04/10/21 05:05 Neutrophils % (Manual) 90 % (39-76) H 04/10/21 05:05 Band Neutrophils % 4 % (0-10) 04/06/21 05:23 Lymphocytes % (Manual) 6 % (13-43) L 04/10/21 05:05 Monocytes % (Manual) 4 % (4-9) 04/10/21 05:05 Eosinophils % (Manual) 1 % (0-6) 04/05/21 05:40 Metamyelocytes % 1 04/05/21 05:40 Giant Platelets Rare 04/04/21 05:07 Plt Morphology Comment Normal (NORMAL) 04/10/21 05:05 RBC Morphology Normal (NORMAL) 04/10/21 05:05 Hypochromasia Slight A 04/03/21 04:33 PT 14.2 SECONDS (11.8-14.3) 03/20/21 07:07 INR Target Range - 03/20/21 07:07 INR 1.16 (0.8-1.3) 03/20/21 07:07 APTT 26.6 SECONDS (22.9-36.5) 03/17/21 06:05 PTT Comment - 03/17/21 06:05 D-Dimer 0.92 ug/ml (0.0-0.57) H* 04/06/21 14:14 Sample Site Art-line 04/10/21 05:29 ABG pH 7.430 (7.35-7.45) 04/10/21 05:29 ABG pCO2 73.0 mmHg (35.0-45.0) H* 04/10/21 05:29 ABG pO2 49.0 mmHg (80.0-100.0) L* 04/10/21 05:29 ABG HCO3 48.5 mmol/L (22-26) H* 04/10/21 05:29 ABG O2 Saturation 85.0 % (90-100) L 04/10/21 05:29 ABG Base Excess 20.2 mmol/L (-2.0-2.0) H 04/10/21 05:29 Corky Test Na 04/10/21 05:29 A-a Gradient 573.0 mmHg 04/10/21 05:29 FiO2 100.0 04/10/21 05:29 Blood Gas Comments Michael well 04/10/21 05:29 Sodium 147 mmol/L (136-145) H 04/10/21 05:05 Corrected Sodium 148 mmol/L (136-145) H 04/10/21 05:05 Potassium 3.6 mmol/L (3.5-5.1) 04/10/21 05:05 Chloride 108 mmol/L (98-107) H 04/10/21 05:05 Carbon Dioxide 40.1 mmol/L (21-32) H* 04/10/21 05:05 BUN 18 mg/dL (7-18) 04/10/21 05:05 Creatinine 0.27 mg/dL (0.70-1.30) L 04/10/21 05:05 Est GFR (MDRD) Af Amer > 60 (>60) 04/10/21 05:05 Est GFR (MDRD) Non-Af > 60 (>60) 04/10/21 05:05 Glucose 135 mg/dL (65-99) H 04/10/21 05:05 POC Glucose (mg/dL) 121 mg/dL (65-99) H 04/09/21 22:53 Lactic Acid 1.5 mmol/L (0.4-2.0) 04/06/21 14:14 Calcium 7.5 mg/dL (8.5-10.1) L 04/10/21 05:05 Corrected Calcium 8.6 mg/dL (8.5-10.1) 04/10/21 05:05 Phosphorus 1.6 mg/dL (2.6-4.7) L 04/09/21 05:16 Magnesium 2.5 mg/dL (1.7-2.9) 04/09/21 05:16 Ferritin 2585 ng/mL (26-388) H 03/23/21 05:21 Total Bilirubin 0.50 mg/dL (0.2-1.0) 04/10/21 05:05 AST 18 Units/L (15-37) 04/10/21 05:05 ALT 48 Units/L (12-78) 04/10/21 05:05 Alkaline Phosphatase 43 Units/L (46-116) L 04/10/21 05:05 Creatine Kinase 228 Units/L (39-308) 04/06/21 21:30 CK-MB (CK-2) < 1.0 ng/mL (0-4.0) 04/06/21 21:30 CK/CKMB % Calc 0.4 % (<4) 04/06/21 21:30 Troponin I < 0.02 ng/mL (0-1.5) 04/06/21 21:30 C-Reactive Protein 1.10 mg/L (0-3.0) 03/31/21 04:00 B-Natriuretic Peptide 224 pg/mL (0-79) H 04/10/21 05:29 Total Protein 4.6 g/dL (6.4-8.2) L 04/10/21 05:05 Albumin 2.6 g/dL (3.4-5.0) L 04/10/21 05:05 Globulin 2.0 g/dL (2.5-4.5) L 04/10/21 05:05 Albumin/Globulin Ratio 1.3 Ratio (1.1-2.1) 04/10/21 05:05 Prealbumin 31.8 mg/dL (18-35.7) 04/07/21 04:15 Triglycerides 119 mg/dL (0-150) 04/09/21 05:16 Specimen Type Catherized urine 03/28/21 05:47 Urine Color Yellow (YELLOW) 03/28/21 05:47 Urine Appearance Clear (CLEAR) 03/28/21 05:47 Urine pH 6.0 (5.0 - 8.0) 03/28/21 05:47 Ur Specific [place] 1.020 (1.000-1.030) 03/28/21 05:47 Urine Protein 2+ (NEGATIVE) 03/28/21 05:47 Urine Glucose (UA) Negative (NEGATIVE) 03/28/21 05:47 Urine Ketones Negative (NEGATIVE) 03/28/21 05:47 Urine Occult Blood Negative (NEGATIVE) 03/28/21 05:47 Urine Nitrite Negative (NEGATIVE) 03/28/21 05:47 Urine Bilirubin Negative (NEGATIVE) 03/28/21 05:47 Urine Urobilinogen Normal (NORMAL) 03/28/21 05:47 Ur Leukocyte Esterase Negative (NEGATIVE) 03/28/21 05:47 Urine RBC 0-2 /HPF (0-3) 03/28/21 05:47 Urine WBC 0-2 /HPF (0-5) 03/28/21 05:47 Ur Squamous Epith Cells Rare /HPF (NEGATIVE) 03/28/21 05:47 Urine Bacteria Negative /HPF (NEGATIVE) 03/28/21 05:47 Urine Mucus Few /HPF (NEGATIVE) 03/28/21 05:47 Ur Culture Indicated? No/not indicated 03/28/21 05:47 Gastric Fluid pH 2 04/09/21 20:30 Gastric Occult Blood Negative (NEGATIVE) 04/09/21 20:30 - Plan (1) Pneumonia due to COVID-19 virus Status: Acute Plan: MECHANICAL VENT, TPN, ALBUMIN 25% IV DAILY, STEROIDS, IV ANTIBIOTICS, ELIQUIS 1.25MG NG TUBE BID, DIFLUCAN 200MG IV DAILY, REGLAN 5MG TID, MILK OF MAGNESIA 30ML NG TUBE DAILY, NEB TX, MUCOMYST IN NEB [place], MOPRHINE 2MG IV Q4H PRN, LEXAPRO 20MG NG TUBE BID, BUSPAR 5MG NG TUBE BID, ROBITUSSIN DM NG TUBE QID, PROTONIX IV BID, VERSED DRIP, DIPROVAN DRIP, VERCURONIUM DRIP. (2) Hypoxia Status: Acute (3) HTN (hypertension) Status: Chronic Qualifiers: Hypertension type: primary hypertension Qualified Code(s): I10 - Essential (primary) hypertension (4) GERD (gastroesophageal reflux disease) Status: Chronic Qualifiers: Esophagitis presence: esophagitis presence not specified Qualified Code(s): K21.9 - Gastro-esophageal reflux disease without esophagitis (5) Obesity Status: Chronic Qualifiers: Obesity type: unspecified obesity type Obesity classification: adult class 2 (BMI 35 - 39.9) Serious obesity comorbidity presence: unspecified whether serious comorbidity present Body mass index: BMI 36.0-36.9 Qualified Code(s): E66.9 - Obesity, unspecified; Z68.36 - Body mass index [BMI] 36.0-36.9, adult
--- NOTE | 2021-04-10 10:43 | RAD ---
HISTORYFollow-up COVID-19STUDYChest AP [id number]/2021FINDINGSThere is an endotracheal tube in good position. There is a nasoga stric tube coursing below the left hemidiaphragm. The heart remains enlarged. Diffuse bilateral groun d-glass and predominantly lower lobe alveolar infiltrates are unchanged in degree or distribution fro m the prior examination considering a difference in film technique. No pleural effusion or pneumothor ax is identified. Bony thorax is unremarkable.IMPRESSIONNo change diffuse bilateral ground-glass and alveolar infiltrates when compared with the prior examinationNo change cardiomegalyElectronically sig raymond by: GABY CLARK (Apr 10, 2021 10:42:31)
[2021-04-10] MEDS: ALBUMIN HUMAN 25%- 100 ML 100 ML IV SCH ×2 (13:25→20:56)
[2021-04-10] MEDS: BUSPAR NG SCH ×2 (13:26→21:57)
[2021-04-10] MEDS: LEXAPRO NG SCH ×2 (13:27→21:58)
[2021-04-10] MEDS: ELIQUIS NG SCH ×2 (13:27→21:58)
[2021-04-10] MEDS: MILK OF MAGNESIA NG SCH ×2 (13:28→13:29)
[2021-04-10] MEDS: ROBITUSSIN DM NG SCH ×4 (13:30→21:59)
[2021-04-10] MEDS ORDERED: DIAMOX PO SCH (15:00)
[2021-04-10] MEDS: K-RIDER 10 MEQ/NS 100 ML 10 MEQ/100 ML BAG IV PRN (15:14)
[2021-04-10] MEDS: NS IV SCH ×4 (16:03→21:58)
--- NOTE | 2021-04-10 19:47 | DR.CONSULT ---
CONSULT Consultation for Day of: Date: 04/10/21 Chief Complaint Chief Complaint: Acute Hypoxic Respiratory failure. Allergies Allergies Allergy/AdvReac Type Severity Reaction Status Date / Time No Allergy Information Allergy Verified 03/14/21 14:24 Available History of Present Illness History of Present Illness: 55 year old male who is currently hospitalized for acute hypoxic respiratory failure secondary to COVID-19 pneumonia since 03/14/2021, initially required high flow nasal cannula progressing to NIPPV and eventually ended up getting intubated and mechanically ventilated on 03/28/2021. he is currently in severe ARDS on 100% FIO2, and 12 of PEEP, highly sedated and paralyzed, placed in prone positioning as tolerated with improvement of gas exch destiny. received regeneron during his hospital stay, completed remdesivir, currently on high dose steroids and empiric antibiotics coverage. labs remarkable for mild hypernatremia, profound metabolic alkalosis, and thrombocytopenia. noted to carry a significant positive fluid balance over the course of the last several days. Past Medical History Past Medical History: Dyslipidemia, GERD and Hypertension Past Surgical History Surgical History: No History Family History Family Medical History: HI and Hypertension Social History Does patient currently use any type of tobacco product: No Have you used tobacco products in the last 12 months: No Type of Tobacco Use: None Does any household member use tobacco: No Alcohol Use: Occasionally Drug Use: None Medications Home Medications: No Allergy Information Available Allergy (Verified 03/14/21 14:24) CONTINUE taking the following medications atorvastatin 20 mg PO HS 03/15/21 [History] azithromycin 500 mg PO DAILY 03/15/21 [History] escitalopram oxalate 20 mg PO DAILY 03/15/21 [History] fenofibrate 160 mg PO DAILY 03/15/21 [History] ivermectin 24 mg PO ONCE 03/15/21 [History] levofloxacin 500 mg PO DAILY 03/15/21 [History] lisinopril 10 mg PO DAILY 03/15/21 [History] methylprednisolone 12 mg PO DAILY 03/15/21 [History] metoprolol succinate 100 mg PO DAILY 03/15/21 [History] pantoprazole 40 mg PO DAILY 03/15/21 [History] temazepam 15 mg PO HS PRN 03/15/21 [History] Physical Exam Vital Signs: Temperature 97.5 F Pulse Rate [Right Brachial] 61 Pulse Rate [Left Radial] 85 Pulse Rate 85 Respiratory Rate 22 Blood Pressure [Right Arm] 142/73 Blood Pressure [Left Arm] 116/63 Blood Pressure 182/91 O2 Sat by Pulse Oximetry 85 Plan Plan: acute hypoxic respiratory failure ARDS COVID-19 pneumonia superimposed bacterial pneumonia. volume overload. metabolic alkalosis. morbid obesity. Plan: continue mechanical ventilation. adjust vent settings to low tidal volume protective lung ventilation range per ARDSnet protocol. optimize PEEP. optimize sedation. continue neuromuscular blockade. intermittent diuresis. diamox for 48 hours. target a negative fluids balance of about 1000 ml per day. monitor urine output and renal function. taper down steroids. continue current antibiotics coverage. follow cultures and de-escalate accordingly. transition off TPN to enteral nutrition. This is a Telehealth encounter.
[2021-04-11] MEDS: ZEMURON 100 MG VIAL 500 MG in NS 500 ML IV 450 ML IV PRN ×4 (00:16→23:05)
[2021-04-11] MEDS: DIPRIVAN PREMIX 1 GRAM IV 1,000 MG/100 ML VIAL IV PRN ×8 (00:47→20:45)
[2021-04-11] MEDS: VERSED IV PREMIX 100 MG/100 ML IV.SOLN IV PRN ×4 (01:34→21:55)
[2021-04-11] MEDS: SOLU-Medrol 125 MG VIAL IVP SCH ×2 (03:10→09:14)
[2021-04-11] MEDS: NORMODYNE INJ 20 MG VIAL IV PRN ×3 (04:25→17:55)
[2021-04-11 05:13] LABS: BASOPHILS % (AUTO) 0.1 % (0.2-1.0); EOSINOPHILS % (AUTO) 0.1 % (0.9-2.9); HEMATOCRIT 38.1 % (42.0-54.0); HEMOGLOBIN 12.8 g/dL (13.5-18.0); LYMPHOCYTES # (AUTO) 0.1 X10^3/uL (1.3-2.9); LYMPHOCYTES % (AUTO) 3.6 % (21.0-51.0); MEAN CORPUSCULAR HEMOGLOBIN 30.7 pg (27.0-34.0); MEAN CORPUSCULAR HGB CONC 33.6 g/dL (33.0-35.0); MEAN CORPUSCULAR VOLUME 91.2 fL (80.0-100.0); MEAN PLATELET VOLUME 8.9 fL (7.4-11.0); MONOCYTES # (AUTO) 0.1 x10^3/uL (0.3-0.8); MONOCYTES % (AUTO) 3.2 % (0.0-13.0); NEUTROPHILS # (AUTO) 3.3 x10^3/uL (2.2-4.8); PLATELET COUNT 55 X10^3/uL (150.0-450.0); RED BLOOD COUNT 4.18 X10^6/uL (4.7-6.0); RED CELL DISTRIBUTION WIDTH 13.7 % (11.6-16.5); WHITE BLOOD COUNT 3.6 X10^3/uL (3.6-10.0)
[2021-04-11] MEDS: FORTAZ or TAZICEF VIAL INJ 1 G in NS 50 ML IV + SPIKE MINIBAG* 50 ML IV SCH (05:19)
[2021-04-11 05:25] LABS: ALANINE AMINOTRANSFERASE 46 Units/L (12-78); ALBUMIN 3.1 g/dL (3.4-5.0); ALKALINE PHOSPHATASE 53 Units/L (46-116); ASPARTATE AMINO TRANSFERASE 21 Units/L (15-37); BLOOD UREA NITROGEN 18 mg/dL (7-18); CALCIUM 7.6 mg/dL (8.5-10.1); CARBON DIOXIDE 38.9 mmol/L (21-32); CHLORIDE 106 mmol/L (98-107); COR CA(FOR HYPOALB) 8.3 mg/dL (8.5-10.1); COR NA(FOR HYPERGLY) 147 mmol/L (136-145); CREATININE 0.27 mg/dL (0.70-1.30); SODIUM 147 mmol/L (136-145); eGFR NON BLACK RACES > 60 (>60)
[2021-04-11] MEDS: MUCOMYST (RESPIRATORY USE ONLY) NEB SCH ×3 (05:43→20:35)
[2021-04-11] MEDS: ACCUNEB 1.25 MG NEBULE NEB SCH ×3 (05:43→20:35)
[2021-04-11 05:47] LABS: ABG BASE EXCESS 17.6 mmol/L (-2.0-2.0)
[2021-04-11 05:48] LABS: ABG HCO3 46.8 mmol/L (22-26)
--- NOTE | 2021-04-11 06:02 | RAD ---
HISTORYFollow up respiratory failureSTUDYChest AP [id number] is an endotracheal tube in good position. There is a nasoga stric tube coursing below the left hemidiaphragm. Its tip is not visible. Heart remains enlarged. Dif fuse bilateral ground-glass and predominantly lower lobe alveolar infiltrates are unchanged when comp ared with the prior examination. Lungs remain hypoinflated. No pleural effusion or pneumothorax is id entified. Bony thorax is unremarkable.IMPRESSIONNo change cardiomegalyNo change hypo inflationNo butcher ge diffuse bilateral ground-glass and bilateral predominantly lower lobe alveolar infiltrates when co mpared with the prior examinationElectronically signed by: GABY CLARK (Apr 11, 2021 06:00:46)
[2021-04-11 06:09] LABS: HYPOCHROMASIA 1+; PLATELET MORPHOLOGY COMMENT NORMAL (NORMAL); STOMATOCYTES 2+
[2021-04-11] MEDS: REGLAN SYRUP 10 MG UDC GT SCH (06:53)
[2021-04-11] MEDS: ALBUMIN HUMAN 25%- 100 ML 100 ML IV SCH ×2 (08:09→21:00)
[2021-04-11] MEDS: PULMICORT NEB TX 0.5 MG NEB SCH ×2 (08:33→20:35)
[2021-04-11] MEDS: LACRI-LUBE S.O.P. AFFEYE SCH ×2 (09:13→21:15)
[2021-04-11] MEDS: PROTONIX INJ 40 MG VIAL IVP SCH ×2 (09:14→21:17)
[2021-04-11] MEDS: LEVAQUIN PREMIX IV 500 MG 500 MG/100 ML BAG IV SCH (09:30)
[2021-04-11] MEDS: NS 100 ML IV 100 ML IV PRN (09:34)
[2021-04-11] MEDS: DIFLUCAN 200 MG IV PREMIX* 200 MG/100 ML BAG IV SCH (09:34)
[2021-04-11] MEDS: ELIQUIS NG SCH ×2 (09:59→21:13)
--- NOTE | 2021-04-11 10:38 | PCM.PROG ---
Progress Note - Progress Note for Day of Date of Exam: 04/11/21 - Subjective Subjective: MR. MARMOLEJO WAS ADMITTED FOR TREATMENT OF COVID PNEUMONIA AND HYPOXIA. PMH: OBESITY, GERD, HTN. HE REMAINS IN THE INTENSIVE CARE UNIT ON THE MECHANICAL VENT TODAY. HE WAS PLACED ON THE VENT ON 03/28/21. WE SPOKE WITH , PULMONOGIST FOR [facility], YESTERDAY. HE RECOMMENDED ADJUSTMENT TO VENT SETTINGS, DIURETICS, AND TO WEAN STEROIDS. HE ALSO RECOMMENDED TO D/C TPN AND SWITCH TO ENTERAL FEEDINGS. TODAY, HE IS SEDATED, LYING IN BED ON MORNING ROUNDS. HIS VENT SETTINGS THIS MORNING ARE: A/C, RATE 22, TIDAL VOLUME 465, PEEP 14, FI02 100. HIS SATURATIONS HAVE BEEN 85-90% THROUGHOUT THE NIGHT AND THIS MORNING. ON EXAMINATION, HEART IS REGULAR IN RATE AND RHYTHM. BILATERAL LUNGS ARE NOTED WITH DIMINISHED LUNG SOUNDS THROUGHOUT. ABDOMEN IS ROUND, SOFT, AND NON-TENDER WITH NORMAL BOWEL SOUNDS NOTED IN ALL QUADRANTS. HIS VITALS THIS MORNING ARE: 97.5-86-22-89%-184/92. LABS WERE OBTAINED. ABNORMAL LAB VALUES INCLUDE THE FOLLOWING: RBC 4.18, HGB 12.8, HCT 38.1, PLT COUNT 55, D-DIMER 1.28, SODIUM 147, CARBON DIOXIDE 38.9, CREATININE 0.27, GLUCOSE 116, CALCIUM 7.6, CRP 3.10, BNP 165, TOTAL PROTEIN 5.0, ALBUMIN 3.1. ABG REVEALED: PH 7.370, PC02 81, P02 51, HC03 46.8, 02 SAT 85, BASE EXCESS 17.6, A-A GRADIENT 561, FI02 100. HE IS CURRENTLY RECEIVING TPN, SOLU-MEDROL 125MG IV Q6H, IV ANTIBIOTICS, ALBUMIN 25% IV BID, DIFLUCAN 200MG IV DAILY, ELIQUIS 1.25 MG PO BID, NEB TX, MUCOMYST IN NEB [place], MOPRHINE 2MG IV Q4H PRN, ATROPINE PRN, LEXAPRO 20MG NG TUBE BID, LABETALOL PRN, BUSPAR 5MG NG TUBE BID, ROBITUSSIN DM NG TUBE QID, PROTONIX IV BID, REGLAN 5MG GT TID, VERSED DRIP, DIPROVAN DRIP, VERCURONIUM DRIP. TODAY, WE WILL DISCONTINUE THE BUSPAR, ROBITUSSIN, AND TPN. WE WILL CHANGE REGLAN TO 10MG IV TID, CHANGE SOLU-MEDROL TO 40MG IV Q8H, AND ADD LASIX 40MG IV Q12H X 2 DOSES. OTHERWISE, WE WILL FOLLOW UP WITH AM LABS, CHEST XRAY, ABG, AND CONTINUE TO MONITOR. WE WILL DECREASE OXYGEN HE TOLERATES IT. TIME SPENT ON CLINICAL ASSESSMENT, REVIEWING LABS AND IMAGING, DECISION MAKING, AND DOCUMENTATION GREATER THAN 75 MINUTES. - Past Medical Family Social History Past Med/Fam/Surg Hx: No changes since H&P Allergies: Allergies No Allergy Information Available Allergy (Verified 03/14/21 14:24) - Review of Systems ROS: No change since H&P - Vital Signs and I&O's Vital Signs: Temperature 97.5 F Pulse Rate [Right Brachial] 61 Pulse Rate [Left Radial] 85 Pulse Rate 86 Respiratory Rate 22 Blood Pressure [Right Arm] 142/73 Blood Pressure [Left Arm] 116/63 Blood Pressure 184/92 O2 Sat by Pulse Oximetry 89 Intake and Output: Intake & Output 04/08/21 04/09/21 04/10/21 04/11/21 11:59 11:59 11:59 11:59 Intake Total 6522 / 6522 5731 / 5731 6941 / 6941 9310 / 9310 Output Total 2650 / 2650 4600 / 4600 4280 / 4280 3960 / 3960 Balance 3872 / 3872 1131 / 1131 2661 / 2661 5350 / 5350 - Physical Exam Oriented: Unable to test Eyes: Normal Ear: Normal Nose: Normal Throat: Normal Respiratory: Generalized, Diminished Cardiovascular: Edema : Normal Auscultation: Bowel Sounds: Normal Palpation: Normal Tenderness: Normal Skin: Normal Musculoskeletal: Normal Psychiatric: Other (SEDATED) Mood Description: Calm Affect: Anxious Speech Pattern: Artificially Ventilated - Laboratory and Diagnostics Result Diagrams: 04/11/21 04:25 04/11/21 04:25 Labs: 03/14/21 16:39 Blood Blood Culture - Final 03/14/21 16:35 Blood Blood Culture - Final 03/18/21 01:03 Sputum - Expectorated Sputum Sputum Culture - Final 03/18/21 01:03 Sputum - Expectorated Sputum - Final Laboratory WBC 3.6 X10^3/uL (3.6-10.0) 04/11/21 04:25 RBC 4.18 X10^6/uL (4.7-6.0) L 04/11/21 04:25 Hgb 12.8 g/dL (13.5-18.0) L 04/11/21 04:25 Hct 38.1 % (42.0-54.0) L 04/11/21 04:25 MCV 91.2 fL (80.0-100.0) 04/11/21 04:25 MCH 30.7 pg (27.0-34.0) 04/11/21 04:25 MCHC 33.6 g/dL (33.0-35.0) 04/11/21 04:25 RDW 13.7 % (11.6-16.5) 04/11/21 04:25 Plt Count 55 X10^3/uL (150.0-450.0) L 04/11/21 04:25 Plt Count Comment Decreased (ADEQUATE) 04/11/21 04:25 MPV 8.9 fL (7.4-11.0) 04/11/21 04:25 Neut % (Auto) 93.0 % (42.0-75.0) H 04/11/21 04:25 Lymph % (Auto) 3.6 % (21.0-51.0) L 04/11/21 04:25 [place] % (Auto) 3.2 % (0.0-13.0) 04/11/21 04:25 Eos % (Auto) 0.1 % (0.9-2.9) L 04/11/21 04:25 Baso % (Auto) 0.1 % (0.2-1.0) L 04/11/21 04:25 Neut # (Auto) 3.3 x10^3/uL (2.2-4.8) 04/11/21 04:25 Lymph # (Auto) 0.1 X10^3/uL (1.3-2.9) L 04/11/21 04:25 [place] # (Auto) 0.1 x10^3/uL (0.3-0.8) L 04/11/21 04:25 Eos # (Auto) 0.0 x10^3/uL (0.0-0.2) 04/11/21 04:25 Baso # (Auto) 0.0 X10^3/uL (0.0-0.1) 04/11/21 04:25 Absolute Nucleated RBC 0.1 /100WBC 04/11/21 04:25 Total Counted 100 04/11/21 04:25 Neutrophils % (Manual) 90 % (39-76) H 04/11/21 04:25 Band Neutrophils % 4 % (0-10) 04/06/21 05:23 Lymphocytes % (Manual) 6 % (13-43) L 04/11/21 04:25 Monocytes % (Manual) 4 % (4-9) 04/11/21 04:25 Eosinophils % (Manual) 1 % (0-6) 04/05/21 05:40 Metamyelocytes % 1 04/05/21 05:40 Giant Platelets Rare 04/04/21 05:07 Plt Morphology Comment Normal (NORMAL) 04/11/21 04:25 RBC Morphology Abnormal (NORMAL) 04/11/21 04:25 Hypochromasia 1+ A 04/11/21 04:25 Stomatocytes 2+ A 04/11/21 04:25 PT 14.2 SECONDS (11.8-14.3) 03/20/21 07:07 INR Target Range - 03/20/21 07:07 INR 1.16 (0.8-1.3) 03/20/21 07:07 APTT 26.6 SECONDS (22.9-36.5) 03/17/21 06:05 PTT Comment - 03/17/21 06:05 D-Dimer 1.28 ug/ml (0.0-0.57) H* 04/11/21 08:47 Sample Site Art line 04/11/21 05:14 ABG pH 7.370 (7.35-7.45) 04/11/21 05:14 ABG pCO2 81.0 mmHg (35.0-45.0) H* 04/11/21 05:14 ABG pO2 51.0 mmHg (80.0-100.0) L 04/11/21 05:14 ABG HCO3 46.8 mmol/L (22-26) H* 04/11/21 05:14 ABG O2 Saturation 85.0 % (90-100) L 04/11/21 05:14 ABG Base Excess 17.6 mmol/L (-2.0-2.0) H 04/11/21 05:14 Corky Test Na 04/11/21 05:14 A-a Gradient 561.0 mmHg 04/11/21 05:14 FiO2 100.0 04/11/21 05:14 Blood Gas Comments Michael well ah 04/11/21 05:14 Sodium 147 mmol/L (136-145) H 04/11/21 04:25 Corrected Sodium 147 mmol/L (136-145) H 04/11/21 04:25 Potassium 3.8 mmol/L (3.5-5.1) 04/11/21 04:25 Chloride 106 mmol/L (98-107) 04/11/21 04:25 Carbon Dioxide 38.9 mmol/L (21-32) H 04/11/21 04:25 BUN 18 mg/dL (7-18) 04/11/21 04:25 Creatinine 0.27 mg/dL (0.70-1.30) L 04/11/21 04:25 Est GFR (MDRD) Af Amer > 60 (>60) 04/11/21 04:25 Est GFR (MDRD) Non-Af > 60 (>60) 04/11/21 04:25 Glucose 116 mg/dL (65-99) H 04/11/21 04:25 POC Glucose (mg/dL) 121 mg/dL (65-99) H 04/09/21 22:53 Lactic Acid 1.5 mmol/L (0.4-2.0) 04/06/21 14:14 Calcium 7.6 mg/dL (8.5-10.1) L 04/11/21 04:25 Corrected Calcium 8.3 mg/dL (8.5-10.1) L 04/11/21 04:25 Phosphorus 1.6 mg/dL (2.6-4.7) L 04/09/21 05:16 Magnesium 2.5 mg/dL (1.7-2.9) 04/09/21 05:16 Ferritin 2585 ng/mL (26-388) H 03/23/21 05:21 Total Bilirubin 0.50 mg/dL (0.2-1.0) 04/11/21 04:25 AST 21 Units/L (15-37) 04/11/21 04:25 ALT 46 Units/L (12-78) 04/11/21 04:25 Alkaline Phosphatase 53 Units/L (46-116) 04/11/21 04:25 Creatine Kinase 228 Units/L (39-308) 04/06/21 21:30 CK-MB (CK-2) < 1.0 ng/mL (0-4.0) 04/06/21 21:30 CK/CKMB % Calc 0.4 % (<4) 04/06/21 21:30 Troponin I < 0.02 ng/mL (0-1.5) 04/06/21 21:30 C-Reactive Protein 3.10 mg/L (0-3.0) H 04/11/21 08:48 B-Natriuretic Peptide 165 pg/mL (0-79) H 04/11/21 08:48 Total Protein 5.0 g/dL (6.4-8.2) L 04/11/21 04:25 Albumin 3.1 g/dL (3.4-5.0) L 04/11/21 04:25 Globulin 1.9 g/dL (2.5-4.5) L 04/11/21 04:25 Albumin/Globulin Ratio 1.6 Ratio (1.1-2.1) 04/11/21 04:25 Prealbumin 31.8 mg/dL (18-35.7) 04/07/21 04:15 Triglycerides 119 mg/dL (0-150) 04/09/21 05:16 Specimen Type Catherized urine 03/28/21 05:47 Urine Color Yellow (YELLOW) 03/28/21 05:47 Urine Appearance Clear (CLEAR) 03/28/21 05:47 Urine pH 6.0 (5.0 - 8.0) 03/28/21 05:47 Ur Specific [place] 1.020 (1.000-1.030) 03/28/21 05:47 Urine Protein 2+ (NEGATIVE) 03/28/21 05:47 Urine Glucose (UA) Negative (NEGATIVE) 03/28/21 05:47 Urine Ketones Negative (NEGATIVE) 03/28/21 05:47 Urine Occult Blood Negative (NEGATIVE) 03/28/21 05:47 Urine Nitrite Negative (NEGATIVE) 03/28/21 05:47 Urine Bilirubin Negative (NEGATIVE) 03/28/21 05:47 Urine Urobilinogen Normal (NORMAL) 03/28/21 05:47 Ur Leukocyte Esterase Negative (NEGATIVE) 03/28/21 05:47 Urine RBC 0-2 /HPF (0-3) 03/28/21 05:47 Urine WBC 0-2 /HPF (0-5) 03/28/21 05:47 Ur Squamous Epith Cells Rare /HPF (NEGATIVE) 03/28/21 05:47 Urine Bacteria Negative /HPF (NEGATIVE) 03/28/21 05:47 Urine Mucus Few /HPF (NEGATIVE) 03/28/21 05:47 Ur Culture Indicated? No/not indicated 03/28/21 05:47 Gastric Fluid pH 2 04/09/21 20:30 Gastric Occult Blood Negative (NEGATIVE) 04/09/21 20:30 - Plan (1) Pneumonia due to COVID-19 virus Status: Acute Plan: MECHANICAL VENT, ALBUMIN 25% IV DAILY, SOLU-MEDROL 40MG IV Q8H, IV ANTIBIOTICS, ELIQUIS 1.25MG NG TUBE BID, DIFLUCAN 200MG IV DAILY, REGLAN 10MG IV TID, MILK OF MAGNESIA 30ML NG TUBE DAILY, NEB TX, MUCOMYST IN NEB [place], MOPRHINE 2MG IV Q4H PRN, LEXAPRO 20MG NG TUBE BID, PROTONIX IV BID, VERSED DRIP, DIPROVAN DRIP, VERCURONIUM DRIP. (2) Hypoxia Status: Acute (3) HTN (hypertension) Status: Chronic Qualifiers: Hypertension type: primary hypertension Qualified Code(s): I10 - Essential (primary) hypertension (4) GERD (gastroesophageal reflux disease) Status: Chronic Qualifiers: Esophagitis presence: esophagitis presence not specified Qualified Code(s): K21.9 - Gastro-esophageal reflux disease without esophagitis (5) Obesity Status: Chronic Qualifiers: Obesity type: unspecified obesity type Obesity classification: adult class 2 (BMI 35 - 39.9) Serious obesity comorbidity presence: unspecified whether serious comorbidity present Body mass index: BMI 36.0-36.9 Qualified Code(s): E66.9 - Obesity, unspecified; Z68.36 - Body mass index [BMI] 36.0-36.9, adult
[2021-04-11] MEDS: MILK OF MAGNESIA NG SCH (10:56)
[2021-04-11] MEDS: LEXAPRO NG SCH ×2 (10:56→21:12)
[2021-04-11] MEDS: LASIX IVP SCH ×2 (11:19→23:00)
[2021-04-11] MEDS: REGLAN INJ 10 MG VIAL IVP SCH ×3 (11:19→21:18)
[2021-04-11] MEDS: [UNRECOGNIZED DRUG - OTHER] IV SCH ×6 (12:30→21:15)
[2021-04-11] MEDS: NS IV SCH ×6 (12:30→21:15)
[2021-04-11] MEDS: MVI IV SCH ×6 (12:30→21:15)
[2021-04-11] MEDS: SOLU-Medrol 40 MG VIAL IVP SCH ×2 (14:13→21:18)
[2021-04-11] MEDS ORDERED: LEXAPRO ONE (19:33)
[2021-04-12] MEDS: VERSED IV PREMIX 100 MG/100 ML IV.SOLN IV PRN ×4 (02:00→19:45)
[2021-04-12] MEDS: DIPRIVAN PREMIX 1 GRAM IV 1,000 MG/100 ML VIAL IV PRN ×9 (02:15→21:50)
[2021-04-12] MEDS: MUCOMYST (RESPIRATORY USE ONLY) NEB SCH ×3 (05:25→20:39)
[2021-04-12] MEDS: ACCUNEB 1.25 MG NEBULE NEB SCH ×3 (05:25→20:39)
[2021-04-12 05:29] LABS: ABG HCO3 51.6 mmol/L (22-26)
[2021-04-12] MEDS: REGLAN INJ 10 MG VIAL IVP SCH ×3 (05:42→21:00)
[2021-04-12] MEDS: SOLU-Medrol 40 MG VIAL IVP SCH ×3 (05:42→21:00)
[2021-04-12] MEDS: NS IV SCH ×9 (05:49→22:31)
[2021-04-12] MEDS: MVI IV SCH ×9 (05:49→22:31)
[2021-04-12] MEDS: [UNRECOGNIZED DRUG - OTHER] IV SCH ×9 (05:49→22:31)
--- NOTE | 2021-04-12 05:53 | RAD ---
PROCEDURE: Chest X-ray 1 View .HISTORY: Dyspnea in ventilator dependence.TECHNIQUE: AP view .COMPARISON: 04/11/2021.TECHNICAL QUALITY: Satisfactory .FINDINGS:Endotracheal and NG tube in good position.Unremarkable cardio mediastinal silhouette.Mild prominence of the central vascularity could be related to fluid overload.Unchanged pneumonia bilaterally at the bases with no pleural fluid or pneumothorax.IMPRESSION:1. Unchanged bilateral pneumonia.2. Prominent central vascularity could be related to fluid overload.Electronically signed by: Hilario Roach (Apr 12, 2021 05:51:13)
[2021-04-12 06:15] LABS: BASOPHILS % (AUTO) 0.2 % (0.2-1.0); EOSINOPHILS % (AUTO) 0.1 % (0.9-2.9); HEMATOCRIT 38.4 % (42.0-54.0); HEMOGLOBIN 13.1 g/dL (13.5-18.0); LYMPHOCYTES # (AUTO) 0.2 X10^3/uL (1.3-2.9); MEAN CORPUSCULAR HEMOGLOBIN 31.2 pg (27.0-34.0); MEAN CORPUSCULAR HGB CONC 34.1 g/dL (33.0-35.0); MEAN CORPUSCULAR VOLUME 91.7 fL (80.0-100.0); MEAN PLATELET VOLUME 8.8 fL (7.4-11.0); MONOCYTES # (AUTO) 0.2 x10^3/uL (0.3-0.8); MONOCYTES % (AUTO) 3.9 % (0.0-13.0); NEUTROPHILS # (AUTO) 3.7 x10^3/uL (2.2-4.8); NEUTROPHILS % (AUTO) 90.8 % (42.0-75.0); PLATELET COUNT 69 X10^3/uL (150.0-450.0); RED BLOOD COUNT 4.19 X10^6/uL (4.7-6.0)
[2021-04-12 06:24] LABS: ALANINE AMINOTRANSFERASE 43 Units/L (12-78); ALBUMIN 3.1 g/dL (3.4-5.0); ALKALINE PHOSPHATASE 56 Units/L (46-116); ASPARTATE AMINO TRANSFERASE 20 Units/L (15-37); BLOOD UREA NITROGEN 16 mg/dL (7-18); CALCIUM 7.8 mg/dL (8.5-10.1); CHLORIDE 104 mmol/L (98-107); COR CA(FOR HYPOALB) 8.5 mg/dL (8.5-10.1); COR NA(FOR HYPERGLY) 148 mmol/L (136-145); CREATININE 0.27 mg/dL (0.70-1.30); SODIUM 148 mmol/L (136-145); TOTAL PROTEIN 5.1 g/dL (6.4-8.2); eGFR NON BLACK RACES > 60 (>60)
[2021-04-12 06:44] LABS: MAGNESIUM 2.1 mg/dL (1.7-2.9)
[2021-04-12 07:26] LABS: CARBON DIOXIDE > 45.0 mmol/L (21-32)
[2021-04-12 07:36] LABS: BAND NEUTROPHILS % 1 % (0-10); PLATELET MORPHOLOGY COMMENT NORMAL (NORMAL)
[2021-04-12] MEDS ORDERED: LEXAPRO ONE ×2 (08:00→19:39)
[2021-04-12] MEDS: ALBUMIN HUMAN 25%- 100 ML 100 ML IV SCH ×2 (08:08→21:00)
[2021-04-12] MEDS: ZEMURON 100 MG VIAL 500 MG in NS 500 ML IV 450 ML IV PRN ×2 (08:18→17:10)
[2021-04-12] MEDS: ELIQUIS NG SCH ×2 (08:45→21:00)
[2021-04-12] MEDS: LEXAPRO NG SCH ×2 (08:46→21:00)
[2021-04-12] MEDS: PROTONIX INJ 40 MG VIAL IVP SCH ×2 (08:46→21:00)
[2021-04-12] MEDS: LACRI-LUBE S.O.P. AFFEYE SCH ×2 (08:47→21:00)
[2021-04-12] MEDS: DIFLUCAN 200 MG IV PREMIX* 200 MG/100 ML BAG IV SCH (08:48)
[2021-04-12] MEDS: PULMICORT NEB TX 0.5 MG NEB SCH ×2 (09:24→20:39)
[2021-04-12 09:43] LABS: BILIRUBIN,URINE NEGATIVE (NEGATIVE); BLOOD/HEMOGLOBIN,URINE NEGATIVE (NEGATIVE); GLUCOSE, URINE NEGATIVE (NEGATIVE); KETONES,URINE NEGATIVE (NEGATIVE); LEUKOCYTE ESTERASE ,URINE NEGATIVE (NEGATIVE); NITRITES,URINE NEGATIVE (NEGATIVE); PROTEIN,URINE 2+ (NEGATIVE); UROBILINOGEN,URINE 2+ (NORMAL)
[2021-04-12] MEDS: MILK OF MAGNESIA NG SCH (09:46)
[2021-04-12 10:16] LABS: APPEARANCE,URINE CLEAR (CLEAR); COLOR,URINE YELLOW (YELLOW)
[2021-04-12 10:17] LABS: SQUAMOUS EPITHELIAL CELL,UR RARE /HPF (NEGATIVE)
[2021-04-12 10:20] LABS: RBC,URINE 0-2 /HPF (0-3)
[2021-04-12 10:21] LABS: BACTERIA,URINE NEGATIVE /HPF (NEGATIVE); RENAL EPITHELIAL CELLS,URINE RARE /HPF (NEGATIVE)
[2021-04-12] MEDS: LEVAQUIN PREMIX IV 500 MG 500 MG/100 ML BAG IV SCH (10:29)
[2021-04-12] MEDS: DIAMOX PO SCH (10:46)
--- NOTE | 2021-04-12 11:25 | PCM.PROG ---
Progress Note - Progress Note for Day of Date of Exam: 04/12/21 - Subjective Subjective: MR. MARMOLEJO WAS ADMITTED FOR TREATMENT OF COVID PNEUMONIA AND HYPOXIA. PMH: OBESITY, GERD, HTN. HE REMAINS IN THE INTENSIVE CARE UNIT ON THE MECHANICAL VENT TODAY. HE WAS PLACED ON THE VENT ON 03/28/21. TODAY, HE IS SEDATED, LYING IN BED ON MORNING ROUNDS. HIS VENT SETTINGS THIS MORNING ARE: A/C , RATE 22, TIDAL VOLUME 465, PEEP 14, FI02 100. HIS SATURATIONS HAVE BEEN 87-91% THROUGHOUT THE NIGHT AND THIS MORNING. ON EXAMINATION, HEART IS REGULAR IN RATE AND RHYTHM. BILATERAL LUNGS ARE NOTED WITH DIMINISHED LUNG SOUNDS THROUGHOUT. ABDOMEN IS ROUND, SOFT, AND NON-TENDER WITH NORMAL BOWEL SOUNDS NOTED IN ALL QUADRANTS. HIS VITALS THIS MORNING ARE: 97.8-97-22-91%-146/76. LABS WERE OBTAINED. ABNORMAL LAB VALUES INCLUDE THE FOLLOWING: RBC 4.19, HGB 13.1, HCT 38.4, PLT COUNT 69, SODIUM 148, POTASSIUM 3.3, CARBON DIOXIDE >45, CREATININE 0.27, GLUCOSE 115, CALCIUM 7.8, TOTAL PROTEIN 5.1, ALBUMIN 3.1, PHOSPHORUS 2.0, TRIGLYCERIDES 371. ABG REVEALED: PH 7.440, PC02 76, P02 65, HC03 51.6, 02 SAT 93, BASE EXCESS 23, A-A GRADIENT 553, FI02 100. CHEST XRAY WAS OBTAINED THIS MORNING AND REVEALED: 1. Unchanged bilateral pneumonia. 2. Prominent central vascularity could be related to fluid overload. HE IS CURRENTLY RECEIVING NS WITH 20MEQ KCL AND MULTI-VITAMINS, SOLU-MEDROL 40MG IV Q8H, IV ANTIBIOTICS, ALBUMIN 25% IV BID, DIFLUCAN 200MG IV DAILY, ELIQUIS 1.25 MG PO BID, NEB TX, MUCOMYST IN NEB [place], MOPRHINE 2MG IV Q4H PRN, ATROPINE PRN, LEXAPRO 20MG NG TUBE BID, LABETALOL PRN, PROTONIX IV BID, REGLAN 10MG IV TID, VERSED DRIP, DIPROVAN DRIP, VERCURONIUM DRIP. TODAY, WE WILL ADD DIAMOX 250MG GT DAILY. OTHERWISE, WE WILL FOLLOW UP WITH AM LABS, CHEST XRAY, ABG, AND CONTINUE TO MONITOR. WE WILL DECREASE OXYGEN HE TOLERATES IT. TIME SPENT ON CLINICAL ASSESSMENT, REVIEWING LABS AND IMAGING, DECISION MAKING, AND DOCUMENTATION GREATER THAN 75 MINUTES. - Past Medical Family Social History Past Med/Fam/Surg Hx: No changes since H&P Allergies: Allergies No Allergy Information Available Allergy (Verified 03/14/21 14:24) - Review of Systems ROS: No change since H&P - Vital Signs and I&O's Vital Signs: Temperature 97.8 F Pulse Rate [Right Brachial] 61 Pulse Rate [Left Radial] 85 Pulse Rate 97 Respiratory Rate 22 Blood Pressure [Right Arm] 142/73 Blood Pressure [Left Arm] 116/63 Blood Pressure 146/76 O2 Sat by Pulse Oximetry 91 Intake and Output: Intake & Output 04/09/21 04/10/21 04/11/21 04/12/21 11:59 11:59 11:59 11:59 Intake Total 5731 / 5731 6941 / 6941 9590 / 9590 4625 / 4625 Output Total 4600 / 4600 4280 / 4280 4760 / 4760 8631 / 8631 Balance 1131 / 1131 2661 / 2661 4830 / 4830 -4006 / -4006 - Physical Exam Oriented: Unable to test Eyes: Normal Ear: Normal Nose: Normal Throat: Normal Respiratory: Generalized, Diminished Cardiovascular: Edema : Normal Auscultation: Bowel Sounds: Normal Tenderness: Normal Skin: Normal Musculoskeletal: Normal Psychiatric: Other (SEDATED) Mood Description: Calm Affect: Anxious Speech Pattern: Artificially Ventilated - Laboratory and Diagnostics Result Diagrams: 04/12/21 04:55 04/12/21 04:55 Labs: 03/14/21 16:39 Blood Blood Culture - Final 03/14/21 16:35 Blood Blood Culture - Final 03/18/21 01:03 Sputum - Expectorated Sputum Sputum Culture - Final 03/18/21 01:03 Sputum - Expectorated Sputum - Final Laboratory WBC 4.0 X10^3/uL (3.6-10.0) 04/12/21 04:55 RBC 4.19 X10^6/uL (4.7-6.0) L 04/12/21 04:55 Hgb 13.1 g/dL (13.5-18.0) L 04/12/21 04:55 Hct 38.4 % (42.0-54.0) L 04/12/21 04:55 MCV 91.7 fL (80.0-100.0) 04/12/21 04:55 MCH 31.2 pg (27.0-34.0) 04/12/21 04:55 MCHC 34.1 g/dL (33.0-35.0) 04/12/21 04:55 RDW 14.0 % (11.6-16.5) 04/12/21 04:55 Plt Count 69 X10^3/uL (150.0-450.0) L 04/12/21 04:55 Plt Count Comment Decreased (ADEQUATE) 04/12/21 04:55 MPV 8.8 fL (7.4-11.0) 04/12/21 04:55 Neut % (Auto) 90.8 % (42.0-75.0) H 04/12/21 04:55 Lymph % (Auto) 5.0 % (21.0-51.0) L 04/12/21 04:55 [place] % (Auto) 3.9 % (0.0-13.0) 04/12/21 04:55 Eos % (Auto) 0.1 % (0.9-2.9) L 04/12/21 04:55 Baso % (Auto) 0.2 % (0.2-1.0) 04/12/21 04:55 Neut # (Auto) 3.7 x10^3/uL (2.2-4.8) 04/12/21 04:55 Lymph # (Auto) 0.2 X10^3/uL (1.3-2.9) L 04/12/21 04:55 [place] # (Auto) 0.2 x10^3/uL (0.3-0.8) L 04/12/21 04:55 Eos # (Auto) 0.0 x10^3/uL (0.0-0.2) 04/12/21 04:55 Baso # (Auto) 0.0 X10^3/uL (0.0-0.1) 04/12/21 04:55 Absolute Nucleated RBC 0.2 /100WBC 04/12/21 04:55 Total Counted 100 04/12/21 04:55 Neutrophils % (Manual) 83 % (39-76) H 04/12/21 04:55 Band Neutrophils % 1 % (0-10) 04/12/21 04:55 Lymphocytes % (Manual) 11 % (13-43) L 04/12/21 04:55 Monocytes % (Manual) 5 % (4-9) 04/12/21 04:55 Eosinophils % (Manual) 1 % (0-6) 04/05/21 05:40 Metamyelocytes % 1 04/05/21 05:40 Giant Platelets Rare 04/04/21 05:07 Plt Morphology Comment Normal (NORMAL) 04/12/21 04:55 RBC Morphology Normal (NORMAL) 04/12/21 04:55 Hypochromasia 1+ A 04/11/21 04:25 Stomatocytes 2+ A 04/11/21 04:25 PT 14.2 SECONDS (11.8-14.3) 03/20/21 07:07 INR Target Range - 03/20/21 07:07 INR 1.16 (0.8-1.3) 03/20/21 07:07 APTT 26.6 SECONDS (22.9-36.5) 03/17/21 06:05 PTT Comment - 03/17/21 06:05 D-Dimer 1.28 ug/ml (0.0-0.57) H* 04/11/21 08:47 Sample Site Art-line 04/12/21 05:25 ABG pH 7.440 (7.35-7.45) 04/12/21 05:25 ABG pCO2 76.0 mmHg (35.0-45.0) H* 04/12/21 05:25 ABG pO2 65.0 mmHg (80.0-100.0) L 04/12/21 05:25 ABG HCO3 51.6 mmol/L (22-26) H* 04/12/21 05:25 ABG O2 Saturation 93.0 % (90-100) 04/12/21 05:25 ABG Base Excess 23.0 mmol/L (-2.0-2.0) H 04/12/21 05:25 Corky Test Na 04/12/21 05:25 A-a Gradient 553.0 mmHg 04/12/21 05:25 FiO2 100.0 04/12/21 05:25 Blood Gas Comments Michael well-mtf 04/12/21 05:25 Sodium 148 mmol/L (136-145) H 04/12/21 04:55 Corrected Sodium 148 mmol/L (136-145) H 04/12/21 04:55 Potassium 3.3 mmol/L (3.5-5.1) L 04/12/21 04:55 Chloride 104 mmol/L (98-107) 04/12/21 04:55 Carbon Dioxide > 45.0 mmol/L (21-32) H* 04/12/21 04:55 BUN 16 mg/dL (7-18) 04/12/21 04:55 Creatinine 0.27 mg/dL (0.70-1.30) L 04/12/21 04:55 Est GFR (MDRD) Af Amer > 60 (>60) 04/12/21 04:55 Est GFR (MDRD) Non-Af > 60 (>60) 04/12/21 04:55 Glucose 115 mg/dL (65-99) H 04/12/21 04:55 POC Glucose (mg/dL) 121 mg/dL (65-99) H 04/09/21 22:53 Lactic Acid 1.5 mmol/L (0.4-2.0) 04/06/21 14:14 Calcium 7.8 mg/dL (8.5-10.1) L 04/12/21 04:55 Corrected Calcium 8.5 mg/dL (8.5-10.1) 04/12/21 04:55 Phosphorus 2.0 mg/dL (2.6-4.7) L 04/12/21 04:55 Magnesium 2.1 mg/dL (1.7-2.9) 04/12/21 04:55 Ferritin 2585 ng/mL (26-388) H 03/23/21 05:21 Total Bilirubin 0.60 mg/dL (0.2-1.0) 04/12/21 04:55 AST 20 Units/L (15-37) 04/12/21 04:55 ALT 43 Units/L (12-78) 04/12/21 04:55 Alkaline Phosphatase 56 Units/L (46-116) 04/12/21 04:55 Creatine Kinase 228 Units/L (39-308) 04/06/21 21:30 CK-MB (CK-2) < 1.0 ng/mL (0-4.0) 04/06/21 21:30 CK/CKMB % Calc 0.4 % (<4) 04/06/21 21:30 Troponin I < 0.02 ng/mL (0-1.5) 04/06/21 21:30 C-Reactive Protein 3.10 mg/L (0-3.0) H 04/11/21 08:48 B-Natriuretic Peptide 165 pg/mL (0-79) H 04/11/21 08:48 Total Protein 5.1 g/dL (6.4-8.2) L 04/12/21 04:55 Albumin 3.1 g/dL (3.4-5.0) L 04/12/21 04:55 Globulin 2.0 g/dL (2.5-4.5) L 04/12/21 04:55 Albumin/Globulin Ratio 1.6 Ratio (1.1-2.1) 04/12/21 04:55 Prealbumin 31.8 mg/dL (18-35.7) 04/07/21 04:15 Triglycerides 371 mg/dL (0-150) H 04/12/21 04:55 Specimen Type Catherized urine 04/12/21 09:29 Urine Color Yellow (YELLOW) 04/12/21 09:29 Urine Appearance Clear (CLEAR) 04/12/21 09:29 Urine pH 7.0 (5.0 - 8.0) 04/12/21 09:29 Ur Specific [place] 1.010 (1.000-1.030) 04/12/21 09:29 Urine Protein 2+ (NEGATIVE) 04/12/21 09:29 Urine Glucose (UA) Negative (NEGATIVE) 04/12/21 09:29 Urine Ketones Negative (NEGATIVE) 04/12/21 09:29 Urine Occult Blood Negative (NEGATIVE) 04/12/21 09:29 Urine Nitrite Negative (NEGATIVE) 04/12/21 09:29 Urine Bilirubin Negative (NEGATIVE) 04/12/21 09:29 Urine Urobilinogen 2+ (NORMAL) 04/12/21 09:29 Ur Leukocyte Esterase Negative (NEGATIVE) 04/12/21 09:29 Urine RBC 0-2 /HPF (0-3) 04/12/21 09:29 Urine WBC 0-2 /HPF (0-5) 04/12/21 09:29 Ur Squamous Epith Cells Rare /HPF (NEGATIVE) 04/12/21 09:29 Ur Renal Epithelial Cell Rare /HPF (NEGATIVE) 04/12/21 09:29 Urine Bacteria Negative /HPF (NEGATIVE) 04/12/21 09:29 Urine Mucus Few /HPF (NEGATIVE) 03/28/21 05:47 Ur Culture Indicated? No/not indicated 04/12/21 09:29 Gastric Fluid pH 2 04/09/21 20:30 Gastric Occult Blood Negative (NEGATIVE) 04/09/21 20:30 - Plan (1) Pneumonia due to COVID-19 virus Status: Acute Plan: MECHANICAL VENT, ALBUMIN 25% IV DAILY, SOLU-MEDROL 40MG IV Q8H, IV ANTIBIOTICS, ELIQUIS 1.25MG NG TUBE BID, DIFLUCAN 200MG IV DAILY, REGLAN 10MG IV TID, DIAMOX 250MG GT DAILY, NEB TX, MUCOMYST IN NEB TX, MOPRHINE 2MG IV Q4H PRN, LEXAPRO 20MG NG TUBE BID, PROTONIX IV BID, VERSED DRIP, DIPROVAN DRIP, VERCURONIUM DRIP. (2) Hypoxia Status: Acute (3) HTN (hypertension) Status: Chronic Qualifiers: Hypertension type: primary hypertension Qualified Code(s): I10 - Essential (primary) hypertension (4) GERD (gastroesophageal reflux disease) Status: Chronic Qualifiers: Esophagitis presence: esophagitis presence not specified Qualified Code(s): K21.9 - Gastro-esophageal reflux disease without esophagitis (5) Obesity Status: Chronic Qualifiers: Obesity type: unspecified obesity type Obesity classification: adult class 2 (BMI 35 - 39.9) Serious obesity comorbidity presence: unspecified whether serious comorbidity present Body mass index: BMI 36.0-36.9 Qualified Code(s): E66.9 - Obesity, unspecified; Z68.36 - Body mass index [BMI] 36.0-36.9, adult
[2021-04-12] MEDS ORDERED: DIAMOX PO ONE (16:00)
[2021-04-12] MEDS ORDERED: NS 500 ML IV 500 ML IV ONE (20:46)
[2021-04-13] MEDS: DIPRIVAN PREMIX 1 GRAM IV 1,000 MG/100 ML VIAL IV PRN ×8 (01:00→22:30)
[2021-04-13] MEDS: ZEMURON 100 MG VIAL 500 MG in NS 500 ML IV 450 ML IV PRN ×3 (02:30→21:35)
[2021-04-13] MEDS: VERSED IV PREMIX 100 MG/100 ML IV.SOLN IV PRN ×4 (03:10→19:20)
[2021-04-13 04:46] LABS: ABG BASE EXCESS 11.3 mmol/L (-2.0-2.0)
[2021-04-13 04:47] LABS: ABG HCO3 39.7 mmol/L (22-26)
[2021-04-13 04:56] LABS: BASOPHILS % (AUTO) 0.1 % (0.2-1.0); HEMATOCRIT 39.6 % (42.0-54.0); HEMOGLOBIN 13.3 g/dL (13.5-18.0); LYMPHOCYTES # (AUTO) 0.1 X10^3/uL (1.3-2.9); LYMPHOCYTES % (AUTO) 3.5 % (21.0-51.0); MEAN CORPUSCULAR HEMOGLOBIN 30.5 pg (27.0-34.0); MEAN CORPUSCULAR HGB CONC 33.5 g/dL (33.0-35.0); MEAN PLATELET VOLUME 8.2 fL (7.4-11.0); MONOCYTES # (AUTO) 0.1 x10^3/uL (0.3-0.8); MONOCYTES % (AUTO) 3.1 % (0.0-13.0); NEUTROPHILS # (AUTO) 3.8 x10^3/uL (2.2-4.8); NEUTROPHILS % (AUTO) 93.3 % (42.0-75.0); PLATELET COUNT 67 X10^3/uL (150.0-450.0); RED BLOOD COUNT 4.35 X10^6/uL (4.7-6.0); RED CELL DISTRIBUTION WIDTH 14.2 % (11.6-16.5); WHITE BLOOD COUNT 4.1 X10^3/uL (3.6-10.0)
[2021-04-13 05:05] LABS: PREALBUMIN 26.2 mg/dL (18-35.7)
[2021-04-13] MEDS: ACCUNEB 1.25 MG NEBULE NEB SCH ×3 (05:15→20:52)
[2021-04-13] MEDS: MUCOMYST (RESPIRATORY USE ONLY) NEB SCH ×3 (05:15→20:52)
[2021-04-13 05:17] LABS: ALANINE AMINOTRANSFERASE 42 Units/L (12-78); ALBUMIN 3.2 g/dL (3.4-5.0); ALKALINE PHOSPHATASE 57 Units/L (46-116); ASPARTATE AMINO TRANSFERASE 20 Units/L (15-37); BLOOD UREA NITROGEN 12 mg/dL (7-18); CALCIUM 7.9 mg/dL (8.5-10.1); CARBON DIOXIDE 37.8 mmol/L (21-32); CHLORIDE 108 mmol/L (98-107); COR CA(FOR HYPOALB) 8.5 mg/dL (8.5-10.1); SODIUM 146 mmol/L (136-145); TOTAL PROTEIN 5.4 g/dL (6.4-8.2); eGFR NON BLACK RACES > 60 (>60)
[2021-04-13] MEDS: [UNRECOGNIZED DRUG - OTHER] IV SCH ×9 (05:30→21:51)
[2021-04-13] MEDS: NS IV SCH ×9 (05:30→21:51)
[2021-04-13] MEDS: MVI IV SCH ×9 (05:30→21:51)
[2021-04-13 05:37] LABS: BAND NEUTROPHILS % 7 % (0-10); PLATELET MORPHOLOGY COMMENT NORMAL (NORMAL)
[2021-04-13 05:38] LABS: STOMATOCYTES PRESENT
[2021-04-13] MEDS: REGLAN INJ 10 MG VIAL IVP SCH ×3 (06:02→21:00)
[2021-04-13] MEDS: SOLU-Medrol 40 MG VIAL IVP SCH ×3 (06:03→21:00)
--- NOTE | 2021-04-13 06:32 | RAD ---
HISTORYSOB, VENTILATOR DEPENDENCESTUDYCHEST, 1 [id number]/23/2021.TECHNIQUEAP view of the chestFINDINGSET tube in good position. NG tube in good position. The cardiac silhouette is stably enlarged. Mediastinal contours appear stable. No significant change in bilateral airspace and interstitial opacities. Suspect a small right pleural effusion with thickening of the right minor fissure. No discernible pneumothorax.IMPRESSIONNo significant change.Electronically signed by: Alphonso Hobbs (Apr 13, 2021 06:29:34)
[2021-04-13] MEDS: ALBUMIN HUMAN 25%- 100 ML 100 ML IV SCH ×2 (07:57→21:45)
[2021-04-13] MEDS ORDERED: LEXAPRO ONE ×2 (08:12→19:58)
[2021-04-13] MEDS: LEVAQUIN PREMIX IV 500 MG 500 MG/100 ML BAG IV SCH (08:57)
[2021-04-13] MEDS: PULMICORT NEB TX 0.5 MG NEB SCH ×2 (09:05→20:52)
[2021-04-13] MEDS: ELIQUIS NG SCH ×2 (09:21→21:00)
[2021-04-13] MEDS: LEXAPRO NG SCH ×2 (09:22→21:00)
[2021-04-13] MEDS: PROTONIX INJ 40 MG VIAL IVP SCH ×2 (09:23→21:00)
[2021-04-13] MEDS: MILK OF MAGNESIA NG SCH (09:23)
[2021-04-13] MEDS: LACRI-LUBE S.O.P. AFFEYE SCH ×2 (09:24→21:00)
[2021-04-13] MEDS: DIAMOX PO SCH (09:24)
[2021-04-13 09:59] LABS: GASTRIC OCCULT BLOOD POSITIVE (NEGATIVE)
[2021-04-13 10:00] LABS: PH,GASTRIC FLUID 3
[2021-04-13] MEDS: DIFLUCAN 200 MG IV PREMIX* 200 MG/100 ML BAG IV SCH (10:00)
[2021-04-13] MEDS: PEPCID 20 MG IV PREMIX* 20 MG/50 ML BAG IV SCH ×2 (11:10→21:00)
--- NOTE | 2021-04-13 11:25 | PCM.PROG ---
Progress Note - Progress Note for Day of Date of Exam: 04/13/21 - Subjective Subjective: MR. MARMOLEJO WAS ADMITTED FOR TREATMENT OF COVID PNEUMONIA AND HYPOXIA. PMH: OBESITY, GERD, HTN. HE REMAINS IN THE INTENSIVE CARE UNIT ON THE MECHANICAL VENT TODAY. HE WAS PLACED ON THE VENT ON 03/28/21. TODAY, HE IS SEDATED, LYING IN BED ON MORNING ROUNDS. HIS VENT SETTINGS THIS MORNING ARE: A/C , RATE 22, TIDAL VOLUME 465, PEEP 12, FI02 100. HIS SATURATIONS HAVE BEEN 85-93% THROUGHOUT THE NIGHT AND THIS MORNING. FI02 WAS DECREASED TO 90 YESTERDAY, BUT WAS INCREASED BACK TO 100 DUE TO SATURATIONS DROPPING TO AROUND 85%. ON EXAMINATION, HEART IS REGULAR IN RATE AND RHYTHM. BILATERAL LUNGS ARE NOTED WITH DIMINISHED LUNG SOUNDS THROUGHOUT. ABDOMEN IS ROUND, SOFT, AND NON-TENDER WITH NORMAL BOWEL SOUNDS NOTED IN ALL QUADRANTS. HIS VITALS THIS MORNING ARE: 97.8-91-29-91%-144/79. LABS WERE OBTAINED. ABNORMAL LAB VALUES INCLUDE THE FOLLOWING: RBC 4.35, HGB 13.3, HCT 39.6, PLT COUNT 67, SODIUM 146, CHLORIDE 108, CARBON DIOXIDE 37.8, CREATININE 0.30, GLUCOSE 108, CALCIUM 7.9, BNP 161, TOTAL PROTEIN 5.4, ALBUMIN 3.2. ABG REVEALED: PH 7.350, PC02 72, P02 62, HC03 39.7, 02 SAT 90, BASE EXCESS 11.3, A-A GRADIENT 561, FI02 100. CHEST XRAY WAS OBTAINED THIS MORNING AND REVEALED: ET tube in good position. NG tube in good position. The cardiac silhouette is stably enlarged. Mediastinal contours appear stable. No significant change in bilateral airspace and interstitial opacities. Suspect a small right pleural effusion with thickening of the right minor fissure. No discernible pneumothorax. HE RECEIVED AN ADDITIONAL 500MG OF DIAMOX YESTERDAY PER GEOLOGIC TECHNICIAN RECOMMENDATIONS. HIS FLUID BALANCE YESTERDAY WAS -5669 ML. HE IS CURRENTLY RECEIVING NS WITH 20MEQ KCL AND MULTI-VITAMINS, DIAMOX 250MG GT DAILY, SOLU-MEDROL 40MG IV Q8H, IV ANTIBIOTICS, ALBUMIN 25% IV BID, DIFLUCAN 200MG IV DAILY, ELIQUIS 1.25 MG PO BID, NEB TX, MUCOMYST IN NEB [place], MOPRHINE 2MG IV Q4H PRN, ATROPINE PRN, LEXAPRO 20MG NG TUBE BID, LABETALOL PRN, PROTONIX IV BID, REGLAN 10MG IV TID, VERSED DRIP, DIPROVAN DRIP, VERCURONIUM DRIP. WE WILL CONTINUE WITH CURRENT PLAN OF CARE TODAY. OTHERWISE, WE WILL FOLLOW UP WITH AM LABS, CHEST XRAY, ABG, AND CONTINUE TO MONITOR. WE WILL DECREASE OXYGEN HE TOLERATES IT. TIME SPENT ON CLINICAL ASSESSMENT, REVIEWING LABS AND IMAGING, DECISION MAKING, AND DOCUMENTATION GREATER THAN 75 MINUTES. - Past Medical Family Social History Past Med/Fam/Surg Hx: No changes since H&P Allergies: Allergies No Allergy Information Available Allergy (Verified 03/14/21 14:24) - Review of Systems ROS: No change since H&P - Vital Signs and I&O's Vital Signs: Temperature 97.8 F Pulse Rate [Right Brachial] 61 Pulse Rate [Left Radial] 85 Pulse Rate 101 Respiratory Rate 27 Blood Pressure [Right Arm] 142/73 Blood Pressure [Left Arm] 116/63 Blood Pressure 153/78 O2 Sat by Pulse Oximetry 91 Intake and Output: Intake & Output 04/10/21 04/11/21 04/12/21 04/13/21 11:59 11:59 11:59 11:59 Intake Total 6941 / 6941 9590 / 9590 4625 / 4625 4781 / 4781 Output Total 4280 / 4280 4760 / 4760 8631 / 8631 32854 / 35910 Balance 2661 / 2661 4830 / 4830 -4006 / -4006 -5669 / -5669 - Physical Exam Oriented: Unable to test Eyes: Normal Ear: Normal Nose: Normal Throat: Normal Respiratory: Generalized, Diminished Cardiovascular: Edema : Normal Auscultation: Bowel Sounds: Normal Palpation: Normal Tenderness: Normal Skin: Normal Musculoskeletal: Normal Psychiatric: Other (SEDATED) Mood Description: Calm Affect: Anxious Speech Pattern: Artificially Ventilated - Laboratory and Diagnostics Result Diagrams: 04/13/21 04:35 04/13/21 04:35 Labs: 04/12/21 09:29 Urine,[place] Urine Culture - Preliminary 03/14/21 16:39 Blood Blood Culture - Final 03/14/21 16:35 Blood Blood Culture - Final 03/18/21 01:03 Sputum - Expectorated Sputum Sputum Culture - Final 03/18/21 01:03 Sputum - Expectorated Sputum - Final Laboratory WBC 4.1 X10^3/uL (3.6-10.0) 04/13/21 04:35 RBC 4.35 X10^6/uL (4.7-6.0) L 04/13/21 04:35 Hgb 13.3 g/dL (13.5-18.0) L 04/13/21 04:35 Hct 39.6 % (42.0-54.0) L 04/13/21 04:35 MCV 91.0 fL (80.0-100.0) 04/13/21 04:35 MCH 30.5 pg (27.0-34.0) 04/13/21 04:35 MCHC 33.5 g/dL (33.0-35.0) 04/13/21 04:35 RDW 14.2 % (11.6-16.5) 04/13/21 04:35 Plt Count 67 X10^3/uL (150.0-450.0) L 04/13/21 04:35 Plt Count Comment Decreased (ADEQUATE) 04/13/21 04:35 MPV 8.2 fL (7.4-11.0) 04/13/21 04:35 Neut % (Auto) 93.3 % (42.0-75.0) H 04/13/21 04:35 Lymph % (Auto) 3.5 % (21.0-51.0) L 04/13/21 04:35 [place] % (Auto) 3.1 % (0.0-13.0) 04/13/21 04:35 Eos % (Auto) 0.0 % (0.9-2.9) L 04/13/21 04:35 Baso % (Auto) 0.1 % (0.2-1.0) L 04/13/21 04:35 Neut # (Auto) 3.8 x10^3/uL (2.2-4.8) 04/13/21 04:35 Lymph # (Auto) 0.1 X10^3/uL (1.3-2.9) L 04/13/21 04:35 [place] # (Auto) 0.1 x10^3/uL (0.3-0.8) L 04/13/21 04:35 Eos # (Auto) 0.0 x10^3/uL (0.0-0.2) 04/13/21 04:35 Baso # (Auto) 0.0 X10^3/uL (0.0-0.1) 04/13/21 04:35 Absolute Nucleated RBC 0.2 /100WBC 04/13/21 04:35 Total Counted 100 04/13/21 04:35 Neutrophils % (Manual) 84 % (39-76) H 04/13/21 04:35 Band Neutrophils % 7 % (0-10) 04/13/21 04:35 Lymphocytes % (Manual) 4 % (13-43) L 04/13/21 04:35 Monocytes % (Manual) 5 % (4-9) 04/13/21 04:35 Eosinophils % (Manual) 1 % (0-6) 04/05/21 05:40 Metamyelocytes % 1 04/05/21 05:40 Giant Platelets Rare 04/04/21 05:07 Plt Morphology Comment Normal (NORMAL) 04/13/21 04:35 RBC Morphology Abnormal (NORMAL) 04/13/21 04:35 Hypochromasia 1+ A 04/11/21 04:25 Stomatocytes Present 04/13/21 04:35 PT 14.2 SECONDS (11.8-14.3) 03/20/21 07:07 INR Target Range - 03/20/21 07:07 INR 1.16 (0.8-1.3) 03/20/21 07:07 APTT 26.6 SECONDS (22.9-36.5) 03/17/21 06:05 PTT Comment - 03/17/21 06:05 D-Dimer 1.28 ug/ml (0.0-0.57) H* 04/11/21 08:47 Sample Site Art line 04/13/21 04:45 ABG pH 7.350 (7.35-7.45) 04/13/21 04:45 ABG pCO2 72.0 mmHg (35.0-45.0) H* 04/13/21 04:45 ABG pO2 62.0 mmHg (80.0-100.0) L 04/13/21 04:45 ABG HCO3 39.7 mmol/L (22-26) H* 04/13/21 04:45 ABG O2 Saturation 90.0 % (90-100) 04/13/21 04:45 ABG Base Excess 11.3 mmol/L (-2.0-2.0) H 04/13/21 04:45 Corky Test N/a 04/13/21 04:45 A-a Gradient 561.0 mmHg 04/13/21 04:45 FiO2 100.0 04/13/21 04:45 Blood Gas Comments Michael well mts/mtf 04/13/21 04:45 Sodium 146 mmol/L (136-145) H 04/13/21 04:35 Corrected Sodium TNP 04/13/21 04:35 Potassium 3.5 mmol/L (3.5-5.1) 04/13/21 04:35 Chloride 108 mmol/L (98-107) H 04/13/21 04:35 Carbon Dioxide 37.8 mmol/L (21-32) H 04/13/21 04:35 BUN 12 mg/dL (7-18) 04/13/21 04:35 Creatinine 0.30 mg/dL (0.70-1.30) L 04/13/21 04:35 Est GFR (MDRD) Af Amer > 60 (>60) 04/13/21 04:35 Est GFR (MDRD) Non-Af > 60 (>60) 04/13/21 04:35 Glucose 108 mg/dL (65-99) H 04/13/21 04:35 POC Glucose (mg/dL) 121 mg/dL (65-99) H 04/09/21 22:53 Lactic Acid 1.5 mmol/L (0.4-2.0) 04/06/21 14:14 Calcium 7.9 mg/dL (8.5-10.1) L 04/13/21 04:35 Corrected Calcium 8.5 mg/dL (8.5-10.1) 04/13/21 04:35 Phosphorus 2.0 mg/dL (2.6-4.7) L 04/12/21 04:55 Magnesium 2.1 mg/dL (1.7-2.9) 04/12/21 04:55 Ferritin 2585 ng/mL (26-388) H 03/23/21 05:21 Total Bilirubin 0.60 mg/dL (0.2-1.0) 04/13/21 04:35 AST 20 Units/L (15-37) 04/13/21 04:35 ALT 42 Units/L (12-78) 04/13/21 04:35 Alkaline Phosphatase 57 Units/L (46-116) 04/13/21 04:35 Creatine Kinase 228 Units/L (39-308) 04/06/21 21:30 CK-MB (CK-2) < 1.0 ng/mL (0-4.0) 04/06/21 21:30 CK/CKMB % Calc 0.4 % (<4) 04/06/21 21:30 Troponin I < 0.02 ng/mL (0-1.5) 04/06/21 21:30 C-Reactive Protein 3.10 mg/L (0-3.0) H 04/11/21 08:48 B-Natriuretic Peptide 161 pg/mL (0-79) H 04/13/21 04:35 Total Protein 5.4 g/dL (6.4-8.2) L 04/13/21 04:35 Albumin 3.2 g/dL (3.4-5.0) L 04/13/21 04:35 Globulin 2.2 g/dL (2.5-4.5) L 04/13/21 04:35 Albumin/Globulin Ratio 1.5 Ratio (1.1-2.1) 04/13/21 04:35 Prealbumin 26.2 mg/dL (18-35.7) 04/13/21 04:35 Triglycerides 371 mg/dL (0-150) H 04/12/21 04:55 Specimen Type Catherized urine 04/12/21 09:29 Urine Color Yellow (YELLOW) 04/12/21 09:29 Urine Appearance Clear (CLEAR) 04/12/21 09:29 Urine pH 7.0 (5.0 - 8.0) 04/12/21 09:29 Ur Specific [place] 1.010 (1.000-1.030) 04/12/21 09:29 Urine Protein 2+ (NEGATIVE) 04/12/21 09:29 Urine Glucose (UA) Negative (NEGATIVE) 04/12/21 09: Urine Ketones Negative (NEGATIVE) 04/12/21 09: Urine Occult Blood Negative (NEGATIVE) 04/12/21 09:29 Urine Nitrite Negative (NEGATIVE) 04/12/21 09:29 Urine Bilirubin Negative (NEGATIVE) 04/12/21 09:29 Urine Urobilinogen 2+ (NORMAL) 04/12/21 09:29 Ur Leukocyte Esterase Negative (NEGATIVE) 04/12/21 09:29 Urine RBC 0-2 /HPF (0-3) 04/12/21 09:29 Urine WBC 0-2 /HPF (0-5) 04/12/21 09:29 Ur Squamous Epith Cells Rare /HPF (NEGATIVE) 04/12/21 09:29 Ur Renal Epithelial Cell Rare /HPF (NEGATIVE) 04/12/21 09:29 Urine Bacteria Negative /HPF (NEGATIVE) 04/12/21 09:29 Urine Mucus Few /HPF (NEGATIVE) 03/28/21 05:47 Ur Culture Indicated? No/not indicated 04/12/21 09:29 Gastric Fluid pH 3 04/13/21 09:45 Gastric Occult Blood Positive (NEGATIVE) A 04/13/21 09:45 - Plan (1) Pneumonia due to COVID-19 virus Status: Acute Plan: MECHANICAL VENT, ALBUMIN 25% IV DAILY, SOLU-MEDROL 40MG IV Q8H, IV ANTIBIOTICS, ELIQUIS 1.25MG NG TUBE BID, DIFLUCAN 200MG IV DAILY, REGLAN 10MG IV TID, DIAMOX 250MG GT DAILY, NEB TX, MUCOMYST IN NEB [place], MOPRHINE 2MG IV Q4H PRN, LEXAPRO 20MG NG TUBE BID, PROTONIX IV BID, VERSED DRIP, DIPROVAN DRIP, VERCURONIUM DRIP. (2) Hypoxia Status: Acute (3) HTN (hypertension) Status: Chronic Qualifiers: Hypertension type: primary hypertension Qualified Code(s): I10 - Essential (primary) hypertension (4) GERD (gastroesophageal reflux disease) Status: Chronic Qualifiers: Esophagitis presence: esophagitis presence not specified Qualified Code(s): K21.9 - Gastro-esophageal reflux disease without esophagitis (5) Obesity Status: Chronic Qualifiers: Obesity type: unspecified obesity type Obesity classification: adult class 2 (BMI 35 - 39.9) Serious obesity comorbidity presence: unspecified whether serious comorbidity present Body mass index: BMI 36.0-36.9 Qualified Code(s): E66.9 - Obesity, unspecified; Z68.36 - Body mass index [BMI] 36.0-36.9, adult
[2021-04-13] MEDS ORDERED: REGLAN INJ 10 MG VIAL ONE (19:57)
[2021-04-14] MEDS: DIPRIVAN PREMIX 1 GRAM IV 1,000 MG/100 ML VIAL IV PRN ×8 (00:50→22:51)
[2021-04-14] MEDS: MVI IV SCH ×9 (01:09→22:05)
[2021-04-14] MEDS: [UNRECOGNIZED DRUG - OTHER] IV SCH ×9 (01:09→22:05)
[2021-04-14] MEDS: NS IV SCH ×9 (01:09→22:05)
[2021-04-14] MEDS: VERSED IV PREMIX 100 MG/100 ML IV.SOLN IV PRN ×4 (01:45→19:35)
[2021-04-14] MEDS: MUCOMYST (RESPIRATORY USE ONLY) NEB SCH ×3 (05:33→21:03)
[2021-04-14] MEDS: ACCUNEB 1.25 MG NEBULE NEB SCH ×3 (05:33→21:03)
[2021-04-14 05:49] LABS: ABG BASE EXCESS 11.7 mmol/L (-2.0-2.0)
[2021-04-14 06:10] LABS: ALANINE AMINOTRANSFERASE 42 Units/L (12-78); ALKALINE PHOSPHATASE 48 Units/L (46-116); ASPARTATE AMINO TRANSFERASE 20 Units/L (15-37); BASOPHILS % (AUTO) 0.1 % (0.2-1.0); BLOOD UREA NITROGEN 12 mg/dL (7-18); CALCIUM 7.8 mg/dL (8.5-10.1); CARBON DIOXIDE 33.8 mmol/L (21-32); CHLORIDE 107 mmol/L (98-107); COR CA(FOR HYPOALB) 8.6 mg/dL (8.5-10.1); COR NA(FOR HYPERGLY) 144 mmol/L (136-145); CREATININE 0.25 mg/dL (0.70-1.30); EOSINOPHILS % (AUTO) 0.1 % (0.9-2.9); LYMPHOCYTES # (AUTO) 0.1 X10^3/uL (1.3-2.9); LYMPHOCYTES % (AUTO) 3.9 % (21.0-51.0); MEAN CORPUSCULAR HEMOGLOBIN 31.2 pg (27.0-34.0); MEAN CORPUSCULAR HGB CONC 34.2 g/dL (33.0-35.0); MEAN CORPUSCULAR VOLUME 91.3 fL (80.0-100.0); MEAN PLATELET VOLUME 8.4 fL (7.4-11.0); MONOCYTES # (AUTO) 0.1 x10^3/uL (0.3-0.8); MONOCYTES % (AUTO) 3.6 % (0.0-13.0); NEUTROPHILS # (AUTO) 3.3 x10^3/uL (2.2-4.8); NEUTROPHILS % (AUTO) 92.3 % (42.0-75.0); PLATELET COUNT 55 X10^3/uL (150.0-450.0); RED BLOOD COUNT 3.83 X10^6/uL (4.7-6.0); RED CELL DISTRIBUTION WIDTH 14.4 % (11.6-16.5); SODIUM 144 mmol/L (136-145); WHITE BLOOD COUNT 3.6 X10^3/uL (3.6-10.0); eGFR NON BLACK RACES > 60 (>60)
[2021-04-14] MEDS: REGLAN INJ 10 MG VIAL IVP SCH ×3 (06:46→21:00)
[2021-04-14] MEDS: SOLU-Medrol 40 MG VIAL IVP SCH ×3 (06:47→21:00)
[2021-04-14] MEDS: ZEMURON 100 MG VIAL 500 MG in NS 500 ML IV 450 ML IV PRN ×2 (06:55→17:10)
[2021-04-14 07:15] LABS: BAND NEUTROPHILS % 5 % (0-10); PLATELET MORPHOLOGY COMMENT NORMAL (NORMAL)
--- NOTE | 2021-04-14 08:02 | RAD ---
HISTORYCOVID PNEUMONIA, SOBSTUDYCHEST, 1 [id number] opacity in the left and right lung probably pneumonia. No change from yesterday. No pleural effusion or pneumothorax.The heart size is magnified.Bones are unremarkable.The endotracheal tube is anatomic in position in the trachea. The enteric tube extends into the upper abdomen. EKG leads are noted.IMPRESSION1. Unchanged pneumoniaElectronically signed by: Gurwinder Chow (Apr 14, 2021 08:00:11)
[2021-04-14] MEDS ORDERED: LEXAPRO ONE ×2 (08:36→19:48)
[2021-04-14] MEDS: PEPCID 20 MG IV PREMIX* 20 MG/50 ML BAG IV SCH ×2 (08:40→21:00)
[2021-04-14] MEDS: PULMICORT NEB TX 0.5 MG NEB SCH ×2 (08:41→21:03)
[2021-04-14] MEDS: ELIQUIS NG SCH ×2 (08:46→21:00)
[2021-04-14] MEDS: MILK OF MAGNESIA NG SCH (08:47)
[2021-04-14] MEDS: PROTONIX INJ 40 MG VIAL IVP SCH ×2 (08:47→21:00)
[2021-04-14] MEDS: LEXAPRO NG SCH ×2 (08:47→21:00)
[2021-04-14] MEDS: LACRI-LUBE S.O.P. AFFEYE SCH ×2 (08:48→21:00)
[2021-04-14] MEDS: LEVAQUIN PREMIX IV 500 MG 500 MG/100 ML BAG IV SCH (09:05)
[2021-04-14] MEDS: DIFLUCAN 200 MG IV PREMIX* 200 MG/100 ML BAG IV SCH (10:20)
[2021-04-14] MEDS: ALBUMIN HUMAN 25%- 100 ML 100 ML IV SCH ×2 (11:30→22:00)
--- NOTE | 2021-04-14 14:41 | PCM.PROG ---
Progress Note - Progress Note for Day of Date of Exam: 04/14/21 - Subjective Subjective: MR. MARMOLEJO WAS ADMITTED FOR TREATMENT OF COVID PNEUMONIA AND HYPOXIA. PMH: OBESITY, GERD, HTN. HE REMAINS IN THE INTENSIVE CARE UNIT ON THE MECHANICAL VENT TODAY. HE WAS PLACED ON THE VENT ON 03/28/21. TODAY, HE IS SEDATED, LYING IN BED ON MORNING ROUNDS. HIS VENT SETTINGS THIS MORNING ARE: A/C , RATE 22, TIDAL VOLUME 465, PEEP 10, FI02 90. HIS SATURATIONS HAVE BEEN 88-93% THROUGHOUT THE NIGHT AND THIS MORNING. ON EXAMINATION, HEART IS REGULAR IN RATE AND RHYTHM. BILATERAL LUNGS ARE NOTED WITH DIMINISHED LUNG SOUNDS THROUGHOUT. ABDOMEN IS ROUND, SOFT, AND NON-TENDER WITH NORMAL BOWEL SOUNDS NOTED IN ALL QUADRANTS. HIS VITALS THIS MORNING ARE: 98.0-90-22-92%-140/77. LABS WERE OBTAINED. ABNORMAL LAB VALUES INCLUDE THE FOLLOWING: RBC 3.83, HGB 12.0, HCT 35.0, PLT COUNT 55, D-DIMER 1.28, POTASSIUM 3.4, CARBON DIOXIDE 33.8, CREATININE 0.25, GLUCOSE 113, CALCIUM 7.8, BNP 156, TOTAL PROTEIN 5.0, ALBUMIN 3.0. ABG REVEALED: PH 7.400, PC02 63, P02 51, HC03 39.0, 02 SAT 86, A-A GRADIENT 512, FI02 90. CHEST XRAY WAS OBTAINED THIS MORNING AND REVEALED: UNCHANGED PNEUMONIA. HE IS CURRENTLY RECEIVING NS WITH 20MEQ KCL AND MULTI-VITAMINS, DIAMOX 250MG GT DAILY, SOLU-MEDROL 40MG IV Q8H, IV ANTIBIOTICS, ALBUMIN 25% IV BID, DIFLUCAN 200MG IV DAILY, ELIQUIS 1.25 MG PO BID, NEB TX, MUCOMYST IN NEB [place], MOPRHINE 2MG IV Q4H PRN, ATROPINE PRN, LEXAPRO 20MG NG TUBE BID, LABETALOL PRN, PROTONIX IV BID, REGLAN 10MG IV TID, VERSED DRIP, DIPROVAN DRIP, VERCURONIUM DRIP. HE IS RECEIVING ENTERAL FEEDINGS. WE WILL CONTINUE WITH CURRENT PLAN OF CARE TODAY. OTHERWISE, WE WILL FOLLOW UP WITH AM LABS, CHEST XRAY, ABG, AND CONTINUE TO MONITOR. WE WILL DECREASE OXYGEN HE TOLERATES IT. TIME SPENT ON CLINICAL ASSESSMENT, REVIEWING LABS AND IMAGING, DECISION MAKING, AND DOCUMENTATION GREATER THAN 75 MINUTES. - Past Medical Family Social History Past Med/Fam/Surg Hx: No changes since H&P Allergies: Allergies No Allergy Information Available Allergy (Verified 03/14/21 14:24) - Review of Systems ROS: No change since H&P - Vital Signs and I&O's Vital Signs: Temperature 98.0 F Pulse Rate [Right Brachial] 61 Pulse Rate [Left Radial] 85 Pulse Rate 90 Respiratory Rate 22 Blood Pressure [Right Arm] 142/73 Blood Pressure [Left Arm] 116/63 Blood Pressure 136/79 O2 Sat by Pulse Oximetry 92 Intake and Output: Intake & Output 04/12/21 04/13/21 04/14/21 04/15/21 11:59 11:59 11:59 11:59 Intake Total 4625 / 4625 5516 / 5516 4443 / 4443 200 / 200 Output Total 8631 / 8631 03056 / 39455 6130 / 6130 Balance -4006 / -4006 -7134 / -7134 -1687 / -1687 200 / 200 - Physical Exam Oriented: Unable to test Eyes: Normal Ear: Normal Nose: Normal Throat: Normal Respiratory: Generalized, Diminished Cardiovascular: Edema : Normal Auscultation: Bowel Sounds: Normal Tenderness: Normal Skin: Normal Musculoskeletal: Normal Psychiatric: Other (SEDATED) Mood Description: Calm Affect: Anxious Speech Pattern: Artificially Ventilated - Laboratory and Diagnostics Result Diagrams: 04/14/21 04:55 04/14/21 04:55 Labs: 04/13/21 09:45 Sputum - Endotracheal Wash Sputum Culture - Preliminary 04/13/21 09:45 Sputum - Endotracheal Wash - Final 04/12/21 09:29 Urine,[place] Urine Culture - Final 03/14/21 16:39 Blood Blood Culture - Final 03/14/21 16:35 Blood Blood Culture - Final 03/18/21 01:03 Sputum - Expectorated Sputum Sputum Culture - Final 03/18/21 01:03 Sputum - Expectorated Sputum - Final Laboratory WBC 3.6 X10^3/uL (3.6-10.0) 04/14/21 04:55 RBC 3.83 X10^6/uL (4.7-6.0) L 04/14/21 04:55 Hgb 12.0 g/dL (13.5-18.0) L 04/14/21 04:55 Hct 35.0 % (42.0-54.0) L 04/14/21 04:55 MCV 91.3 fL (80.0-100.0) 04/14/21 04:55 MCH 31.2 pg (27.0-34.0) 04/14/21 04:55 MCHC 34.2 g/dL (33.0-35.0) 04/14/21 04:55 RDW 14.4 % (11.6-16.5) 04/14/21 04:55 Plt Count 55 X10^3/uL (150.0-450.0) L 04/14/21 04:55 Plt Count Comment Decreased (ADEQUATE) 04/14/21 04:55 MPV 8.4 fL (7.4-11.0) 04/14/21 04:55 Neut % (Auto) 92.3 % (42.0-75.0) H 04/14/21 04:55 Lymph % (Auto) 3.9 % (21.0-51.0) L 04/14/21 04:55 [place] % (Auto) 3.6 % (0.0-13.0) 04/14/21 04:55 Eos % (Auto) 0.1 % (0.9-2.9) L 04/14/21 04:55 Baso % (Auto) 0.1 % (0.2-1.0) L 04/14/21 04:55 Neut # (Auto) 3.3 x10^3/uL (2.2-4.8) 04/14/21 04:55 Lymph # (Auto) 0.1 X10^3/uL (1.3-2.9) L 04/14/21 04:55 [place] # (Auto) 0.1 x10^3/uL (0.3-0.8) L 04/14/21 04:55 Eos # (Auto) 0.0 x10^3/uL (0.0-0.2) 04/14/21 04:55 Baso # (Auto) 0.0 X10^3/uL (0.0-0.1) 04/14/21 04:55 Absolute Nucleated RBC 0.1 /100WBC 04/14/21 04:55 Total Counted 100 04/14/21 04:55 Neutrophils % (Manual) 89 % (39-76) H 04/14/21 04:55 Band Neutrophils % 5 % (0-10) 04/14/21 04:55 Lymphocytes % (Manual) 1 % (13-43) L 04/14/21 04:55 Monocytes % (Manual) 5 % (4-9) 04/14/21 04:55 Eosinophils % (Manual) 1 % (0-6) 04/05/21 05:40 Metamyelocytes % 1 04/05/21 05:40 Giant Platelets Rare 04/04/21 05:07 Plt Morphology Comment Normal (NORMAL) 04/14/21 04:55 RBC Morphology Normal (NORMAL) 04/14/21 04:55 Hypochromasia 1+ A 04/11/21 04:25 Stomatocytes Present 04/13/21 04:35 PT 14.2 SECONDS (11.8-14.3) 03/20/21 07:07 INR Target Range - 03/20/21 07:07 INR 1.16 (0.8-1.3) 03/20/21 07:07 APTT 26.6 SECONDS (22.9-36.5) 03/17/21 06:05 PTT Comment - 03/17/21 06:05 D-Dimer 1.28 ug/ml (0.0-0.57) H* 04/11/21 08:47 Sample Site Art-line 04/14/21 05:46 ABG pH 7.400 (7.35-7.45) 04/14/21 05:46 ABG pCO2 63.0 mmHg (35.0-45.0) H* 04/14/21 05:46 ABG pO2 51.0 mmHg (80.0-100.0) L 04/14/21 05:46 ABG HCO3 39.0 mmol/L (22-26) H* 04/14/21 05:46 ABG O2 Saturation 86.0 % (90-100) L 04/14/21 05:46 ABG Base Excess 11.7 mmol/L (-2.0-2.0) H 04/14/21 05:46 Corky Test Na 04/14/21 05:46 A-a Gradient 512.0 mmHg 04/14/21 05:46 FiO2 90.0 04/14/21 05:46 Blood Gas Comments Michael well-mtf 04/14/21 05:46 Sodium 144 mmol/L (136-145) 04/14/21 04:55 Corrected Sodium 144 mmol/L (136-145) 04/14/21 04:55 Potassium 3.4 mmol/L (3.5-5.1) L 04/14/21 04:55 Chloride 107 mmol/L (98-107) 04/14/21 04:55 Carbon Dioxide 33.8 mmol/L (21-32) H 04/14/21 04:55 BUN 12 mg/dL (7-18) 04/14/21 04:55 Creatinine 0.25 mg/dL (0.70-1.30) L 04/14/21 04:55 Est GFR (MDRD) Af Amer > 60 (>60) 04/14/21 04:55 Est GFR (MDRD) Non-Af > 60 (>60) 04/14/21 04:55 Glucose 113 mg/dL (65-99) H 04/14/21 04:55 POC Glucose (mg/dL) 121 mg/dL (65-99) H 04/09/21 22:53 Lactic Acid 1.5 mmol/L (0.4-2.0) 04/06/21 14:14 Calcium 7.8 mg/dL (8.5-10.1) L 04/14/21 04:55 Corrected Calcium 8.6 mg/dL (8.5-10.1) 04/14/21 04:55 Phosphorus 2.0 mg/dL (2.6-4.7) L 04/12/21 04:55 Magnesium 2.1 mg/dL (1.7-2.9) 04/14/21 04:55 Ferritin 2585 ng/mL (26-388) H 03/23/21 05:21 Total Bilirubin 0.50 mg/dL (0.2-1.0) 04/14/21 04:55 AST 20 Units/L (15-37) 04/14/21 04:55 ALT 42 Units/L (12-78) 04/14/21 04:55 Alkaline Phosphatase 48 Units/L (46-116) 04/14/21 04:55 Creatine Kinase 228 Units/L (39-308) 04/06/21 21:30 CK-MB (CK-2) < 1.0 ng/mL (0-4.0) 04/06/21 21:30 CK/CKMB % Calc 0.4 % (<4) 04/06/21 21:30 Troponin I < 0.02 ng/mL (0-1.5) 04/06/21 21:30 C-Reactive Protein 3.10 mg/L (0-3.0) H 04/11/21 08:48 B-Natriuretic Peptide 156 pg/mL (0-79) H 04/14/21 04:55 Total Protein 5.0 g/dL (6.4-8.2) L 04/14/21 04:55 Albumin 3.0 g/dL (3.4-5.0) L 04/14/21 04:55 Globulin 2.0 g/dL (2.5-4.5) L 04/14/21 04:55 Albumin/Globulin Ratio 1.5 Ratio (1.1-2.1) 04/14/21 04:55 Prealbumin 26.2 mg/dL (18-35.7) 04/13/21 04:35 Triglycerides 371 mg/dL (0-150) H 04/12/21 04:55 Specimen Type Catherized urine 04/12/21 09:29 Urine Color Yellow (YELLOW) 04/12/21 09: Urine Appearance Clear (CLEAR) 04/12/21 09: Urine pH 7.0 (5.0 - 8.0) 04/12/21 09:29 Ur Specific [place] 1.010 (1.000-1.030) 04/12/21 09: Urine Protein 2+ (NEGATIVE) 04/12/21 09: Urine Glucose (UA) Negative (NEGATIVE) 04/12/21 09: Urine Ketones Negative (NEGATIVE) 04/12/21 09: Urine Occult Blood Negative (NEGATIVE) 04/12/21 09: Urine Nitrite Negative (NEGATIVE) 04/12/21 09: Urine Bilirubin Negative (NEGATIVE) 04/12/21 09: Urine Urobilinogen 2+ (NORMAL) 04/12/21 09: Ur Leukocyte Esterase Negative (NEGATIVE) 04/12/21 09: Urine RBC 0-2 /HPF (0-3) 04/12/21 09:29 Urine WBC 0-2 /HPF (0-5) 04/12/21 09:29 Ur Squamous Epith Cells Rare /HPF (NEGATIVE) 04/12/21 09:29 Ur Renal Epithelial Cell Rare /HPF (NEGATIVE) 04/12/21 09:29 Urine Bacteria Negative /HPF (NEGATIVE) 04/12/21 09:29 Urine Mucus Few /HPF (NEGATIVE) 03/28/21 05:47 Ur Culture Indicated? No/not indicated 04/12/21 09:29 Gastric Fluid pH 3 04/13/21 09:45 Gastric Occult Blood Positive (NEGATIVE) A 04/13/21 09:45 - Plan (1) Pneumonia due to COVID-19 virus Status: Acute Plan: MECHANICAL VENT, ALBUMIN 25% IV DAILY, SOLU-MEDROL 40MG IV Q8H, IV ANTIBIOTICS, ELIQUIS 1.25MG NG TUBE BID, DIFLUCAN 200MG IV DAILY, REGLAN 10MG IV TID, DIAMOX 250MG GT DAILY, NEB TX, MUCOMYST IN NEB TX, MOPRHINE 2MG IV Q4H PRN, LEXAPRO 20MG NG TUBE BID, PROTONIX IV BID, VERSED DRIP, DIPROVAN DRIP, VERCURONIUM DRIP. (2) Hypoxia Status: Acute (3) HTN (hypertension) Status: Chronic Qualifiers: Hypertension type: primary hypertension Qualified Code(s): I10 - Essential (primary) hypertension (4) GERD (gastroesophageal reflux disease) Status: Chronic Qualifiers: Esophagitis presence: esophagitis presence not specified Qualified Code(s): K21.9 - Gastro-esophageal reflux disease without esophagitis (5) Obesity Status: Chronic Qualifiers: Obesity type: unspecified obesity type Obesity classification: adult class 2 (BMI 35 - 39.9) Serious obesity comorbidity presence: unspecified whether se rious comorbidity present Body mass index: BMI 36.0-36.9 Qualified Code(s): E66.9 - Obesity, unspecified; Z68.36 - Body mass index [BMI] 36.0-36.9, adult
[2021-04-14] MEDS ORDERED: DIAMOX PO ONE (15:30)
[2021-04-14] MEDS ORDERED: NS 250 ML IV 250 ML IV ONE (21:19)
[2021-04-15] MEDS: VERSED IV PREMIX 100 MG/100 ML IV.SOLN IV PRN ×4 (01:20→20:03)
[2021-04-15] MEDS: DIPRIVAN PREMIX 1 GRAM IV 1,000 MG/100 ML VIAL IV PRN ×7 (01:40→20:49)
[2021-04-15] MEDS: NORMODYNE INJ 20 MG VIAL IV PRN (02:15)
[2021-04-15] MEDS: ACCUNEB 1.25 MG NEBULE NEB SCH ×3 (04:52→20:30)
[2021-04-15] MEDS: MUCOMYST (RESPIRATORY USE ONLY) NEB SCH ×3 (04:52→20:30)
[2021-04-15 05:10] LABS: ABG BASE EXCESS 12.3 mmol/L (-2.0-2.0)
[2021-04-15 05:11] LABS: ABG HCO3 41.7 mmol/L (22-26)
[2021-04-15 05:20] LABS: BASOPHILS % (AUTO) 0.1 % (0.2-1.0); HEMATOCRIT 38.1 % (42.0-54.0); HEMOGLOBIN 12.8 g/dL (13.5-18.0); LYMPHOCYTES # (AUTO) 0.1 X10^3/uL (1.3-2.9); LYMPHOCYTES % (AUTO) 2.4 % (21.0-51.0); MEAN CORPUSCULAR HEMOGLOBIN 30.7 pg (27.0-34.0); MEAN CORPUSCULAR HGB CONC 33.5 g/dL (33.0-35.0); MEAN CORPUSCULAR VOLUME 91.5 fL (80.0-100.0); MEAN PLATELET VOLUME 8.3 fL (7.4-11.0); MONOCYTES # (AUTO) 0.2 x10^3/uL (0.3-0.8); MONOCYTES % (AUTO) 3.3 % (0.0-13.0); NEUTROPHILS # (AUTO) 4.6 x10^3/uL (2.2-4.8); NEUTROPHILS % (AUTO) 94.2 % (42.0-75.0); PLATELET COUNT 66 X10^3/uL (150.0-450.0); RED BLOOD COUNT 4.16 X10^6/uL (4.7-6.0); RED CELL DISTRIBUTION WIDTH 14.6 % (11.6-16.5); WHITE BLOOD COUNT 4.8 X10^3/uL (3.6-10.0)
[2021-04-15 05:29] LABS: ALANINE AMINOTRANSFERASE 48 Units/L (12-78); ALBUMIN 3.5 g/dL (3.4-5.0); ALKALINE PHOSPHATASE 50 Units/L (46-116); ASPARTATE AMINO TRANSFERASE 22 Units/L (15-37); BLOOD UREA NITROGEN 11 mg/dL (7-18); CARBON DIOXIDE 35.7 mmol/L (21-32); CHLORIDE 108 mmol/L (98-107); COR NA(FOR HYPERGLY) 147 mmol/L (136-145); CREATININE 0.22 mg/dL (0.70-1.30); SODIUM 147 mmol/L (136-145); TOTAL PROTEIN 5.6 g/dL (6.4-8.2); eGFR NON BLACK RACES > 60 (>60)
[2021-04-15 05:49] LABS: BAND NEUTROPHILS % 5 % (0-10); METAMYELOCYTES % 3; PLATELET MORPHOLOGY COMMENT NORMAL (NORMAL)
[2021-04-15] MEDS: TYLENOL 325 MG TAB PO PRN (06:00)
[2021-04-15] MEDS: SOLU-Medrol 40 MG VIAL IVP SCH ×3 (06:48→20:59)
[2021-04-15] MEDS: REGLAN INJ 10 MG VIAL IVP SCH ×3 (06:48→20:59)
--- NOTE | 2021-04-15 08:02 | RAD ---
HISTORYCOVID-19 pneumoniaSTUDYAP [id number] stable cardiac enlargement with no change in appearance of bilateral airspace pulmonary involvement. The extreme upper lobes are relatively spared. Stable position of support lines, ET tube terminates 4 cm above percy. No pneumothorax seen.IMPRESSIONNo significant change in appearance of bilateral pneumonia.Electronically signed by: ESTEPHANIA ROB (Apr 15, 2021 08:00:52)
[2021-04-15] MEDS ORDERED: LEXAPRO ONE ×2 (08:04→20:54)
[2021-04-15] MEDS: PEPCID 20 MG IV PREMIX* 20 MG/50 ML BAG IV SCH ×2 (08:11→20:58)
[2021-04-15] MEDS: ELIQUIS NG SCH ×2 (08:17→20:58)
[2021-04-15] MEDS: PROTONIX INJ 40 MG VIAL IVP SCH ×2 (08:17→20:59)
[2021-04-15] MEDS: MILK OF MAGNESIA NG SCH (08:17)
[2021-04-15] MEDS: LACRI-LUBE S.O.P. AFFEYE SCH ×2 (08:18→20:58)
[2021-04-15] MEDS: LEXAPRO NG SCH ×2 (08:18→20:58)
[2021-04-15] MEDS: LEVAQUIN PREMIX IV 500 MG 500 MG/100 ML BAG IV SCH (08:50)
[2021-04-15] MEDS: ZEMURON 100 MG VIAL 500 MG in NS 500 ML IV 450 ML IV PRN ×2 (09:01→23:00)
[2021-04-15] MEDS: PULMICORT NEB TX 0.5 MG NEB SCH ×2 (09:10→20:30)
[2021-04-15] MEDS ORDERED: DIAMOX PO ONE (09:57)
[2021-04-15] MEDS: DIFLUCAN 200 MG IV PREMIX* 200 MG/100 ML BAG IV SCH (10:02)
[2021-04-15] MEDS: ALBUMIN HUMAN 25%- 100 ML 100 ML IV SCH ×2 (11:05→20:57)
[2021-04-15] MEDS: NS IV SCH ×6 (14:39→20:59)
[2021-04-15] MEDS: [UNRECOGNIZED DRUG - OTHER] IV SCH ×6 (14:39→20:59)
[2021-04-15] MEDS: MVI IV SCH ×6 (14:39→20:59)
--- NOTE | 2021-04-15 16:36 | PCM.PROG ---
Progress Note - Progress Note for Day of Date of Exam: 04/15/21 - Subjective Subjective: MR. MARMOLEJO WAS ADMITTED FOR TREATMENT OF COVID PNEUMONIA AND HYPOXIA. PMH: OBESITY, GERD, HTN. HE REMAINS IN THE INTENSIVE CARE UNIT ON THE MECHANICAL VENT TODAY. HE WAS PLACED ON THE VENT ON 03/28/21. TODAY, HE IS SEDATED, LYING IN BED ON MORNING ROUNDS. HIS VENT SETTINGS THIS MORNING ARE: A/C , RATE 22, TIDAL VOLUME 465, PEEP 12, FI02 85. HIS SATURATIONS HAVE BEEN 88-91% THROUGHOUT THE NIGHT AND THIS MORNING. ON EXAMINATION, HEART IS REGULAR IN RATE AND RHYTHM. BILATERAL LUNGS ARE NOTED WITH DIMINISHED LUNG SOUNDS THROUGHOUT. ABDOMEN IS ROUND, SOFT, AND NON-TENDER WITH NORMAL BOWEL SOUNDS NOTED IN ALL QUADRANTS. HIS VITALS THIS MORNING ARE: 98.8-92-22-90%-136/69. LABS WERE OBTAINED. ABNORMAL LAB VALUES INCLUDE THE FOLLOWING: RBC 4.16, HGB 12.8, HCT 38.1, PLT COUNT 66, SODIUM 147, CHLORIDE 108, CARBON DIOXIDE 35.7, CREATININE 0.22, GLUCOSE 119, CALCIUM 8.0, BNP 302, TOTAL PROTEIN 5.6. ABG REVEALED: PH 7.320, PC02 81, P02 62, HC03 41.7, 02 SAT 89, BASE EXCESS 12.3, A-A GRADIENT 478 , FI02 90. CHEST XRAY WAS OBTAINED THIS MORNING AND REVEALED: No significant change in appearance of bilateral pneumonia. HE IS CURRENTLY RECEIVING NS WITH 20MEQ KCL AND MULTI-VITAMINS, DIAMOX 250MG GT DAILY, SOLU-MEDROL 40MG IV Q8H, IV ANTIBIOTICS, ALBUMIN 25% IV BID, DIFLUCAN 200MG IV DAILY, ELIQUIS 1.25 MG PO BID, NEB TX, MUCOMYST IN NEB [place], MOPRHINE 2MG IV Q4H PRN, ATROPINE PRN, LEXAPRO 20MG NG TUBE BID, LABETALOL PRN, PROTONIX IV BID, REGLAN 10MG IV TID, VERSED DRIP, DIPROVAN DRIP, VERCURONIUM DRIP. HE IS RECEIVING ENTERAL FEEDINGS. WE WILL CONTINUE WITH CURRENT PLAN OF CARE TODAY. OTHERWISE, WE WILL FOLLOW UP WITH AM LABS, CHEST XRAY, ABG, AND CONTINUE TO MONITOR. WE WILL DECREASE OXYGEN HE TOLERATES IT. TIME SPENT ON CLINICAL ASSESSMENT, REVIEWING LABS AND IMAGING, DECISION MAKING, AND DOCUMENTATION GREATER THAN 75 MINUTES. - Past Medical Family Social History Past Med/Fam/Surg Hx: No changes since H&P Allergies: Allergies No Allergy Information Available Allergy (Verified 03/14/21 14:24) - Review of Systems ROS: No change since H&P - Vital Signs and I&O's Vital Signs: Temperature 98.5 F Pulse Rate [Right Brachial] 61 Pulse Rate [Left Radial] 85 Pulse Rate 101 Respiratory Rate 22 Blood Pressure [Right Arm] 142/73 Blood Pressure [Left Arm] 116/63 Blood Pressure 154/88 O2 Sat by Pulse Oximetry 87 Intake and Output: Intake & Output 04/13/21 04/14/21 04/15/21 04/16/21 11:59 11:59 11:59 11:59 Intake Total 5516 / 5516 4443 / 4443 6253 / 6253 200 / 200 Output Total 92241 / 40757 6130 / 6130 8805 / 8805 Balance -7134 / -7134 -1687 / -1687 -2552 / -2552 200 / 200 - Physical Exam Oriented: Unable to test Eyes: Normal Ear: Normal Nose: Normal Throat: Normal Respiratory: Generalized, Diminished Cardiovascular: Edema : Normal Auscultation: Bowel Sounds: Normal Tenderness: Normal Skin: Normal Musculoskeletal: Normal Psychiatric: Other (SEDATED) Mood Description: Calm Affect: Anxious Speech Pattern: Artificially Ventilated - Laboratory and Diagnostics Result Diagrams: 04/15/21 04:27 04/15/21 04:27 Labs: 04/13/21 09:45 Sputum - Endotracheal Wash Sputum Culture - Final 04/13/21 09:45 Sputum - Endotracheal Wash - Final 04/12/21 09:29 Urine,[place] Urine Culture - Final 03/14/21 16:39 Blood Blood Culture - Final 03/14/21 16:35 Blood Blood Culture - Final 03/18/21 01:03 Sputum - Expectorated Sputum Sputum Culture - Final 03/18/21 01:03 Sputum - Expectorated Sputum - Final Laboratory WBC 4.8 X10^3/uL (3.6-10.0) 04/15/21 04:27 RBC 4.16 X10^6/uL (4.7-6.0) L 04/15/21 04:27 Hgb 12.8 g/dL (13.5-18.0) L 04/15/21 04:27 Hct 38.1 % (42.0-54.0) L 04/15/21 04:27 MCV 91.5 fL (80.0-100.0) 04/15/21 04: MCH 30.7 pg (27.0-34.0) 04/15/21 04: MCHC 33.5 g/dL (33.0-35.0) 04/15/21 04: RDW 14.6 % (11.6-16.5) 04/15/21 04: Plt Count 66 X10^3/uL (150.0-450.0) L 04/15/21 04: Plt Count Comment Decreased (ADEQUATE) 04/15/21 04: MPV 8.3 fL (7.4-11.0) 04/15/21 04: Neut % (Auto) 94.2 % (42.0-75.0) H 04/15/21 04: Lymph % (Auto) 2.4 % (21.0-51.0) L 04/15/21 04:27 [place] % (Auto) 3.3 % (0.0-13.0) 04/15/21 04: Eos % (Auto) 0.0 % (0.9-2.9) L 04/15/21 04: Baso % (Auto) 0.1 % (0.2-1.0) L 04/15/21 04: Neut # (Auto) 4.6 x10^3/uL (2.2-4.8) 04/15/21 04: Lymph # (Auto) 0.1 X10^3/uL (1.3-2.9) L 04/15/21 04:27 [place] # (Auto) 0.2 x10^3/uL (0.3-0.8) L 04/15/21 04: Eos # (Auto) 0.0 x10^3/uL (0.0-0.2) 04/15/21 04: Baso # (Auto) 0.0 X10^3/uL (0.0-0.1) 04/15/21 04: Absolute Nucleated RBC 0.1 /100WBC 04/15/21 04:27 Total Counted 100 04/15/21 04:27 Neutrophils % (Manual) 83 % (39-76) H 04/15/21 04:27 Band Neutrophils % 5 % (0-10) 04/15/21 04:27 Lymphocytes % (Manual) 4 % (13-43) L 04/15/21 04:27 Monocytes % (Manual) 5 % (4-9) 04/15/21 04:27 Eosinophils % (Manual) 1 % (0-6) 04/05/21 05:40 Metamyelocytes % 3 04/15/21 04:27 Giant Platelets Rare 04/04/21 05:07 Plt Morphology Comment Normal (NORMAL) 04/15/21 04:27 RBC Morphology Normal (NORMAL) 04/15/21 04:27 Hypochromasia 1+ A 04/11/21 04:25 Stomatocytes Present 04/13/21 04:35 PT 14.2 SECONDS (11.8-14.3) 03/20/21 07:07 INR Target Range - 03/20/21 07:07 INR 1.16 (0.8-1.3) 03/20/21 07:07 APTT 26.6 SECONDS (22.9-36.5) 03/17/21 06:05 PTT Comment - 03/17/21 06:05 D-Dimer 1.28 ug/ml (0.0-0.57) H* 04/11/21 08:47 Sample Site Art-line 04/15/21 05:05 ABG pH 7.320 (7.35-7.45) L 04/15/21 05:05 ABG pCO2 81.0 mmHg (35.0-45.0) H* 04/15/21 05:05 ABG pO2 62.0 mmHg (80.0-100.0) L 04/15/21 05:05 ABG HCO3 41.7 mmol/L (22-26) H* 04/15/21 05:05 ABG O2 Saturation 89.0 % (90-100) L 04/15/21 05:05 ABG Base Excess 12.3 mmol/L (-2.0-2.0) H 04/15/21 05:05 Corky Test Na 04/15/21 05:05 A-a Gradient 478.0 mmHg 04/15/21 05:05 FiO2 90.0 04/15/21 05:05 Blood Gas Comments Michael well-mtf 04/15/21 05:05 Sodium 147 mmol/L (136-145) H 04/15/21 04:27 Corrected Sodium 147 mmol/L (136-145) H 04/15/21 04:27 Potassium 3.6 mmol/L (3.5-5.1) 04/15/21 04:27 Chloride 108 mmol/L (98-107) H 04/15/21 04:27 Carbon Dioxide 35.7 mmol/L (21-32) H 04/15/21 04:27 BUN 11 mg/dL (7-18) 04/15/21 04:27 Creatinine 0.22 mg/dL (0.70-1.30) L 04/15/21 04:27 Est GFR (MDRD) Af Amer > 60 (>60) 04/15/21 04:27 Est GFR (MDRD) Non-Af > 60 (>60) 04/15/21 04:27 Glucose 119 mg/dL (65-99) H 04/15/21 04:27 POC Glucose (mg/dL) 121 mg/dL (65-99) H 04/09/21 22:53 Lactic Acid 1.5 mmol/L (0.4-2.0) 04/06/21 14:14 Calcium 8.0 mg/dL (8.5-10.1) L 04/15/21 04:27 Corrected Calcium TNP 04/15/21 04:27 Phosphorus 2.0 mg/dL (2.6-4.7) L 04/12/21 04:55 Magnesium 2.1 mg/dL (1.7-2.9) 04/14/21 04:55 Ferritin 2585 ng/mL (26-388) H 03/23/21 05:21 Total Bilirubin 0.50 mg/dL (0.2-1.0) 04/15/21 04:27 AST 22 Units/L (15-37) 04/15/21 04:27 ALT 48 Units/L (12-78) 04/15/21 04:27 Alkaline Phosphatase 50 Units/L (46-116) 04/15/21 04:27 Creatine Kinase 228 Units/L (39-308) 04/06/21 21:30 CK-MB (CK-2) < 1.0 ng/mL (0-4.0) 04/06/21 21:30 CK/CKMB % Calc 0.4 % (<4) 04/06/21 21:30 Troponin I < 0.02 ng/mL (0-1.5) 04/06/21 21:30 C-Reactive Protein 3.10 mg/L (0-3.0) H 04/11/21 08:48 B-Natriuretic Peptide 302 pg/mL (0-79) H 04/15/21 04:27 Total Protein 5.6 g/dL (6.4-8.2) L 04/15/21 04:27 Albumin 3.5 g/dL (3.4-5.0) 04/15/21 04:27 Globulin 2.1 g/dL (2.5-4.5) L 04/15/21 04:27 Albumin/Globulin Ratio 1.7 Ratio (1.1-2.1) 04/15/21 04:27 Prealbumin 26.2 mg/dL (18-35.7) 04/13/21 04:35 Triglycerides 371 mg/dL (0-150) H 04/12/21 04:55 Specimen Type Catherized urine 04/12/21 09:29 Urine Color Yellow (YELLOW) 04/12/21 09: Urine Appearance Clear (CLEAR) 04/12/21 09:29 Urine pH 7.0 (5.0 - 8.0) 04/12/21 09:29 Ur Specific [place] 1.010 (1.000-1.030) 04/12/21 09:29 Urine Protein 2+ (NEGATIVE) 04/12/21 09:29 Urine Glucose (UA) Negative (NEGATIVE) 04/12/21 09: Urine Ketones Negative (NEGATIVE) 04/12/21 09: Urine Occult Blood Negative (NEGATIVE) 04/12/21 09: Urine Nitrite Negative (NEGATIVE) 04/12/21 09: Urine Bilirubin Negative (NEGATIVE) 04/12/21 09:29 Urine Urobilinogen 2+ (NORMAL) 04/12/21 09:29 Ur Leukocyte Esterase Negative (NEGATIVE) 04/12/21 09:29 Urine RBC 0-2 /HPF (0-3) 04/12/21 09:29 Urine WBC 0-2 /HPF (0-5) 04/12/21 09:29 Ur Squamous Epith Cells Rare /HPF (NEGATIVE) 04/12/21 09:29 Ur Renal Epithelial Cell Rare /HPF (NEGATIVE) 04/12/21 09:29 Urine Bacteria Negative /HPF (NEGATIVE) 04/12/21 09:29 Urine Mucus Few /HPF (NEGATIVE) 03/28/21 05:47 Ur Culture Indicated? No/not indicated 04/12/21 09:29 Gastric Fluid pH 3 04/13/21 09:45 Gastric Occult Blood Positive (NEGATIVE) A 04/13/21 09:45 - Plan (1) Pneumonia due to COVID-19 virus Status: Acute Plan: MECHANICAL VENT, ALBUMIN 25% IV DAILY, SOLU-MEDROL 40MG IV Q8H, IV ANTIBIOTICS, ELIQUIS 1.25MG NG TUBE BID, DIFLUCAN 200MG IV DAILY, REGLAN 10MG IV TID, DIAMOX 250MG GT DAILY, NEB TX, MUCOMYST IN NEB [place], MOPRHINE 2MG IV Q4H PRN, LEXAPRO 20MG NG TUBE BID, PROTONIX IV BID, VERSED DRIP, DIPROVAN DRIP, VERCURONIUM DRIP. (2) Hypoxia Status: Acute (3) HTN (hypertension) Status: Chronic Qualifiers: Hypertension type: primary hypertension Qualified Code(s): I10 - Essential (primary) hypertension (4) GERD (gastroesophageal reflux disease) Status: Chronic Qualifiers: Esophagitis presence: esophagitis presence not specified Qualified Code(s): K21.9 - Gastro-esophageal reflux disease without esophagitis (5) Obesity Status: Chronic Qualifiers: Obesity type: unspecified obesity type Obesity classification: adult class 2 (BMI 35 - 39.9) Serious obesity comorbidity presence: unspecified whether serious comorbidity present Body mass index: BMI 36.0-36.9 Qualified Code(s): E66.9 - Obesity, unspecified; Z68.36 - Body mass index [BMI] 36.0-36.9, adult
[2021-04-16] MEDS: DIPRIVAN PREMIX 1 GRAM IV 1,000 MG/100 ML VIAL IV PRN ×9 (00:31→23:03)
[2021-04-16] MEDS: VERSED IV PREMIX 100 MG/100 ML IV.SOLN IV PRN ×4 (02:45→23:03)
[2021-04-16 05:19] LABS: BASOPHILS % (AUTO) 0 % (0.2-1.0); EOSINOPHILS % (AUTO) 0.1 % (0.9-2.9); HEMATOCRIT 34.3 % (42.0-54.0); HEMOGLOBIN 11.6 g/dL (13.5-18.0); LYMPHOCYTES # (AUTO) 0.1 X10^3/uL (1.3-2.9); LYMPHOCYTES % (AUTO) 2.9 % (21.0-51.0); MEAN CORPUSCULAR HEMOGLOBIN 31.2 pg (27.0-34.0); MEAN CORPUSCULAR VOLUME 91.7 fL (80.0-100.0); MEAN PLATELET VOLUME 8.3 fL (7.4-11.0); MONOCYTES # (AUTO) 0.2 x10^3/uL (0.3-0.8); MONOCYTES % (AUTO) 4.6 % (0.0-13.0); NEUTROPHILS # (AUTO) 4.3 x10^3/uL (2.2-4.8); NEUTROPHILS % (AUTO) 92.4 % (42.0-75.0); PLATELET COUNT 65 X10^3/uL (150.0-450.0); RED BLOOD COUNT 3.74 X10^6/uL (4.7-6.0); RED CELL DISTRIBUTION WIDTH 14.5 % (11.6-16.5); WHITE BLOOD COUNT 4.7 X10^3/uL (3.6-10.0)
[2021-04-16 05:34] LABS: ALANINE AMINOTRANSFERASE 48 Units/L (12-78); ALBUMIN 3.4 g/dL (3.4-5.0); ALKALINE PHOSPHATASE 48 Units/L (46-116); ASPARTATE AMINO TRANSFERASE 21 Units/L (15-37); BLOOD UREA NITROGEN 11 mg/dL (7-18); CALCIUM 7.6 mg/dL (8.5-10.1); CARBON DIOXIDE 38.2 mmol/L (21-32); CHLORIDE 107 mmol/L (98-107); COR NA(FOR HYPERGLY) 147 mmol/L (136-145); CREATININE 0.19 mg/dL (0.70-1.30); SODIUM 147 mmol/L (136-145); TOTAL PROTEIN 5.4 g/dL (6.4-8.2); eGFR NON BLACK RACES > 60 (>60)
[2021-04-16] MEDS: REGLAN INJ 10 MG VIAL IVP SCH ×3 (05:36→21:23)
[2021-04-16] MEDS: SOLU-Medrol 40 MG VIAL IVP SCH ×3 (05:36→21:24)
[2021-04-16] MEDS: ACCUNEB 1.25 MG NEBULE NEB SCH ×3 (05:59→20:40)
[2021-04-16] MEDS: MUCOMYST (RESPIRATORY USE ONLY) NEB SCH ×3 (05:59→20:40)
[2021-04-16 06:00] LABS: ABG BASE EXCESS 13.5 mmol/L (-2.0-2.0)
[2021-04-16 06:01] LABS: ABG HCO3 44.2 mmol/L (22-26)
[2021-04-16 06:17] LABS: BAND NEUTROPHILS % 5 % (0-10); PLATELET MORPHOLOGY COMMENT NORMAL (NORMAL); STOMATOCYTES PRESENT
[2021-04-16] MEDS: MVI IV SCH ×9 (07:00→20:53)
[2021-04-16] MEDS: [UNRECOGNIZED DRUG - OTHER] IV SCH ×9 (07:00→20:53)
[2021-04-16] MEDS: NS IV SCH ×9 (07:00→20:53)
--- NOTE | 2021-04-16 07:36 | RAD ---
HISTORYSOBSTUDYCHEST, 1 [id number]/26/2021.TECHNIQUEAP view of the chestFINDINGSET tube in good position. NG tube in good position Cardiac and mediastinal contours are within normal limits. No significant change in bilateral basilar predominant airspace and interstitial opacities. No definite pleural effusion or pneumothorax.IMPRESSIONNo significant change.Electronically signed by: Alphonso Hobbs (Apr 16, 2021 07:35:02)
[2021-04-16] MEDS: PEPCID 20 MG IV PREMIX* 20 MG/50 ML BAG IV SCH ×2 (07:45→20:53)
[2021-04-16] MEDS: LACRI-LUBE S.O.P. AFFEYE SCH ×2 (07:45→20:52)
[2021-04-16] MEDS ORDERED: LEXAPRO ONE ×2 (07:55→20:45)
[2021-04-16] MEDS: PULMICORT NEB TX 0.5 MG NEB SCH ×2 (08:08→20:40)
[2021-04-16] MEDS: LEVAQUIN PREMIX IV 500 MG 500 MG/100 ML BAG IV SCH (08:25)
[2021-04-16] MEDS: PROTONIX INJ 40 MG VIAL IVP SCH ×2 (08:47→20:54)
[2021-04-16] MEDS: ELIQUIS NG SCH ×2 (08:47→20:52)
[2021-04-16] MEDS: LEXAPRO NG SCH ×2 (08:48→20:53)
[2021-04-16] MEDS: MILK OF MAGNESIA NG SCH (08:48)
[2021-04-16] MEDS ORDERED: SUPRANE ONE (09:28)
[2021-04-16] MEDS: DOPAMINE IV PREMIX 400 MG/250 ML 400 MG/250 ML BAG IV PRN (10:24)
[2021-04-16] MEDS: ZEMURON 100 MG VIAL 500 MG in NS 500 ML IV 450 ML IV PRN (10:24)
--- NOTE | 2021-04-16 12:32 | PCM.PROG ---
Progress Note - Progress Note for Day of Date of Exam: 04/16/21 - Subjective Subjective: MR. MARMOLEJO WAS ADMITTED FOR TREATMENT OF COVID PNEUMONIA AND HYPOXIA. PMH: OBESITY, GERD, HTN. HE REMAINS IN THE INTENSIVE CARE UNIT ON THE MECHANICAL VENT TODAY. HE WAS PLACED ON THE VENT ON 03/28/21. TODAY, HE IS SEDATED, LYING IN BED ON MORNING ROUNDS. HIS VENT SETTINGS THIS MORNING ARE: A/C , RATE 22, TIDAL VOLUME 465, PEEP 14, FI02 90. HIS SATURATIONS HAVE BEEN 88-91% THROUGHOUT THE NIGHT AND THIS MORNING. HE HAS HAD THE OCCASIONAL DROP TO 84-85%, WHICH IS WHY FI02 WAS SLIGHTLY INCREASED. ON EXAMINATION, HEART IS REGULAR IN RATE AND RHYTHM. BILATERAL LUNGS ARE NOTED WITH DIMINISHED LUNG SOUNDS THROUGHOUT. ABDOMEN IS ROUND, SOFT, AND NON-TENDER WITH NORMAL BOWEL SOUNDS NOTED IN ALL QUADRANTS. HIS VITALS THIS MORNING ARE: 98.8-93-22-95%-102/58. LABS WERE OBTAINED. ABNORMAL LAB VALUES INCLUDE THE FOLLOWING: RBC 3.74, HGB 11.6, HCT 34.3, PLT COUNT 65, SODIUM 147, CARBON DIOXIDE 38.2, CREATININE 0.19, GLUCOSE 112, CALCIUM 7.6, BNP 264, TOTAL PROTEIN 5.4. ABG REVEALED: PH 7.280, PC02 94, P02 82, HC03 44.2, 02 SAT 95, A-A GRADIENT 514, FI02 100. CHEST XRAY WAS OBTAINED THIS MORNING AND REVEALED: ET tube in good position. NG tube in good position Cardiac and mediastinal contours are within normal limits. No significant change in bilateral basilar predominant airspace and interstitial opacities. No definite pleural effusion or pneumothorax. HE IS CURRENTLY RECEIVING NS WITH 20MEQ KCL AND MULTI-VITAMINS, SOLU-MEDROL 40MG IV Q8H, IV ANTIBIOTICS, ALBUMIN 25% IV BID, DIFLUCAN 200MG IV DAILY, ELIQUIS 1.25 MG PO BID, NEB TX, MUCOMYST IN NEB [place], MOPRHINE 2MG IV Q4H PRN, ATROPINE PRN, LEXAPRO 20MG NG TUBE BID, LABETALOL PRN, PROTONIX IV BID, REGLAN 10MG IV TID, VERSED DRIP, DIPROVAN DRIP, VERCURONIUM DRIP. HE IS RECEIVING ENTERAL FEEDINGS. DUE TO HYPOTENSION, WE WILL START A DOPAMINE DRIP. WE WILL ALSO CONSULT WITH GENERAL SURGERY ABOUT THE POSSIBLILTY OF A TRACHEOSTOMY. OTHERWISE, WE WILL CONTINUE WITH CURRENT PLAN OF CARE TODAY. WE WILL FOLLOW UP WITH AM LABS, CHEST XRAY, ABG, AND CONTINUE TO MONITOR. WE WILL DECREASE OXYGEN HE TOLERATES IT. TIME SPENT ON CLINICAL ASSESSMENT, REVIEWING LABS AND IMAGING, DECISION MAKING, AND DOCUMENTATION GREATER THAN 75 MINUTES. - Past Medical Family Social History Past Med/Fam/Surg Hx: No changes since H&P Allergies: Allergies No Allergy Information Available Allergy (Verified 03/14/21 14:24) - Review of Systems ROS: No change since H&P - Vital Signs and I&O's Vital Signs: Temperature 98.8 F Pulse Rate [Right Brachial] 61 Pulse Rate [Left Radial] 85 Pulse Rate 101 Respiratory Rate 22 Blood Pressure [Right Arm] 142/73 Blood Pressure [Left Arm] 116/63 Blood Pressure 102/58 O2 Sat by Pulse Oximetry 95 Intake and Output: Intake & Output 04/14/21 04/15/21 04/16/21 04/17/21 11:59 11:59 11:59 11:59 Intake Total 4443 / 4443 6253 / 6253 9485 / 9485 Output Total 6130 / 6130 8805 / 8805 6550 / 6550 Balance -1687 / -1687 -2552 / -2552 2935 / 2935 - Physical Exam Oriented: Unable to test Eyes: Normal Ear: Normal Nose: Normal Throat: Normal Respiratory: Generalized, Diminished Cardiovascular: Edema : Normal Auscultation: Bowel Sounds: Normal Palpation: Normal Tenderness: Normal Skin: Normal Musculoskeletal: Normal Psychiatric: Other (SEDATED) Mood Description: Calm Affect: Anxious Speech Pattern: Artificially Ventilated - Laboratory and Diagnostics Result Diagrams: 04/16/21 04:44 04/16/21 04:44 Labs: 04/13/21 09:45 Sputum - Endotracheal Wash Sputum Culture - Final 04/13/21 09:45 Sputum - Endotracheal Wash - Final 04/12/21 09:29 Urine,[place] Urine Culture - Final 03/14/21 16:39 Blood Blood Culture - Final 03/14/21 16:35 Blood Blood Culture - Final 03/18/21 01:03 Sputum - Expectorated Sputum Sputum Culture - Final 03/18/21 01:03 Sputum - Expectorated Sputum - Final Laboratory WBC 4.7 X10^3/uL (3.6-10.0) 04/16/21 04:44 RBC 3.74 X10^6/uL (4.7-6.0) L 04/16/21 04:44 Hgb 11.6 g/dL (13.5-18.0) L 04/16/21 04:44 Hct 34.3 % (42.0-54.0) L 04/16/21 04:44 MCV 91.7 fL (80.0-100.0) 04/16/21 04:44 MCH 31.2 pg (27.0-34.0) 04/16/21 04:44 MCHC 34.0 g/dL (33.0-35.0) 04/16/21 04:44 RDW 14.5 % (11.6-16.5) 04/16/21 04:44 Plt Count 65 X10^3/uL (150.0-450.0) L 04/16/21 04:44 Plt Count Comment Decreased (ADEQUATE) 04/16/21 04:44 MPV 8.3 fL (7.4-11.0) 04/16/21 04:44 Neut % (Auto) 92.4 % (42.0-75.0) H 04/16/21 04:44 Lymph % (Auto) 2.9 % (21.0-51.0) L 04/16/21 04:44 [place] % (Auto) 4.6 % (0.0-13.0) 04/16/21 04:44 Eos % (Auto) 0.1 % (0.9-2.9) L 04/16/21 04:44 Baso % (Auto) 0 % (0.2-1.0) L 04/16/21 04:44 Neut # (Auto) 4.3 x10^3/uL (2.2-4.8) 04/16/21 04:44 Lymph # (Auto) 0.1 X10^3/uL (1.3-2.9) L 04/16/21 04:44 [place] # (Auto) 0.2 x10^3/uL (0.3-0.8) L 04/16/21 04:44 Eos # (Auto) 0.0 x10^3/uL (0.0-0.2) 04/16/21 04:44 Baso # (Auto) 0.0 X10^3/uL (0.0-0.1) 04/16/21 04:44 Absolute Nucleated RBC 0.1 /100WBC 04/16/21 04:44 Total Counted 100 04/16/21 04:44 Neutrophils % (Manual) 86 % (39-76) H 04/16/21 04:44 Band Neutrophils % 5 % (0-10) 04/16/21 04:44 Lymphocytes % (Manual) 4 % (13-43) L 04/16/21 04:44 Monocytes % (Manual) 5 % (4-9) 04/16/21 04:44 Eosinophils % (Manual) 1 % (0-6) 04/05/21 05:40 Metamyelocytes % 3 04/15/21 04:27 Giant Platelets Rare 04/04/21 05:07 Plt Morphology Comment Normal (NORMAL) 04/16/21 04:44 RBC Morphology Abnormal (NORMAL) 04/16/21 04:44 Hypochromasia 1+ A 04/11/21 04:25 Stomatocytes Present 04/16/21 04:44 PT 14.2 SECONDS (11.8-14.3) 03/20/21 07:07 INR Target Range - 03/20/21 07:07 INR 1.16 (0.8-1.3) 03/20/21 07:07 APTT 26.6 SECONDS (22.9-36.5) 03/17/21 06:05 PTT Comment - 03/17/21 06:05 D-Dimer 1.28 ug/ml (0.0-0.57) H* 04/11/21 08:47 Sample Site Art-line 04/16/21 05:56 ABG pH 7.280 (7.35-7.45) L 04/16/21 05:56 ABG pCO2 94.0 mmHg (35.0-45.0) H* 04/16/21 05:56 ABG pO2 82.0 mmHg (80.0-100.0) 04/16/21 05:56 ABG HCO3 44.2 mmol/L (22-26) H* 04/16/21 05:56 ABG O2 Saturation 95.0 % (90-100) 04/16/21 05:56 ABG Base Excess 13.5 mmol/L (-2.0-2.0) H 04/16/21 05:56 Corky Test Na 04/16/21 05:56 A-a Gradient 514.0 mmHg 04/16/21 05:56 FiO2 100.0 04/16/21 05:56 Blood Gas Comments Michael well-mtf 04/16/21 05:56 Sodium 147 mmol/L (136-145) H 04/16/21 04:44 Corrected Sodium 147 mmol/L (136-145) H 04/16/21 04:44 Potassium 3.7 mmol/L (3.5-5.1) 04/16/21 04:44 Chloride 107 mmol/L (98-107) 04/16/21 04:44 Carbon Dioxide 38.2 mmol/L (21-32) H 04/16/21 04:44 BUN 11 mg/dL (7-18) 04/16/21 04:44 Creatinine 0.19 mg/dL (0.70-1.30) L 04/16/21 04:44 Est GFR (MDRD) Af Amer > 60 (>60) 04/16/21 04:44 Est GFR (MDRD) Non-Af > 60 (>60) 04/16/21 04:44 Glucose 112 mg/dL (65-99) H 04/16/21 04:44 POC Glucose (mg/dL) 121 mg/dL (65-99) H 04/09/21 22:53 Lactic Acid 1.5 mmol/L (0.4-2.0) 04/06/21 14:14 Calcium 7.6 mg/dL (8.5-10.1) L 04/16/21 04:44 Corrected Calcium TNP 04/16/21 04:44 Phosphorus 2.0 mg/dL (2.6-4.7) L 04/12/21 04:55 Magnesium 2.1 mg/dL (1.7-2.9) 04/14/21 04:55 Ferritin 2585 ng/mL (26-388) H 03/23/21 05:21 Total Bilirubin 0.50 mg/dL (0.2-1.0) 04/16/21 04:44 AST 21 Units/L (15-37) 04/16/21 04:44 ALT 48 Units/L (12-78) 04/16/21 04:44 Alkaline Phosphatase 48 Units/L (46-116) 04/16/21 04:44 Creatine Kinase 228 Units/L (39-308) 04/06/21 21:30 CK-MB (CK-2) < 1.0 ng/mL (0-4.0) 04/06/21 21:30 CK/CKMB % Calc 0.4 % (<4) 04/06/21 21:30 Troponin I < 0.02 ng/mL (0-1.5) 04/06/21 21:30 C-Reactive Protein 3.10 mg/L (0-3.0) H 04/11/21 08:48 B-Natriuretic Peptide 264 pg/mL (0-79) H 04/16/21 04:44 Total Protein 5.4 g/dL (6.4-8.2) L 04/16/21 04:44 Albumin 3.4 g/dL (3.4-5.0) 04/16/21 04:44 Globulin 2.0 g/dL (2.5-4.5) L 04/16/21 04:44 Albumin/Globulin Ratio 1.7 Ratio (1.1-2.1) 04/16/21 04:44 Prealbumin 26.2 mg/dL (18-35.7) 04/13/21 04:35 Triglycerides 371 mg/dL (0-150) H 04/12/21 04:55 Specimen Type Catherized urine 04/12/21 09:29 Urine Color Yellow (YELLOW) 04/12/21 09: Urine Appearance Clear (CLEAR) 04/12/21 09: Urine pH 7.0 (5.0 - 8.0) 04/12/21 09:29 Ur Specific [place] 1.010 (1.000-1.030) 04/12/21 09:29 Urine Protein 2+ (NEGATIVE) 04/12/21 09: Urine Glucose (UA) Negative (NEGATIVE) 04/12/21 09: Urine Ketones Negative (NEGATIVE) 04/12/21 09: Urine Occult Blood Negative (NEGATIVE) 04/12/21 09: Urine Nitrite Negative (NEGATIVE) 04/12/21 09: Urine Bilirubin Negative (NEGATIVE) 09/23/21 09:29 Urine Urobilinogen 2+ (NORMAL) 04/12/21 09:29 Ur Leukocyte Esterase Negative (NEGATIVE) 04/12/21 09:29 Urine RBC 0-2 /HPF (0-3) 04/12/21 09:29 Urine WBC 0-2 /HPF (0-5) 04/12/21 09:29 Ur Squamous Epith Cells Rare /HPF (NEGATIVE) 04/12/21 09:29 Ur Renal Epithelial Cell Rare /HPF (NEGATIVE) 04/12/21 09:29 Urine Bacteria Negative /HPF (NEGATIVE) 04/12/21 09:29 Urine Mucus Few /HPF (NEGATIVE) 03/28/21 05:47 Ur Culture Indicated? No/not indicated 04/12/21 09:29 Gastric Fluid pH 3 04/13/21 09:45 Gastric Occult Blood Positive (NEGATIVE) A 04/13/21 09:45 - Plan (1) Pneumonia due to COVID-19 virus Status: Acute Plan: MECHANICAL VENT, ALBUMIN 25% IV DAILY, SOLU-MEDROL 40MG IV Q8H, IV ANTIBIOTICS, ELIQUIS 1.25MG NG TUBE BID, DIFLUCAN 200MG IV DAILY, REGLAN 10MG IV TID, NEB TX, MUCOMYST IN NEB [place], MOPRHINE 2MG IV Q4H PRN, LEXAPRO 20MG NG TUBE BID, PROTONIX IV BID, VERSED DRIP, DIPROVAN DRIP, VERCURONIUM DRIP. (2) Hypoxia Status: Acute (3) HTN (hypertension) Status: Chronic Qualifiers: Hypertension type: primary hypertension Qualified Code(s): I10 - Essential (primary) hypertension (4) GERD (gastroesophageal reflux disease) Status: Chronic Qualifiers: Esophagitis presence: esophagitis presence not specified Qualified Code(s): K21.9 - Gastro-esophageal reflux disease without esophagitis (5) Obesity Status: Chronic Qualifiers: Obesity type: unspecified obesity type Obesity classification: adult class 2 (BMI 35 - 39.9) Serious obesity comorbidity presence: unspecified whether serious comorbidity present Body mass index: BMI 36.0-36.9 Qualified Code(s): E66.9 - Obesity, unspecified; Z68.36 - Body mass index [BMI] 36.0-36.9, adult
[2021-04-16] MEDS: ALBUMIN HUMAN 25%- 100 ML 100 ML IV SCH (13:12)
[2021-04-16] MEDS: DIFLUCAN 200 MG IV PREMIX* 200 MG/100 ML BAG IV SCH (15:02)
[2021-04-17] MEDS: ZEMURON 100 MG VIAL 500 MG in NS 500 ML IV 450 ML IV PRN ×4 (00:20→22:53)
[2021-04-17] MEDS: DIPRIVAN PREMIX 1 GRAM IV 1,000 MG/100 ML VIAL IV PRN ×8 (02:25→22:11)
[2021-04-17] MEDS: VERSED IV PREMIX 100 MG/100 ML IV.SOLN IV PRN ×4 (02:25→19:05)
[2021-04-17 04:58] LABS: ABG BASE EXCESS 16.9 mmol/L (-2.0-2.0)
[2021-04-17 04:59] LABS: ABG HCO3 44.5 mmol/L (22-26)
[2021-04-17] MEDS: ACCUNEB 1.25 MG NEBULE NEB SCH ×3 (05:04→21:00)
[2021-04-17] MEDS: MUCOMYST (RESPIRATORY USE ONLY) NEB SCH ×3 (05:04→21:00)
[2021-04-17 05:47] LABS: BASOPHILS % (AUTO) 0.4 % (0.2-1.0); EOSINOPHILS % (AUTO) 0.2 % (0.9-2.9); HEMATOCRIT 32.5 % (42.0-54.0); HEMOGLOBIN 11.2 g/dL (13.5-18.0); LYMPHOCYTES # (AUTO) 0.2 X10^3/uL (1.3-2.9); LYMPHOCYTES % (AUTO) 5.8 % (21.0-51.0); MEAN CORPUSCULAR HEMOGLOBIN 31.3 pg (27.0-34.0); MEAN CORPUSCULAR HGB CONC 34.6 g/dL (33.0-35.0); MEAN CORPUSCULAR VOLUME 90.4 fL (80.0-100.0); MEAN PLATELET VOLUME 8.8 fL (7.4-11.0); MONOCYTES # (AUTO) 0.1 x10^3/uL (0.3-0.8); MONOCYTES % (AUTO) 5.2 % (0.0-13.0); NEUTROPHILS # (AUTO) 2.5 x10^3/uL (2.2-4.8); NEUTROPHILS % (AUTO) 88.4 % (42.0-75.0); PLATELET COUNT 49 X10^3/uL (150.0-450.0); RED CELL DISTRIBUTION WIDTH 14.1 % (11.6-16.5); WHITE BLOOD COUNT 2.8 X10^3/uL (3.6-10.0)
[2021-04-17 05:51] LABS: ALANINE AMINOTRANSFERASE 44 Units/L (12-78); ALKALINE PHOSPHATASE 45 Units/L (46-116); ASPARTATE AMINO TRANSFERASE 20 Units/L (15-37); BLOOD UREA NITROGEN 16 mg/dL (7-18); CALCIUM 7.6 mg/dL (8.5-10.1); CARBON DIOXIDE 39.5 mmol/L (21-32); CHLORIDE 106 mmol/L (98-107); COR CA(FOR HYPOALB) 8.4 mg/dL (8.5-10.1); COR NA(FOR HYPERGLY) 146 mmol/L (136-145); CREATININE 0.12 mg/dL (0.70-1.30); SODIUM 146 mmol/L (136-145); TOTAL PROTEIN 4.9 g/dL (6.4-8.2); eGFR NON BLACK RACES > 60 (>60)
[2021-04-17] MEDS: SOLU-Medrol 40 MG VIAL IVP SCH ×3 (06:06→21:13)
[2021-04-17] MEDS: REGLAN INJ 10 MG VIAL IVP SCH ×3 (06:06→21:12)
[2021-04-17] MEDS ORDERED: SALINE 0.9% 3 ML NEB TX ONE ×2 (06:08)
[2021-04-17 06:30] LABS: PLATELET MORPHOLOGY COMMENT NORMAL (NORMAL)
--- NOTE | 2021-04-17 06:31 | RAD ---
HISTORYSOB, VENTILATOR DEPENDENCESTUDYCHEST, 1 VIEWCOMPARISONOne day prior.TECHNIQUEAP view of the chestFINDINGSET tube in good position. NG tube courses below the visualized field of view.The cardiac and mediastinal contours appear stable. No significant change in bilateral airspace and interstitial opacities. No definite pleural effusion or pneumothorax.IMPRESSIONNo significant change.Electronically signed by: Alphonso Hobbs (Apr 17, 2021 06:30:00)
[2021-04-17] MEDS: MVI IV SCH ×3 (06:46)
[2021-04-17] MEDS: [UNRECOGNIZED DRUG - OTHER] IV SCH ×3 (06:46)
[2021-04-17] MEDS: NS IV SCH ×3 (06:46)
[2021-04-17] MEDS: PEPCID 20 MG IV PREMIX* 20 MG/50 ML BAG IV SCH ×2 (07:45→20:49)
[2021-04-17] MEDS: LACRI-LUBE S.O.P. AFFEYE SCH ×2 (08:00→20:47)
[2021-04-17] MEDS: LEVAQUIN PREMIX IV 500 MG 500 MG/100 ML BAG IV SCH (08:12)
[2021-04-17] MEDS ORDERED: LEXAPRO ONE ×2 (09:02→20:29)
[2021-04-17] MEDS: MILK OF MAGNESIA NG SCH ×2 (09:06→20:50)
[2021-04-17] MEDS: PROTONIX INJ 40 MG VIAL IVP SCH ×2 (09:06→20:51)
[2021-04-17] MEDS: ELIQUIS NG SCH ×2 (09:06→20:47)
[2021-04-17] MEDS: LEXAPRO NG SCH ×2 (09:07→20:48)
[2021-04-17] MEDS: PULMICORT NEB TX 0.5 MG NEB SCH ×2 (09:10→21:00)
[2021-04-17] MEDS: ALBUMIN HUMAN 25%- 100 ML 100 ML IV SCH (09:22)
[2021-04-17] MEDS: DIFLUCAN 200 MG IV PREMIX* 200 MG/100 ML BAG IV SCH (11:00)
[2021-04-17] MEDS ORDERED: DIAMOX PO SCH (11:00)
--- NOTE | 2021-04-17 12:33 | PCM.PROG ---
Progress Note - Progress Note for Day of Date of Exam: 04/17/21 - Subjective Subjective: MR. MARMOLEJO WAS ADMITTED FOR TREATMENT OF COVID PNEUMONIA AND HYPOXIA. PMH: OBESITY, GERD, HTN. HE REMAINS IN THE INTENSIVE CARE UNIT ON THE MECHANICAL VENT TODAY. HE WAS PLACED ON THE VENT ON 03/28/21. TODAY, HE IS SEDATED, LYING IN BED ON MORNING ROUNDS. HIS VENT SETTINGS THIS MORNING ARE: A/C , RATE 22, TIDAL VOLUME 465, PEEP 14, FI02 90. HIS SATURATIONS HAVE BEEN 88-91% THROUGHOUT THE NIGHT AND THIS MORNING. HE HAS HAD THE OCCASIONAL DROP TO 90-95% THROUGHOUT THE NIGHT AND THIS MORNING. ON EXAMINATION, HEART IS REGULAR IN RATE AND RHYTHM. BILATERAL LUNGS ARE NOTED WITH DIMINISHED LUNG SOUNDS THROUGHOUT. ABDOMEN IS ROUND, SOFT, AND NON-TENDER WITH NORMAL BOWEL SOUNDS NOTED IN ALL QUADRANTS. HIS VITALS THIS MORNING ARE: 97.7-76-22-95%-121/61. LABS WERE OBTAINED. ABNORMAL LAB VALUES INCLUDE THE FOLLOWING: WBC 2.8, RBC 3.60, HGB 11.2, HCT 32.5, PLT COUNT 49, SODIUM 146, CARBON DIOXIDE 39.5, CREATININE 0.12, GLUCOSE 112, CALCIUM 7.6, ALK PHOS 45, BNP 117, TOTAL PROTEIN 4.9, ALBUMIN 3.0. ABG REVEALED: PH 7.430, PC02 67, P02 63, HC03 44.5, 02 SAT 92, BASE EXCESS 16.9, A-A GRADIENT 495, FI02 90. CHEST XRAY WAS OBTAINED THIS MORNING AND REVEALED: ET tube in good position. NG tube courses below the visualized field of view.The cardiac and mediastinal contours appear stable. No significant change in bilateral airspace and interstitial opacities. No definite pleural effusion or pneumothorax. HE IS CURRENTLY RECEIVING NS WITH 20MEQ KCL AND MULTI-VITAMINS, SOLU-MEDROL 40MG IV Q8H, IV ANTIBIOTICS, ALBUMIN 25% IV BID, DIFLUCAN 200MG IV DAILY, ELIQUIS 1.25 MG PO BID, NEB TX, MUCOMYST IN NEB [place], MOPRHINE 2MG IV Q4H PRN, ATROPINE PRN, LEXAPRO 20MG NG TUBE BID, LABETALOL PRN, PROTONIX IV BID, REGLAN 10MG IV TID, VERSED DRIP, DIPROVAN DRIP, VERCURONIUM DRIP. HE IS RECEIVING ENTERAL FEEDINGS. HE HAS BEEN HYPOTENSIVE SOME THIS MORNING. HE WAS ON A DOPAMINE DRIP, BUT IT HAD BEEN WEANED DOWN AND TURNED OFF THROUGHOUT THE NIGHT. HE HAS ALSO HAD DECREASED URINARY OUTPUT YESTERDAY. TODAY, WE WILL ADD DIAMOX 250MG GT DAILY AND RUN DOPAMINE AT 2.5-5MCG/KG/MIN. OTHERWISE, WE WILL CONTINUE WITH CURRENT PLAN OF CARE TODAY. WE WILL FOLLOW UP WITH AM LABS, CHEST XRAY, ABG, AND CONTINUE TO MONITOR. WE WILL DECREASE OXYGEN HE TOLERATES IT. TIME SPENT ON CLINICAL ASSESSMENT, REVIEWING LABS AND IMAGING, DECISION MAKING, AND DOCUMENTATION GREATER THAN 75 MINUTES. - Past Medical Family Social History Past Med/Fam/Surg Hx: No changes since H&P Allergies: Allergies No Allergy Information Available Allergy (Verified 03/14/21 14:24) - Review of Systems ROS: No change since H&P - Vital Signs and I&O's Vital Signs: Temperature 97.7 F Pulse Rate [Right Brachial] 61 Pulse Rate [Left Radial] 85 Pulse Rate 76 Respiratory Rate 22 Blood Pressure [Right Arm] 142/73 Blood Pressure [Left Arm] 116/63 Blood Pressure 121/61 O2 Sat by Pulse Oximetry 94 Intake and Output: Intake & Output 04/15/21 04/16/21 04/17/21 04/18/21 11:59 11:59 11:59 11:59 Intake Total 6253 / 6253 9597 / 9597 8230 / 8230 Output Total 8805 / 8805 6550 / 6550 2029 / 2029 Balance -2552 / -2552 3047 / 3047 6200 / 6200 - Physical Exam Oriented: Unable to test Eyes: Normal Ear: Normal Nose: Normal Throat: Normal Respiratory: Generalized, Diminished Cardiovascular: Edema : Normal Auscultation: Bowel Sounds: Normal Palpation: Normal Tenderness: Normal Skin: Normal Musculoskeletal: Normal Psychiatric: Other (SEDATED) Mood Description: Calm Affect: Anxious Speech Pattern: Artificially Ventilated - Laboratory and Diagnostics Result Diagrams: 04/17/21 04:54 04/17/21 04:54 Labs: 04/13/21 09:45 Sputum - Endotracheal Wash Sputum Culture - Final 04/13/21 09:45 Sputum - Endotracheal Wash - Final 04/12/21 09:29 Urine,[place] Urine Culture - Final 03/14/21 16:39 Blood Blood Culture - Final 03/14/21 16:35 Blood Blood Culture - Final 03/18/21 01:03 Sputum - Expectorated Sputum Sputum Culture - Final 03/18/21 01:03 Sputum - Expectorated Sputum - Final Laboratory WBC 2.8 X10^3/uL (3.6-10.0) L 04/17/21 04:54 RBC 3.60 X10^6/uL (4.7-6.0) L 04/17/21 04:54 Hgb 11.2 g/dL (13.5-18.0) L 04/17/21 04:54 Hct 32.5 % (42.0-54.0) L 04/17/21 04:54 MCV 90.4 fL (80.0-100.0) 04/17/21 04:54 MCH 31.3 pg (27.0-34.0) 04/17/21 04:54 MCHC 34.6 g/dL (33.0-35.0) 04/17/21 04:54 RDW 14.1 % (11.6-16.5) 04/17/21 04:54 Plt Count 49 X10^3/uL (150.0-450.0) L 04/17/21 04:54 Plt Count Comment Decreased (ADEQUATE) 04/17/21 04:54 MPV 8.8 fL (7.4-11.0) 04/17/21 04:54 Neut % (Auto) 88.4 % (42.0-75.0) H 04/17/21 04:54 Lymph % (Auto) 5.8 % (21.0-51.0) L 04/17/21 04:54 [place] % (Auto) 5.2 % (0.0-13.0) 04/17/21 04:54 Eos % (Auto) 0.2 % (0.9-2.9) L 04/17/21 04:54 Baso % (Auto) 0.4 % (0.2-1.0) 04/17/21 04:54 Neut # (Auto) 2.5 x10^3/uL (2.2-4.8) 04/17/21 04:54 Lymph # (Auto) 0.2 X10^3/uL (1.3-2.9) L 04/17/21 04:54 [place] # (Auto) 0.1 x10^3/uL (0.3-0.8) L 04/17/21 04:54 Eos # (Auto) 0.0 x10^3/uL (0.0-0.2) 04/17/21 04:54 Baso # (Auto) 0.0 X10^3/uL (0.0-0.1) 04/17/21 04:54 Absolute Nucleated RBC 0.5 /100WBC 04/17/21 04:54 Total Counted 100 04/16/21 04:44 Neutrophils % (Manual) 86 % (39-76) H 04/16/21 04:44 Band Neutrophils % 5 % (0-10) 04/16/21 04:44 Lymphocytes % (Manual) 4 % (13-43) L 04/16/21 04:44 Monocytes % (Manual) 5 % (4-9) 04/16/21 04:44 Eosinophils % (Manual) 1 % (0-6) 04/05/21 05:40 Metamyelocytes % 3 04/15/21 04:27 Giant Platelets Rare 04/04/21 05:07 Plt Morphology Comment Normal (NORMAL) 04/17/21 04:54 RBC Morphology Normal (NORMAL) 04/17/21 04:54 Hypochromasia 1+ A 04/11/21 04:25 Stomatocytes Present 04/16/21 04:44 PT 22.4 SECONDS (11.8-14.3) 04/17/21 04:54 INR Target Range - 04/17/21 04:54 INR 2.08 (0.8-1.3) H 04/17/21 04:54 APTT 26.6 SECONDS (22.9-36.5) 03/17/21 06:05 PTT Comment - 03/17/21 06:05 D-Dimer 1.28 ug/ml (0.0-0.57) H* 04/11/21 08:47 Sample Site [place] 04/17/21 04:53 ABG pH 7.430 (7.35-7.45) 04/17/21 04:53 ABG pCO2 67.0 mmHg (35.0-45.0) H* 04/17/21 04:53 ABG pO2 63.0 mmHg (80.0-100.0) L 04/17/21 04:53 ABG HCO3 44.5 mmol/L (22-26) H* 04/17/21 04:53 ABG O2 Saturation 92.0 % (90-100) 04/17/21 04:53 ABG Base Excess 16.9 mmol/L (-2.0-2.0) H 04/17/21 04:53 Corky Test N/a 04/17/21 04:53 A-a Gradient 495.0 mmHg 04/17/21 04:53 FiO2 90.0 04/17/21 04:53 Blood Gas Comments Michael well ae 04/17/21 04:53 Sodium 146 mmol/L (136-145) H 04/17/21 04:54 Corrected Sodium 146 mmol/L (136-145) H 04/17/21 04:54 Potassium 3.8 mmol/L (3.5-5.1) 04/17/21 04:54 Chloride 106 mmol/L (98-107) 04/17/21 04:54 Carbon Dioxide 39.5 mmol/L (21-32) H 04/17/21 04:54 BUN 16 mg/dL (7-18) 04/17/21 04:54 Creatinine 0.12 mg/dL (0.70-1.30) L 04/17/21 04:54 Est GFR (MDRD) Af Amer > 60 (>60) 04/17/21 04:54 Est GFR (MDRD) Non-Af > 60 (>60) 04/17/21 04:54 Glucose 112 mg/dL (65-99) H 04/17/21 04:54 POC Glucose (mg/dL) 121 mg/dL (65-99) H 04/09/21 22:53 Lactic Acid 1.5 mmol/L (0.4-2.0) 04/06/21 14:14 Calcium 7.6 mg/dL (8.5-10.1) L 04/17/21 04:54 Corrected Calcium 8.4 mg/dL (8.5-10.1) L 04/17/21 04:54 Phosphorus 2.0 mg/dL (2.6-4.7) L 04/12/21 04:55 Magnesium 2.1 mg/dL (1.7-2.9) 04/14/21 04:55 Ferritin 2439 ng/mL (26-388) H 04/16/21 15:50 Total Bilirubin 0.50 mg/dL (0.2-1.0) 04/17/21 04:54 AST 20 Units/L (15-37) 04/17/21 04:54 ALT 44 Units/L (12-78) 04/17/21 04:54 Alkaline Phosphatase 45 Units/L (46-116) L 04/17/21 04:54 Creatine Kinase 228 Units/L (39-308) 04/06/21 21:30 CK-MB (CK-2) < 1.0 ng/mL (0-4.0) 04/06/21 21:30 CK/CKMB % Calc 0.4 % (<4) 04/06/21 21:30 Troponin I < 0.02 ng/mL (0-1.5) 04/06/21 21:30 C-Reactive Protein 3.10 mg/L (0-3.0) H 04/11/21 08:48 B-Natriuretic Peptide 117 pg/mL (0-79) H 04/17/21 04:54 Total Protein 4.9 g/dL (6.4-8.2) L 04/17/21 04:54 Albumin 3.0 g/dL (3.4-5.0) L 04/17/21 04:54 Globulin 1.9 g/dL (2.5-4.5) L 04/17/21 04:54 Albumin/Globulin Ratio 1.6 Ratio (1.1-2.1) 04/17/21 04:54 Prealbumin 26.2 mg/dL (18-35.7) 04/13/21 04:35 Triglycerides 371 mg/dL (0-150) H 04/12/21 04:55 Specimen Type Catherized urine 04/12/21 09: Urine Color Yellow (YELLOW) 04/12/21 09: Urine Appearance Clear (CLEAR) 04/12/21 09:29 Urine pH 7.0 (5.0 - 8.0) 04/12/21 09:29 Ur Specific [place] 1.010 (1.000-1.030) 04/12/21 09:29 Urine Protein 2+ (NEGATIVE) 04/12/21 09: Urine Glucose (UA) Negative (NEGATIVE) 04/12/21 09:29 Urine Ketones Negative (NEGATIVE) 04/12/21 09:29 Urine Occult Blood Negative (NEGATIVE) 04/12/21 09:29 Urine Nitrite Negative (NEGATIVE) 04/12/21 09:29 Urine Bilirubin Negative (NEGATIVE) 04/12/21 09:29 Urine Urobilinogen 2+ (NORMAL) 04/12/21 09:29 Ur Leukocyte Esterase Negative (NEGATIVE) 04/12/21 09:29 Urine RBC 0-2 /HPF (0-3) 04/12/21 09:29 Urine WBC 0-2 /HPF (0-5) 04/12/21 09:29 Ur Squamous Epith Cells Rare /HPF (NEGATIVE) 04/12/21 09:29 Ur Renal Epithelial Cell Rare /HPF (NEGATIVE) 04/12/21 09:29 Urine Bacteria Negative /HPF (NEGATIVE) 04/12/21 09:29 Urine Mucus Few /HPF (NEGATIVE) 03/28/21 05:47 Ur Culture Indicated? No/not indicated 04/12/21 09:29 Gastric Fluid pH 3 04/13/21 09:45 Gastric Occult Blood Positive (NEGATIVE) A 04/13/21 09:45 - Plan (1) Pneumonia due to COVID-19 virus Status: Acute Plan: MECHANICAL VENT, DOPAMINE DRIP, ALBUMIN 25% IV DAILY, SOLU-MEDROL 40MG IV Q8H, IV ANTIBIOTICS, ELIQUIS 1.25MG NG TUBE BID, DIFLUCAN 200MG IV DAILY, REGLAN 10MG IV TID, NEB TX, MUCOMYST IN NEB [place], MOPRHINE 2MG IV Q4H PRN, LEXAPRO 20MG NG TUBE BID, PROTONIX IV BID, VERSED DRIP, DIPROVAN DRIP, VERCURONIUM DRIP. (2) Hypoxia Status: Acute (3) HTN (hypertension) Status: Chronic Qualifiers: Hypertension type: primary hypertension Qualified Code(s): I10 - Essential (primary) hypertension (4) GERD (gastroesophageal reflux disease) Status: Chronic Qualifiers: Esophagitis presence: esophagitis presence not specified Qualified Code(s): K21.9 - Gastro-esophageal reflux disease without esophagitis (5) Obesity Status: Chronic Qualifiers: Obesity type: unspecified obesity type Obesity classification: adult class 2 (BMI 35 - 39.9) Serious obesity comorbidity presence: unspecified whether serious comorbidity present Body mass index: BMI 36.0-36.9 Qualified Code(s): E66.9 - Obesity, unspecified; Z68.36 - Body mass index [BMI] 36.0-36.9, adult
[2021-04-17] MEDS: COLACE SYRUP 100 MG UDC NG SCH (20:45)
[2021-04-18] MEDS: VERSED IV PREMIX 100 MG/100 ML IV.SOLN IV PRN ×5 (00:05→21:12)
[2021-04-18] MEDS: DIPRIVAN PREMIX 1 GRAM IV 1,000 MG/100 ML VIAL IV PRN ×9 (00:50→21:30)
[2021-04-18] MEDS: DOPAMINE IV PREMIX 400 MG/250 ML 400 MG/250 ML BAG IV PRN ×2 (01:31→20:30)
[2021-04-18 04:23] LABS: ABG BASE EXCESS 14.3 mmol/L (-2.0-2.0)
[2021-04-18 04:25] LABS: ABG HCO3 42.6 mmol/L (22-26)
[2021-04-18 05:23] LABS: BASOPHILS % (AUTO) 0.2 % (0.2-1.0); EOSINOPHILS % (AUTO) 0.1 % (0.9-2.9); HEMATOCRIT 38.7 % (42.0-54.0); HEMOGLOBIN 13.1 g/dL (13.5-18.0); LYMPHOCYTES # (AUTO) 0.2 X10^3/uL (1.3-2.9); LYMPHOCYTES % (AUTO) 4.9 % (21.0-51.0); MEAN CORPUSCULAR HEMOGLOBIN 30.6 pg (27.0-34.0); MEAN CORPUSCULAR HGB CONC 33.8 g/dL (33.0-35.0); MEAN CORPUSCULAR VOLUME 90.7 fL (80.0-100.0); MEAN PLATELET VOLUME 7.9 fL (7.4-11.0); MONOCYTES # (AUTO) 0.2 x10^3/uL (0.3-0.8); MONOCYTES % (AUTO) 5.3 % (0.0-13.0); NEUTROPHILS # (AUTO) 3.4 x10^3/uL (2.2-4.8); NEUTROPHILS % (AUTO) 89.5 % (42.0-75.0); PLATELET COUNT 68 X10^3/uL (150.0-450.0); RED BLOOD COUNT 4.27 X10^6/uL (4.7-6.0); RED CELL DISTRIBUTION WIDTH 14.3 % (11.6-16.5); WHITE BLOOD COUNT 3.8 X10^3/uL (3.6-10.0)
[2021-04-18] MEDS: ACCUNEB 1.25 MG NEBULE NEB SCH ×3 (05:24→21:05)
[2021-04-18] MEDS: MUCOMYST (RESPIRATORY USE ONLY) NEB SCH ×3 (05:24→21:05)
[2021-04-18] MEDS: SOLU-Medrol 40 MG VIAL IVP SCH ×3 (05:28→21:00)
[2021-04-18] MEDS: REGLAN INJ 10 MG VIAL IVP SCH ×3 (05:28→21:00)
[2021-04-18] MEDS: ZEMURON 100 MG VIAL 500 MG in NS 500 ML IV 450 ML IV PRN ×3 (05:29→22:20)
[2021-04-18 05:35] LABS: ALANINE AMINOTRANSFERASE 89 Units/L (12-78); ALBUMIN 3.3 g/dL (3.4-5.0); ALKALINE PHOSPHATASE 65 Units/L (46-116); ASPARTATE AMINO TRANSFERASE 26 Units/L (15-37); BLOOD UREA NITROGEN 14 mg/dL (7-18); CALCIUM 7.3 mg/dL (8.5-10.1); CARBON DIOXIDE 37.5 mmol/L (21-32); CHLORIDE 107 mmol/L (98-107); COR CA(FOR HYPOALB) 7.9 mg/dL (8.5-10.1); CREATININE 0.18 mg/dL (0.70-1.30); SODIUM 147 mmol/L (136-145); TOTAL PROTEIN 5.5 g/dL (6.4-8.2); eGFR NON BLACK RACES > 60 (>60)
--- NOTE | 2021-04-18 05:58 | RAD ---
HISTORYSOB, VENTILATOR DEPENDENCE PMH: HTNSTUDYCHEST, 1 [id number]/2021FINDINGSThe trachea is midline. Endotracheal tube tip above the percy. NG tube below the hemidiaphragm. The cardiac silhouette is mildly enlarged.. Bilateral airspace and interstitial opacities unchanged. No pneumothorax.. The bony thorax is unremarkable.IMPRESSIONStable portable chestElectronically signed by: Efrain Wells (Apr 18, 2021 05:57:02)
[2021-04-18 06:09] LABS: BAND NEUTROPHILS % 3 % (0-10); PLATELET MORPHOLOGY COMMENT NORMAL (NORMAL)
[2021-04-18 06:10] LABS: ANISOCYTOSIS SLIGHT; MICROCYTOSIS SLIGHT; STOMATOCYTES PRESENT
[2021-04-18] MEDS: LACRI-LUBE S.O.P. AFFEYE SCH ×2 (08:15→20:15)
[2021-04-18] MEDS ORDERED: NS 250 ML IV 250 ML IV ONE (08:15)
[2021-04-18] MEDS: DIFLUCAN 200 MG IV PREMIX* 200 MG/100 ML BAG IV SCH (08:30)
[2021-04-18] MEDS ORDERED: NS 1000 ML 1,000 ML ONE (09:32)
[2021-04-18] MEDS ORDERED: FENTANYL VIAL INJ 100 mcg ONE (09:52)
[2021-04-18] MEDS: LEVAQUIN PREMIX IV 500 MG 500 MG/100 ML BAG IV SCH (10:50)
--- NOTE | 2021-04-18 11:08 | PCM.PROG ---
Progress Note - Progress Note for Day of Date of Exam: 04/18/21 - Subjective Subjective: MR. MARMOLEJO WAS ADMITTED FOR TREATMENT OF COVID PNEUMONIA AND HYPOXIA. PMH: OBESITY, GERD, HTN. HE REMAINS IN THE INTENSIVE CARE UNIT ON THE MECHANICAL VENT TODAY. HE WAS PLACED ON THE VENT ON 03/28/21. TODAY, HE IS SEDATED, LYING IN BED ON MORNING ROUNDS. HIS VENT SETTINGS THIS MORNING ARE: A/C , RATE 22, TIDAL VOLUME 465, PEEP 10, FI02 90. HIS SATURATIONS HAVE BEEN 88-94% THROUGHOUT THE NIGHT AND THIS MORNING. ON EXAMINATION, HEART IS REGULAR IN RATE AND RHYTHM. BILATERAL LUNGS ARE NOTED WITH DIMINISHED LUNG SOUNDS THROUGHOUT. ABDOMEN IS ROUND, SOFT, AND NON-TENDER WITH NORMAL BOWEL SOUNDS NOTED IN ALL QUADRANTS. HIS VITALS THIS MORNING ARE: 98.2-92-22-91%-127/71. LABS WERE OBTAINED. ABNORMAL LAB VALUES INCLUDE THE FOLLOWING: RBC 4.27, HGB 13.1, HCT 38.7, PLT COUNT 68, SODIUM 147, POTASSIUM 3.4, CARBON DIOXIDE 37.5, CREATININE 0.18, GLUCOSE 110, CALCIUM 7.3, ALT 89, BNP 277, TOTAL PROTEIN 5.5, ALBUMIN 3.3. ABG REVEALED: PH 7.380, PC02 72, P02 63, HC03 42.6, 02 SAT 91, BASE EXCESS 14.3, A-A GRADIENT 489, FI02 90. CHEST XRAY WAS OBTAINED THIS MORNING AND REVEALED: The trachea is midline. Endotracheal tube tip above the percy. NG tube below the hemidiaphragm. The cardiac silhouette is mildly enlarged. Bilateral airspace and interstitial opacities unchanged. No pneumothorax. The bony thorax is unremarkable. HE IS CURRENTLY RECEIVING NS, DOPAMINE DRIP, SOLU-MEDROL 40MG IV Q8H, DIAMOX 250MG PO DAILY, IV ANTIBIOTICS, ALBUMIN 25% IV BID, DIFLUCAN 200MG IV DAILY, ELIQUIS 1.25 MG PO BID, NEB TX, MUCOMYST IN NEB [place], MOPRHINE 2MG IV Q4H PRN, ATROPINE PRN, LEXAPRO 20MG NG TUBE BID, LABETALOL PRN, PROTONIX IV BID, REGLAN 10MG IV TID, VERSED DRIP, DIPROVAN DRIP, VERCURONIUM DRIP. HE IS RECEIVING ENTERAL FEEDINGS. OTHERWISE, WE WILL CONTINUE WITH CURRENT PLAN OF CARE TODAY. WE WILL FOLLOW UP WITH AM LABS, CHEST XRAY, ABG, AND CONTINUE TO MONITOR. WE WILL DECREASE OXYGEN HE TOLERATES IT. TIME SPENT ON CLINICAL ASSESSMENT, REVIEWING LABS AND IMAGING, DECISION MAKING, AND DOCUMENTATION GREATER THAN 75 MINUTES. - Past Medical Family Social History Past Med/Fam/Surg Hx: No changes since H&P Allergies: Allergies No Allergy Information Available Allergy (Verified 03/14/21 14:24) - Review of Systems ROS: No change since H&P - Vital Signs and I&O's Vital Signs: Temperature 98.2 F Pulse Rate [Right Brachial] 61 Pulse Rate [Left Radial] 85 Pulse Rate 92 Respiratory Rate 22 Blood Pressure [Right Arm] 142/73 Blood Pressure [Left Arm] 116/63 Blood Pressure 127/71 O2 Sat by Pulse Oximetry 91 Intake and Output: Intake & Output 04/15/21 04/16/21 04/17/21 04/18/21 11:59 11:59 11:59 11:59 Intake Total 6253 / 6253 9597 / 9597 8330 / 8330 7029 / 7029 Output Total 8805 / 8805 6550 / 6550 2029 / 2029 6975 / 6975 Balance -2552 / -2552 3047 / 3047 6300 / 6300 54 / 54 - Physical Exam Oriented: Unable to test Eyes: Normal Ear: Normal Nose: Normal Throat: Normal Respiratory: Generalized, Diminished Cardiovascular: Edema : Normal Auscultation: Bowel Sounds: Normal Palpation: Normal Tenderness: Normal Skin: Normal Musculoskeletal: Normal Psychiatric: Other (SEDATED) Mood Description: Calm Affect: Anxious Speech Pattern: Artificially Ventilated - Laboratory and Diagnostics Result Diagrams: 04/18/21 04:54 04/18/21 04:54 Labs: 04/13/21 09:45 Sputum - Endotracheal Wash Sputum Culture - Final 04/13/21 09:45 Sputum - Endotracheal Wash - Final 04/12/21 09:29 Urine,[place] Urine Culture - Final 03/14/21 16:39 Blood Blood Culture - Final 03/14/21 16:35 Blood Blood Culture - Final 03/18/21 01:03 Sputum - Expectorated Sputum Sputum Culture - Final 03/18/21 01:03 Sputum - Expectorated Sputum - Final Laboratory WBC 3.8 X10^3/uL (3.6-10.0) 04/18/21 04:54 RBC 4.27 X10^6/uL (4.7-6.0) L 04/18/21 04:54 Hgb 13.1 g/dL (13.5-18.0) L 04/18/21 04:54 Hct 38.7 % (42.0-54.0) L 04/18/21 04:54 MCV 90.7 fL (80.0-100.0) 04/18/21 04:54 MCH 30.6 pg (27.0-34.0) 04/18/21 04:54 MCHC 33.8 g/dL (33.0-35.0) 04/18/21 04:54 RDW 14.3 % (11.6-16.5) 04/18/21 04:54 Plt Count 68 X10^3/uL (150.0-450.0) L 04/18/21 04:54 Plt Count Comment Decreased (ADEQUATE) 04/18/21 04:54 MPV 7.9 fL (7.4-11.0) 04/18/21 04:54 Neut % (Auto) 89.5 % (42.0-75.0) H 04/18/21 04:54 Lymph % (Auto) 4.9 % (21.0-51.0) L 04/18/21 04:54 [place] % (Auto) 5.3 % (0.0-13.0) 04/18/21 04:54 Eos % (Auto) 0.1 % (0.9-2.9) L 04/18/21 04:54 Baso % (Auto) 0.2 % (0.2-1.0) 04/18/21 04:54 Neut # (Auto) 3.4 x10^3/uL (2.2-4.8) 04/18/21 04:54 Lymph # (Auto) 0.2 X10^3/uL (1.3-2.9) L 04/18/21 04:54 [place] # (Auto) 0.2 x10^3/uL (0.3-0.8) L 04/18/21 04:54 Eos # (Auto) 0.0 x10^3/uL (0.0-0.2) 04/18/21 04:54 Baso # (Auto) 0.0 X10^3/uL (0.0-0.1) 04/18/21 04:54 Absolute Nucleated RBC 0.0 /100WBC 04/18/21 04:54 Total Counted 100 04/18/21 04:54 Neutrophils % (Manual) 86 % (39-76) H 04/18/21 04:54 Band Neutrophils % 3 % (0-10) 04/18/21 04:54 Lymphocytes % (Manual) 7 % (13-43) L 04/18/21 04:54 Monocytes % (Manual) 4 % (4-9) 04/18/21 04:54 Eosinophils % (Manual) 1 % (0-6) 04/05/21 05:40 Metamyelocytes % 3 04/15/21 04:27 Giant Platelets Rare 04/04/21 05:07 Plt Morphology Comment Normal (NORMAL) 04/18/21 04:54 RBC Morphology Abnormal (NORMAL) 04/18/21 04:54 Hypochromasia 1+ A 04/11/21 04:25 Anisocytosis Slight A 04/18/21 04:54 Microcytosis Slight A 04/18/21 04:54 Stomatocytes Present 04/18/21 04:54 PT 22.4 SECONDS (11.8-14.3) 04/17/21 04:54 INR Target Range - 04/17/21 04:54 INR 2.08 (0.8-1.3) H 04/17/21 04:54 APTT 26.6 SECONDS (22.9-36.5) 03/17/21 06:05 PTT Comment - 03/17/21 06:05 D-Dimer 1.28 ug/ml (0.0-0.57) H* 04/11/21 08:47 Sample Site [place] 04/18/21 04:22 ABG pH 7.380 (7.35-7.45) 04/18/21 04:22 ABG pCO2 72.0 mmHg (35.0-45.0) H* 04/18/21 04:22 ABG pO2 63.0 mmHg (80.0-100.0) L 04/18/21 04:22 ABG HCO3 42.6 mmol/L (22-26) H* 04/18/21 04:22 ABG O2 Saturation 91.0 % (90-100) 04/18/21 04:22 ABG Base Excess 14.3 mmol/L (-2.0-2.0) H 04/18/21 04:22 Corky Test Na 04/18/21 04:22 A-a Gradient 489.0 mmHg 04/18/21 04:22 FiO2 90.0 04/18/21 04:22 Blood Gas Comments Michael well-mtf 04/18/21 04:22 Sodium 147 mmol/L (136-145) H 04/18/21 04:54 Corrected Sodium TNP 04/18/21 04:54 Potassium 3.4 mmol/L (3.5-5.1) L 04/18/21 04:54 Chloride 107 mmol/L (98-107) 04/18/21 04:54 Carbon Dioxide 37.5 mmol/L (21-32) H 04/18/21 04:54 BUN 14 mg/dL (7-18) 04/18/21 04:54 Creatinine 0.18 mg/dL (0.70-1.30) L 04/18/21 04:54 Est GFR (MDRD) Af Amer > 60 (>60) 04/18/21 04:54 Est GFR (MDRD) Non-Af > 60 (>60) 04/18/21 04:54 Glucose 110 mg/dL (65-99) H 04/18/21 04:54 POC Glucose (mg/dL) 121 mg/dL (65-99) H 04/09/21 22:53 Lactic Acid 1.5 mmol/L (0.4-2.0) 04/06/21 14:14 Calcium 7.3 mg/dL (8.5-10.1) L 04/18/21 04:54 Corrected Calcium 7.9 mg/dL (8.5-10.1) L 04/18/21 04:54 Phosphorus 2.0 mg/dL (2.6-4.7) L 04/12/21 04:55 Magnesium 2.1 mg/dL (1.7-2.9) 04/14/21 04:55 Ferritin 2439 ng/mL (26-388) H 04/16/21 15:50 Total Bilirubin 0.50 mg/dL (0.2-1.0) 04/18/21 04:54 AST 26 Units/L (15-37) 04/18/21 04:54 ALT 89 Units/L (12-78) H 04/18/21 04:54 Alkaline Phosphatase 65 Units/L (46-116) 04/18/21 04:54 Creatine Kinase 228 Units/L (39-308) 04/06/21 21:30 CK-MB (CK-2) < 1.0 ng/mL (0-4.0) 04/06/21 21:30 CK/CKMB % Calc 0.4 % (<4) 04/06/21 21:30 Troponin I < 0.02 ng/mL (0-1.5) 04/06/21 21:30 C-Reactive Protein 3.10 mg/L (0-3.0) H 04/11/21 08:48 B-Natriuretic Peptide 277 pg/mL (0-79) H 04/18/21 04:54 Total Protein 5.5 g/dL (6.4-8.2) L 04/18/21 04:54 Albumin 3.3 g/dL (3.4-5.0) L 04/18/21 04:54 Globulin 2.2 g/dL (2.5-4.5) L 04/18/21 04:54 Albumin/Globulin Ratio 1.5 Ratio (1.1-2.1) 04/18/21 04:54 Prealbumin 26.2 mg/dL (18-35.7) 04/13/21 04:35 Triglycerides 371 mg/dL (0-150) H 04/12/21 04:55 Specimen Type Catherized urine 04/12/21 09: Urine Color Yellow (YELLOW) 04/12/21 09: Urine Appearance Clear (CLEAR) 04/12/21 09: Urine pH 7.0 (5.0 - 8.0) 04/12/21 09: Ur Specific [place] 1.010 (1.000-1.030) 04/12/21 09: Urine Protein 2+ (NEGATIVE) 04/12/21 09: Urine Glucose (UA) Negative (NEGATIVE) 04/12/21 09: Urine Ketones Negative (NEGATIVE) 04/12/21 09: Urine Occult Blood Negative (NEGATIVE) 04/12/21 09: Urine Nitrite Negative (NEGATIVE) 04/12/21 09:29 Urine Bilirubin Negative (NEGATIVE) 04/12/21 09:29 Urine Urobilinogen 2+ (NORMAL) 04/12/21 09:29 Ur Leukocyte Esterase Negative (NEGATIVE) 04/12/21 09:29 Urine RBC 0-2 /HPF (0-3) 04/12/21 09:29 Urine WBC 0-2 /HPF (0-5) 04/12/21 09:29 Ur Squamous Epith Cells Rare /HPF (NEGATIVE) 04/12/21 09:29 Ur Renal Epithelial Cell Rare /HPF (NEGATIVE) 04/12/21 09:29 Urine Bacteria Negative /HPF (NEGATIVE) 04/12/21 09:29 Urine Mucus Few /HPF (NEGATIVE) 03/28/21 05:47 Ur Culture Indicated? No/not indicated 04/12/21 09:29 Gastric Fluid pH 3 04/13/21 09:45 Gastric Occult Blood Positive (NEGATIVE) A 04/13/21 09:45 - Plan (1) Pneumonia due to COVID-19 virus Status: Acute Plan: MECHANICAL VENT, DOPAMINE DRIP, DIAMOX 250MG PO DAILY, ALBUMIN 25% IV DAILY, SOLU-MEDROL 40MG IV Q8H, IV ANTIBIOTICS, ELIQUIS 1.25MG NG TUBE BID, DIFLUCAN 200MG IV DAILY, REGLAN 10MG IV TID, NEB TX, MUCOMYST IN NEB TX, MOPRHINE 2MG IV Q4H PRN, LEXAPRO 20MG NG TUBE BID, PROTONIX IV BID, VERSED DRIP, DIPROVAN DRIP, VERCURONIUM DRIP. (2) Hypoxia Status: Acute (3) HTN (hypertension) Status: Chronic Qualifiers: Hypertension type: primary hypertension Qualified Code(s): I10 - Essential (primary) hypertension (4) GERD (gastroesophageal reflux disease) Status: Chronic Qualifiers: Esophagitis presence: esophagitis presence not specified Qualified Code(s): K21.9 - Gastro-esophageal reflux disease without esophagitis (5) Obesity Status: Chronic Qualifiers: Obesity type: unspecified obesity type Obesity classification: adult class 2 (BMI 35 - 39.9) Serious obesity comorbidity presence: unspecified whether serious comorbidity present Body mass index: BMI 36.0-36.9 Qualified Code(s): E66.9 - Obesity, unspecified; Z68.36 - Body mass index [BMI] 36.0-36.9, adult
[2021-04-18] MEDS: PROTONIX INJ 40 MG VIAL IVP SCH ×2 (11:15→20:16)
[2021-04-18] MEDS: MILK OF MAGNESIA NG SCH ×3 (11:17→20:16)
[2021-04-18] MEDS: LEXAPRO NG SCH ×3 (11:18→20:15)
[2021-04-18] MEDS: COLACE SYRUP 100 MG UDC NG SCH ×3 (11:18→20:15)
[2021-04-18] MEDS: ELIQUIS NG SCH ×2 (11:18→20:15)
[2021-04-18] MEDS: PEPCID 20 MG IV PREMIX* 20 MG/50 ML BAG IV SCH ×2 (12:00→20:16)
[2021-04-18] MEDS ORDERED: LEXAPRO ONE ×2 (13:18→19:52)
[2021-04-18] MEDS: DIAMOX NG SCH (13:24)
[2021-04-18] MEDS: ALBUMIN HUMAN 25%- 100 ML 100 ML IV SCH (13:28)
[2021-04-18] MEDS ORDERED: STERILE WATER IRRIGATION IR ONE (15:16)
[2021-04-18] MEDS: PULMICORT NEB TX 0.5 MG NEB SCH ×2 (17:08→21:05)
[2021-04-19] MEDS: DIPRIVAN PREMIX 1 GRAM IV 1,000 MG/100 ML VIAL IV PRN ×8 (02:42→22:11)
[2021-04-19] MEDS: VERSED IV PREMIX 100 MG/100 ML IV.SOLN IV PRN ×5 (02:44→22:25)
[2021-04-19] MEDS: ZEMURON 100 MG VIAL 500 MG in NS 500 ML IV 450 ML IV PRN ×4 (04:20→22:13)
[2021-04-19 04:52] LABS: ABG BASE EXCESS 7.1 mmol/L (-2.0-2.0)
[2021-04-19 04:53] LABS: ABG HCO3 33.4 mmol/L (22-26)
[2021-04-19] MEDS: MUCOMYST (RESPIRATORY USE ONLY) NEB SCH ×3 (05:12→21:31)
[2021-04-19] MEDS: ACCUNEB 1.25 MG NEBULE NEB SCH ×3 (05:12→21:30)
[2021-04-19 05:24] LABS: BASOPHILS % (AUTO) 0.3 % (0.2-1.0); EOSINOPHILS % (AUTO) 0.2 % (0.9-2.9); HEMATOCRIT 32.4 % (42.0-54.0); HEMOGLOBIN 11.2 g/dL (13.5-18.0); LYMPHOCYTES # (AUTO) 0.2 X10^3/uL (1.3-2.9); LYMPHOCYTES % (AUTO) 4.4 % (21.0-51.0); MEAN CORPUSCULAR HEMOGLOBIN 31.1 pg (27.0-34.0); MEAN CORPUSCULAR HGB CONC 34.5 g/dL (33.0-35.0); MEAN CORPUSCULAR VOLUME 90.4 fL (80.0-100.0); MEAN PLATELET VOLUME 7.9 fL (7.4-11.0); MONOCYTES # (AUTO) 0.1 x10^3/uL (0.3-0.8); MONOCYTES % (AUTO) 3.1 % (0.0-13.0); PLATELET COUNT 66 X10^3/uL (150.0-450.0); RED BLOOD COUNT 3.59 X10^6/uL (4.7-6.0); RED CELL DISTRIBUTION WIDTH 14.2 % (11.6-16.5); WHITE BLOOD COUNT 4.3 X10^3/uL (3.6-10.0)
[2021-04-19 05:27] LABS: PREALBUMIN 21.2 mg/dL (18-35.7)
[2021-04-19 05:34] LABS: ALANINE AMINOTRANSFERASE 57 Units/L (12-78); ALBUMIN 2.6 g/dL (3.4-5.0); ALKALINE PHOSPHATASE 56 Units/L (46-116); ASPARTATE AMINO TRANSFERASE 18 Units/L (15-37); BLOOD UREA NITROGEN 9 mg/dL (7-18); CARBON DIOXIDE 29.2 mmol/L (21-32); CHLORIDE 112 mmol/L (98-107); COR CA(FOR HYPOALB) 7.1 mg/dL (8.5-10.1); CREATININE 0.13 mg/dL (0.70-1.30); TOTAL PROTEIN 4.5 g/dL (6.4-8.2); eGFR NON BLACK RACES > 60 (>60)
[2021-04-19 05:53] LABS: SODIUM 154 mmol/L (136-145)
[2021-04-19 05:56] LABS: BAND NEUTROPHILS % 7 % (0-10); PLATELET MORPHOLOGY COMMENT NORMAL (NORMAL)
[2021-04-19 05:57] LABS: ANISOCYTOSIS SLIGHT; MICROCYTOSIS SLIGHT
[2021-04-19] MEDS: REGLAN INJ 10 MG VIAL IVP SCH ×3 (06:00→21:28)
[2021-04-19] MEDS: SOLU-Medrol 40 MG VIAL IVP SCH ×3 (06:00→21:28)
--- NOTE | 2021-04-19 07:03 | RAD ---
HISTORYNG TUBE EAQBAYLLPIOUYKNBYVZQLIRNTFV04/20/2021.TECHNIQUEKUB, 2 imagesFINDINGSNG tube in good position. Right f emoral approach central line in good position with the tip in the right common iliac vein.Nonobstruct kellie bowel gas pattern. No definite pneumatosis, free air or portal venous gas. No suspicious calcific ations.IMPRESSIONNG tube in good position.Electronically signed by: Alphonso Hobbs (Apr 19, 2021 07:01:04 )
[2021-04-19] MEDS: PULMICORT NEB TX 0.5 MG NEB SCH ×2 (08:15→21:31)
[2021-04-19] MEDS: PEPCID 20 MG IV PREMIX* 20 MG/50 ML BAG IV SCH ×2 (08:20→20:43)
[2021-04-19] MEDS: LACRI-LUBE S.O.P. AFFEYE SCH ×2 (08:20→20:40)
[2021-04-19] MEDS ORDERED: LEXAPRO ONE ×2 (09:01→20:22)
--- NOTE | 2021-04-19 09:07 | DR.PROGNOT ---
Hospital Progress Notes - Progress Note for Day of: Progress Note Date: 04/19/21 - Chief Complaint Chief Complaint: post op placement of tracheostomy tube . no bleeding around the tube and stable ventilation. platelets 66 - Past Medical Family Social History Past Med/Fam/Surg Hx: No changes since H&P Allergies: Allergies No Allergy Information Available Allergy (Verified 03/14/21 14:24) - Review Of Systems ROS: No change since H&P - Vital Signs Vital Signs: Temperature 98.7 F Pulse Rate [Right Brachial] 61 Pulse Rate [Left Radial] 85 Pulse Rate 102 Respiratory Rate 26 Blood Pressure [Right Arm] 142/73 Blood Pressure [Left Arm] 116/63 Blood Pressure 169/87 O2 Sat by Pulse Oximetry 91 - Physical Exam Oriented: Unable to test Eyes: Normal Ear: Normal Nose: Normal Throat: Normal Respiratory: Generalized, Diminished Cardiovascular: Edema : Normal GI:Auscultation: Normal GI:Palpation: Normal GI: Tenderness: Normal Skin: Normal Musculoskeletal: Normal Psychiatric: Other (SEDATED) Mood Description: Calm Affect: Anxious Speech Pattern: Artificially Ventilated - Laboratory and Diagnostics Result Diagrams: 04/19/21 04:50 04/19/21 04:50 Labs: 04/13/21 09:45 Sputum - Endotracheal Wash Sputum Culture - Final 04/13/21 09:45 Sputum - Endotracheal Wash - Final 04/12/21 09:29 Urine,[place] Urine Culture - Final 03/14/21 16:39 Blood Blood Culture - Final 03/14/21 16:35 Blood Blood Culture - Final 03/18/21 01:03 Sputum - Expectorated Sputum Sputum Culture - Final 03/18/21 01:03 Sputum - Expectorated Sputum - Final Laboratory WBC 4.3 X10^3/uL (3.6-10.0) 04/19/21 04:50 RBC 3.59 X10^6/uL (4.7-6.0) L 04/19/21 04:50 Hgb 11.2 g/dL (13.5-18.0) L 04/19/21 04:50 Hct 32.4 % (42.0-54.0) L 04/19/21 04:50 MCV 90.4 fL (80.0-100.0) 04/19/21 04:50 MCH 31.1 pg (27.0-34.0) 04/19/21 04:50 MCHC 34.5 g/dL (33.0-35.0) 04/19/21 04:50 RDW 14.2 % (11.6-16.5) 04/19/21 04:50 Plt Count 66 X10^3/uL (150.0-450.0) L 04/19/21 04:50 Plt Count Comment Decreased (ADEQUATE) 04/19/21 04:50 MPV 7.9 fL (7.4-11.0) 04/19/21 04:50 Neut % (Auto) 92.0 % (42.0-75.0) H 04/19/21 04:50 Lymph % (Auto) 4.4 % (21.0-51.0) L 04/19/21 04:50 [place] % (Auto) 3.1 % (0.0-13.0) 04/19/21 04:50 Eos % (Auto) 0.2 % (0.9-2.9) L 04/19/21 04:50 Baso % (Auto) 0.3 % (0.2-1.0) 04/19/21 04:50 Neut # (Auto) 4.0 x10^3/uL (2.2-4.8) 04/19/21 04:50 Lymph # (Auto) 0.2 X10^3/uL (1.3-2.9) L 04/19/21 04:50 [place] # (Auto) 0.1 x10^3/uL (0.3-0.8) L 04/19/21 04:50 Eos # (Auto) 0.0 x10^3/uL (0.0-0.2) 04/19/21 04:50 Baso # (Auto) 0.0 X10^3/uL (0.0-0.1) 04/19/21 04:50 Absolute Nucleated RBC 0.4 /100WBC 04/19/21 04:50 Total Counted 100 04/19/21 04:50 Neutrophils % (Manual) 85 % (39-76) H 04/19/21 04:50 Band Neutrophils % 7 % (0-10) 04/19/21 04:50 Lymphocytes % (Manual) 5 % (13-43) L 04/19/21 04:50 Monocytes % (Manual) 3 % (4-9) L 04/19/21 04:50 Eosinophils % (Manual) 1 % (0-6) 04/05/21 05:40 Metamyelocytes % 3 04/15/21 04:27 Giant Platelets Rare 04/04/21 05:07 Plt Morphology Comment Normal (NORMAL) 04/19/21 04:50 RBC Morphology Abnormal (NORMAL) 04/19/21 04:50 Hypochromasia 1+ A 04/11/21 04:25 Anisocytosis Slight A 04/19/21 04:50 Microcytosis Slight A 04/19/21 04:50 Stomatocytes Present 04/18/21 04:54 PT 22.4 SECONDS (11.8-14.3) 04/17/21 04:54 INR Target Range - 04/17/21 04:54 INR 2.08 (0.8-1.3) H 04/17/21 04:54 APTT 26.6 SECONDS (22.9-36.5) 03/17/21 06:05 PTT Comment - 03/17/21 06:05 D-Dimer 1.28 ug/ml (0.0-0.57) H* 04/11/21 08:47 Sample Site Art-line 04/19/21 04:44 ABG pH 7.400 (7.35-7.45) 04/19/21 04:44 ABG pCO2 54.0 mmHg (35.0-45.0) H* 04/19/21 04:44 ABG pO2 46.0 mmHg (80.0-100.0) L* 04/19/21 04:44 ABG HCO3 33.4 mmol/L (22-26) H* 04/19/21 04:44 ABG O2 Saturation 82.0 % (90-100) L* 04/19/21 04:44 ABG Base Excess 7.1 mmol/L (-2.0-2.0) H 04/19/21 04:44 Corky Test Na 04/19/21 04:44 A-a Gradient 600.0 mmHg 04/19/21 04:44 FiO2 100.0 04/19/21 04:44 Blood Gas Comments Michael well-mtf 04/19/21 04:44 Sodium 154 mmol/L (136-145) H* 04/19/21 04:50 Corrected Sodium TNP 04/19/21 04:50 Potassium 2.5 mmol/L (3.5-5.1) L* 04/19/21 04:50 Chloride 112 mmol/L (98-107) H 04/19/21 04:50 Carbon Dioxide 29.2 mmol/L (21-32) 04/19/21 04:50 BUN 9 mg/dL (7-18) 04/19/21 04:50 Creatinine 0.13 mg/dL (0.70-1.30) L 04/19/21 04:50 Est GFR (MDRD) Af Amer > 60 (>60) 04/19/21 04:50 Est GFR (MDRD) Non-Af > 60 (>60) 04/19/21 04:50 Glucose 91 mg/dL (65-99) 04/19/21 04:50 POC Glucose (mg/dL) 121 mg/dL (65-99) H 04/09/21 22:53 Lactic Acid 1.5 mmol/L (0.4-2.0) 04/06/21 14:14 Calcium 6.0 mg/dL (8.5-10.1) L* 04/19/21 04:50 Corrected Calcium 7.1 mg/dL (8.5-10.1) L 04/19/21 04:50 Phosphorus 2.0 mg/dL (2.6-4.7) L 04/12/21 04:55 Magnesium 1.8 mg/dL (1.7-2.9) 04/19/21 04:44 Ferritin 2439 ng/mL (26-388) H 04/16/21 15:50 Total Bilirubin 0.50 mg/dL (0.2-1.0) 04/19/21 04:50 AST 18 Units/L (15-37) 04/19/21 04:50 ALT 57 Units/L (12-78) 04/19/21 04:50 Alkaline Phosphatase 56 Units/L (46-116) 04/19/21 04:50 Creatine Kinase 228 Units/L (39-308) 04/06/21 21:30 CK-MB (CK-2) < 1.0 ng/mL (0-4.0) 04/06/21 21:30 CK/CKMB % Calc 0.4 % (<4) 04/06/21 21:30 Troponin I < 0.02 ng/mL (0-1.5) 04/06/21 21:30 C-Reactive Protein 3.10 mg/L (0-3.0) H 04/11/21 08:48 B-Natriuretic Peptide 149 pg/mL (0-79) H 04/19/21 04:50 Total Protein 4.5 g/dL (6.4-8.2) L 04/19/21 04:50 Albumin 2.6 g/dL (3.4-5.0) L 04/19/21 04:50 Globulin 1.9 g/dL (2.5-4.5) L 04/19/21 04:50 Albumin/Globulin Ratio 1.4 Ratio (1.1-2.1) 04/19/21 04:50 Prealbumin 21.2 mg/dL (18-35.7) 04/19/21 04:50 Triglycerides 371 mg/dL (0-150) H 04/12/21 04:55 Specimen Type Catherized urine 04/12/21 09:29 Urine Color Yellow (YELLOW) 04/12/21 09:29 Urine Appearance Clear (CLEAR) 04/12/21 09:29 Urine pH 7.0 (5.0 - 8.0) 04/12/21 09:29 Ur Specific [place] 1.010 (1.000-1.030) 04/12/21 09:29 Urine Protein 2+ (NEGATIVE) 04/12/21 09:29 Urine Glucose (UA) Negative (NEGATIVE) 04/12/21 09:29 Urine Ketones Negative (NEGATIVE) 04/12/21 09:29 Urine Occult Blood Negative (NEGATIVE) 04/12/21 09:29 Urine Nitrite Negative (NEGATIVE) 04/12/21 09:29 Urine Bilirubin Negative (NEGATIVE) 04/12/21 09:29 Urine Urobilinogen 2+ (NORMAL) 04/12/21 09:29 Ur Leukocyte Esterase Negative (NEGATIVE) 04/12/21 09:29 Urine RBC 0-2 /HPF (0-3) 04/12/21 09:29 Urine WBC 0-2 /HPF (0-5) 04/12/21 09:29 Ur Squamous Epith Cells Rare /HPF (NEGATIVE) 04/12/21 09:29 Ur Renal Epithelial Cell Rare /HPF (NEGATIVE) 04/12/21 09:29 Urine Bacteria Negative /HPF (NEGATIVE) 04/12/21 09:29 Urine Mucus Few /HPF (NEGATIVE) 03/28/21 05:47 Ur Culture Indicated? No/not indicated 04/12/21 09:29 Gastric Fluid pH 3 04/13/21 09:45 Gastric Occult Blood Positive (NEGATIVE) A 04/13/21 09:45 - Assessment and Plan 1: post op placement of tracheostomy . same medical care . - Problem Patient Problems: Patient Problems Pneumonia due to COVID-19 virus (Acute) U07.1, J12.82 Hypoxia (Acute) R09.02 HTN (hypertension) (Chronic) I10 GERD (gastroesophageal reflux disease) (Chronic) K21.9 Obesity (Chronic) E66.9
[2021-04-19] MEDS: PROTONIX INJ 40 MG VIAL IVP SCH ×2 (09:11→20:44)
[2021-04-19] MEDS: ALBUMIN HUMAN 25%- 100 ML 100 ML IV SCH ×2 (09:12→20:37)
[2021-04-19] MEDS: DIFLUCAN 200 MG IV PREMIX* 200 MG/100 ML BAG IV SCH (09:22)
[2021-04-19] MEDS: POTASSIUM CHLORIDE LIQ 20 MEQ UDC PO PRN (09:26)
[2021-04-19] MEDS: COLACE SYRUP 100 MG UDC NG SCH ×2 (09:39→20:39)
[2021-04-19] MEDS: ELIQUIS NG SCH ×2 (09:39→20:40)
[2021-04-19] MEDS: LEXAPRO NG SCH ×2 (09:39→20:42)
[2021-04-19] MEDS: DIAMOX NG SCH (09:39)
[2021-04-19] MEDS: MILK OF MAGNESIA NG SCH ×2 (09:40→20:42)
[2021-04-19] MEDS: LEVAQUIN PREMIX IV 500 MG 500 MG/100 ML BAG IV SCH (10:11)
[2021-04-19] MEDS: D5W + KCL 20 MEQ/L 1,000 ML IV SCH (11:00)
--- NOTE | 2021-04-19 12:32 | RAD ---
HISTORYSOB, VENTILATOR DEPENDENCE PMH: HTNSTUDYCHEST, 1 VIEWCOMPARISONPortable chest April 18, 2021FINDINGSThe trachea is midline. Tracheostomy tube is in place replaced seen the endotracheal tube that was present yesterday. NG tube is in place with the tip below the diaphragm the cardiac silhouette is mildly enlarged.. Persistent air bronchograms are seen in the left lower lobe retrocardiac region. Persistent interstitial infiltrate is seen in the right lung base medially. The bony thorax is unremarkable.IMPRESSIONNo significant interval change in the bibasilar infiltrates.The endotracheal tube is been replaced with a tracheostomy tube. The NG tube remains in good position.Electronically signed by: DRAKE GRIFFIN (Apr 19, 2021 07:54:05)
--- NOTE | 2021-04-19 13:02 | PCM.PROG ---
Progress Note - Progress Note for Day of Date of Exam: 04/19/21 - Subjective Subjective: MR. MARMOLEJO WAS ADMITTED FOR TREATMENT OF COVID PNEUMONIA AND HYPOXIA. PMH: OBESITY, GERD, HTN. HE REMAINS IN THE INTENSIVE CARE UNIT ON THE MECHANICAL VENT TODAY. HE WAS PLACED ON THE VENT ON 03/28/21. HE HAD A TRACHEOSTOMY INSERTED YESTERDAY. TODAY, HE IS SEDATED, LYING IN BED ON MORNING ROUNDS. HIS VENT SETTINGS THIS MORNING ARE: A/C, RATE 26, TIDAL VOLUME 465, PEEP 12, FI02 100. HIS SATURATIONS HAVE BEEN 88-92% THROUGHOUT THE NIGHT AND THIS MORNING. ON EXAMINATION, HEART IS REGULAR IN RATE AND RHYTHM. BILATERAL LUNGS ARE NOTED WITH DIMINISHED LUNG SOUNDS THROUGHOUT. ABDOMEN IS ROUND, SOFT, AND NON-TENDER WITH NORMAL BOWEL SOUNDS NOTED IN ALL QUADRANTS. HIS VITALS THIS MORNING ARE: 98.7-93-26-92%-124/69. LABS WERE OBTAINED. ABNORMAL LAB VALUES INCLUDE THE FOLLOWING: RBC 3.59, HGB 11.2, HCT 32.4, PLT COUNT 66, SODIUM 154, POTASSIUM 2.5, CHLORIDE 112, CREATININE 0.13, CALCIUM 6.0, BNP 149, TOTAL PROTEIN 4.5, ALBUMIN 2.6. ABG REVEALED: PH 7.400, PC02 54, P02 46, HC03 33.4, 02 SAT 82, BASE EXCESS 7.1, A-A GRADIENT 600, FI02 100. CHEST XRAY WAS OBTAINED THIS MORNING AND REVEALED: NO SIGNIFICANT INTERVAL CHANGE IN THE BIBASILAR INFILTRATES. HE IS CURRENTLY RECEIVING NS, DOPAMINE DRIP, SOLU-MEDROL 40MG IV Q8H, DIAMOX 250MG PO DAILY, IV ANTIBIOTICS, ALBUMIN 25% IV BID, DIFLUCAN 200MG IV DAILY, ELIQUIS 1.25 MG PO BID, NEB TX, MUCOMYST IN NEB [place], MOPRHINE 2MG IV Q4H PRN, ATROPINE PRN, LEXAPRO 20MG NG TUBE BID, LABETALOL PRN, PROTONIX IV BID, REGLAN 10MG IV TID, VERSED DRIP, DIPROVAN DRIP, VERCURONIUM DRIP. HE IS RECEIVING ENTERAL FEEDINGS. TODAY, WE WILL CHANGE HIS IV FLUIDS TO D5W WITH 20MEQ KCL AT 75 ML/HR AND INCREASE ALBUMIN TO 25MG IV BID. OTHERWISE, WE WILL CONTINUE WITH CURRENT PLAN OF CARE TODAY. WE WILL FOLLOW UP WITH AM LABS, CHEST XRAY, ABG, AND CONTINUE TO MONITOR. WE WILL DECREASE OXYGEN HE TOLERATES IT. TIME SPENT ON CLINICAL ASSESSMENT, REVIEWING LABS AND IMAGING, DECISION MAKING, AND DOCUMENTATION GREATER THAN 75 MINUTES. - Past Medical Family Social History Past Med/Fam/Surg Hx: No changes since H&P Allergies: Allergies No Allergy Information Available Allergy (Verified 03/14/21 14:24) - Review of Systems ROS: No change since H&P - Vital Signs and I&O's Vital Signs: Temperature 98.7 F Pulse Rate [Right Brachial] 61 Pulse Rate [Left Radial] 85 Pulse Rate 113 Respiratory Rate 26 Blood Pressure [Right Arm] 142/73 Blood Pressure [Left Arm] 116/63 Blood Pressure 132/84 O2 Sat by Pulse Oximetry 92 Intake and Output: Intake & Output 04/17/21 04/18/21 04/19/21 04/20/21 11:59 11:59 11:59 11:59 Intake Total 8330 / 8330 7329 / 7329 7051 / 7051 Output Total 2029 / 2029 6975 / 6975 7580 / 7580 Balance 6300 / 6300 354 / 354 -529 / -529 - Physical Exam Oriented: Unable to test Eyes: Normal Ear: Normal Nose: Normal Throat: Normal Respiratory: Generalized, Diminished Cardiovascular: Edema : Normal Auscultation: Bowel Sounds: Normal Palpation: Normal Tenderness: Normal Skin: Normal Musculoskeletal: Normal Psychiatric: Other (SEDATED) Mood Description: Calm Affect: Anxious Speech Pattern: Artificially Ventilated - Laboratory and Diagnostics Result Diagrams: 04/19/21 04:50 04/19/21 12:01 Labs: 04/13/21 09:45 Sputum - Endotracheal Wash Sputum Culture - Final 04/13/21 09:45 Sputum - Endotracheal Wash - Final 04/12/21 09:29 Urine,[place] Urine Culture - Final 03/14/21 16:39 Blood Blood Culture - Final 03/14/21 16:35 Blood Blood Culture - Final 03/18/21 01:03 Sputum - Expectorated Sputum Sputum Culture - Final 03/18/21 01:03 Sputum - Expectorated Sputum - Final Laboratory WBC 4.3 X10^3/uL (3.6-10.0) 04/19/21 04:50 RBC 3.59 X10^6/uL (4.7-6.0) L 04/19/21 04:50 Hgb 11.2 g/dL (13.5-18.0) L 04/19/21 04:50 Hct 32.4 % (42.0-54.0) L 04/19/21 04:50 MCV 90.4 fL (80.0-100.0) 04/19/21 04:50 MCH 31.1 pg (27.0-34.0) 04/19/21 04:50 MCHC 34.5 g/dL (33.0-35.0) 04/19/21 04:50 RDW 14.2 % (11.6-16.5) 04/19/21 04:50 Plt Count 66 X10^3/uL (150.0-450.0) L 04/19/21 04:50 Plt Count Comment Decreased (ADEQUATE) 04/19/21 04:50 MPV 7.9 fL (7.4-11.0) 04/19/21 04:50 Neut % (Auto) 92.0 % (42.0-75.0) H 04/19/21 04:50 Lymph % (Auto) 4.4 % (21.0-51.0) L 04/19/21 04:50 [place] % (Auto) 3.1 % (0.0-13.0) 04/19/21 04:50 Eos % (Auto) 0.2 % (0.9-2.9) L 04/19/21 04:50 Baso % (Auto) 0.3 % (0.2-1.0) 04/19/21 04:50 Neut # (Auto) 4.0 x10^3/uL (2.2-4.8) 04/19/21 04:50 Lymph # (Auto) 0.2 X10^3/uL (1.3-2.9) L 04/19/21 04:50 [place] # (Auto) 0.1 x10^3/uL (0.3-0.8) L 04/19/21 04:50 Eos # (Auto) 0.0 x10^3/uL (0.0-0.2) 04/19/21 04:50 Baso # (Auto) 0.0 X10^3/uL (0.0-0.1) 04/19/21 04:50 Absolute Nucleated RBC 0.4 /100WBC 04/19/21 04:50 Total Counted 100 04/19/21 04:50 Neutrophils % (Manual) 85 % (39-76) H 04/19/21 04:50 Band Neutrophils % 7 % (0-10) 04/19/21 04:50 Lymphocytes % (Manual) 5 % (13-43) L 04/19/21 04:50 Monocytes % (Manual) 3 % (4-9) L 04/19/21 04:50 Eosinophils % (Manual) 1 % (0-6) 04/05/21 05:40 Metamyelocytes % 3 04/15/21 04:27 Giant Platelets Rare 04/04/21 05:07 Plt Morphology Comment Normal (NORMAL) 04/19/21 04:50 RBC Morphology Abnormal (NORMAL) 04/19/21 04:50 Hypochromasia 1+ A 04/11/21 04:25 Anisocytosis Slight A 04/19/21 04:50 Microcytosis Slight A 04/19/21 04:50 Stomatocytes Present 04/18/21 04:54 PT 22.4 SECONDS (11.8-14.3) 04/17/21 04:54 INR Target Range - 04/17/21 04:54 INR 2.08 (0.8-1.3) H 04/17/21 04:54 APTT 26.6 SECONDS (22.9-36.5) 03/17/21 06:05 PTT Comment - 03/17/21 06:05 D-Dimer 1.28 ug/ml (0.0-0.57) H* 04/11/21 08:47 Sample Site Art-line 04/19/21 04:44 ABG pH 7.400 (7.35-7.45) 04/19/21 04:44 ABG pCO2 54.0 mmHg (35.0-45.0) H* 04/19/21 04:44 ABG pO2 46.0 mmHg (80.0-100.0) L* 04/19/21 04:44 ABG HCO3 33.4 mmol/L (22-26) H* 04/19/21 04:44 ABG O2 Saturation 82.0 % (90-100) L* 04/19/21 04:44 ABG Base Excess 7.1 mmol/L (-2.0-2.0) H 04/19/21 04:44 Corky Test Na 04/19/21 04:44 A-a Gradient 600.0 mmHg 04/19/21 04:44 FiO2 100.0 04/19/21 04:44 Blood Gas Comments Michael well-mtf 04/19/21 04:44 Sodium 154 mmol/L (136-145) H* 04/19/21 04:50 Corrected Sodium TNP 04/19/21 04:50 Potassium 3.6 mmol/L (3.5-5.1) 04/19/21 12:01 Chloride 112 mmol/L (98-107) H 04/19/21 04:50 Carbon Dioxide 29.2 mmol/L (21-32) 04/19/21 04:50 BUN 9 mg/dL (7-18) 04/19/21 04:50 Creatinine 0.13 mg/dL (0.70-1.30) L 04/19/21 04:50 Est GFR (MDRD) Af Amer > 60 (>60) 04/19/21 04:50 Est GFR (MDRD) Non-Af > 60 (>60) 04/19/21 04:50 Glucose 91 mg/dL (65-99) 04/19/21 04:50 POC Glucose (mg/dL) 121 mg/dL (65-99) H 04/09/21 22:53 Lactic Acid 1.5 mmol/L (0.4-2.0) 04/06/21 14:14 Calcium 6.0 mg/dL (8.5-10.1) L* 04/19/21 04:50 Corrected Calcium 7.1 mg/dL (8.5-10.1) L 04/19/21 04:50 Phosphorus 2.0 mg/dL (2.6-4.7) L 04/12/21 04:55 Magnesium 1.8 mg/dL (1.7-2.9) 04/19/21 04:44 Ferritin 2439 ng/mL (26-388) H 04/16/21 15:50 Total Bilirubin 0.50 mg/dL (0.2-1.0) 04/19/21 04:50 AST 18 Units/L (15-37) 04/19/21 04:50 ALT 57 Units/L (12-78) 04/19/21 04:50 Alkaline Phosphatase 56 Units/L (46-116) 04/19/21 04:50 Creatine Kinase 228 Units/L (39-308) 04/06/21 21:30 CK-MB (CK-2) < 1.0 ng/mL (0-4.0) 04/06/21 21:30 CK/CKMB % Calc 0.4 % (<4) 04/06/21 21:30 Troponin I < 0.02 ng/mL (0-1.5) 04/06/21 21:30 C-Reactive Protein 3.10 mg/L (0-3.0) H 04/11/21 08:48 B-Natriuretic Peptide 149 pg/mL (0-79) H 04/19/21 04:50 Total Protein 4.5 g/dL (6.4-8.2) L 04/19/21 04:50 Albumin 2.6 g/dL (3.4-5.0) L 04/19/21 04:50 Globulin 1.9 g/dL (2.5-4.5) L 04/19/21 04:50 Albumin/Globulin Ratio 1.4 Ratio (1.1-2.1) 04/19/21 04:50 Prealbumin 21.2 mg/dL (18-35.7) 04/19/21 04:50 Triglycerides 371 mg/dL (0-150) H 04/12/21 04:55 Specimen Type Catherized urine 04/12/21 09:29 Urine Color Yellow (YELLOW) 04/12/21 09: Urine Appearance Clear (CLEAR) 04/12/21 09:29 Urine pH 7.0 (5.0 - 8.0) 04/12/21 09:29 Ur Specific [place] 1.010 (1.000-1.030) 04/12/21 09: Urine Protein 2+ (NEGATIVE) 04/12/21 09: Urine Glucose (UA) Negative (NEGATIVE) 04/12/21 09: Urine Ketones Negative (NEGATIVE) 04/12/21 09: Urine Occult Blood Negative (NEGATIVE) 04/12/21 09: Urine Nitrite Negative (NEGATIVE) 04/12/21 09: Urine Bilirubin Negative (NEGATIVE) 04/12/21 09:29 Urine Urobilinogen 2+ (NORMAL) 04/12/21 09:29 Ur Leukocyte Esterase Negative (NEGATIVE) 04/12/21 09:29 Urine RBC 0-2 /HPF (0-3) 04/12/21 09:29 Urine WBC 0-2 /HPF (0-5) 04/12/21 09:29 Ur Squamous Epith Cells Rare /HPF (NEGATIVE) 04/12/21 09:29 Ur Renal Epithelial Cell Rare /HPF (NEGATIVE) 04/12/21 09:29 Urine Bacteria Negative /HPF (NEGATIVE) 04/12/21 09:29 Urine Mucus Few /HPF (NEGATIVE) 03/28/21 05:47 Ur Culture Indicated? No/not indicated 04/12/21 09:29 Gastric Fluid pH 3 04/13/21 09:45 Gastric Occult Blood Positive (NEGATIVE) A 04/13/21 09:45 - Plan (1) Pneumonia due to COVID-19 virus Status: Acute Plan: MECHANICAL VENT, DOPAMINE DRIP, DIAMOX 250MG PO DAILY, ALBUMIN 25% IV DAILY, SOLU-MEDROL 40MG IV Q8H, IV ANTIBIOTICS, ELIQUIS 1.25MG NG TUBE BID, DIFLUCAN 200MG IV DAILY, REGLAN 10MG IV TID, NEB TX, MUCOMYST IN NEB [place], MOPRHINE 2MG IV Q4H PRN, LEXAPRO 20MG NG TUBE BID, PROTONIX IV BID, VERSED DRIP, DIPROVAN DRIP, VERCURONIUM DRIP. (2) Hypoxia Status: Acute (3) HTN (hypertension) Status: Chronic Qualifiers: Hypertension type: primary hypertension Qualified Code(s): I10 - Essential (primary) hypertension (4) GERD (gastroesophageal reflux disease) Status: Chronic Qualifiers: Esophagitis presence: esophagitis presence not specified Qualified Code(s): K21.9 - Gastro-esophageal reflux disease without esophagitis (5) Obesity Status: Chronic Qualifiers: Obesity type: unspecified obesity type Obesity classification: adult class 2 (BMI 35 - 39.9) Serious obesity comorbidity presence: unspecified whether serious comorbidity present Body mass index: BMI 36.0-36.9 Qualified Code(s): E66.9 - Obesity, unspecified; Z68.36 - Body mass index [BMI] 36.0-36.9, adult
[2021-04-19] MEDS: DOPAMINE IV PREMIX 400 MG/250 ML 400 MG/250 ML BAG IV PRN (15:44)
[2021-04-20] MEDS: D5W + KCL 20 MEQ/L 1,000 ML IV SCH ×3 (00:29→22:05)
[2021-04-20] MEDS: DIPRIVAN PREMIX 1 GRAM IV 1,000 MG/100 ML VIAL IV PRN ×9 (00:38→23:10)
[2021-04-20] MEDS: DOPAMINE IV PREMIX 400 MG/250 ML 400 MG/250 ML BAG IV PRN ×2 (01:41→13:08)
[2021-04-20] MEDS: VERSED IV PREMIX 100 MG/100 ML IV.SOLN IV PRN ×5 (03:05→21:52)
[2021-04-20] MEDS: ZEMURON 100 MG VIAL 500 MG in NS 500 ML IV 450 ML IV PRN ×4 (03:13→22:55)
[2021-04-20 05:19] LABS: ABG BASE EXCESS 8.6 mmol/L (-2.0-2.0)
[2021-04-20 05:20] LABS: ABG HCO3 34.9 mmol/L (22-26)
[2021-04-20 05:23] LABS: BASOPHILS % (AUTO) 0.3 % (0.2-1.0); EOSINOPHILS % (AUTO) 0.1 % (0.9-2.9); HEMATOCRIT 34.5 % (42.0-54.0); HEMOGLOBIN 11.8 g/dL (13.5-18.0); LYMPHOCYTES # (AUTO) 0.2 X10^3/uL (1.3-2.9); LYMPHOCYTES % (AUTO) 4.6 % (21.0-51.0); MEAN CORPUSCULAR HEMOGLOBIN 30.9 pg (27.0-34.0); MEAN CORPUSCULAR HGB CONC 34.3 g/dL (33.0-35.0); MEAN PLATELET VOLUME 8.4 fL (7.4-11.0); MONOCYTES # (AUTO) 0.2 x10^3/uL (0.3-0.8); MONOCYTES % (AUTO) 3.3 % (0.0-13.0); NEUTROPHILS # (AUTO) 4.5 x10^3/uL (2.2-4.8); NEUTROPHILS % (AUTO) 91.7 % (42.0-75.0); PLATELET COUNT 75 X10^3/uL (150.0-450.0); RED BLOOD COUNT 3.83 X10^6/uL (4.7-6.0); RED CELL DISTRIBUTION WIDTH 14.7 % (11.6-16.5); WHITE BLOOD COUNT 4.9 X10^3/uL (3.6-10.0)
[2021-04-20] MEDS: REGLAN INJ 10 MG VIAL IVP SCH ×3 (05:36→22:04)
[2021-04-20] MEDS: SOLU-Medrol 40 MG VIAL IVP SCH ×3 (05:37→22:04)
[2021-04-20 05:46] LABS: ALANINE AMINOTRANSFERASE 60 Units/L (12-78); ALBUMIN 3.3 g/dL (3.4-5.0); ALKALINE PHOSPHATASE 59 Units/L (46-116); ASPARTATE AMINO TRANSFERASE 18 Units/L (15-37); BLOOD UREA NITROGEN 10 mg/dL (7-18); CALCIUM 7.5 mg/dL (8.5-10.1); CARBON DIOXIDE 30.4 mmol/L (21-32); CHLORIDE 110 mmol/L (98-107); COR CA(FOR HYPOALB) 8.1 mg/dL (8.5-10.1); COR NA(FOR HYPERGLY) 146 mmol/L (136-145); SODIUM 145 mmol/L (136-145); TOTAL PROTEIN 5.3 g/dL (6.4-8.2); eGFR NON BLACK RACES > 60 (>60)
[2021-04-20 06:02] LABS: CREATININE 0.16 mg/dL (0.70-1.30)
[2021-04-20 06:11] LABS: PLATELET MORPHOLOGY COMMENT NORMAL (NORMAL)
--- NOTE | 2021-04-20 07:38 | RAD ---
HISTORYSOB, VENTILATOR DEPENDENCE.brSTUDYCHEST, 1 [id number]/30/2021.TECHNIQUEAP view of the chestFINDINGSTracheostomy tube in situ. NG tube courses below the visualized field of view.The cardiac and mediastinal contours appear stable. No significant change in bilateral airspace and interstitial opacities. Cannot exclude small pleural effusions. No pneumothorax. Soft tissue attenuation limits evaluation.IMPRESSIONNo significant change.Electronically signed by: Alphonso Hobbs (Apr 20, 2021 07:35:59)
[2021-04-20] MEDS ORDERED: LEXAPRO ONE ×2 (07:50→20:02)
[2021-04-20] MEDS: ALBUMIN HUMAN 25%- 100 ML 100 ML IV SCH ×2 (08:35→22:02)
[2021-04-20] MEDS: DIAMOX NG SCH (08:36)
[2021-04-20] MEDS: ELIQUIS NG SCH ×2 (08:36→21:43)
[2021-04-20] MEDS: COLACE SYRUP 100 MG UDC NG SCH ×2 (08:36→21:42)
[2021-04-20] MEDS: DIFLUCAN 200 MG IV PREMIX* 200 MG/100 ML BAG IV SCH (08:36)
[2021-04-20] MEDS: LEXAPRO NG SCH ×2 (08:37→20:42)
[2021-04-20] MEDS: LEVAQUIN PREMIX IV 500 MG 500 MG/100 ML BAG IV SCH (08:37)
[2021-04-20] MEDS: MILK OF MAGNESIA NG SCH ×2 (08:37→21:42)
[2021-04-20] MEDS: LACRI-LUBE S.O.P. AFFEYE SCH ×2 (08:37→21:42)
[2021-04-20] MEDS: PEPCID 20 MG IV PREMIX* 20 MG/50 ML BAG IV SCH ×2 (08:38→21:43)
[2021-04-20] MEDS: PROTONIX INJ 40 MG VIAL IVP SCH ×2 (08:38→22:04)
[2021-04-20] MEDS: PULMICORT NEB TX 0.5 MG NEB SCH ×2 (09:50→20:00)
[2021-04-20] MEDS: LASIX IVP SCH ×2 (10:23→22:05)
--- NOTE | 2021-04-20 12:09 | PCM.PROG ---
Progress Note - Progress Note for Day of Date of Exam: 04/20/21 - Subjective Subjective: MR. MARMOLEJO WAS ADMITTED FOR TREATMENT OF COVID PNEUMONIA AND HYPOXIA. PMH: OBESITY, GERD, HTN. HE REMAINS IN THE INTENSIVE CARE UNIT ON THE MECHANICAL VENT TODAY. HE WAS PLACED ON THE VENT ON 03/28/21. HE HAD A TRACHEOSTOMY INSERTED ON 04/18. HIS VENT SETTINGS THIS MORNING ARE: A/C, RATE 26, TIDAL VOLUME 465, PEEP 12, FI02 100. HIS SATURATIONS HAVE BEEN 89-96% THROUGHOUT THE NIGHT AND THIS MORNING. HE WAS HYPOTENSIVE THROGHOUT THE NIGHT AND DOPAMINE DRIP WAS INCREASED SOME. ON EXAMINATION, HEART IS REGULAR IN RATE AND RHYTHM. BILATERAL LUNGS ARE NOTED WITH DIMINISHED LUNG SOUNDS THROUGHOUT. ABDOMEN IS ROUND, SOFT, AND NON-TENDER WITH NORMAL BOWEL SOUNDS NOTED IN ALL QUADRANTS. HIS VITALS THIS MORNING ARE: 97.8-71-26-94%-134/79. LABS WERE OBTAINED. ABNORMAL LAB VALUES INCLUDE THE FOLLOWING: RBC 3.83, HGB 11.8, HCT 34.5, PLT COUNT 75, POTASSIUM 3.3, CHLORIDE 110, CREATININE 0.16, GLUCOSE 155, CALCIUM 7.5, BNP 181, TOTAL PROTEIN 5.3, ALBUMIN 3.3. ABG REVEALED: PH 7.410, PC02 55.0, P02 90, HC03 34.9, 02 SATURATION 97, BASE EXCESS 8.6, A-A GRADIENT 554, FI02 100. CHEST XRAY WAS OBTAINED THIS MORNING AND REVEALED: NO SIGNIFICANT CHANGE. HE IS CURRENTLY RECEIVING D5W, DOPAMINE DRIP, SOLU-MEDROL 40MG IV Q8H, DIAMOX 250MG PO DAILY, ALBUMIN 25% IV BID, DIFLUCAN 200MG IV DAILY, ELIQUIS 1.25 MG PO BID, NEB TX, MUCOMYST IN NEB [place], MOPRHINE 2MG IV Q4H PRN, ATROPINE PRN, LEXAPRO 20MG NG TUBE BID, LABETALOL PRN, PROTONIX IV BID, REGLAN 5MG IV TID, VERSED DRIP, DIPROVAN DRIP, VERCURONIUM DRIP. HE IS RECEIVING ENTERAL FEEDINGS. TODAY, DUE TO NOT HAVING A NEGATIVE FLUID BALANCE, WE WILL ADMINISTER LASIX 20MG IV BID X 2 DOSES. OTHERWISE, WE WILL CONTINUE WITH CURRENT PLAN OF CARE. WE WILL FOLLOW UP WITH AM LABS, CHEST XRAY, ABG, AND CONTINUE TO MONITOR. WE WILL DECREASE OXYGEN HE TO LERATES IT. TIME SPENT ON CLINICAL ASSESSMENT, REVIEWING LABS AND IMAGING, DECISION MAKING, AND DOCUMENTATION GREATER THAN 75 MINUTES. - Past Medical Family Social History Past Med/Fam/Surg Hx: No changes since H&P Allergies: Allergies No Allergy Information Available Allergy (Verified 03/14/21 14:24) - Review of Systems ROS: No change since H&P - Vital Signs and I&O's Vital Signs: Temperature 97.8 F Pulse Rate [Right Brachial] 61 Pulse Rate [Left Radial] 85 Pulse Rate 64 Respiratory Rate 26 Blood Pressure [Right Arm] 142/73 Blood Pressure [Left Arm] 116/63 Blood Pressure 124/71 O2 Sat by Pulse Oximetry 95 Intake and Output: Intake & Output 04/18/21 04/19/21 04/20/21 04/21/21 11:59 11:59 11:59 11:59 Intake Total 7329 / 7329 7051 / 7051 12529 / 65405 Output Total 6975 / 6975 7580 / 7580 4920 / 4920 Balance 354 / 354 -529 / -529 5855 / 5855 - Physical Exam Oriented: Unable to test Eyes: Normal Ear: Normal Nose: Normal Throat: Normal Respiratory: Generalized, Diminished Cardiovascular: Edema : Normal Auscultation: Bowel Sounds: Normal Palpation: Normal Tenderness: Normal Skin: Normal Musculoskeletal: Normal Psychiatric: Other (SEDATED) Mood Description: Calm Affect: Anxious Speech Pattern: Artificially Ventilated - Laboratory and Diagnostics Result Diagrams: 04/20/21 04:43 04/20/21 04:43 Labs: 04/13/21 09:45 Sputum - Endotracheal Wash Sputum Culture - Final 04/13/21 09:45 Sputum - Endotracheal Wash - Final 04/12/21 09:29 Urine,[place] Urine Culture - Final 03/14/21 16:39 Blood Blood Culture - Final 03/14/21 16:35 Blood Blood Culture - Final 03/18/21 01:03 Sputum - Expectorated Sputum Sputum Culture - Final 03/18/21 01:03 Sputum - Expectorated Sputum - Final Laboratory WBC 4.9 X10^3/uL (3.6-10.0) 04/20/21 04:43 RBC 3.83 X10^6/uL (4.7-6.0) L 04/20/21 04:43 Hgb 11.8 g/dL (13.5-18.0) L 04/20/21 04:43 Hct 34.5 % (42.0-54.0) L 04/20/21 04:43 MCV 90.0 fL (80.0-100.0) 04/20/21 04:43 MCH 30.9 pg (27.0-34.0) 04/20/21 04:43 MCHC 34.3 g/dL (33.0-35.0) 04/20/21 04:43 RDW 14.7 % (11.6-16.5) 04/20/21 04:43 Plt Count 75 X10^3/uL (150.0-450.0) L 04/20/21 04:43 Plt Count Comment Decreased (ADEQUATE) 04/20/21 04:43 MPV 8.4 fL (7.4-11.0) 04/20/21 04:43 Neut % (Auto) 91.7 % (42.0-75.0) H 04/20/21 04:43 Lymph % (Auto) 4.6 % (21.0-51.0) L 04/20/21 04:43 [place] % (Auto) 3.3 % (0.0-13.0) 04/20/21 04:43 Eos % (Auto) 0.1 % (0.9-2.9) L 04/20/21 04:43 Baso % (Auto) 0.3 % (0.2-1.0) 04/20/21 04:43 Neut # (Auto) 4.5 x10^3/uL (2.2-4.8) 04/20/21 04:43 Lymph # (Auto) 0.2 X10^3/uL (1.3-2.9) L 04/20/21 04:43 [place] # (Auto) 0.2 x10^3/uL (0.3-0.8) L 04/20/21 04:43 Eos # (Auto) 0.0 x10^3/uL (0.0-0.2) 04/20/21 04:43 Baso # (Auto) 0.0 X10^3/uL (0.0-0.1) 04/20/21 04:43 Absolute Nucleated RBC 0.1 /100WBC 04/20/21 04:43 Total Counted 100 04/20/21 04:43 Neutrophils % (Manual) 91 % (39-76) H 04/20/21 04:43 Band Neutrophils % 7 % (0-10) 04/19/21 04:50 Lymphocytes % (Manual) 5 % (13-43) L 04/20/21 04:43 Monocytes % (Manual) 4 % (4-9) 04/20/21 04:43 Eosinophils % (Manual) 1 % (0-6) 04/05/21 05:40 Metamyelocytes % 3 04/15/21 04:27 Giant Platelets Rare 04/04/21 05:07 Plt Morphology Comment Normal (NORMAL) 04/20/21 04:43 RBC Morphology Normal (NORMAL) 04/20/21 04:43 Hypochromasia 1+ A 04/11/21 04:25 Anisocytosis Slight A 04/19/21 04:50 Microcytosis Slight A 04/19/21 04:50 Stomatocytes Present 04/18/21 04:54 PT 22.4 SECONDS (11.8-14.3) 04/17/21 04:54 INR Target Range - 04/17/21 04:54 INR 2.08 (0.8-1.3) H 04/17/21 04:54 APTT 26.6 SECONDS (22.9-36.5) 03/17/21 06:05 PTT Comment - 03/17/21 06:05 D-Dimer 1.28 ug/ml (0.0-0.57) H* 04/11/21 08:47 Sample Site A line 04/20/21 05:00 ABG pH 7.410 (7.35-7.45) 04/20/21 05:00 ABG pCO2 55.0 mmHg (35.0-45.0) H* 04/20/21 05:00 ABG pO2 90.0 mmHg (80.0-100.0) 04/20/21 05:00 ABG HCO3 34.9 mmol/L (22-26) H* 04/20/21 05:00 ABG O2 Saturation 97.0 % (90-100) 04/20/21 05:00 ABG Base Excess 8.6 mmol/L (-2.0-2.0) H 04/20/21 05:00 Corky Test Na 04/20/21 05:00 A-a Gradient 554.0 mmHg 04/20/21 05:00 FiO2 100.0 04/20/21 05:00 Blood Gas Comments Michael well sw 04/20/21 05:00 Sodium 145 mmol/L (136-145) 04/20/21 04:43 Corrected Sodium 146 mmol/L (136-145) H 04/20/21 04:43 Potassium 3.3 mmol/L (3.5-5.1) L 04/20/21 04:43 Chloride 110 mmol/L (98-107) H 04/20/21 04:43 Carbon Dioxide 30.4 mmol/L (21-32) 04/20/21 04:43 BUN 10 mg/dL (7-18) 04/20/21 04:43 Creatinine 0.16 mg/dL (0.70-1.30) L 04/20/21 04:43 Est GFR (MDRD) Af Amer > 60 (>60) 04/20/21 04:43 Est GFR (MDRD) Non-Af > 60 (>60) 04/20/21 04:43 Glucose 155 mg/dL (65-99) H 04/20/21 04:43 POC Glucose (mg/dL) 121 mg/dL (65-99) H 04/09/21 22:53 Lactic Acid 1.5 mmol/L (0.4-2.0) 04/06/21 14:14 Calcium 7.5 mg/dL (8.5-10.1) L 04/20/21 04:43 Corrected Calcium 8.1 mg/dL (8.5-10.1) L 04/20/21 04:43 Phosphorus 2.0 mg/dL (2.6-4.7) L 04/12/21 04:55 Magnesium 1.8 mg/dL (1.7-2.9) 04/19/21 04:44 Ferritin 2439 ng/mL (26-388) H 04/16/21 15:50 Total Bilirubin 0.60 mg/dL (0.2-1.0) 04/20/21 04:43 AST 18 Units/L (15-37) 04/20/21 04:43 ALT 60 Units/L (12-78) 04/20/21 04:43 Alkaline Phosphatase 59 Units/L (46-116) 04/20/21 04:43 Creatine Kinase 228 Units/L (39-308) 04/06/21 21:30 CK-MB (CK-2) < 1.0 ng/mL (0-4.0) 04/06/21 21:30 CK/CKMB % Calc 0.4 % (<4) 04/06/21 21:30 Troponin I < 0.02 ng/mL (0-1.5) 04/06/21 21:30 C-Reactive Protein 3.10 mg/L (0-3.0) H 04/11/21 08:48 B-Natriuretic Peptide 181 pg/mL (0-79) H 04/20/21 04:43 Total Protein 5.3 g/dL (6.4-8.2) L 04/20/21 04:43 Albumin 3.3 g/dL (3.4-5.0) L 04/20/21 04:43 Globulin 2.0 g/dL (2.5-4.5) L 04/20/21 04:43 Albumin/Globulin Ratio 1.7 Ratio (1.1-2.1) 04/20/21 04:43 Prealbumin 21.2 mg/dL (18-35.7) 04/19/21 04:50 Triglycerides 371 mg/dL (0-150) H 04/12/21 04:55 Specimen Type Catherized urine 04/12/21 09:29 Urine Color Yellow (YELLOW) 04/12/21 09: Urine Appearance Clear (CLEAR) 04/12/21 09:29 Urine pH 7.0 (5.0 - 8.0) 04/12/21 09:29 Ur Specific [place] 1.010 (1.000-1.030) 04/12/21 09:29 Urine Protein 2+ (NEGATIVE) 04/12/21 09:29 Urine Glucose (UA) Negative (NEGATIVE) 04/12/21 09: Urine Ketones Negative (NEGATIVE) 04/12/21 09: Urine Occult Blood Negative (NEGATIVE) 04/12/21 09: Urine Nitrite Negative (NEGATIVE) 04/12/21 09: Urine Bilirubin Negative (NEGATIVE) 04/12/21 09:29 Urine Urobilinogen 2+ (NORMAL) 04/12/21 09:29 Ur Leukocyte Esterase Negative (NEGATIVE) 04/12/21 09:29 Urine RBC 0-2 /HPF (0-3) 04/12/21 09:29 Urine WBC 0-2 /HPF (0-5) 04/12/21 09:29 Ur Squamous Epith Cells Rare /HPF (NEGATIVE) 04/12/21 09:29 Ur Renal Epithelial Cell Rare /HPF (NEGATIVE) 04/12/21 09:29 Urine Bacteria Negative /HPF (NEGATIVE) 04/12/21 09:29 Urine Mucus Few /HPF (NEGATIVE) 03/28/21 05:47 Ur Culture Indicated? No/not indicated 04/12/21 09:29 Gastric Fluid pH 3 04/13/21 09:45 Gastric Occult Blood Positive (NEGATIVE) A 04/13/21 09:45 - Plan (1) Pneumonia due to COVID-19 virus Status: Acute Plan: MECHANICAL VENT, DOPAMINE DRIP, DIAMOX 250MG PO DAILY, ALBUMIN 25% IV BID, SOLU-MEDROL 40MG IV Q8H, ELIQUIS 1.25MG NG TUBE BID, DIFLUCAN 200MG IV DAILY, REGLAN 5MG IV TID, NEB TX, MUCOMYST IN NEB [place], MOPRHINE 2MG IV Q4H PRN, LEXAPRO 20MG NG TUBE BID, PROTONIX IV BID, VERSED DRIP, DIPROVAN DRIP, VERCURONIUM DRIP. (2) Hypoxia Status: Acute (3) HTN (hypertension) Status: Chronic Qualifiers: Hypertension type: primary hypertension Qualified Code(s): I10 - Essential (primary) hypertension (4) GERD (gastroesophageal reflux disease) Status: Chronic Qualifiers: Esophagitis presence: esophagitis presence not specified Qualified Code(s): K21.9 - Gastro-esophageal reflux disease without esophagitis (5) Obesity Status: Chronic Qualifiers: Obesity type: unspecified obesity type Obesity classification: adult class 2 (BMI 35 - 39.9) Serious obesity comorbidity presence: unspecified whether serious comorbidity present Body mass index: BMI 36.0-36.9 Qualified Code(s): E66.9 - Obesity, unspecified; Z68.36 - Body mass index [BMI] 36.0-36.9, adult
[2021-04-20] MEDS: ACCUNEB 1.25 MG NEBULE NEB SCH ×2 (13:03→20:00)
[2021-04-20] MEDS: MUCOMYST (RESPIRATORY USE ONLY) NEB SCH ×2 (13:03→20:00)
[2021-04-21] MEDS: MUCOMYST (RESPIRATORY USE ONLY) NEB SCH ×4 (00:18→20:00)
[2021-04-21] MEDS: ACCUNEB 1.25 MG NEBULE NEB SCH ×4 (00:18→20:00)
[2021-04-21] MEDS: D5W + KCL 20 MEQ/L 1,000 ML IV SCH ×2 (01:14→14:00)
[2021-04-21] MEDS: DIPRIVAN PREMIX 1 GRAM IV 1,000 MG/100 ML VIAL IV PRN ×8 (02:05→23:40)
[2021-04-21] MEDS: VERSED IV PREMIX 100 MG/100 ML IV.SOLN IV PRN ×4 (03:30→22:43)
[2021-04-21 04:23] LABS: ABG HCO3 37.6 mmol/L (22-26)
[2021-04-21] MEDS: ZEMURON 100 MG VIAL 500 MG in NS 500 ML IV 450 ML IV PRN ×3 (04:58→17:29)
[2021-04-21 05:10] LABS: BASOPHILS % (AUTO) 0.4 % (0.2-1.0); HEMATOCRIT 31.1 % (42.0-54.0); HEMOGLOBIN 10.9 g/dL (13.5-18.0); LYMPHOCYTES # (AUTO) 0.1 X10^3/uL (1.3-2.9); LYMPHOCYTES % (AUTO) 3.2 % (21.0-51.0); MEAN CORPUSCULAR HEMOGLOBIN 31.1 pg (27.0-34.0); MEAN CORPUSCULAR HGB CONC 34.9 g/dL (33.0-35.0); MEAN PLATELET VOLUME 8.1 fL (7.4-11.0); MONOCYTES # (AUTO) 0.1 x10^3/uL (0.3-0.8); MONOCYTES % (AUTO) 2.2 % (0.0-13.0); NEUTROPHILS # (AUTO) 4.2 x10^3/uL (2.2-4.8); NEUTROPHILS % (AUTO) 94.2 % (42.0-75.0); PLATELET COUNT 58 X10^3/uL (150.0-450.0); RED CELL DISTRIBUTION WIDTH 14.3 % (11.6-16.5); WHITE BLOOD COUNT 4.5 X10^3/uL (3.6-10.0)
[2021-04-21 05:25] LABS: ALANINE AMINOTRANSFERASE 50 Units/L (12-78); ALBUMIN 3.3 g/dL (3.4-5.0); ALKALINE PHOSPHATASE 53 Units/L (46-116); ASPARTATE AMINO TRANSFERASE 16 Units/L (15-37); BLOOD UREA NITROGEN 11 mg/dL (7-18); CALCIUM 7.7 mg/dL (8.5-10.1); CARBON DIOXIDE 34.9 mmol/L (21-32); CHLORIDE 108 mmol/L (98-107); COR CA(FOR HYPOALB) 8.3 mg/dL (8.5-10.1); COR NA(FOR HYPERGLY) 147 mmol/L (136-145); CREATININE 0.23 mg/dL (0.70-1.30); SODIUM 146 mmol/L (136-145); TOTAL PROTEIN 5.2 g/dL (6.4-8.2); eGFR NON BLACK RACES > 60 (>60)
[2021-04-21] MEDS: SOLU-Medrol 40 MG VIAL IVP SCH (05:31)
[2021-04-21] MEDS: REGLAN INJ 10 MG VIAL IVP SCH ×3 (05:31→21:45)
[2021-04-21 06:01] LABS: PLATELET MORPHOLOGY COMMENT NORMAL (NORMAL)
--- NOTE | 2021-04-21 06:12 | RAD ---
HISTORYCOVID-19 pneumonia SOBSTUDYPortable AP chestCOMPARISONOctober 2020FINDINGSThere is no significant change in appearance of heart, lungs or support lines. Similar degree and distribution of bilateral airspace involvement primarily lower lobes. No additional consolidation, pneumothorax or pleural fluid identified.IMPRESSIONNo change.Electronically signed by: ESTEPHANIA ROB (Apr 21, 2021 06:10:53)
[2021-04-21] MEDS: DOPAMINE IV PREMIX 400 MG/250 ML 400 MG/250 ML BAG IV PRN ×2 (08:19→21:26)
[2021-04-21] MEDS: COLACE SYRUP 100 MG UDC NG SCH ×2 (09:21→21:55)
[2021-04-21] MEDS: PULMICORT NEB TX 0.5 MG NEB SCH ×2 (09:40→20:00)
[2021-04-21] MEDS ORDERED: LEXAPRO ONE ×2 (10:00→20:54)
[2021-04-21] MEDS: ALBUMIN HUMAN 25%- 100 ML 100 ML IV SCH ×2 (10:12→22:41)
[2021-04-21] MEDS: LACRI-LUBE S.O.P. AFFEYE SCH ×2 (10:13→21:50)
[2021-04-21] MEDS: DIAMOX NG SCH (10:13)
[2021-04-21] MEDS: DIFLUCAN 200 MG IV PREMIX* 200 MG/100 ML BAG IV SCH (10:13)
[2021-04-21] MEDS: ELIQUIS NG SCH ×2 (10:13→21:55)
[2021-04-21] MEDS: MILK OF MAGNESIA NG SCH ×2 (10:14→21:55)
[2021-04-21] MEDS: PEPCID 20 MG IV PREMIX* 20 MG/50 ML BAG IV SCH ×2 (10:14→21:50)
[2021-04-21] MEDS: LEXAPRO NG SCH ×2 (10:14→21:55)
[2021-04-21] MEDS: PROTONIX INJ 40 MG VIAL IVP SCH ×2 (10:14→21:43)
[2021-04-21] MEDS: ASCORBIC ACID INJ MULTI-DOSE VIAL 1,500 MG in NS 50 ML IV 50 ML IV SCH ×3 (15:50→21:50)
[2021-04-21] MEDS: SOLU-Cortef INJ IVP SCH ×2 (17:24→21:47)
[2021-04-21] MEDS: THIAMINE HCL INJ IVP SCH (21:40)
[2021-04-22] MEDS: ZEMURON 100 MG VIAL 500 MG in NS 500 ML IV 450 ML IV PRN ×2 (00:20→12:55)
[2021-04-22 02:36] LABS: CKMB % 5.4 % (<4); TROPONIN I 0.07 ng/mL (0-1.5)
[2021-04-22 02:41] LABS: CREATINE KINASE MB 5.5 ng/mL (0-4.0)
[2021-04-22] MEDS: D5W + KCL 20 MEQ/L 1,000 ML IV SCH ×3 (03:26→16:25)
[2021-04-22] MEDS: ASCORBIC ACID INJ MULTI-DOSE VIAL 1,500 MG in NS 50 ML IV 50 ML IV SCH ×4 (04:00→22:02)
[2021-04-22 04:35] LABS: ABG BASE EXCESS 12.1 mmol/L (-2.0-2.0)
[2021-04-22 04:36] LABS: ABG HCO3 38.2 mmol/L (22-26)
[2021-04-22] MEDS: ACCUNEB 1.25 MG NEBULE NEB SCH ×3 (05:07→20:38)
[2021-04-22] MEDS: MUCOMYST (RESPIRATORY USE ONLY) NEB SCH ×3 (05:07→20:38)
[2021-04-22 05:08] LABS: BASOPHILS % (AUTO) 0.3 % (0.2-1.0); EOSINOPHILS % (AUTO) 0.1 % (0.9-2.9); HEMATOCRIT 33.3 % (42.0-54.0); HEMOGLOBIN 11.5 g/dL (13.5-18.0); LYMPHOCYTES # (AUTO) 0.4 X10^3/uL (1.3-2.9); LYMPHOCYTES % (AUTO) 8.8 % (21.0-51.0); MEAN CORPUSCULAR HGB CONC 34.6 g/dL (33.0-35.0); MEAN CORPUSCULAR VOLUME 89.5 fL (80.0-100.0); MONOCYTES # (AUTO) 0.1 x10^3/uL (0.3-0.8); MONOCYTES % (AUTO) 2.5 % (0.0-13.0); NEUTROPHILS # (AUTO) 3.6 x10^3/uL (2.2-4.8); NEUTROPHILS % (AUTO) 88.3 % (42.0-75.0); PLATELET COUNT 44 X10^3/uL (150.0-450.0); RED BLOOD COUNT 3.72 X10^6/uL (4.7-6.0); RED CELL DISTRIBUTION WIDTH 14.9 % (11.6-16.5)
[2021-04-22 05:21] LABS: ALANINE AMINOTRANSFERASE 63 Units/L (12-78); ALBUMIN 3.3 g/dL (3.4-5.0); ALKALINE PHOSPHATASE 57 Units/L (46-116); ASPARTATE AMINO TRANSFERASE 30 Units/L (15-37); BLOOD UREA NITROGEN 11 mg/dL (7-18); CALCIUM 7.4 mg/dL (8.5-10.1); CARBON DIOXIDE 33.3 mmol/L (21-32); CHLORIDE 109 mmol/L (98-107); CREATININE 0.13 mg/dL (0.70-1.30); SODIUM 148 mmol/L (136-145); TOTAL PROTEIN 5.2 g/dL (6.4-8.2); eGFR NON BLACK RACES > 60 (>60)
[2021-04-22 05:45] LABS: PLATELET MORPHOLOGY COMMENT NORMAL (NORMAL)
[2021-04-22] MEDS: DIPRIVAN PREMIX 1 GRAM IV 1,000 MG/100 ML VIAL IV PRN ×5 (06:15→22:11)
--- NOTE | 2021-04-22 06:17 | RAD ---
HISTORYCOVID-19 pneumoniaSTUDYAP chestCOMPARISONOctober 2020FINDINGSSimilar and unchanged appearance of heart, lungs and support lines. Mild stable cardiomegaly with no change in distribution of bilateral airspace disease. Tracheostomy tube remains in upper trachea.IMPRESSIONNo significant change since 04/21/2021.Electronically signed by: ESTEPHANIA ROB (Apr 22, 2021 06:15:02)
[2021-04-22] MEDS ORDERED: NS 1000 ML 1,000 ML ONE (06:22)
[2021-04-22] MEDS: POTASSIUM CHLORIDE LIQ 20 MEQ UDC PO PRN (06:33)
[2021-04-22] MEDS: NS 1000 ML 1,000 ML IV SCH (06:41)
[2021-04-22] MEDS: REGLAN INJ 10 MG VIAL IVP SCH ×3 (06:41→21:00)
[2021-04-22] MEDS: PULMICORT NEB TX 0.5 MG NEB SCH ×2 (09:35→20:38)
[2021-04-22] MEDS ORDERED: LR 1000 ML IV 1,000 ML IV ONE (10:42)
[2021-04-22] MEDS: ALBUMIN HUMAN 25%- 100 ML 100 ML IV SCH ×2 (10:52→22:00)
[2021-04-22] MEDS: DIAMOX NG SCH (10:53)
[2021-04-22] MEDS: DIFLUCAN 200 MG IV PREMIX* 200 MG/100 ML BAG IV SCH (10:53)
[2021-04-22] MEDS: COLACE SYRUP 100 MG UDC NG SCH ×2 (10:53→21:00)
[2021-04-22] MEDS: ELIQUIS NG SCH ×2 (10:53→21:00)
[2021-04-22] MEDS: LACRI-LUBE S.O.P. AFFEYE SCH ×2 (10:53→21:00)
[2021-04-22] MEDS: LEXAPRO NG SCH ×2 (10:54→21:00)
[2021-04-22] MEDS: PEPCID 20 MG IV PREMIX* 20 MG/50 ML BAG IV SCH ×2 (10:54→21:30)
[2021-04-22] MEDS: MILK OF MAGNESIA NG SCH ×2 (10:54→21:00)
[2021-04-22] MEDS: PROTONIX INJ 40 MG VIAL IVP SCH ×2 (10:55→21:15)
[2021-04-22] MEDS: THIAMINE HCL INJ IVP SCH ×2 (10:56→21:30)
[2021-04-22] MEDS: SOLU-Cortef INJ IVP SCH ×4 (10:56→21:30)
[2021-04-22] MEDS ORDERED: LANOXIN INJ IVP SCH (11:00)
[2021-04-22] MEDS ORDERED: LEXAPRO ONE ×2 (11:05→20:24)
[2021-04-22] MEDS ORDERED: HYDROGEN PEROXIDE 3% ONE (11:45)
[2021-04-22] MEDS: ZOSYN VIAL 4.5 GRAMS 4.5 G in NS 100 ML IV + SPIKE MINIBAG* 100 ML IV SCH ×3 (12:25→22:55)
[2021-04-22] MEDS: VSL#3 PO SCH (12:26)
[2021-04-23] MEDS: ASCORBIC ACID INJ MULTI-DOSE VIAL 1,500 MG in NS 50 ML IV 50 ML IV SCH ×2 (03:05→09:32)
[2021-04-23] MEDS: DIPRIVAN PREMIX 1 GRAM IV 1,000 MG/100 ML VIAL IV PRN ×4 (03:45→23:25)
[2021-04-23] MEDS: ZEMURON 100 MG VIAL 500 MG in NS 500 ML IV 450 ML IV PRN ×2 (03:50→18:50)
[2021-04-23] MEDS: D5W + KCL 20 MEQ/L 1,000 ML IV SCH (04:00)
[2021-04-23 04:29] LABS: ABG BASE EXCESS 12.9 mmol/L (-2.0-2.0)
[2021-04-23 04:30] LABS: ABG HCO3 39.4 mmol/L (22-26)
[2021-04-23 05:19] LABS: BASOPHILS % (AUTO) 0.2 % (0.2-1.0); EOSINOPHILS % (AUTO) 0.1 % (0.9-2.9); HEMATOCRIT 28.1 % (42.0-54.0); HEMOGLOBIN 9.7 g/dL (13.5-18.0); LYMPHOCYTES # (AUTO) 0.5 X10^3/uL (1.3-2.9); LYMPHOCYTES % (AUTO) 11.1 % (21.0-51.0); MEAN CORPUSCULAR HEMOGLOBIN 31.2 pg (27.0-34.0); MEAN CORPUSCULAR HGB CONC 34.7 g/dL (33.0-35.0); MEAN PLATELET VOLUME 8.4 fL (7.4-11.0); MONOCYTES # (AUTO) 0.1 x10^3/uL (0.3-0.8); MONOCYTES % (AUTO) 2.5 % (0.0-13.0); NEUTROPHILS # (AUTO) 3.9 x10^3/uL (2.2-4.8); NEUTROPHILS % (AUTO) 86.1 % (42.0-75.0); PLATELET COUNT 40 X10^3/uL (150.0-450.0); RED BLOOD COUNT 3.12 X10^6/uL (4.7-6.0); WHITE BLOOD COUNT 4.6 X10^3/uL (3.6-10.0)
[2021-04-23] MEDS: ACCUNEB 1.25 MG NEBULE NEB SCH ×3 (05:30→20:30)
[2021-04-23] MEDS: MUCOMYST (RESPIRATORY USE ONLY) NEB SCH ×3 (05:30→20:30)
[2021-04-23 05:52] LABS: ALANINE AMINOTRANSFERASE 73 Units/L (12-78); ALBUMIN 3.1 g/dL (3.4-5.0); ALKALINE PHOSPHATASE 54 Units/L (46-116); ASPARTATE AMINO TRANSFERASE 27 Units/L (15-37); BLOOD UREA NITROGEN 11 mg/dL (7-18); CALCIUM 7.9 mg/dL (8.5-10.1); CARBON DIOXIDE 33.6 mmol/L (21-32); CHLORIDE 109 mmol/L (98-107); COR CA(FOR HYPOALB) 8.6 mg/dL (8.5-10.1); COR NA(FOR HYPERGLY) 146 mmol/L (136-145); CREATININE 0.15 mg/dL (0.70-1.30); SODIUM 146 mmol/L (136-145); TOTAL PROTEIN 5.1 g/dL (6.4-8.2); eGFR NON BLACK RACES > 60 (>60)
[2021-04-23] MEDS: NS 1000 ML 1,000 ML IV SCH (06:12)
[2021-04-23] MEDS: ZOSYN VIAL 4.5 GRAMS 4.5 G in NS 100 ML IV + SPIKE MINIBAG* 100 ML IV SCH ×3 (06:12→22:34)
[2021-04-23] MEDS: REGLAN INJ 10 MG VIAL IVP SCH ×3 (06:12→21:00)
--- NOTE | 2021-04-23 06:33 | RAD ---
HISTORYVentilator SOBSTUDYPortable AP chestCOMPARISONOctober 2020FINDINGSNo change in the cardiomegaly or bilateral airspace disease. Tracheostomy tube and NG tube are stable. No pneumothorax seen.IMPRESSIONNo change. Findings remain consistent with bilateral pneumonia, edema and/or ARDS.Electronically signed by: ESTEPHANIA ROB (Apr 23, 2021 06:31:39)
[2021-04-23] MEDS: VERSED IV PREMIX 100 MG/100 ML IV.SOLN IV PRN (07:15)
[2021-04-23] MEDS: PULMICORT NEB TX 0.5 MG NEB SCH ×2 (08:00→20:30)
[2021-04-23] MEDS ORDERED: LEXAPRO ONE ×2 (09:26→19:37)
[2021-04-23] MEDS: MILK OF MAGNESIA NG SCH ×2 (09:32→21:00)
[2021-04-23] MEDS: DIFLUCAN 200 MG IV PREMIX* 200 MG/100 ML BAG IV SCH (09:32)
[2021-04-23] MEDS: COLACE SYRUP 100 MG UDC NG SCH ×2 (09:33→21:00)
[2021-04-23] MEDS: ALBUMIN HUMAN 25%- 100 ML 100 ML IV SCH ×2 (09:33→22:00)
[2021-04-23] MEDS: ELIQUIS NG SCH ×2 (09:34→21:00)
[2021-04-23] MEDS: DIAMOX NG SCH (09:34)
[2021-04-23] MEDS: LACRI-LUBE S.O.P. AFFEYE SCH ×2 (09:35→21:00)
[2021-04-23] MEDS: PEPCID 20 MG IV PREMIX* 20 MG/50 ML BAG IV SCH ×2 (09:38→20:30)
[2021-04-23] MEDS: PROTONIX INJ 40 MG VIAL IVP SCH ×2 (09:38→21:00)
[2021-04-23] MEDS: LEXAPRO NG SCH ×2 (09:38→21:00)
[2021-04-23] MEDS: SOLU-Cortef INJ IVP SCH (09:39)
[2021-04-23] MEDS: THIAMINE HCL INJ IVP SCH ×2 (09:39→21:00)
[2021-04-23] MEDS: VSL#3 PO SCH (09:39)
--- NOTE | 2021-04-23 10:46 | PCM.PROG ---
Progress Note - Progress Note for Day of Date of Exam: 04/23/21 - Subjective Subjective: MR. MARMOLEJO WAS ADMITTED FOR TREATMENT OF COVID PNEUMONIA AND HYPOXIA. PMH: OBESITY, GERD, HTN. HE REMAINS IN THE INTENSIVE CARE UNIT ON THE MECHANICAL VENT TODAY. HE WAS PLACED ON THE VENT ON 03/28/21. HE HAD A TRACHEOSTOMY INSERTED ON 04/18. HIS VENT SETTINGS THIS MORNING ARE: A/C, RATE 30, TIDAL VOLUME 434, PEEP 12, FI02 100. HIS SATURATIONS HAVE BEEN 87-94% THROUGHOUT THE NIGHT AND THIS MORNING. HE IS NO LONGER ON THE DOPAMINE DRIP. ON EXAMINATION, HEART IS REGULAR IN RATE AND RHYTHM. BILATERAL LUNGS ARE NOTED WITH DIMINISHED LUNG SOUNDS THROUGHOUT. ABDOMEN IS ROUND, SOFT, AND NON-TENDER WITH NORMAL BOWEL SOUNDS NOTED IN ALL QUADRANTS. HIS VITALS THIS MORNING ARE: 98.1-93-30-93%-135/76. LABS WERE OBTAINED. ABNORMAL LAB VALUES INCLUDE THE FOLLOWING: RBC 3.12, HGB 9.7, HCT 28.1, PLT COUNT 40, SODIUM 146, POTASSIUM 2.9, CHLORIDE 109, CARBON DIOXIDE 33.6, CREATININE 0.15, GLUCOSE 112, CALCIUM 7.9, TOTAL PROTEIN 5.1, ALBUMIN 3.1. ABG REVEALED: PH 7.440, PC02 58, P02 72, HC03 39.4, 02 SAT 95, BASE EXCESS 12.9, A-A GRADIENT 569, FI02 100. CHEST XRAY WAS OBTAINED THIS MORNING AND REVEALED: No change. Findings remain consistent with bilateral pneumonia, edema and/or ARDS. HE IS CURRENTLY RECEIVING D5W WITH 20MEQ KCL, SOLU-MEDROL 40MG IV Q8H, DIAMOX 250MG PO DAILY, ALBUMIN 25% IV BID, DIFLUCAN 200MG IV DAILY, ZOSYN 4.5G IV TID, PROBIOTICS, ELIQUIS 1.25 MG PO BID, NEB TX, MUCOMYST IN NEB [place], MOPRHINE 2MG IV Q4H PRN, LEXAPRO 20MG NG TUBE BID, LABETALOL PRN, PROTONIX IV BID, REGLAN 5MG IV TID, VERSED DRIP, DIPROVAN DRIP, VERCURONIUM DRIP. HE IS RECEIVING ENTERAL FEEDINGS. WE WILL CONTINUE WITH CURRENT PLAN OF CARE. OTHERWISE, WE WILL FOLLOW UP WITH AM LABS, CHEST XRAY, ABG, AND CONTINUE TO MONITOR. WE WILL DECREASE OXYGEN HE TOLERATES IT. TIME SPENT ON CLINICAL ASSESSMENT, REVIEWING LABS AND IMAGING, DECISION MAKING, AND DOCUMENTATION GREATER THAN 75 MINUTES. - Past Medical Family Social History Past Med/Fam/Surg Hx: No changes since H&P Allergies: Allergies No Allergy Information Available Allergy (Verified 03/14/21 14:24) - Review of Systems ROS: No change since H&P - Vital Signs and I&O's Vital Signs: Temperature 97.9 F Pulse Rate [Right Brachial] 61 Pulse Rate [Left Radial] 85 Pulse Rate 93 Respiratory Rate 30 Blood Pressure [Right Arm] 142/73 Blood Pressure [Left Arm] 116/63 Blood Pressure 135/76 O2 Sat by Pulse Oximetry 93 Intake and Output: Intake & Output 04/20/21 04/21/21 04/22/21 04/23/21 11:59 11:59 11:59 11:59 Intake Total 15940 / 35022 6796 / 6796 9172 / 9172 7426 / 7426 Output Total 4920 / 4920 9500 / 9500 6400 / 6400 2700 / 2700 Balance 5855 / 5855 -2704 / -2704 2772 / 2772 4726 / 4726 - Physical Exam Oriented: Unable to test Eyes: Normal Ear: Normal Nose: Normal Throat: Normal Respiratory: Generalized, Diminished Cardiovascular: Edema : Normal Auscultation: Bowel Sounds: Normal Tenderness: Normal Skin: Normal Musculoskeletal: Normal Psychiatric: Other (SEDATED) Mood Description: Calm Affect: Anxious Speech Pattern: Artificially Ventilated - Laboratory and Diagnostics Result Diagrams: 04/23/21 04:40 04/23/21 10:12 Labs: 04/13/21 09:45 Sputum - Endotracheal Wash Sputum Culture - Final 04/13/21 09:45 Sputum - Endotracheal Wash - Final 04/12/21 09:29 Urine,[place] Urine Culture - Final 03/14/21 16:39 Blood Blood Culture - Final 03/14/21 16:35 Blood Blood Culture - Final 03/18/21 01:03 Sputum - Expectorated Sputum Sputum Culture - Final 03/18/21 01:03 Sputum - Expectorated Sputum - Final Laboratory WBC 4.6 X10^3/uL (3.6-10.0) 04/23/21 04:40 RBC 3.12 X10^6/uL (4.7-6.0) L 04/23/21 04:40 Hgb 9.7 g/dL (13.5-18.0) L 04/23/21 04:40 Hct 28.1 % (42.0-54.0) L 04/23/21 04:40 MCV 90.0 fL (80.0-100.0) 04/23/21 04:40 MCH 31.2 pg (27.0-34.0) 04/23/21 04:40 MCHC 34.7 g/dL (33.0-35.0) 04/23/21 04:40 RDW 15.0 % (11.6-16.5) 04/23/21 04:40 Plt Count 40 X10^3/uL (150.0-450.0) L 04/23/21 04:40 Plt Count Comment Decreased (ADEQUATE) 04/22/21 04:30 MPV 8.4 fL (7.4-11.0) 04/23/21 04:40 Neut % (Auto) 86.1 % (42.0-75.0) H 04/23/21 04:40 Lymph % (Auto) 11.1 % (21.0-51.0) L 04/23/21 04:40 [place] % (Auto) 2.5 % (0.0-13.0) 04/23/21 04:40 Eos % (Auto) 0.1 % (0.9-2.9) L 04/23/21 04:40 Baso % (Auto) 0.2 % (0.2-1.0) 04/23/21 04:40 Neut # (Auto) 3.9 x10^3/uL (2.2-4.8) 04/23/21 04:40 Lymph # (Auto) 0.5 X10^3/uL (1.3-2.9) L 04/23/21 04:40 [place] # (Auto) 0.1 x10^3/uL (0.3-0.8) L 04/23/21 04:40 Eos # (Auto) 0.0 x10^3/uL (0.0-0.2) 04/23/21 04:40 Baso # (Auto) 0.0 X10^3/uL (0.0-0.1) 04/23/21 04:40 Absolute Nucleated RBC 0.1 /100WBC 04/23/21 04:40 Total Counted 100 04/22/21 04:30 Neutrophils % (Manual) 90 % (39-76) H 04/22/21 04:30 Band Neutrophils % 7 % (0-10) 04/19/21 04:50 Lymphocytes % (Manual) 8 % (13-43) L 04/22/21 04:30 Monocytes % (Manual) 2 % (4-9) L 04/22/21 04:30 Eosinophils % (Manual) 1 % (0-6) 04/05/21 05:40 Metamyelocytes % 3 04/15/21 04:27 Giant Platelets Rare 04/04/21 05:07 Plt Morphology Comment Normal (NORMAL) 04/22/21 04:30 RBC Morphology Normal (NORMAL) 04/22/21 04:30 Hypochromasia 1+ A 04/11/21 04:25 Anisocytosis Slight A 04/19/21 04:50 Microcytosis Slight A 04/19/21 04:50 Stomatocytes Present 04/18/21 04:54 PT 22.4 SECONDS (11.8-14.3) 04/17/21 04:54 INR Target Range - 04/17/21 04:54 INR 2.08 (0.8-1.3) H 04/17/21 04:54 APTT 26.6 SECONDS (22.9-36.5) 03/17/21 06:05 PTT Comment - 03/17/21 06:05 D-Dimer 1.28 ug/ml (0.0-0.57) H* 04/11/21 08:47 Sample Site Art-line 04/23/21 04:26 ABG pH 7.440 (7.35-7.45) 04/23/21 04:26 ABG pCO2 58.0 mmHg (35.0-45.0) H* 04/23/21 04:26 ABG pO2 72.0 mmHg (80.0-100.0) L 04/23/21 04:26 ABG HCO3 39.4 mmol/L (22-26) H* 04/23/21 04:26 ABG O2 Saturation 95.0 % (90-100) 04/23/21 04:26 ABG Base Excess 12.9 mmol/L (-2.0-2.0) H 04/23/21 04:26 Corky Test Na 04/23/21 04:26 A-a Gradient 569.0 mmHg 04/23/21 04:26 FiO2 100.0 04/23/21 04:26 Blood Gas Comments Michael well 04/23/21 04:26 Sodium 146 mmol/L (136-145) H 04/23/21 04:40 Corrected Sodium 146 mmol/L (136-145) H 04/23/21 04:40 Potassium 3.2 mmol/L (3.5-5.1) L 04/23/21 10:12 Chloride 109 mmol/L (98-107) H 04/23/21 04:40 Carbon Dioxide 33.6 mmol/L (21-32) H 04/23/21 04:40 BUN 11 mg/dL (7-18) 04/23/21 04:40 Creatinine 0.15 mg/dL (0.70-1.30) L 04/23/21 04:40 Est GFR (MDRD) Af Amer > 60 (>60) 04/23/21 04:40 Est GFR (MDRD) Non-Af > 60 (>60) 04/23/21 04:40 Glucose 112 mg/dL (65-99) H 04/23/21 04:40 POC Glucose (mg/dL) 121 mg/dL (65-99) H 04/09/21 22:53 Lactic Acid 1.5 mmol/L (0.4-2.0) 04/06/21 14:14 Calcium 7.9 mg/dL (8.5-10.1) L 04/23/21 04:40 Corrected Calcium 8.6 mg/dL (8.5-10.1) 04/23/21 04:40 Phosphorus 2.0 mg/dL (2.6-4.7) L 04/12/21 04:55 Magnesium 2.4 mg/dL (1.7-2.9) 04/23/21 04:20 Ferritin 2439 ng/mL (26-388) H 04/16/21 15:50 Total Bilirubin 0.80 mg/dL (0.2-1.0) 04/23/21 04:40 AST 27 Units/L (15-37) 04/23/21 04:40 ALT 73 Units/L (12-78) 04/23/21 04:40 Alkaline Phosphatase 54 Units/L (46-116) 04/23/21 04:40 Creatine Kinase 102 Units/L (39-308) 04/22/21 01:42 CK-MB (CK-2) 5.5 ng/mL (0-4.0) H* 04/22/21 01:42 CK/CKMB % Calc 5.4 % (<4) 04/22/21 01:42 Troponin I 0.07 ng/mL (0-1.5) 04/22/21 01:42 C-Reactive Protein 3.10 mg/L (0-3.0) H 04/11/21 08:48 B-Natriuretic Peptide 268 pg/mL (0-79) H 04/22/21 04:30 Total Protein 5.1 g/dL (6.4-8.2) L 04/23/21 04:40 Albumin 3.1 g/dL (3.4-5.0) L 04/23/21 04:40 Globulin 2.0 g/dL (2.5-4.5) L 04/23/21 04:40 Albumin/Globulin Ratio 1.6 Ratio (1.1-2.1) 04/23/21 04:40 Prealbumin 21.2 mg/dL (18-35.7) 04/19/21 04:50 Triglycerides 371 mg/dL (0-150) H 04/12/21 04:55 Specimen Type Catherized urine 04/12/21 09:29 Urine Color Yellow (YELLOW) 04/12/21 09:29 Urine Appearance Clear (CLEAR) 04/12/21 09:29 Urine pH 7.0 (5.0 - 8.0) 04/12/21 09:29 Ur Specific [place] 1.010 (1.000-1.030) 04/12/21 09:29 Urine Protein 2+ (NEGATIVE) 04/12/21 09:29 Urine Glucose (UA) Negative (NEGATIVE) 04/12/21 09: Urine Ketones Negative (NEGATIVE) 04/12/21 09: Urine Occult Blood Negative (NEGATIVE) 04/12/21 09: Urine Nitrite Negative (NEGATIVE) 04/12/21 09: Urine Bilirubin Negative (NEGATIVE) 04/12/21 09:29 Urine Urobilinogen 2+ (NORMAL) 04/12/21 09:29 Ur Leukocyte Esterase Negative (NEGATIVE) 04/12/21 09:29 Urine RBC 0-2 /HPF (0-3) 04/12/21 09:29 Urine WBC 0-2 /HPF (0-5) 04/12/21 09:29 Ur Squamous Epith Cells Rare /HPF (NEGATIVE) 04/12/21 09:29 Ur Renal Epithelial Cell Rare /HPF (NEGATIVE) 04/12/21 09:29 Urine Bacteria Negative /HPF (NEGATIVE) 04/12/21 09:29 Urine Mucus Few /HPF (NEGATIVE) 03/28/21 05:47 Ur Culture Indicated? No/not indicated 04/12/21 09:29 Gastric Fluid pH 3 04/13/21 09:45 Gastric Occult Blood Positive (NEGATIVE) A 04/13/21 09:45 Stl C. diff Tox B Gene Negative (NEGATIVE) 04/22/21 15:13 Stl C. diff [id number] Presumptive negative (NEGATIVE) 04/22/21 15:13 Digoxin 4.99 ng/mL (0.9-2) H* 04/23/21 04:40 - Plan (1) Pneumonia due to COVID-19 virus Status: Acute Plan: MECHANICAL VENT, D5W WITH 20MEQ KCL, SOLU-MEDROL 40MG IV Q8H, DIAMOX 250MG PO DAILY, ALBUMIN 25% IV BID, DIFLUCAN 200MG IV DAILY, ZOSYN 4.5G IV TID, PROBIOTICS, ELIQUIS 1.25 MG PO BID, NEB TX, MUCOMYST IN NEB TX, MOPRHINE 2MG IV Q4H PRN, LEXAPRO 20MG NG TUBE BID, LABETALOL PRN, PROTONIX IV BID, REGLAN 5MG IV TID, VERSED DRIP, DIPROVAN DRIP, VERCURONIUM DRIP. (2) Hypoxia Status: Acute (3) HTN (hypertension) Status: Chronic Qualifiers: Hypertension type: primary hypertension Qualified Code(s): I10 - Essential (primary) hypertension (4) GERD (gastroesophageal reflux disease) Status: Chronic Qualifiers: Esophagitis presence: esophagitis presence not specified Qualified Code(s): K21.9 - Gastro-esophageal reflux disease without esophagitis (5) Obesity Status: Chronic Qualifiers: Obesity type: unspecified obesity type Obesity classification: adult class 2 (BMI 35 - 39.9) Serious obesity comorbidity presence: unspecified whether serious comorbidity present Body mass index: BMI 36.0-36.9 Qualified Code(s): E66.9 - Obesity, unspecified; Z68.36 - Body mass index [BMI] 36.0-36.9, adult
[2021-04-23] MEDS: D5W 1000 ML IV 1,000 ML with POTASSIUM CHLORIDE INJ 40 MEQ VIAL 40 MEQ IV SCH ×2 (12:30)
[2021-04-23] MEDS: SOLU-Medrol 40 MG VIAL IVP SCH ×3 (14:47→22:00)
[2021-04-24] MEDS: VERSED IV PREMIX 100 MG/100 ML IV.SOLN IV PRN ×2 (01:15→16:23)
[2021-04-24] MEDS: D5W 1000 ML IV 1,000 ML with POTASSIUM CHLORIDE INJ 40 MEQ VIAL 40 MEQ IV SCH ×4 (04:17→11:03)
[2021-04-24 04:59] LABS: ABG HCO3 36.8 mmol/L (22-26)
[2021-04-24] MEDS: REGLAN INJ 10 MG VIAL IVP SCH ×3 (05:27→21:14)
[2021-04-24] MEDS: ZOSYN VIAL 4.5 GRAMS 4.5 G in NS 100 ML IV + SPIKE MINIBAG* 100 ML IV SCH ×3 (05:28→21:14)
[2021-04-24] MEDS: SOLU-Medrol 40 MG VIAL IVP SCH ×3 (05:28→21:15)
[2021-04-24] MEDS: DIPRIVAN PREMIX 1 GRAM IV 1,000 MG/100 ML VIAL IV PRN ×6 (05:29→21:40)
[2021-04-24 05:32] LABS: EOSINOPHILS % (AUTO) 0.6 % (0.9-2.9); HEMOGLOBIN 8.6 g/dL (13.5-18.0); LYMPHOCYTES # (AUTO) 0.4 X10^3/uL (1.3-2.9); LYMPHOCYTES % (AUTO) 13.8 % (21.0-51.0); MEAN CORPUSCULAR HGB CONC 34.5 g/dL (33.0-35.0); MEAN CORPUSCULAR VOLUME 89.8 fL (80.0-100.0); MONOCYTES # (AUTO) 0.1 x10^3/uL (0.3-0.8); MONOCYTES % (AUTO) 1.7 % (0.0-13.0); NEUTROPHILS # (AUTO) 2.5 x10^3/uL (2.2-4.8); NEUTROPHILS % (AUTO) 82.9 % (42.0-75.0); PLATELET COUNT 40 X10^3/uL (150.0-450.0); RED BLOOD COUNT 2.78 X10^6/uL (4.7-6.0); WHITE BLOOD COUNT 3.1 X10^3/uL (3.6-10.0)
[2021-04-24 05:35] LABS: ALANINE AMINOTRANSFERASE 58 Units/L (12-78); ALBUMIN 3.1 g/dL (3.4-5.0); ALKALINE PHOSPHATASE 45 Units/L (46-116); ASPARTATE AMINO TRANSFERASE 22 Units/L (15-37); BLOOD UREA NITROGEN 11 mg/dL (7-18); CALCIUM 7.8 mg/dL (8.5-10.1); CARBON DIOXIDE 32.1 mmol/L (21-32); CHLORIDE 108 mmol/L (98-107); COR CA(FOR HYPOALB) 8.5 mg/dL (8.5-10.1); COR NA(FOR HYPERGLY) 144 mmol/L (136-145); CREATININE 0.13 mg/dL (0.70-1.30); DIGOXIN 0.38 ng/mL (0.9-2); SODIUM 144 mmol/L (136-145); TOTAL PROTEIN 5.1 g/dL (6.4-8.2); eGFR NON BLACK RACES > 60 (>60)
[2021-04-24] MEDS: ACCUNEB 1.25 MG NEBULE NEB SCH ×4 (05:40→20:10)
[2021-04-24] MEDS: MUCOMYST (RESPIRATORY USE ONLY) NEB SCH ×3 (05:40→20:10)
[2021-04-24 05:50] LABS: HYPOCHROMASIA 1+; PLATELET MORPHOLOGY COMMENT NORMAL (NORMAL)
--- NOTE | 2021-04-24 06:58 | RAD ---
HISTORYSOB, VENTILATOR DEPENDENCE PMH: HTNSTUDYCHEST, 1 [id number]/2021FINDINGSStable cardiomediastinal silhouette and support apparatus. Diffuse pulmonary opacities not significantly changed. No sizable effusion or visible pneumothorax or acute osseous finding.IMPRESSIONNo significant interval change.Electronically signed by: Allen Kan (Apr 24, 2021 06:55:58)
[2021-04-24] MEDS: PULMICORT NEB TX 0.5 MG NEB SCH ×2 (08:40→20:10)
[2021-04-24] MEDS: ZEMURON 100 MG VIAL 500 MG in NS 500 ML IV 450 ML IV PRN ×2 (08:52→18:53)
[2021-04-24] MEDS ORDERED: LEXAPRO ONE ×2 (09:46→19:27)
[2021-04-24] MEDS: ALBUMIN HUMAN 25%- 100 ML 100 ML IV SCH ×2 (09:53→21:14)
[2021-04-24] MEDS: PROTONIX INJ 40 MG VIAL IVP SCH ×2 (09:54→20:17)
[2021-04-24] MEDS: VSL#3 PO SCH (09:55)
[2021-04-24] MEDS: COLACE SYRUP 100 MG UDC NG SCH ×2 (09:55→20:16)
[2021-04-24] MEDS: DIFLUCAN 200 MG IV PREMIX* 200 MG/100 ML BAG IV SCH (09:56)
[2021-04-24] MEDS: LEXAPRO NG SCH ×2 (09:56→23:00)
[2021-04-24] MEDS: THIAMINE HCL INJ IVP SCH ×2 (09:56→20:16)
[2021-04-24] MEDS: DIAMOX NG SCH (09:56)
[2021-04-24] MEDS: LACRI-LUBE S.O.P. AFFEYE SCH ×2 (09:57→20:18)
[2021-04-24] MEDS: PEPCID 20 MG IV PREMIX* 20 MG/50 ML BAG IV SCH ×2 (10:09→20:17)
[2021-04-24] MEDS: ELIQUIS NG SCH ×2 (10:09→23:00)
[2021-04-24] MEDS: LASIX IVP SCH ×2 (11:03→20:30)
[2021-04-24] MEDS: MILK OF MAGNESIA NG SCH ×2 (11:04→20:18)
[2021-04-25] MEDS: DIPRIVAN PREMIX 1 GRAM IV 1,000 MG/100 ML VIAL IV PRN ×7 (01:17→22:01)
[2021-04-25 02:28] LABS: HEMATOCRIT 30.9 % (42.0-54.0); HEMOGLOBIN 10.7 g/dL (13.5-18.0)
[2021-04-25] MEDS: VERSED IV PREMIX 100 MG/100 ML IV.SOLN IV PRN ×2 (02:57→22:23)
[2021-04-25] MEDS: D5W 1000 ML IV 1,000 ML with POTASSIUM CHLORIDE INJ 40 MEQ VIAL 40 MEQ IV SCH ×8 (04:04→21:04)
[2021-04-25 05:12] LABS: BASOPHILS % (AUTO) 0.2 % (0.2-1.0); EOSINOPHILS % (AUTO) 0.1 % (0.9-2.9); HEMATOCRIT 31.4 % (42.0-54.0); HEMOGLOBIN 10.7 g/dL (13.5-18.0); LYMPHOCYTES # (AUTO) 0.5 X10^3/uL (1.3-2.9); LYMPHOCYTES % (AUTO) 10.8 % (21.0-51.0); MEAN CORPUSCULAR HEMOGLOBIN 30.7 pg (27.0-34.0); MEAN CORPUSCULAR HGB CONC 34.2 g/dL (33.0-35.0); MEAN CORPUSCULAR VOLUME 89.8 fL (80.0-100.0); MEAN PLATELET VOLUME 8.9 fL (7.4-11.0); MONOCYTES # (AUTO) 0.1 x10^3/uL (0.3-0.8); MONOCYTES % (AUTO) 2.4 % (0.0-13.0); NEUTROPHILS # (AUTO) 3.8 x10^3/uL (2.2-4.8); NEUTROPHILS % (AUTO) 86.5 % (42.0-75.0); PLATELET COUNT 57 X10^3/uL (150.0-450.0); RED BLOOD COUNT 3.49 X10^6/uL (4.7-6.0); RED CELL DISTRIBUTION WIDTH 15.7 % (11.6-16.5); WHITE BLOOD COUNT 4.4 X10^3/uL (3.6-10.0)
[2021-04-25] MEDS: ACCUNEB 1.25 MG NEBULE NEB SCH ×3 (05:26→20:15)
[2021-04-25] MEDS: MUCOMYST (RESPIRATORY USE ONLY) NEB SCH ×3 (05:27→20:15)
[2021-04-25 05:30] LABS: ABG BASE EXCESS 12.7 mmol/L (-2.0-2.0); ABG HCO3 38.9 mmol/L (22-26)
[2021-04-25 05:34] LABS: ALANINE AMINOTRANSFERASE 54 Units/L (12-78); ALBUMIN 3.4 g/dL (3.4-5.0); ALKALINE PHOSPHATASE 49 Units/L (46-116); ASPARTATE AMINO TRANSFERASE 21 Units/L (15-37); BLOOD UREA NITROGEN 10 mg/dL (7-18); CALCIUM 8.1 mg/dL (8.5-10.1); CARBON DIOXIDE 34.5 mmol/L (21-32); CHLORIDE 108 mmol/L (98-107); CREATININE 0.17 mg/dL (0.70-1.30); SODIUM 147 mmol/L (136-145); TOTAL PROTEIN 5.5 g/dL (6.4-8.2); eGFR NON BLACK RACES > 60 (>60)
--- NOTE | 2021-04-25 06:23 | RAD ---
HISTORYSOB ventilatorSTUDYPortable AP [id number]/2021FINDINGSSimilar appearance of cardiomegaly with no change in position of support lines. Stable extent and distribution of bilateral airspace disease with no additional consolidation, pneumothorax or large pleural effusion demonstrated.IMPRESSIONNo significant change in appearance of bilateral pneumonia.Electronically signed by: ESTEPHANIA ROB (Apr 25, 2021 06:20:47)
[2021-04-25] MEDS: REGLAN INJ 10 MG VIAL IVP SCH ×3 (06:27→21:04)
[2021-04-25] MEDS: SOLU-Medrol 40 MG VIAL IVP SCH ×3 (06:27→21:04)
[2021-04-25] MEDS: ZOSYN VIAL 4.5 GRAMS 4.5 G in NS 100 ML IV + SPIKE MINIBAG* 100 ML IV SCH ×3 (06:27→22:00)
[2021-04-25] MEDS ORDERED: LEXAPRO ONE ×2 (08:38→19:19)
[2021-04-25] MEDS: ALBUMIN HUMAN 25%- 100 ML 100 ML IV SCH ×2 (09:13→20:16)
[2021-04-25] MEDS: DIAMOX NG SCH (09:13)
[2021-04-25] MEDS: VSL#3 PO SCH (09:14)
[2021-04-25] MEDS: THIAMINE HCL INJ IVP SCH ×2 (09:14→20:15)
[2021-04-25] MEDS: PROTONIX INJ 40 MG VIAL IVP SCH ×2 (09:15→20:15)
[2021-04-25] MEDS: PEPCID 20 MG IV PREMIX* 20 MG/50 ML BAG IV SCH ×2 (09:15→20:17)
[2021-04-25] MEDS: DIFLUCAN 200 MG IV PREMIX* 200 MG/100 ML BAG IV SCH (09:15)
[2021-04-25] MEDS: PULMICORT NEB TX 0.5 MG NEB SCH ×2 (09:15→20:15)
[2021-04-25] MEDS: ELIQUIS NG SCH ×2 (09:16→20:15)
[2021-04-25] MEDS: LEXAPRO NG SCH ×2 (09:16→20:16)
[2021-04-25] MEDS: LACRI-LUBE S.O.P. AFFEYE SCH ×2 (09:17→20:16)
--- NOTE | 2021-04-25 10:05 | PCM.PROG ---
Progress Note - Progress Note for Day of Date of Exam: 04/24/21 - Subjective Subjective: MR. MARMOLEJO WAS ADMITTED FOR TREATMENT OF COVID PNEUMONIA AND HYPOXIA. PMH: OBESITY, GERD, HTN. HE REMAINS IN THE INTENSIVE CARE UNIT ON THE MECHANICAL VENT TODAY. HE WAS PLACED ON THE VENT ON 03/28/21. HE HAD A TRACHEOSTOMY INSERTED ON 04/18. HE HAS HAD SOME PURULENT DRAINAGE AROUND TRACH. HIS VENT SETTINGS THIS MORNING ARE: A/C, RATE 30, TIDAL VOLUME 434, PEEP 12, FI02 100. HIS SATURATIONS HAVE BEEN 87-98% THROUGHOUT THE NIGHT AND THIS MORNING. ON EXAMINATION, HEART IS REGULAR IN RATE AND RHYTHM. BILATERAL LUNGS ARE NOTED WITH DIMINISHED LUNG SOUNDS THROUGHOUT. ABDOMEN IS ROUND, SOFT, AND NON-TENDER WITH NORMAL BOWEL SOUNDS NOTED IN ALL QUADRANTS. HIS VITALS THIS MORNING ARE: 98.2-83-32-89%-139/72. LABS WERE OBTAINED. ABNORMAL LAB VALUES INCLUDE THE FOLLOWING: WBC 3.1, RBC 2.78, HGB 8.6, HCT 25.0, PLT 40, CHLORIDE 108, CARBON DIOXIDE 32.1, CREATININE 0.13, GLUCOSE 117, CALCIUM 7.8, ALK PHOS 45, TOTAL PROTEIN 5.1, ALBUMIN 3.1. ABG REVEALED: PH 7.7.450, PC02 53, P02 51, HC03 36.8, 02 SAT 87, BASE EXCESS 11.0, A-A GRADIENT 596, FI02 100. CHEST XRAY WAS OBTAINED THIS MORNING AND REVEALED: Stable cardiomediastinal silhouette and support apparatus. Diffuse pulmonary opacities not significantly changed. No sizable effusion or visible pneumothorax or acute osseous finding. HE IS CU RRENTLY RECEIVING D5W WITH 20MEQ KCL, SOLU-MEDROL 40MG IV Q8H, DIAMOX 250MG PO DAILY, ALBUMIN 25% IV BID, DIFLUCAN 200MG IV DAILY, ZOSYN 4.5G IV TID, PROBIOTICS, ELIQUIS 1.25 MG PO BID, NEB TX, MUCOMYST IN NEB [place], MOPRHINE 2MG IV Q4H PRN, LEXAPRO 20MG NG TUBE BID, LABETALOL PRN, PROTONIX IV BID, REGLAN 5MG IV TID, VERSED DRIP, DIPROVAN DRIP, VERCURONIUM DRIP. HE IS RECEIVING ENTERAL FEEDINGS. DUE TO ANEMIA, WE WILL TRANSFUSE 2 UNITS PRBC TODAY. WE WILL ADMINISTER LASIX 40MG IV X 2 DOSES. OTHERWISE, WE WILL CONTINUE WITH CURRENT PLAN OF CARE. WE WILL FOLLOW UP WITH AM LABS, CHEST XRAY, ABG, AND CONTINUE TO MONITOR. WE WILL DECREASE OXYGEN HE TOLERATES IT. WE WILL CULTURE DRAINAGE FROM TRACH. WE WILL CONSULT WITH , NOTCHING MACHINE OPERATOR AT [facility] TODAY. TIME SPENT ON CLINICAL ASSESSMENT, REVIEWING LABS AND IMAGING, DECISION MAKING, AND DOCUMENTATION GREATER THAN 75 MINUTES. - Past Medical Family Social History Past Med/Fam/Surg Hx: No changes since H&P Allergies: Allergies No Allergy Information Available Allergy (Verified 03/14/21 14:24) - Review of Systems ROS: No change since H&P - Vital Signs and I&O's Vital Signs: Temperature 97.8 F Pulse Rate [Right Brachial] 61 Pulse Rate [Left Radial] 85 Pulse Rate 52 Respiratory Rate 30 Blood Pressure [Right Arm] 142/73 Blood Pressure [Left Arm] 116/63 Blood Pressure 137/74 O2 Sat by Pulse Oximetry 89 Intake and Output: Intake & Output 04/22/21 04/23/21 04/24/21 04/25/21 11:59 11:59 11:59 11:59 Intake Total 9262 / 9262 7526 / 7526 7520 / 7520 6550 / 6550 Output Total 6400 / 6400 2700 / 2700 3810 / 3810 3250 / 3250 Balance 2862 / 2862 4826 / 4826 3710 / 3710 3300 / 3300 - Physical Exam Oriented: Unable to test Eyes: Normal Ear: Normal Nose: Normal Throat: Normal Respiratory: Generalized, Diminished Cardiovascular: Edema : Normal Auscultation: Bowel Sounds: Normal Tenderness: Normal Skin: Normal Musculoskeletal: Normal Psychiatric: Other (SEDATED) Mood Description: Calm Affect: Anxious Speech Pattern: Artificially Ventilated - Laboratory and Diagnostics Result Diagrams: 04/25/21 04:30 04/25/21 04:30 Labs: 04/24/21 17:15 Trachea Wound Gram Stain - Final 04/13/21 09:45 Sputum - Endotracheal Wash Sputum Culture - Final 04/13/21 09:45 Sputum - Endotracheal Wash - Final 04/12/21 09:29 Urine,[place] Urine Culture - Final 03/14/21 16:39 Blood Blood Culture - Final 03/14/21 16:35 Blood Blood Culture - Final 03/18/21 01:03 Sputum - Expectorated Sputum Sputum Culture - Final 03/18/21 01:03 Sputum - Expectorated Sputum - Final Laboratory WBC 4.4 X10^3/uL (3.6-10.0) 04/25/21 04:30 RBC 3.49 X10^6/uL (4.7-6.0) L 04/25/21 04:30 Hgb 10.7 g/dL (13.5-18.0) L 04/25/21 04:30 Hct 31.4 % (42.0-54.0) L 04/25/21 04:30 MCV 89.8 fL (80.0-100.0) 04/25/21 04:30 MCH 30.7 pg (27.0-34.0) 04/25/21 04:30 MCHC 34.2 g/dL (33.0-35.0) 04/25/21 04:30 RDW 15.7 % (11.6-16.5) 04/25/21 04:30 Plt Count 57 X10^3/uL (150.0-450.0) L 04/25/21 04:30 Plt Count Comment Decreased (ADEQUATE) 04/24/21 04:25 MPV 8.9 fL (7.4-11.0) 04/25/21 04:30 Neut % (Auto) 86.5 % (42.0-75.0) H 04/25/21 04:30 Lymph % (Auto) 10.8 % (21.0-51.0) L 04/25/21 04:30 [place] % (Auto) 2.4 % (0.0-13.0) 04/25/21 04:30 Eos % (Auto) 0.1 % (0.9-2.9) L 04/25/21 04:30 Baso % (Auto) 0.2 % (0.2-1.0) 04/25/21 04:30 Neut # (Auto) 3.8 x10^3/uL (2.2-4.8) 04/25/21 04:30 Lymph # (Auto) 0.5 X10^3/uL (1.3-2.9) L 04/25/21 04:30 [place] # (Auto) 0.1 x10^3/uL (0.3-0.8) L 04/25/21 04:30 Eos # (Auto) 0.0 x10^3/uL (0.0-0.2) 04/25/21 04:30 Baso # (Auto) 0.0 X10^3/uL (0.0-0.1) 04/25/21 04:30 Absolute Nucleated RBC 0.2 /100WBC 04/25/21 04:30 Total Counted 100 04/22/21 04:30 Neutrophils % (Manual) 90 % (39-76) H 04/22/21 04:30 Band Neutrophils % 7 % (0-10) 04/19/21 04:50 Lymphocytes % (Manual) 8 % (13-43) L 04/22/21 04:30 Monocytes % (Manual) 2 % (4-9) L 04/22/21 04:30 Eosinophils % (Manual) 1 % (0-6) 04/05/21 05:40 Metamyelocytes % 3 04/15/21 04:27 Giant Platelets Rare 04/04/21 05:07 Plt Morphology Comment Normal (NORMAL) 04/24/21 04:25 RBC Morphology Abnormal (NORMAL) 04/24/21 04:25 Hypochromasia 1+ A 04/24/21 04:25 Anisocytosis Slight A 04/19/21 04:50 Microcytosis Slight A 04/19/21 04:50 Stomatocytes Present 04/18/21 04:54 PT 22.4 SECONDS (11.8-14.3) 04/17/21 04:54 INR Target Range - 04/17/21 04:54 INR 2.08 (0.8-1.3) H 04/17/21 04:54 APTT 26.6 SECONDS (22.9-36.5) 03/17/21 06:05 PTT Comment - 03/17/21 06:05 D-Dimer 1.28 ug/ml (0.0-0.57) H* 04/11/21 08:47 Sample Site [place] 04/25/21 05:23 ABG pH 7.450 (7.35-7.45) 04/25/21 05:23 ABG pCO2 56.0 mmHg (35.0-45.0) H* 04/25/21 05:23 ABG pO2 52.0 mmHg (80.0-100.0) L 04/25/21 05:23 ABG HCO3 38.9 mmol/L (22-26) H* 04/25/21 05:23 ABG O2 Saturation 88.0 % (90-100) L 04/25/21 05:23 ABG Base Excess 12.7 mmol/L (-2.0-2.0) H 04/25/21 05:23 Corky Test N/a 04/25/21 05:23 A-a Gradient Not Reportable 04/25/21 05:23 FiO2 100 04/25/21 05:23 Blood Gas Comments Michael well ae 04/25/21 05:23 Sodium 147 mmol/L (136-145) H 04/25/21 04:30 Corrected Sodium TNP 04/25/21 04:30 Potassium 3.2 mmol/L (3.5-5.1) L 04/25/21 04:30 Chloride 108 mmol/L (98-107) H 04/25/21 04:30 Carbon Dioxide 34.5 mmol/L (21-32) H 04/25/21 04:30 BUN 10 mg/dL (7-18) 04/25/21 04:30 Creatinine 0.17 mg/dL (0.70-1.30) L 04/25/21 04:30 Est GFR (MDRD) Af Amer > 60 (>60) 04/25/21 04:30 Est GFR (MDRD) Non-Af > 60 (>60) 04/25/21 04:30 Glucose 108 mg/dL (65-99) H 04/25/21 04:30 POC Glucose (mg/dL) 121 mg/dL (65-99) H 04/09/21 22:53 Lactic Acid 1.5 mmol/L (0.4-2.0) 04/06/21 14:14 Calcium 8.1 mg/dL (8.5-10.1) L 04/25/21 04:30 Corrected Calcium TNP 04/25/21 04:30 Phosphorus 2.0 mg/dL (2.6-4.7) L 04/12/21 04:55 Magnesium 2.4 mg/dL (1.7-2.9) 04/23/21 04:20 Ferritin 2439 ng/mL (26-388) H 04/16/21 15:50 Total Bilirubin 0.70 mg/dL (0.2-1.0) 04/25/21 04:30 AST 21 Units/L (15-37) 04/25/21 04:30 ALT 54 Units/L (12-78) 04/25/21 04:30 Alkaline Phosphatase 49 Units/L (46-116) 04/25/21 04:30 Creatine Kinase 102 Units/L (39-308) 04/22/21 01:42 CK-MB (CK-2) 5.5 ng/mL (0-4.0) H* 04/22/21 01:42 CK/CKMB % Calc 5.4 % (<4) 04/22/21 01:42 Troponin I 0.07 ng/mL (0-1.5) 04/22/21 01:42 C-Reactive Protein 3.10 mg/L (0-3.0) H 04/11/21 08:48 B-Natriuretic Peptide 268 pg/mL (0-79) H 04/22/21 04:30 Total Protein 5.5 g/dL (6.4-8.2) L 04/25/21 04:30 Albumin 3.4 g/dL (3.4-5.0) 04/25/21 04:30 Globulin 2.1 g/dL (2.5-4.5) L 04/25/21 04:30 Albumin/Globulin Ratio 1.6 Ratio (1.1-2.1) 04/25/21 04:30 Prealbumin 21.2 mg/dL (18-35.7) 04/19/21 04:50 Triglycerides 371 mg/dL (0-150) H 04/12/21 04:55 Specimen Type Catherized urine 04/12/21 09:29 Urine Color Yellow (YELLOW) 04/12/21 09:29 Urine Appearance Clear (CLEAR) 04/12/21 09:29 Urine pH 7.0 (5.0 - 8.0) 04/12/21 09:29 Ur Specific [place] 1.010 (1.000-1.030) 04/12/21 09:29 Urine Protein 2+ (NEGATIVE) 04/12/21 09:29 Urine Glucose (UA) Negative (NEGATIVE) 04/12/21 09:29 Urine Ketones Negative (NEGATIVE) 04/12/21 09:29 Urine Occult Blood Negative (NEGATIVE) 04/12/21 09:29 Urine Nitrite Negative (NEGATIVE) 04/12/21 09:29 Urine Bilirubin Negative (NEGATIVE) 04/12/21 09:29 Urine Urobilinogen 2+ (NORMAL) 04/12/21 09:29 Ur Leukocyte Esterase Negative (NEGATIVE) 04/12/21 09:29 Urine RBC 0-2 /HPF (0-3) 04/12/21 09:29 Urine WBC 0-2 /HPF (0-5) 04/12/21 09:29 Ur Squamous Epith Cells Rare /HPF (NEGATIVE) 04/12/21 09:29 Ur Renal Epithelial Cell Rare /HPF (NEGATIVE) 04/12/21 09:29 Urine Bacteria Negative /HPF (NEGATIVE) 04/12/21 09:29 Urine Mucus Few /HPF (NEGATIVE) 03/28/21 05:47 Ur Culture Indicated? No/not indicated 04/12/21 09:29 Gastric Fluid pH 3 04/13/21 09:45 Gastric Occult Blood Positive (NEGATIVE) A 04/13/21 09:45 Stl C. diff Tox B Gene Negative (NEGATIVE) 04/22/21 15:13 Stl C. diff [id number] Presumptive negative (NEGATIVE) 04/22/21 15:13 Digoxin 0.38 ng/mL (0.9-2) L 04/24/21 04:25 Blood Type O POSITIVE 04/24/21 10:00 Antibody Screen Negative 04/24/21 10:00 Crossmatch See Detail 04/24/21 10:00 - Plan (1) Pneumonia due to COVID-19 virus Status: Acute Plan: MECHANICAL VENT, D5W WITH 20MEQ KCL, SOLU-MEDROL 40MG IV Q8H, DIAMOX 250MG PO DAILY, ALBUMIN 25% IV BID, DIFLUCAN 200MG IV DAILY, ZOSYN 4.5G IV TID, PROBIOTICS, ELIQUIS 1.25 MG PO BID, NEB TX, MUCOMYST IN NEB [place], MOPRHINE 2MG IV Q4H PRN, LEXAPRO 20MG NG TUBE BID, LABETALOL PRN, PROTONIX IV BID, REGLAN 5MG IV TID, VERSED DRIP, DIPROVAN DRIP, VERCURONIUM DRIP. (2) Hypoxia Status: Acute (3) HTN (hypertension) Status: Chronic Qualifiers: Hypertension type: primary hypertension Qualified Code(s): I10 - Essential (primary) hypertension (4) GERD (gastroesophageal reflux disease) Status: Chronic Qualifiers: Esophagitis presence: esophagitis presence not specified Qualified Code(s): K21.9 - Gastro-esophageal reflux disease without esophagitis (5) Obesity Status: Chronic Qualifiers: Obesity type: unspecified obesity type Obesity classification: adult class 2 (BMI 35 - 39.9) Serious obesity comorbidity presence: unspecified whether serious comorbidity present Body mass index: BMI 36.0-36.9 Qualified Code(s): E66.9 - Obesity, unspecified; Z68.36 - Body mass index [BMI] 36.0-36.9, adult
--- NOTE | 2021-04-25 10:26 | PCM.PROG ---
Progress Note - Progress Note for Day of Date of Exam: 04/25/21 - Subjective Subjective: MR. MARMOLEJO WAS ADMITTED FOR TREATMENT OF COVID PNEUMONIA AND HYPOXIA. PMH: OBESITY, GERD, HTN. HE REMAINS IN THE INTENSIVE CARE UNIT ON THE MECHANICAL VENT TODAY. HE WAS PLACED ON THE VENT ON 03/28/21. HE HAD A TRACHEOSTOMY INSERTED ON 04/18. HE HAS HAD SOME PURULENT DRAINAGE AROUND TRACH. CULTURE WAS OBTAINED YESTERDAY. HIS VENT SETTINGS THIS MORNING ARE: A/C, RATE 30, TIDAL VOLUME 434, PEEP 12, FI02 100. HIS SATURATIONS HAVE BEEN 87-96% THROUGHOUT THE NIGHT AND THIS MORNING. ON EXAMINATION, HEART IS REGULAR IN RATE AND RHYTHM. BILATERAL LUNGS ARE NOTED WITH DIMINISHED LUNG SOUNDS THROUGHOUT. ABDOMEN IS ROUND, SOFT, AND NON-TENDER WITH NORMAL BOWEL SOUNDS NOTED IN ALL QUADRANTS. HIS VITALS THIS MORNING ARE: 97.8-67-35-87%-125/65. LABS WERE OBTAINED. ABNORMAL LAB VALUES INCLUDE THE FOLLOWING: WBC 4.4, RBC 3.49, HGB 10.7, HCT 31.4, PLT COUNT 57, SODIUM 147, POTASSIUM 3.2, CHLORIDE 108, CARBON DIOXIDE 34.5, CREATININE 0.17, GLUCOSE 108, CALCIUM 8.1, TOTAL PROTEIN 5.5. ABG REVEALED: PH 7.450, PC02 56, P02 52, HC03 38.9, 02 SAT 88, BASE EXCESS 12.7, FI02 100. CHEST XRAY WAS OBTAINED THIS MORNING AND REVEALED: No significant change in appearance of bilateral pneumonia. HE IS CURRENTLY RECEIVING D5W WITH 40MEQ KCL, SOLU-MEDROL 40MG IV Q8H, DIAMOX 250MG PO DAILY, ALBUMIN 25% IV BID, DIFLUCAN 200MG IV DAILY, ZOSYN 4.5G IV TID, PROBIOTICS, ELIQUIS 1.25 MG PO BID, NEB TX, MUCOMYST IN NEB [place], MOPRHINE 2MG IV Q4H PRN, LEXAPRO 20MG NG TUBE BID, LABETALOL PRN, PROTONIX IV BID, REGLAN 5MG IV TID, VERSED DRIP, DIPROVAN DRIP, VERCURONIUM DRIP. HE IS RECEIVING ENTERAL FEEDINGS. WE WILL ADMINISTER LASIX 40MG IV X 2 DOSES TODAY. WE CONSULTED WITH , TRAFFIC ENGINEERING TECHNICIAN FROM [facility] YESTERDAY. HE REVIEWED PATIENTS CHART AND HAS BEEN FOLLOWING PATIENTS PROGRESS PERIODICALLY. HE HAS NO FURTHER RECOMMENDATIONS AND FEELS THAT DUE TO THE PATIENT HAVING NO MEANINGFUL IMPROVEMENT IN THE PAST MONTH, THAT WE SHOULD DISCUSSING WITH FAMILY WITHDRAWAL OF SUPPORT AND PALLIATIVE CARE. WE WILL SPEAK WITH PATIENTS SPOUSE IN THE MORNING. OTHERWISE, WE WILL CONTINUE WITH CURRENT PLAN OF CARE TODAY. WE WILL FOLLOW UP WITH AM LABS, CHEST XRAY, ABG, AND CONTINUE TO MONITOR. TIME SPENT ON CLINICAL ASSESSMENT, REVIEWING LABS AND IMAGING, DECISION MAKING, AND DOCUMENTATION GREATER THAN 75 MINUTES. - Past Medical Family Social History Past Med/Fam/Surg Hx: No changes since H&P Allergies: Allergies No Allergy Information Available Allergy (Verified 03/14/21 14:24) - Review of Systems ROS: No change since H&P - Vital Signs and I&O's Vital Signs: Temperature 97.8 F Pulse Rate [Right Brachial] 61 Pulse Rate [Left Radial] 85 Pulse Rate 52 Respiratory Rate 30 Blood Pressure [Right Arm] 142/73 Blood Pressure [Left Arm] 116/63 Blood Pressure 137/74 O2 Sat by Pulse Oximetry 89 Intake and Output: Intake & Output 04/22/21 04/23/21 04/24/21 04/25/21 11:59 11:59 11:59 11:59 Intake Total 9262 / 9262 7526 / 7526 7520 / 7520 6550 / 6550 Output Total 6400 / 6400 2700 / 2700 3810 / 3810 3250 / 3250 Balance 2862 / 2862 4826 / 4826 3710 / 3710 3300 / 3300 - Physical Exam Oriented: Unable to test Eyes: Normal Ear: Normal Nose: Normal Throat: Normal Respiratory: Generalized, Diminished Cardiovascular: Edema : Normal Auscultation: Bowel Sounds: Normal Palpation: Normal Tenderness: Normal Skin: Normal Musculoskeletal: Normal Psychiatric: Other (SEDATED) Mood Description: Calm Affect: Anxious Speech Pattern: Artificially Ventilated - Laboratory and Diagnostics Result Diagrams: 04/25/21 04:30 04/25/21 04:30 Labs: 04/24/21 17:15 Trachea Wound Gram Stain - Final 04/13/21 09:45 Sputum - Endotracheal Wash Sputum Culture - Final 04/13/21 09:45 Sputum - Endotracheal Wash - Final 04/12/21 09:29 Urine,[place] Urine Culture - Final 03/14/21 16:39 Blood Blood Culture - Final 03/14/21 16:35 Blood Blood Culture - Final 03/18/21 01:03 Sputum - Expectorated Sputum Sputum Culture - Final 03/18/21 01:03 Sputum - Expectorated Sputum - Final Laboratory WBC 4.4 X10^3/uL (3.6-10.0) 04/25/21 04:30 RBC 3.49 X10^6/uL (4.7-6.0) L 04/25/21 04:30 Hgb 10.7 g/dL (13.5-18.0) L 04/25/21 04:30 Hct 31.4 % (42.0-54.0) L 04/25/21 04:30 MCV 89.8 fL (80.0-100.0) 04/25/21 04:30 MCH 30.7 pg (27.0-34.0) 04/25/21 04:30 MCHC 34.2 g/dL (33.0-35.0) 04/25/21 04:30 RDW 15.7 % (11.6-16.5) 04/25/21 04:30 Plt Count 57 X10^3/uL (150.0-450.0) L 04/25/21 04:30 Plt Count Comment Decreased (ADEQUATE) 04/24/21 04:25 MPV 8.9 fL (7.4-11.0) 04/25/21 04:30 Neut % (Auto) 86.5 % (42.0-75.0) H 04/25/21 04:30 Lymph % (Auto) 10.8 % (21.0-51.0) L 04/25/21 04:30 [place] % (Auto) 2.4 % (0.0-13.0) 04/25/21 04:30 Eos % (Auto) 0.1 % (0.9-2.9) L 04/25/21 04:30 Baso % (Auto) 0.2 % (0.2-1.0) 04/25/21 04:30 Neut # (Auto) 3.8 x10^3/uL (2.2-4.8) 04/25/21 04:30 Lymph # (Auto) 0.5 X10^3/uL (1.3-2.9) L 04/25/21 04:30 [place] # (Auto) 0.1 x10^3/uL (0.3-0.8) L 04/25/21 04:30 Eos # (Auto) 0.0 x10^3/uL (0.0-0.2) 04/25/21 04:30 Baso # (Auto) 0.0 X10^3/uL (0.0-0.1) 04/25/21 04:30 Absolute Nucleated RBC 0.2 /100WBC 04/25/21 04:30 Total Counted 100 04/22/21 04:30 Neutrophils % (Manual) 90 % (39-76) H 04/22/21 04:30 Band Neutrophils % 7 % (0-10) 04/19/21 04:50 Lymphocytes % (Manual) 8 % (13-43) L 04/22/21 04:30 Monocytes % (Manual) 2 % (4-9) L 04/22/21 04:30 Eosinophils % (Manual) 1 % (0-6) 04/05/21 05:40 Metamyelocytes % 3 04/15/21 04:27 Giant Platelets Rare 04/04/21 05:07 Plt Morphology Comment Normal (NORMAL) 04/24/21 04:25 RBC Morphology Abnormal (NORMAL) 04/24/21 04:25 Hypochromasia 1+ A 04/24/21 04:25 Anisocytosis Slight A 04/19/21 04:50 Microcytosis Slight A 04/19/21 04:50 Stomatocytes Present 04/18/21 04:54 PT 22.4 SECONDS (11.8-14.3) 04/17/21 04:54 INR Target Range - 04/17/21 04:54 INR 2.08 (0.8-1.3) H 04/17/21 04:54 APTT 26.6 SECONDS (22.9-36.5) 03/17/21 06:05 PTT Comment - 03/17/21 06:05 D-Dimer 1.28 ug/ml (0.0-0.57) H* 04/11/21 08:47 Sample Site [place] 04/25/21 05:23 ABG pH 7.450 (7.35-7.45) 04/25/21 05:23 ABG pCO2 56.0 mmHg (35.0-45.0) H* 04/25/21 05:23 ABG pO2 52.0 mmHg (80.0-100.0) L 04/25/21 05:23 ABG HCO3 38.9 mmol/L (22-26) H* 04/25/21 05:23 ABG O2 Saturation 88.0 % (90-100) L 04/25/21 05:23 ABG Base Excess 12.7 mmol/L (-2.0-2.0) H 04/25/21 05:23 Corky Test N/a 04/25/21 05:23 A-a Gradient Not Reportable 04/25/21 05:23 FiO2 100 04/25/21 05:23 Blood Gas Comments Michael well ae 04/25/21 05:23 Sodium 147 mmol/L (136-145) H 04/25/21 04:30 Corrected Sodium TNP 04/25/21 04:30 Potassium 3.2 mmol/L (3.5-5.1) L 04/25/21 04:30 Chloride 108 mmol/L (98-107) H 04/25/21 04:30 Carbon Dioxide 34.5 mmol/L (21-32) H 04/25/21 04:30 BUN 10 mg/dL (7-18) 04/25/21 04:30 Creatinine 0.17 mg/dL (0.70-1.30) L 04/25/21 04:30 Est GFR (MDRD) Af Amer > 60 (>60) 04/25/21 04:30 Est GFR (MDRD) Non-Af > 60 (>60) 04/25/21 04:30 Glucose 108 mg/dL (65-99) H 04/25/21 04:30 POC Glucose (mg/dL) 121 mg/dL (65-99) H 04/09/21 22:53 Lactic Acid 1.5 mmol/L (0.4-2.0) 04/06/21 14:14 Calcium 8.1 mg/dL (8.5-10.1) L 04/25/21 04:30 Corrected Calcium TNP 04/25/21 04:30 Phosphorus 2.0 mg/dL (2.6-4.7) L 04/12/21 04:55 Magnesium 2.4 mg/dL (1.7-2.9) 04/23/21 04:20 Ferritin 2439 ng/mL (26-388) H 04/16/21 15:50 Total Bilirubin 0.70 mg/dL (0.2-1.0) 04/25/21 04:30 AST 21 Units/L (15-37) 04/25/21 04:30 ALT 54 Units/L (12-78) 04/25/21 04:30 Alkaline Phosphatase 49 Units/L (46-116) 04/25/21 04:30 Creatine Kinase 102 Units/L (39-308) 04/22/21 01:42 CK-MB (CK-2) 5.5 ng/mL (0-4.0) H* 04/22/21 01:42 CK/CKMB % Calc 5.4 % (<4) 04/22/21 01:42 Troponin I 0.07 ng/mL (0-1.5) 04/22/21 01:42 C-Reactive Protein 3.10 mg/L (0-3.0) H 04/11/21 08:48 B-Natriuretic Peptide 268 pg/mL (0-79) H 04/22/21 04:30 Total Protein 5.5 g/dL (6.4-8.2) L 04/25/21 04:30 Albumin 3.4 g/dL (3.4-5.0) 04/25/21 04:30 Globulin 2.1 g/dL (2.5-4.5) L 04/25/21 04:30 Albumin/Globulin Ratio 1.6 Ratio (1.1-2.1) 04/25/21 04:30 Prealbumin 21.2 mg/dL (18-35.7) 04/19/21 04:50 Triglycerides 371 mg/dL (0-150) H 04/12/21 04:55 Specimen Type Catherized urine 04/12/21 09:29 Urine Color Yellow (YELLOW) 04/12/21 09:29 Urine Appearance Clear (CLEAR) 04/12/21 09:29 Urine pH 7.0 (5.0 - 8.0) 04/12/21 09:29 Ur Specific [place] 1.010 (1.000-1.030) 04/12/21 09:29 Urine Protein 2+ (NEGATIVE) 04/12/21 09:29 Urine Glucose (UA) Negative (NEGATIVE) 04/12/21 09:29 Urine Ketones Negative (NEGATIVE) 04/12/21 09:29 Urine Occult Blood Negative (NEGATIVE) 04/12/21 09:29 Urine Nitrite Negative (NEGATIVE) 04/12/21 09:29 Urine Bilirubin Negative (NEGATIVE) 04/12/21 09:29 Urine Urobilinogen 2+ (NORMAL) 04/12/21 09:29 Ur Leukocyte Esterase Negative (NEGATIVE) 04/12/21 09:29 Urine RBC 0-2 /HPF (0-3) 04/12/21 09:29 Urine WBC 0-2 /HPF (0-5) 04/12/21 09:29 Ur Squamous Epith Cells Rare /HPF (NEGATIVE) 04/12/21 09:29 Ur Renal Epithelial Cell Rare /HPF (NEGATIVE) 04/12/21 09:29 Urine Bacteria Negative /HPF (NEGATIVE) 04/12/21 09:29 Urine Mucus Few /HPF (NEGATIVE) 03/28/21 05:47 Ur Culture Indicated? No/not indicated 04/12/21 09:29 Gastric Fluid pH 3 04/13/21 09:45 Gastric Occult Blood Positive (NEGATIVE) A 04/13/21 09:45 Stl C. diff Tox B Gene Negative (NEGATIVE) 04/22/21 15:13 Stl C. diff [id number] Presumptive negative (NEGATIVE) 04/22/21 15:13 Digoxin 0.38 ng/mL (0.9-2) L 04/24/21 04:25 Blood Type O POSITIVE 04/24/21 10:00 Antibody Screen Negative 04/24/21 10:00 Crossmatch See Detail 04/24/21 10:00 - Plan (1) Pneumonia due to COVID-19 virus Status: Acute Plan: MECHANICAL VENT, D5W WITH 40MEQ KCL, SOLU-MEDROL 40MG IV Q8H, DIAMOX 250MG PO DAILY, ALBUMIN 25% IV BID, DIFLUCAN 200MG IV DAILY, ZOSYN 4.5G IV TID, PROB IOTICS, ELIQUIS 1.25 MG PO BID, NEB TX, MUCOMYST IN NEB TX, MOPRHINE 2MG IV Q4H PRN, LEXAPRO 20MG NG TUBE BID, LABETALOL PRN, PROTONIX IV BID, REGLAN 5MG IV TID, VERSED DRIP, DIPROVAN DRIP, VERCURONIUM DRIP. (2) Hypoxia Status: Acute (3) HTN (hypertension) Status: Chronic Qualifiers: Hypertension type: primary hypertension Qualified Code(s): I10 - Essential (primary) hypertension (4) GERD (gastroesophageal reflux disease) Status: Chronic Qualifiers: Esophagitis presence: esophagitis presence not specified Qualified Code(s): K21.9 - Gastro-esophageal reflux disease without esophagitis (5) Obesity Status: Chronic Qualifiers: Obesity type: unspecified obesity type Obesity classification: adult class 2 (BMI 35 - 39.9) Serious obesity comorbidity presence: unspecified whether serious comorbidity present Body mass index: BMI 36.0-36.9 Qualified Code(s): E66.9 - Obesity, unspecified; Z68.36 - Body mass index [BMI] 36.0-36.9, adult
[2021-04-25] MEDS: LASIX IVP SCH ×2 (11:42→20:16)
[2021-04-25] MEDS: COLACE SYRUP 100 MG UDC NG SCH ×2 (11:43→20:16)
[2021-04-25] MEDS: MILK OF MAGNESIA NG SCH ×2 (11:43→20:15)
[2021-04-25] MEDS: ZEMURON 100 MG VIAL 500 MG in NS 500 ML IV 450 ML IV PRN (17:06)
[2021-04-26] MEDS: DIPRIVAN PREMIX 1 GRAM IV 1,000 MG/100 ML VIAL IV PRN ×2 (01:42→03:48)
[2021-04-26 04:28] LABS: ABG BASE EXCESS 13.5 mmol/L (-2.0-2.0)
[2021-04-26 04:29] LABS: ABG HCO3 40.1 mmol/L (22-26)
[2021-04-26] MEDS: MUCOMYST (RESPIRATORY USE ONLY) NEB SCH (05:00)
[2021-04-26] MEDS: ACCUNEB 1.25 MG NEBULE NEB SCH (05:00)
[2021-04-26 05:13] LABS: BASOPHILS % (AUTO) 0.6 % (0.2-1.0); HEMATOCRIT 31.6 % (42.0-54.0); HEMOGLOBIN 10.9 g/dL (13.5-18.0); LYMPHOCYTES # (AUTO) 0.4 X10^3/uL (1.3-2.9); LYMPHOCYTES % (AUTO) 8.3 % (21.0-51.0); MEAN CORPUSCULAR HEMOGLOBIN 31.1 pg (27.0-34.0); MEAN CORPUSCULAR HGB CONC 34.6 g/dL (33.0-35.0); MEAN CORPUSCULAR VOLUME 89.9 fL (80.0-100.0); MEAN PLATELET VOLUME 8.5 fL (7.4-11.0); MONOCYTES # (AUTO) 0 x10^3/uL (0.3-0.8); MONOCYTES % (AUTO) 0.3 % (0.0-13.0); NEUTROPHILS # (AUTO) 4.4 x10^3/uL (2.2-4.8); NEUTROPHILS % (AUTO) 89.8 % (42.0-75.0); PLATELET COUNT 75 X10^3/uL (150.0-450.0); RED BLOOD COUNT 3.52 X10^6/uL (4.7-6.0); RED CELL DISTRIBUTION WIDTH 15.5 % (11.6-16.5); WHITE BLOOD COUNT 4.9 X10^3/uL (3.6-10.0)
[2021-04-26] MEDS: REGLAN INJ 10 MG VIAL IVP SCH (05:14)
[2021-04-26] MEDS: SOLU-Medrol 40 MG VIAL IVP SCH (05:15)
[2021-04-26] MEDS: ZOSYN VIAL 4.5 GRAMS 4.5 G in NS 100 ML IV + SPIKE MINIBAG* 100 ML IV SCH (05:15)
[2021-04-26 05:25] LABS: ALANINE AMINOTRANSFERASE 44 Units/L (12-78); ALBUMIN 3.4 g/dL (3.4-5.0); ALKALINE PHOSPHATASE 50 Units/L (46-116); ASPARTATE AMINO TRANSFERASE 20 Units/L (15-37); BLOOD UREA NITROGEN 13 mg/dL (7-18); CALCIUM 7.9 mg/dL (8.5-10.1); CARBON DIOXIDE 34.4 mmol/L (21-32); CHLORIDE 104 mmol/L (98-107); COR NA(FOR HYPERGLY) 145 mmol/L (136-145); CREATININE 0.25 mg/dL (0.70-1.30); SODIUM 145 mmol/L (136-145); TOTAL PROTEIN 5.5 g/dL (6.4-8.2); eGFR NON BLACK RACES > 60 (>60)
[2021-04-26 05:40] LABS: PLATELET MORPHOLOGY COMMENT NORMAL (NORMAL)
--- NOTE | 2021-04-26 06:26 | RAD ---
HISTORYSOB ventilatorSTUDYAP [id number] ent bilateral airspace disease is again noted with suggestion of slight improvement in the left lower lobe; the left diaphragm is now visualized, previously obscured. The upper lobes remain relatively clear. There is no change in position of tracheostomy or NG tube.IMPRESSIONPersistent bilateral pneumonia with slight apparent improvement in the left lower lobe component.Electronically signed by: ESTEPHANIA ROB (Apr 26, 2021 06:24:37)
[2021-04-26] MEDS ORDERED: LEXAPRO ONE (07:59)
[2021-04-26] MEDS ORDERED: MORPHINE SULFATE PCA 30 MG IVP SCH ×2 (10:00)
[2021-04-26 11:57] VITALS: BP 186/90
== END 2021-04-26 10:50 | disposition expired | DRG 177 ==
LOC: OUTPT REF 14:04 → OBS 15:29 → MED/SURG 17:24 → ICU 03-21 12:53
PROVIDERS: ADMIT Internal Medicine; ATTEND Internal Medicine
DX: R94.31 Abnormal electrocardiogram [ECG] [EKG]; I87.2 Venous insufficiency (chronic) (peripheral); J12.82 Pneumonia due to coronavirus disease 2019; K21.9 Gastro-esophageal reflux disease without esophagitis; B96.1 Klebsiella pneumoniae [K. pneumoniae] as the cause of diseases classified elsewhere; R26.89 Other abnormalities of gait and mobility; J96.01 Acute respiratory failure with hypoxia; E66.9 Obesity, unspecified; R06.02 Shortness of breath; I46.8 Cardiac arrest due to other underlying condition; E78.2 Mixed hyperlipidemia; U07.1 COVID-19; I10 Essential (primary) hypertension; Z68.36 Body mass index [BMI] 36.0-36.9, adult; R79.89 Other specified abnormal findings of blood chemistry; E11.65 Type 2 diabetes mellitus with hyperglycemia; Z66 Do not resuscitate; R79.82 Elevated C-reactive protein (CRP)